=== PATIENT | female | born 1950 | race Caucasian/White ===

== ENCOUNTER 2016-05-26 19:22 | Inpatient (IN) | payer MEDICARE, BC ==
[~2016-05-26] VITALS: Ht 165.1 cm; Wt 113.8 kg
[2016-05-26] VITALS (11 sets, daily range): BP systolic 119–212; BP diastolic 62–113; PULSE 71–111; RESP 12–32; TEMP 96.1–98.4; O2SAT 80–100
--- NOTE | 2016-05-26 20:02 | PD ---
HPI . Cardiac arrest Chief Complaint: Code Blue Time Seen by Provider: 19:20 Travel History International Travel<30 days: No Contact w/Intl Traveler<30days: No Traveled to known affect area: No History of Present Illness HPI Patient is brought to us via EVAC status post cardiac arrest. History is obtained from the medic from the [facility]. Medic reports that the patient had walked out from the track to his seat when she fell and struck her head. He was immediately available to assist her and found her to be in the. She was defibrillated once to sinus tachycardia. She has had a pulse and blood pressure since that time. She struck her head when she had the syncopal event associated with the CODE BLUE. She was combative with EMS. The medic noted a left-sided gaze. The patient is from [place]. No further history is available at this time. [facility] Past Medical History Medical History: Unable to Obtain Tetanus Vaccination: Unknown ?: Unknown Past Surgical History Surgical History: Unable to Obtain Social History Alcohol Use: No (UNABLE TO OBTAIN .) Tobacco Use: No (UNABLE TO OBTAIN .) Substance Use: No (UNABLE TO OBTAIN .) Allergies-Medications (Allergen,Severity, Reaction): Coded Allergies: UNOBTAINABLE (Unverified , 05/26/16) Reported Meds & Prescriptions Reported Meds & Active Scripts Active Active Prescriptions or Reported Medications Unobtainable Review of Systems ROS Limitations: Intubated, Altered Mental Status Physical Exam Exam Limitations: Clinical Condition, Altered Mental Status Narrative GENERAL: Obese woman who is moaning incomprehensibly. She is moving all 4 extremities. She has a disconjugate gaze. She is grabbing for medical devices such as C collar and oxygen mass. SKIN: Warm and dry. HEAD: Contusion right occiput EYES: Pupils equal and 3 mm. ENT: No nasal bleeding or discharge. Mucous membranes pink and moist. NECK: Trachea midline. CARDIOVASCULAR: Regular rate and rhythm. RESPIRATORY: She does have spontaneous respirations. However, her respirations were not felt to be adequate. GASTROINTESTINAL: Abdomen soft, non-tender, nondistended. MUSCULOSKELETAL: No obvious deformities. No edema. NEUROLOGICAL: She is moving all 4 extremities equally but not purposefully. No spontaneous eye opening. Moaning verbal response. PSYCHIATRIC: Appropriate mood and affect; insight and judgment normal. Data Data Last Documented VS Vital Signs Date Time Temp Pulse Resp B/P Pulse Ox O2 Delivery O2 Flow Rate FiO2 05/26/16 20:51 82 18 119/62 100 Ventilator 05/26/16 19:55 100 Orders Complete Blood Count With Diff (05/26/16 19:37) Basic Metabolic Panel (Bmp) (05/26/16 19:37) Electrocardiogram (05/26/16 19:37) B-Type Natriuretic Peptide (05/26/16 19:37) Ckmb (Isoenzyme) Profile (05/26/16 19:37) Comprehensive Metabolic Panel (05/26/16 19:37) D-Dimer (05/26/16 19:37) Magnesium (Mg) (05/26/16 19:37) Prothrombin Time / Inr (Pt) (05/26/16 19:37) Act Partial Throm Time (Ptt) (05/26/16 19:37) Troponin I (05/26/16 19:37) Chest, Single Ap (05/26/16 19:37) Ecg Monitoring (05/26/16 19:37) Bilateral Bp Monitoring (05/26/16 19:37) Iv Access Insert/Monitor (05/26/16 19:37) Oximetry (05/26/16 19:37) Oxygen Administration (05/26/16 19:37) Ct Brain W/O Iv Contrast(Rout) (05/26/16 ) I-Stat Creatinine (05/26/16 19:37) I-Stat Profile (05/26/16 19:37) Ct Cerv Spine W/O Contrast (05/26/16 19:37) Troponin I (05/26/16 20:07) Ckmb (Isoenzyme) Profile (05/26/16 20:07) I-Stat Profile (05/26/16 20:07) I-Stat Creatinine (05/26/16 20:07) Calcium (05/26/16 20:07) Magnesium (Mg) (05/26/16 20:07) Act Partial Throm Time (Ptt) (05/26/16 20:07) B-Type Natriuretic Peptide (05/26/16 20:07) Sodium Chlor 0.9% 1000 Ml Inj (Ns 1000 M (05/26/16 20:07) Sodium Chloride 0.9% Flush (Ns Flush) (05/26/16 20:15) Nitroglycerin-Dextrose Inj (Nitroglyceri (05/26/16 20:15) Lorazepam Inj (Ativan Inj) (05/26/16 20:15) Propofol 1000 Mg/100 Ml Inj (Diprivan 10 (05/26/16 20:15) Etomidate Inj (Amidate Inj) (05/26/16 20:15) Succinylcholine Inj (Quelicin Inj) (05/26/16 20:15) Urinary Catheter Insert/Apply (05/26/16 20:09) Le-Gastric Tube Insert/Mon (05/26/16 20:09) Restraints Non-Violent YEN.Q3H (05/26/16 20:09) CKMB (05/26/16 19:37) CKMB% (05/26/16 19:37) Ct Pulmonary Angiogram (05/26/16 20:51) Labs Laboratory Tests Test 05/26/16 19:37 White Blood Count 13.9 TH/MM3 Red Blood Count 4.96 MIL/MM3 Hemoglobin 14.5 GM/DL Bedside Hemoglobin 15.3 G/DL Hematocrit 44.2 % Bedside Hematocrit 45.0 % Mean Corpuscular Volume 89.3 FL Mean Corpuscular Hemoglobin 29.3 PG Mean Corpuscular Hemoglobin 32.9 % Concent Red Cell Distribution Width 14.1 % Platelet Count 281 TH/MM3 Mean Platelet Volume 10.1 FL Neutrophils (%) (Auto) 53.3 % Lymphocytes (%) (Auto) 37.1 % Monocytes (%) (Auto) 7.2 % Eosinophils (%) (Auto) 1.7 % Basophils (%) (Auto) 0.7 % Neutrophils # (Auto) 7.4 TH/MM3 Lymphocytes # (Auto) 5.2 TH/MM3 Monocytes # (Auto) 1.0 TH/MM3 Eosinophils # (Auto) 0.2 TH/MM3 Basophils # (Auto) 0.1 TH/MM3 CBC Comment AUTO DIFF Prothrombin Time 10.9 SEC Prothromb Time International 1.0 RATIO Ratio Activated Partial 22.6 SEC Thromboplast Time D-Dimer Quantitative (PE/DVT) 6.44 MG/L FEU Bedside Sodium 144 MMOL/L Sodium Level 143 MEQ/L Bedside Potassium 4.2 MMOL/L Potassium Level 4.1 MEQ/L Bedside Chloride 111 MMOL/L Chloride Level 110 MEQ/L Carbon Dioxide Level 21.7 MEQ/L Anion Gap 11 MEQ/L Bedside Blood Urea Nitrogen 28 MG/DL Blood Urea Nitrogen 23 MG/DL Creatinine 1.17 MG/DL Bedside Creatinine 1.1 MG/DL Estimat Glomerular Filtration 46 ML/MIN Rate Bedside Glucose 149 MG/DL Random Glucose 148 MG/DL Calcium Level 8.7 MG/DL Magnesium Level 2.1 MG/DL Total Bilirubin 0.4 MG/DL Aspartate Amino Transf 220 U/L (AST/SGOT) Alanine Aminotransferase 234 U/L (ALT/SGPT) Alkaline Phosphatase 104 U/L Total Creatine Kinase 190 U/L Creatine Kinase MB 4.3 NG/ML Troponin I 0.03 NG/ML Total Protein 7.5 GM/DL Albumin 3.5 GM/DL [facility] Medical Decision Making Medical Screen Exam Complete: Yes Emergency Medical Condition: Yes Interpretation(s) EKG shows ST segment elevation in aVR with reciprocal ST segment depression in leads I, II, and V2-V6. Differential Diagnosis Differential diagnosis of altered mental status includes but is not limited to infection, electrolyte abnormality, neurological event, intoxication, ACS Narrative Course Patient presents to us s/p a cardiac arrest with successful resuscitation with a single defibrillation very shortly after arrest. She did strike her head as a result of the arrest. Therefore, she possibly has a closed head injury as well. EKG shows a STEMI. STEMI alert has been called. She has been sent to CT for emergent CT of head and neck. Critical Care Narrative Aggregate critical care time was minutes. Time to perform other separately billable procedures was not included in the critical care time. My time did not include minutes spent treating any other patients simultaneously or on activities that did not directly contribute to the patient's treatment. The services I provided to this patient were to treat and/or prevent clinically significant deterioration due to cardiac arrest and head injury. I provided critical care services requiring my management, as noted below: Chart data review, documentation time, medication orders and management, vital sign assessments/reviewing monitor data, ordering and reviewing lab tests, ordering and interpreting/reviewing x-rays and diagnostic studies, care of the patient and discussion of the patient with the admitting physicians Physician Communication Physician Communication Dr. Barker will be en route for probable cath. Dr. Wagner will see the patient for admission to CCU. Diagnosis Primary Impression: Cardiac arrest Additional Impression: Closed head injury Qualified Code: S09.90XA - Closed head injury, initial encounter Admitting Information Admitting Physician Requests: Admit Scripts Unable to Obtain Active Prescriptions or Reported Meds Condition: Critical Luz Maria Peters MD May 26, 2016 20:02
[2016-05-26 20:07] LABS: I-STAT POTASSIUM 4.2 MMOL/L (3.5-4.9)
[2016-05-26] MEDS ORDERED: SODIUM CHLOR 0.9% 1000 ML INJ 1,000 ML IV ONE (20:07)
--- NOTE | 2016-05-26 20:09 | RADRPT ---
EXAM DATE/TIME: 05/26/2016 19:37 [facility] COMPARISON: No previous studies available for comparison. INDICATIONS : Status Post Intubation, OG Tube Placement. MEDICAL HISTORY : Unobtainable. SURGICAL HISTORY : Unobtainable. ENCOUNTER: Initial ACUITY: 1 day PAIN SCORE: Non-responsive. LOCATION: Bilateral chest FINDINGS: Patient demonstrates an ET tube terminating above the deirdre nasogastric tube is midline the stomach. There is groundglass airspace disease predominating in the upper lobes consistent with infiltrates p ossibility of pulmonary vascular congestion not excludable. There is no consolidation. CONCLUSION: ET tube of the deirdre. Ground glass opacities are dominating in the upper lobes. Maximiliano Potts MD on May 26, 2016 at 20:07 Board Certified Radiologist. This report was verified electronically.
[2016-05-26 20:10] LABS: AUTOMATED NEUTROPHIL # 7.4 TH/MM3 (1.8-7.7); BASOPHIL # 0.1 TH/MM3 (0-0.2); BASOPHIL % 0.7 % (0.0-2.0); EOSINOPHIL # 0.2 TH/MM3 (0-0.4); EOSINOPHIL % 1.7 % (0.0-4.0); HEMATOCRIT 44.2 % (35.0-46.0); LYMPH % 37.1 % (9.0-44.0); LYMPHOCYTE # 5.2 TH/MM3 (1.0-4.8); MEAN CELL VOLUME 89.3 FL (80.0-100.0); MEAN CORPUSCULAR HEMOGLOBIN 29.3 PG (27.0-34.0); MEAN CORPUSCULAR HGB CONC 32.9 % (32.0-36.0); MONO % 7.2 % (0.0-8.0); NEUT % 53.3 % (16.0-70.0); PLATELET COUNT 281 TH/MM3 (150-450); RED BLOOD COUNT 4.96 MIL/MM3 (4.00-5.30); RED CELL DISTRIBUTION WIDTH 14.1 % (11.6-17.2); WHITE BLOOD COUNT 13.9 TH/MM3 (4.0-11.0)
[2016-05-26] MEDS ORDERED: ETOMIDATE 20 MG/10 ML VIAL IV PUSH ONE (20:15)
[2016-05-26] MEDS ORDERED: NITROGLYCERIN-DEXTROSE INJ 250 ML IV SCH (20:15)
[2016-05-26] MEDS ORDERED: PROPOFOL 1000 MG/100 ML BTL IV PRN (20:15)
[2016-05-26] MEDS ORDERED: SODIUM CHLORIDE 0.9% FLUSH 5 ML FLUSH IVF PRN (20:15)
[2016-05-26] MEDS ORDERED: LORazepam 2 MG/ML VIAL IV PUSH ONE (20:15)
[2016-05-26] MEDS ORDERED: SUCCINYLCHOLINE CHLORIDE 200 MG/10 ML VIAL IM ONE (20:15)
--- NOTE | 2016-05-26 20:16 | RADRPT ---
EXAM DATE/TIME: 05/26/2016 20:08 [facility] COMPARISON: CHEST SINGLE AP, May 26, 2016, 19:37. INDICATIONS : Trauma, fall from standing. RADIATION DOSE: 61.33 CTDIvol (mGy) MEDICAL HISTORY : Non-responsive. SURGICAL HISTORY : Non-responsive. ENCOUNTER: Initial ACUITY: 1 day PAIN SCALE: Non-responsive LOCATION: cranial TECHNIQUE: Multiple contiguous axial images were obtained of the head. Using automated exposure control and adj ustment of the mA and/or kV according to patient size, radiation dose was kept as low as reasonably a chievable to obtain optimal diagnostic quality images. FINDINGS: CEREBRUM: The ventricles are normal for age. No evidence of midline shift, mass lesion, hemorrhage or acute in farction. No extra-axial fluid collections are seen. POSTERIOR FOSSA: The cerebellum and brainstem are intact. The 4th ventricle is midline. The cerebellopontine angle i s unremarkable. EXTRACRANIAL: The visualized portion of the orbits is intact. Vascular calcifications internal carotids and the sip hon and vertebral is at the foramen. SKULL: The calvaria is intact. No evidence of skull fracture. CONCLUSION: Normal examination for a patient of this age. Maximiliano Potts MD on May 26, 2016 at 20:13 Board Certified Radiologist. This report was verified electronically.
[2016-05-26 20:20] LABS: HEMO FLAGS AUTO DIFF
[2016-05-26 20:28] LABS: ANION GAP 11 MEQ/L (5-15); AST (GOT) 220 U/L (15-37); BICARBONATE 21.7 MEQ/L (21.0-32.0); BLOOD UREA NITROGEN 23 MG/DL (7-18); CHLORIDE 110 MEQ/L (98-107); GLOMERULAR FILTRATION RATE 46 ML/MIN (>89); MAGNESIUM 2.1 MG/DL (1.5-2.5); POTASSIUM 4.1 MEQ/L (3.5-5.1); SODIUM (NA) 143 MEQ/L (136-145)
[2016-05-26 20:29] LABS: APTT (PATIENT) 22.6 SEC (24.3-30.1); PROTHROMBIN TIME - PATIENT 10.9 SEC (9.8-11.6)
[2016-05-26 20:32] LABS: ALKALINE PHOSPHATASE 104 U/L (45-117); ALT (GPT) 234 U/L (10-53); CREATINE KINASE 190 U/L (26-192); TOTAL BILIRUBIN ADULT 0.4 MG/DL (0.2-1.0)
--- NOTE | 2016-05-26 20:40 | RADRPT ---
EXAM DATE/TIME: 05/26/2016 20:08 [facility] COMPARISON: No previous studies available for comparison. INDICATIONS : Trauma, fall from standing. RADIATION DOSE: 25.03 CTDIvol (mGy) MEDICAL HISTORY : Non-responsive. SURGICAL HISTORY : Non-responsive. ENCOUNTER: Initial ACUITY: 1 day PAIN SCALE: Non-responsive LOCATION: neck TECHNIQUE: Volumetric scanning of the cervical spine was performed. Multiplanar reconstructions in the sagittal, coronal and oblique axial planes were performed. Using automated exposure control and adjustment o f the mA and/or kV according to patient size, radiation dose was kept as low as reasonably achievable to obtain optimal diagnostic quality images. FINDINGS: Patient demonstrates multilevel degenerative changes C3-7 there is disc space and anterior marginal s pur of an uncovertebral hypertrophy with central osteophyte disc complexes at multiple levels without neural foraminal encroachment or significant spinal stenosis. Alignment is normal without fracture, compression, subluxation, or destructive change. CONCLUSION: No acute bony injury. Extensive degenerative changes. Maximiliano Potts MD on May 26, 2016 at 20:36 Board Certified Radiologist. This report was verified electronically.
[2016-05-26 20:45] LABS: CKMB 4.3 NG/ML (0.5-3.6)
[2016-05-26 20:57] LABS: BASOPHILS 2 % (0-2); METAMYELOCYTES 1 % (0-1); MYELOCYTES 3 % (0-0); NEUTROPHIL # MANUAL DIFF 7.5 TH/MM3 (1.8-7.7); POLYS (SEG NEUTROPHILS) 50 % (16-70); WBC DIFF SAMPLE 100
[2016-05-26 20:58] LABS: PLATELET ESTIMATE SMEAR NORMAL (NORMAL); PLATELET MORPHOLOGY NORMAL (NORMAL); SCAN/DIFF FINAL DIFF MANUAL
[2016-05-26 21:13] LABS: BLOOD GAS CARBOXYHEMOGLOBIN 1.4 % (0-4); BLOOD GAS HCO3 22 mmol/L (22-26); BLOOD GAS METHEMOGLOBIN 2.1 % (0-2); BLOOD GAS O2 HGB SATURATION 96 % (90-100); BLOOD GAS OXYGEN CONTENT 19.3 Vol % (12.0-20.0); BLOOD GAS PCO2 39 mmHg (38-42); BLOOD GAS PO2 231 mmHG (61-120); CRITICAL VALUE NO; OXYGEN DEVICE VENTILATOR; TEMP CORR TO 98.6
[2016-05-26 21:14] LABS: DRAW SITE RT RADIAL; FIO2 100 %; NUMBER OF ARTERIAL PUNCTURES 1; STAT YES; ULNAR PULSE PRESENT
--- NOTE | 2016-05-26 21:14 | HHI.HP ---
HPI Service Critical Care Medicine Primary Care Physician Unknown Admission Diagnosis s/p cardiac arrest Diagnosis: Travel History International Travel<30 Days: No Contact w/Intl Traveler <30 Da: No Traveled to Known Affected Are: No History of Present Illness 66-year-old female brought via EVAC status post cardiac arrest. History is obtained from the chart. The patient had walked out from the track to her seat when she fell and struck her head. The resuscitation was immediately available as she was found to be at the V. fib arrest. She was defibrillated once to sinus tachycardia. She has had a pulse and blood pressure since that time. She was combative with EMS. The medic noted a left-sided gaze which I do not appreciate during my exam. Review of Systems ROS Unable to obtain patient is sedated and intubated Past Family Social History Allergies: Coded Allergies: UNOBTAINABLE (Unverified , 05/26/16) Past Medical History Unable to obtain patient's sedated and intubated Past Surgical History Unable to obtain patient's sedated and intubated Reported Medications Unable to obtain patient's sedated and intubated Active Ordered Medications Current Medications Medications (Trade) Dose Ordered Sig/Jules Route PRN Reason Start Time Stop Time Status Last Admin Dose Admin Sodium Chloride (NS 1000 ml Inj) 1,000 ml @ 84 mls/hr [id number] IV 05/26/16 21:08 IV Flush (NS Flush) 2 ml UNSCH PRN IV FLUSH FLUSH AFTER USING IV ACCESS 05/26/16 21:15 IV Flush (NS Flush) 2 ml BID IV FLUSH 05/27/16 09:00 Acetaminophen (Tylenol) 650 mg Q6H PRN PO PAIN 1-5 AND/OR FEVER >101F 05/26/16 21:15 Morphine Sulfate (Morphine Inj) 2 mg Q2H PRN IV PAIN SCALE 6 TO 10 05/26/16 21:15 Famotidine (Pepcid Inj) 10 mg Q12HR IV PUSH 05/27/16 09:00 Lorazepam (Ativan Inj) 2 mg Q4H PRN IV Agitation/Sedation 05/26/16 21:15 Artificial Tears (Tears Naturale Opth Soln) 1 drop TID EACH EYE 05/27/16 09:00 Ondansetron HCl (Zofran Inj) 4 mg Q6H PRN IV NAUSEA OR VOMITING 05/26/16 21:15 Metoclopramide HCl (Reglan Inj) 10 mg Q6H PRN IV NAUSEA OR VOMITING 05/26/16 21:15 Docusate Sodium (Colace Liq) 100 mg Q12HR G-TUBE 05/26/16 21:15 Miscellaneous Information 1 [id number] XX 05/26/16 21:15 Chlorhexidine Gluconate (Chlorhexidine 2% Cloth) 3 pack Taper DAILY@04 TOP 05/27/16 04:00 05/23/17 03:59 Chlorhexidine Gluconate 3 pack 3 pack UNSCH PRN TOP HYGIENIC CARE 05/26/16 21:15 Propofol (Diprivan 1000 Mg/100ml Inj) 100 ml @ 0 mls/hr TITRATE IV 05/26/16 21:15 05/26/16 22:05 Protein 2 pack 2 pack TID G-TUBE 05/27/16 09:00 Lidocaine HCl/ Dextrose (Lidocaine/D5W Inj) 500 ml @ 30 mls/hr [id number] IV 05/26/16 21:14 Aspirin (Aspirin Chew) 81 mg DAILY TUBE 05/27/16 09:00 Family History Unable to obtain patient's sedated and intubated Social History Unable to obtain patient's sedated and intubated Physical Exam Vital Signs Vital Signs Date Time Temp Pulse Resp B/P Pulse Ox O2 Delivery O2 Flow Rate FiO2 05/26/16 20:51 82 18 119/62 100 Ventilator 05/26/16 20:08 93 18 166/95 100 Ventilator 05/26/16 19:55 100 100 05/26/16 19:41 97 Ventilator 05/26/16 19:41 193/100 212/113 05/26/16 19:41 97 05/26/16 19:35 100 05/26/16 19:26 96.1 111 32 170/98 80 Physical Exam GENERAL: Well-nourished, well-developed patient. Sedated and intubated SKIN: Warm and dry. HEAD: Normocephalic. EYES: No scleral icterus. No injection or drainage. NECK: Supple, trachea midline. No JVD or lymphadenopathy. CARDIOVASCULAR: Regular rate and rhythm without murmurs, gallops, or rubs. RESPIRATORY: Breath sounds equal bilaterally. No accessory muscle use. GASTROINTESTINAL: Abdomen soft, non-tender, nondistended. MUSCULOSKELETAL: No cyanosis, or edema. BACK: Nontender without obvious deformity. No CVA tenderness. Laboratory Laboratory Tests Test 05/26/16 19:37 White Blood Count 13.9 Red Blood Count 4.96 Hemoglobin 14.5 Bedside Hemoglobin 15.3 Hematocrit 44.2 Bedside Hematocrit 45.0 Mean Corpuscular Volume 89.3 Mean Corpuscular Hemoglobin 29.3 Mean Corpuscular Hemoglobin 32.9 Concent Red Cell Distribution Width 14.1 Platelet Count 281 Mean Platelet Volume 10.1 Neutrophils (%) (Auto) 53.3 Lymphocytes (%) (Auto) 37.1 Monocytes (%) (Auto) 7.2 Eosinophils (%) (Auto) 1.7 Basophils (%) (Auto) 0.7 Neutrophils # (Auto) 7.4 Lymphocytes # (Auto) 5.2 Monocytes # (Auto) 1.0 Eosinophils # (Auto) 0.2 Basophils # (Auto) 0.1 CBC Comment AUTO DIFF Differential Total Cells 100 Counted Neutrophils % (Manual) 50 Lymphocytes % 39 Monocytes % 5 Basophils % 2 Neutrophils # (Manual) 7.5 Metamyelocytes 1 Myelocytes 3 Differential Comment FINAL DIFF MANUAL Platelet Estimate NORMAL Platelet Morphology Comment NORMAL Red Cell Morphology Comment NORMAL Prothrombin Time 10.9 Prothromb Time International 1.0 Ratio Activated Partial 22.6 Thromboplast Time D-Dimer Quantitative (PE/DVT) 6.44 Bedside Sodium 144 Sodium Level 143 Bedside Potassium 4.2 Potassium Level 4.1 Bedside Chloride 111 Chloride Level 110 Carbon Dioxide Level 21.7 Anion Gap 11 Bedside Blood Urea Nitrogen 28 Blood Urea Nitrogen 23 Creatinine 1.17 Bedside Creatinine 1.1 Estimat Glomerular Filtration 46 Rate Bedside Glucose 149 Random Glucose 148 Calcium Level 8.7 Magnesium Level 2.1 Total Bilirubin 0.4 Aspartate Amino Transf 220 (AST/SGOT) Alanine Aminotransferase 234 (ALT/SGPT) Alkaline Phosphatase 104 Total Creatine Kinase 190 Creatine Kinase MB 4.3 Troponin I 0.03 Total Protein 7.5 Albumin 3.5 Result Diagram: 05/26/16193605/26/161936 Imaging Last 24 hours Impressions Chest X-Ray 05/26/161936 Signed Impressions: Service Date/Time: May 19:37 - CONCLUSION: ET tube of the deirdre. Ground glass opacities are dominating in the upper lobes. Maximiliano Potts MD Cervical Spine CT 05/26/161936 Signed Impressions: Service Date/Time: May 20:08 - CONCLUSION: No acute bony injury. Extensive degenerative changes. Maximiliano Potts MD Head CT 05/26/16 0000 Signed Impressions: Service Date/Time: May 20:08 - CONCLUSION: Normal examination for a patient of this age. Maximiliano Potts MD Assessment and Plan Problem List: (1) Cardiac arrest ICD Code: I46.9 Status: Acute (2) Closed head injury ICD Code: S09.90XA Status: Acute (3) STEMI (ST elevation myocardial infarction) ICD Code: I21.3 Status: Acute Assessment and Plan Respiratory failure - Patient is intubated for an airway protection - Due to altered mental status post cardiac arrest - No weaning until neurologically improved Cardiac arrest - V. fib arrest - IVY -aVR suggesting severe disease of the left main coronary or proximal LAD - Heparin drip, lidocaine drip, cardiac catheterization per cardiology if neurologically improves - Not a candidate for hypothermia protocol due to GCS above 8 Dyslipidemia - High-dose statin DVT GI prophylaxis - Heparin drip, Pepcid Critical Care: The total critical care time was 35 minutes. Time to perform other separately billable procedures was not included in the critical care time. Problem Qualifiers (1) Closed head injury: Qualified Code: S09.90XA - Closed head injury, initial encounter (2) STEMI (ST elevation myocardial infarction): Qualified Code: I21.3 - ST elevation myocardial infarction (STEMI), unspecified artery Gilbert Wagner MD May 26, 2016 21:14
[2016-05-26] MEDS: DOCUSATE SODIUM 100 MG/10 ML UDC G-TUBE SCH (21:15)
[2016-05-26] MEDS ORDERED: CHLORHEXIDINE GLUCONATE 2 % 1 PACK (2 CLOTHS) TOP PRN (21:15)
[2016-05-26] MEDS ORDERED: METOCLOPRAMIDE HCL 10 MG/2 ML VIAL IV PRN (21:15)
[2016-05-26] MEDS ORDERED: ACETAMINOPHEN 325 MG TAB PO PRN (21:15)
[2016-05-26] MEDS ORDERED: MISCELLANEOUS NURSING INFORMATION XX SCH (21:15)
[2016-05-26] MEDS ORDERED: SODIUM CHLORIDE 0.9% FLUSH 5 ML FLUSH IV FLUSH PRN (21:15)
[2016-05-26] MEDS ORDERED: LORazepam 2 MG/ML VIAL IV PRN (21:15)
[2016-05-26] MEDS ORDERED: ONDANSETRON HCL 4 MG/2 ML VIAL IV PRN (21:15)
[2016-05-26] MEDS ORDERED: MORPHINE SULFATE 4 MG/ML INJ IV PRN (21:15)
[2016-05-26] MEDS: PROPOFOL 1000 MG/100 ML INJ 100 ML IV SCH (22:05)
[2016-05-26] MEDS: LIDOCAINE/D5W INJ 500 ML IV SCH (22:16)
[2016-05-26] MEDS: SODIUM CHLOR 0.9% 1000 ML INJ 1,000 ML IV SCH (22:19)
[2016-05-26 22:27] LABS: BACTERIA, URINE OCC /hpf; BLOOD, URINE TRACE (NEG); COMMENT (UR) CATH-CULTURE IND; CULTURE IF INDICATED CATH CULTURE IND; GLUCOSE,URINE NEG (NEG); HYALINE CAST, URINE 1 /lpf (RARE); KETONE, URINE TRACE mg/dL (NEG); MUCUS URINE FEW /lpf (OCC); NITRITE,URINE NEG (NEG); PH, URINE 5.5 (5.0-8.5); SQUAMOUS EPITHELIAL CELL URINE <1 /hpf (0-5); URINE COLOR YELLOW (YELLW/STRAW)
[2016-05-26 22:30] LABS: MAGNESIUM 2.1 MG/DL (1.5-2.5)
[2016-05-26] MEDS ORDERED: HEPARIN-D5W INJ 250 ML IV SCH (22:30)
[2016-05-26] MEDS ORDERED: IOHEXOL 350 MG/ML 10 ML VIAL (for RAD DIAG) IV ONE (23:29)
--- NOTE | 2016-05-26 23:42 | RADRPT ---
EXAM DATE/TIME: 05/26/2016 23:08 [facility] COMPARISON: No previous studies available for comparison. INDICATIONS : Unresponsive. Shortness of breath. IV CONTRAST: 75 cc Omnipaque 350 (iohexol) IV RADIATION DOSE: 26.06 CTDIvol (mGy) MEDICAL HISTORY : Non-responsive. SURGICAL HISTORY : Non-responsive. ENCOUNTER: Initial ACUITY: 1 day PAIN SCALE: Non-responsive LOCATION: chest TECHNIQUE: Volumetric scanning of the chest was performed using a pulmonary embolism protocol MIP images were re constructed. Using automated exposure control and adjustment of the mA and/or kV according to patien t size, radiation dose was kept as low as reasonably achievable to obtain optimal diagnostic quality images. FINDINGS: There is dense consolidation within both lower lobes greatest at the lung bases. There is patchy left upper lobe infiltrate as well as right upper lobe infiltrate posteriorly. There is no adenopathy. No pleural or pericardial effusions. NG tube in place. Endotracheal tube in place. No evidence for pulm onary embolism. There are degenerative changes of the spine seen. CONCLUSION: Bilateral pulmonary consolidation without evidence for pulmonary embolism. Miguel Styles MD on May 26, 2016 at 23:39 Board Certified Radiologist. This report was verified electronically.
[2016-05-27] VITALS (13 sets, daily range): BP systolic 113–163; BP diastolic 56–78; PULSE 55–66; RESP 16–21; TEMP 98.2–99.5; O2SAT 96–100
[2016-05-27] MEDS: CHLORHEXIDINE GLUCONATE 2 % 1 PACK (2 CLOTHS) TOP SCH (00:03)
[2016-05-27] MEDS: PROPOFOL 1000 MG/100 ML INJ 100 ML IV SCH ×9 (00:59→20:45)
[2016-05-27] MEDS ORDERED: HEPARIN SODIUM - IV 10,000 UNITS/10 ML VIAL IV PRN ×2 (04:30)
[2016-05-27 05:46] LABS: ALKALINE PHOSPHATASE 71 U/L (45-117); ANION GAP 8 MEQ/L (5-15); AST (GOT) 174 U/L (15-37); BICARBONATE 23.6 MEQ/L (21.0-32.0); BLOOD UREA NITROGEN 18 MG/DL (7-18); CHLORIDE 108 MEQ/L (98-107); POTASSIUM 4.9 MEQ/L (3.5-5.1); SODIUM (NA) 140 MEQ/L (136-145); TOTAL BILIRUBIN ADULT 0.5 MG/DL (0.2-1.0)
[2016-05-27 06:04] LABS: GLOMERULAR FILTRATION RATE 492 ML/MIN (>89)
[2016-05-27 06:14] LABS: ALT (GPT) 193 U/L (10-53)
[2016-05-27] MEDS: RESP: ALBUTEROL 2.5 MG/IPRATROPIUM 0.5 MG NEB (PRN) INH ×3 (08:08→22:55)
[2016-05-27] MEDS: ASPIRIN 81 MG CHEW TAB TUBE SCH (09:00)
[2016-05-27] MEDS: DOCUSATE SODIUM 100 MG/10 ML UDC G-TUBE SCH ×2 (09:00→21:00)
[2016-05-27] MEDS ORDERED: SODIUM CHLORIDE 0.9% FLUSH 5 ML FLUSH IV FLUSH SCH (09:00)
[2016-05-27] MEDS: BENEPROTEIN POWDER 1 PACK G-TUBE SCH ×3 (09:00→18:00)
[2016-05-27] MEDS: ARTIFICIAL TEARS OPTH SOLN 15 ML BTL EACH EYE SCH ×3 (09:00→20:04)
--- NOTE | 2016-05-27 09:04 | PD.CARD.PN ---
Subjective Subjective Remarks No events over night, no arrhythmias on telemetry Objective Medications Current Medications Medications (Trade) Dose Ordered Sig/Jules Route Start Time Stop Time Status Last Admin (NS 1000 ml Inj) 1,000 ml @ 84 mls/hr [id number] IV 05/26/16 21:08 05/26/16 22:19 (NS Flush) 2 ml UNSCH PRN IV FLUSH 05/26/16 21:15 (NS Flush) 2 ml BID IV FLUSH 05/27/16 09:00 (Tylenol) 650 mg Q6H PRN PO 05/26/16 21:15 (Morphine Inj) 2 mg Q2H PRN IV 05/26/16 21:15 (Pepcid Inj) 10 mg Q12HR IV PUSH 05/27/16 09:00 (Ativan Inj) 2 mg Q4H PRN IV 05/26/16 21:15 (Tears Naturale Opth Soln) 1 drop TID EACH EYE 05/27/16 09:00 (Zofran Inj) 4 mg Q6H PRN IV 05/26/16 21:15 (Reglan Inj) 10 mg Q6H PRN IV 05/26/16 21:15 (Colace Liq) 100 mg Q12HR G-TUBE 05/26/16 21:15 Miscellaneous Information 1 [id number] XX 05/26/16 21:15 (Chlorhexidine 2% Cloth) 3 pack Taper DAILY@04 TOP 05/27/16 04:00 05/23/17 03:59 05/27/16 00:03 Chlorhexidine Gluconate 3 pack 3 pack UNSCH PRN TOP 05/26/16 21:15 (Diprivan 1000 Mg/100ml Inj) 100 ml @ 0 mls/hr TITRATE IV 05/26/16 21:15 05/27/16 06:00 Protein 2 pack 2 pack TID G-TUBE 05/27/16 09:00 (Lidocaine/D5W Inj) 500 ml @ 30 mls/hr [id number] IV 05/26/16 21:14 05/26/16 22:16 (Aspirin Chew) 81 mg DAILY TUBE 05/27/16 09:00 (Heparin Inj) 5,000 units UNSCH PRN IV 05/27/16 04:30 Heparin Sodium (Porcine) 2500 units 2,500 units UNSCH PRN IV 05/27/16 04:30 (Heparin-D5W Inj) 250 ml @ 0 mls/hr TITRATE IV 05/26/16 22:30 05/27/16 01:00 Vital Signs / I&O Vital Signs Date Time Temp Pulse Resp B/P Pulse Ox O2 Delivery O2 Flow Rate FiO2 05/27/16 07:57 96 40 05/27/16 04:24 99 40 05/27/16 04:00 98.2 59 16 113/56 100 05/27/16 00:00 40 05/26/16 23:50 97 40 05/26/16 23:49 98.4 71 12 169/81 100 05/26/16 23:08 100 05/26/16 22:08 98 40 05/26/16 21:55 82 12 147/80 99 05/26/16 21:54 50 05/26/16 20:51 82 18 119/62 100 Ventilator 05/26/16 20:08 93 18 166/95 100 Ventilator 05/26/16 19:55 100 100 05/26/16 19:41 97 Ventilator 05/26/16 19:41 193/100 212/113 05/26/16 19:41 97 05/26/16 19:35 100 05/26/16 19:34 94 100 05/26/16 19:26 96.1 111 32 170/98 80 I/O 05/26/16 05/26/16 05/26/16 05/27/16 05/27/16 05/27/16 07:00 15:00 23:00 07:00 15:00 23:00 Intake Total 1349 ml Output Total 950 ml Balance 399 ml Intake IV Total 1349 ml Output Urine Total 600 ml Gastric Drainage Total 350 ml Physical Exam GENERAL: NAD, Sedation stopped, neurologically moving all extremities with purpose, able to follow commands SKIN: Warm and dry. HEAD: Atraumatic. Normocephalic. EYES: Pupils equal and round. No scleral icterus. No injection or drainage. ENT: No nasal bleeding or discharge. Mucous membranes pink and moist. NECK: Trachea midline. No JVD. CARDIOVASCULAR: Regular rate and rhythm. RESPIRATORY: No accessory muscle use. Decreased breath sounds bilaterally GASTROINTESTINAL: Abdomen soft, non-tender, nondistended. Hepatic and splenic margins not palpable. MUSCULOSKELETAL: Trace edema NEUROLOGICAL: Awake and alert off sedation. No obvious cranial nerve deficits. Follows commands. Laboratory Laboratory Tests Test 05/26/16 05/26/16 05/26/16 05/27/16 19:37 20:55 23:45 01:40 White Blood Count 13.9 TH/MM3 Red Blood Count 4.96 MIL/MM3 Hemoglobin 14.5 GM/DL Bedside Hemoglobin 15.3 G/DL Hematocrit 44.2 % Bedside Hematocrit 45.0 % Mean Corpuscular Volume 89.3 FL Mean Corpuscular Hemoglobin 29.3 PG Mean Corpuscular Hemoglobin 32.9 % Concent Red Cell Distribution Width 14.1 % Platelet Count 281 TH/MM3 Mean Platelet Volume 10.1 FL Neutrophils (%) (Auto) 53.3 % Lymphocytes (%) (Auto) 37.1 % Monocytes (%) (Auto) 7.2 % Eosinophils (%) (Auto) 1.7 % Basophils (%) (Auto) 0.7 % Neutrophils # (Auto) 7.4 TH/MM3 Lymphocytes # (Auto) 5.2 TH/MM3 Monocytes # (Auto) 1.0 TH/MM3 Eosinophils # (Auto) 0.2 TH/MM3 Basophils # (Auto) 0.1 TH/MM3 CBC Comment AUTO DIFF Differential Total Cells 100 Counted Neutrophils % (Manual) 50 % Lymphocytes % 39 % Monocytes % 5 % Basophils % 2 % Neutrophils # (Manual) 7.5 TH/MM3 Metamyelocytes 1 % Myelocytes 3 % Differential Comment FINAL DIFF MANUAL Platelet Estimate NORMAL Platelet Morphology Comment NORMAL Red Cell Morphology Comment NORMAL Prothrombin Time 10.9 SEC Prothromb Time International 1.0 RATIO Ratio Activated Partial 22.6 SEC Thromboplast Time D-Dimer Quantitative (PE/DVT) 6.44 MG/L FEU Bedside Sodium 144 MMOL/L Sodium Level 143 MEQ/L Bedside Potassium 4.2 MMOL/L Potassium Level 4.1 MEQ/L Bedside Chloride 111 MMOL/L Chloride Level 110 MEQ/L Carbon Dioxide Level 21.7 MEQ/L Anion Gap 11 MEQ/L Bedside Blood Urea Nitrogen 28 MG/DL Blood Urea Nitrogen 23 MG/DL Creatinine 1.17 MG/DL Bedside Creatinine 1.1 MG/DL Estimat Glomerular Filtration 46 ML/MIN Rate Bedside Glucose 149 MG/DL Random Glucose 148 MG/DL Calcium Level 8.8 MG/DL Magnesium Level 2.1 MG/DL Total Bilirubin 0.4 MG/DL Aspartate Amino Transf 220 U/L (AST/SGOT) Alanine Aminotransferase 234 U/L (ALT/SGPT) Alkaline Phosphatase 104 U/L Total Creatine Kinase 188 U/L Creatine Kinase MB 4.3 NG/ML Troponin I 0.03 NG/ML 1.75 NG/ML B-Type Natriuretic Peptide 27 PG/ML Total Protein 7.5 GM/DL Albumin 3.5 GM/DL Urine Color YELLOW Urine Turbidity HAZY Urine pH 5.5 Urine Specific [place] 1.016 Urine Protein 100 mg/dL Urine Glucose (UA) NEG mg/dL Urine Ketones TRACE mg/dL Urine Occult Blood TRACE Urine Nitrite NEG Urine Bilirubin NEG Urine Urobilinogen LESS THAN 2.0 MG/DL Urine Leukocyte Esterase NEG Urine RBC 2 /hpf Urine WBC 5 /hpf Urine Squamous Epithelial <1 /hpf Cells Urine Bacteria OCC /hpf Urine Hyaline Casts 1 /lpf Urine Mucus FEW /lpf Microscopic Urinalysis Comment CATH-CULTURE IND Blood Gas Puncture Site RT RADIAL Blood Gas Patient Temperature 98.6 Blood Gas HCO3 22 mmol/L Blood Gas Base Excess -3.0 mmol/L Blood Gas Oxygen Saturation 96 % Arterial Blood pH 7.36 Arterial Blood Partial 39 mmHg Pressure CO2 Arterial Blood Partial 231 mmHG Pressure O2 Arterial Blood Oxygen Content 19.3 Vol % Arterial Blood 1.4 % Carboxyhemoglobin Arterial Blood Methemoglobin 2.1 % Blood Gas Hemoglobin 14.0 G/DL Oxygen Delivery Device VENTILATOR Blood Gas Ventilator Setting Blood Gas Inspired Oxygen 100 % Nasal Screen MRSA (PCR) NEGATIVE Test 05/27/16 04:38 Sodium Level 140 MEQ/L Potassium Level 4.9 MEQ/L Chloride Level 108 MEQ/L Carbon Dioxide Level 23.6 MEQ/L Anion Gap 8 MEQ/L Blood Urea Nitrogen 18 MG/DL Creatinine LESS THAN 0.15 MG/DL Estimat Glomerular Filtration 492 ML/MIN Rate Random Glucose 126 MG/DL Calcium Level 8.4 MG/DL Phosphorus Level 3.0 MG/DL Magnesium Level 2.0 MG/DL Total Bilirubin 0.5 MG/DL Aspartate Amino Transf 174 U/L (AST/SGOT) Alanine Aminotransferase 193 U/L (ALT/SGPT) Alkaline Phosphatase 71 U/L Total Protein 6.2 GM/DL Albumin 3.2 GM/DL Assessment and Plan Problem List: (1) Syncope and collapse (2) NSTEMI (non-ST elevated myocardial infarction) (3) Closed head injury (4) Cardiac arrest Assessment and Plan 1) Cardiac arrest, per the medics Vfib... defibrillated once 2) Sedation stopped, neurologically intact, will place back on sedation due to roving tester laboratory today 3) Plan on cardiac cath today due to NSTEMI/Vfib arrest Discussed with her sister who is in discussion with their brother, understand risk, benefits and alternatives 4) Depending on results, will plan on discontinuing Lidocaine tomorrow, will wait to see what is found on cath Problem Qualifiers (1) Closed head injury: Qualified Code: S09.90XA - Closed head injury, initial encounter Jaxson Barker DO May 27, 2016 09:04
--- NOTE | 2016-05-27 09:46 | HHI.CCPN ---
Subjective Remarks/Hospital Course 66-year-old female brought via [facility] status post cardiac arrest. History is obtained from the chart. The patient had walked out from the track to her seat when she fell and struck her head. The resuscitation was immediately available as she was found to be at the V. fib arrest. She was defibrillated once to sinus tachycardia. She has had a pulse and blood pressure since that time. She was combative with EMS. The medic noted a left-sided gaze which I do not appreciate during my exam. SUBJ: Remains intubated sedated. ON sedation hold patient is neurologically intact able to follow commands. Troponin 1.75. D/W Dr. Barker, plan for cardiac cath at 11.30 today. Continue IV Heparin and aspirin Objective Vital Signs Date Time Temp Pulse Resp B/P Pulse Ox O2 Delivery O2 Flow Rate FiO2 05/27/16 07:57 96 40 05/27/16 04:00 98.2 59 16 113/56 05/26/16 20:51 Ventilator Result Diagram: 05/26/16193605/27/16 0438 Other Results Laboratory Tests Test 05/26/16 20:55 Blood Gas Puncture Site RT RADIAL Blood Gas Patient Temperature 98.6 Blood Gas HCO3 22 mmol/L (22-26) Blood Gas Base Excess -3.0 mmol/L (-2-2) Blood Gas Oxygen Saturation 96 % (90-100) Arterial Blood pH 7.36 (7.380-7.420) Arterial Blood Partial 39 mmHg (38-42) Pressure CO2 Arterial Blood Partial 231 mmHG Pressure O2 (61-120) Arterial Blood Oxygen Content 19.3 Vol % (12.0-20.0) Arterial Blood 1.4 % (0-4) Carboxyhemoglobin Arterial Blood Methemoglobin 2.1 % (0-2) Blood Gas Hemoglobin 14.0 G/DL (12.0-16.0) Oxygen Delivery Device VENTILATOR Blood Gas Ventilator Setting Blood Gas Inspired Oxygen 100 % Imaging Last 24 hours Impressions Chest X-Ray 05/26/161936 Signed Impressions: Service Date/Time: May 19:37 - CONCLUSION: ET tube of the deirdre. Ground glass opacities are dominating in the upper lobes. Maximiliano Potts MD Cervical Spine CT 05/26/161936 Signed Impressions: Service Date/Time: May 20:08 - CONCLUSION: No acute bony injury. Extensive degenerative changes. Maximiliano Potts MD Head CT 05/26/16 0000 Signed Impressions: Service Date/Time: May 20:08 - CONCLUSION: Normal examination for a patient of this age. Maximiliano Potts MD Objective Remarks GENERAL: Well-nourished, well-developed patient. Sedated and intubated SKIN: Warm and dry. HEAD: Normocephalic. EYES: No scleral icterus. No injection or drainage. NECK: Supple, trachea midline. No JVD or lymphadenopathy. CARDIOVASCULAR: Regular rate and rhythm without murmurs, gallops, or rubs. RESPIRATORY: Breath sounds equal bilaterally. No accessory muscle use. GASTROINTESTINAL: Abdomen soft, non-tender, nondistended. MUSCULOSKELETAL: No cyanosis, or edema. BACK: Nontender without obvious deformity. No CVA tenderness. NEURO: On sedation hold Ran[place]a basically follows commands, in all 4 extremities Urinary Catheter: Yes Assessment to: Continue A/P Problem List: (1) Cardiac arrest ICD Code: I46.9 Status: Acute (2) Closed head injury ICD Code: S09.90XA Status: Acute (3) NSTEMI (non-ST elevated myocardial infarction) ICD Code: I21.4 Status: Acute (4) Syncope and collapse ICD Code: R55 Status: Acute Assessment and Plan Neuro: -Appears to be neurologically intact status post cardiac arrest -CT head negative for any acute injury/hemorrhage -Continue c-collar Resp: Acute respiratory failure Aspiration pneumonitis - Patient is intubated for an airway protection - Due to altered mental status post cardiac arrest - Neurological status has improved, start spontaneous breathing trials after cardiac catheter CVS: Cardiac arrest NSTEMI Ventricular fibrillation - V. fib arrest, continue lidocaine infusion - IVY -aVR suggesting severe disease of the left main coronary or proximal LAD, cardiac catheter today - Heparin drip, lidocaine drip, aspirin - Not a candidate for hypothermia protocol due to GCS above 8 - Continue statin GI: Transaminitis secondary to cardiac arrest -Trend liver enzymes -Start tube feeds in 24 hours if not extubated -Pepcid for GI prophylaxis : -Monitor renal function closely. Arredondo catheter ID: Aspiration pneumonitis -Empiric Unasyn, check sputum and blood culture ENDO: -Electrolyte replacement protocol. Keep potassium more than 4, keep magnesium more than 2 DVT GI prophylaxis - Heparin drip, Pepcid Critical Care: The total critical care time was 35 minutes. Time to perform other separately billable procedures was not included in the critical care time. Problem Qualifiers (1) Closed head injury: Qualified Code: S09.90XA - Closed head injury, initial encounter Zo Covarrubias MD May 27, 2016 09:46
[2016-05-27] MEDS: AMPICILLIN-SULBACTAM INJ 3 GM in SODIUM CHLORIDE 0.9% INJ 100 ML IV SCH ×3 (10:00→21:26)
[2016-05-27] MEDS ORDERED: MAGNESIUM OXIDE 400 MG TAB PO PRN (10:15)
[2016-05-27] MEDS ORDERED: POTASSIUM CL 40 MEQ/30 ML LIQ UDC PO/TUBE PRN ×2 (10:15)
[2016-05-27] MEDS ORDERED: MAGNESIUM SULFATE INJ 2 GM in SODIUM CHLORIDE 0.9% INJ 96 ML IV PRN (10:15)
[2016-05-27] MEDS ORDERED: POTASSIUM PHOSPHATE MONOBASIC 500 MG TAB PO PRN (10:15)
[2016-05-27] MEDS ORDERED: POTASSIUM CHLOR 20 MEQ PREMIX 100 ML IV PRN (10:15)
[2016-05-27] MEDS ORDERED: POTASSIUM PHOSPHATE INJ 30 MMOL in SODIUM CHLOR 0.9% 250 ML INJ 250 ML IV PRN (10:15)
[2016-05-27] MEDS ORDERED: MAGNESIUM SULFATE INJ 4 GM in SODIUM CHLORIDE 0.9% INJ 92 ML IV PRN (10:15)
[2016-05-27] MEDS ORDERED: POTASSIUM CHLOR 40 MEQ PREMIX 100 ML IV PRN ×2 (10:15)
[2016-05-27] MEDS ORDERED: POTASSIUM PHOSPHATE MONOBASIC 500 MG TAB PO/TUBE PRN (10:15)
[2016-05-27] MEDS ORDERED: SODIUM PHOSPHATE INJ 30 MMOL in SODIUM CHLOR 0.9% 250 ML INJ 240 ML IV PRN (10:15)
[2016-05-27 10:30] LABS: AUTOMATED NEUTROPHIL # 6.8 TH/MM3 (1.8-7.7); BASOPHIL % 0.4 % (0.0-2.0); EOSINOPHIL % 0.5 % (0.0-4.0); HEMATOCRIT 40.7 % (35.0-46.0); HEMO FLAGS DIFF FINAL; LYMPH % 14.3 % (9.0-44.0); LYMPHOCYTE # 1.3 TH/MM3 (1.0-4.8); MEAN CELL VOLUME 89.1 FL (80.0-100.0); MEAN CORPUSCULAR HEMOGLOBIN 29.7 PG (27.0-34.0); MEAN CORPUSCULAR HGB CONC 33.4 % (32.0-36.0); MONO % 8.9 % (0.0-8.0); NEUT % 75.9 % (16.0-70.0); PLATELET COUNT 208 TH/MM3 (150-450); RED BLOOD COUNT 4.57 MIL/MM3 (4.00-5.30); RED CELL DISTRIBUTION WIDTH 14.3 % (11.6-17.2)
[2016-05-27 10:31] LABS: APTT (PATIENT) 41.1 SEC (24.3-30.1)
--- NOTE | 2016-05-27 11:01 | RADRPT ---
EXAM DATE/TIME: 05/27/2016 10:22 [facility] COMPARISON: CHEST SINGLE AP, May 26, 2016, 19:37. INDICATIONS : Respiratory disease. MEDICAL HISTORY : Unobtainable. SURGICAL HISTORY : Unobtainable. ENCOUNTER: Subsequent ACUITY: 2 days PAIN SCORE: Non-responsive. LOCATION: chest FINDINGS: The ET tube and NG tube remain in place. There is no pneumothorax. There is improved aeration of the lung giang compared to the prior study. There is mild bibasilar atelectasis. The heart size is stabl e. Bony structures stable. CONCLUSION: 1. No pneumothorax. 2. Improved aeration of the lung giang compared to the prior exam. 3. Mild bibasilar atelectasis. Tr Ferrell MD on May 27, 2016 at 10:59 Board Certified Radiologist. This report was verified electronically.
[2016-05-27] MEDS ORDERED: HEPARIN-NS/PF INJ 500 ML ONE ×2 (11:21→11:39)
[2016-05-27] MEDS ORDERED: HEPARIN-D5W INJ 250 ML ONE (11:57)
[2016-05-27] MEDS ORDERED: LIDOCAINE/D5W INJ 500 ML ONE (12:16)
[2016-05-27] MEDS ORDERED: IOHEXOL 350 MG/ML 100 ML BTL (for Cath Lab) OTHER ONE (12:30)
[2016-05-27] MEDS ORDERED: MISC INFORMATION XX ONE (12:45)
[2016-05-27] MEDS ORDERED: SODIUM CHLORIDE 0.9% FLUSH 5 ML FLUSH IVF PRN (12:45)
[2016-05-27] MEDS ORDERED: SODIUM CHLORIDE 0.9% FLUSH 5 ML FLUSH IV FLUSH PRN (14:15)
[2016-05-27] MEDS ORDERED: METOPROLOL TARTRATE 25 MG TAB PO SCH (14:15)
[2016-05-27] MEDS ORDERED: CHLORHEXIDINE GLUCONATE 4% SOLN 120 ML BTL TOPICAL SCH (14:15)
[2016-05-27] MEDS ORDERED: ceFAZolin 2 GM PREMIX 50 ML IV SCH (14:15)
[2016-05-27] MEDS ORDERED: PAPAVERINE INJ 60 MG, NITROGLYCERIN INJ 100 MCG, DILTIAZEM INJ 100 MG in SODIUM CHLORID... IRRIGATION SCH (14:15)
[2016-05-27] MEDS ORDERED: CEFAZOLIN INJ 500 MG in SODIUM CHLORIDE 0.9% IRR BTL 500 ML IRRIGATION SCH (14:15)
[2016-05-27] MEDS ORDERED: INSULIN REGULAR (IV INFUSION) 100 UNITS in SODIUM CHLORIDE 0.9% INJ 100 ML IV SCH (14:15)
--- NOTE | 2016-05-27 14:17 | PD.CAR.PN ---
CVT Progress Note Subjective/Hospital Course: sts discussed with family RISK SCORES About the STS Risk Calculator Procedure: CAB Only Risk of Mortality: 2.189% Morbidity or Mortality: 21.391% Long Length of Stay: 7.778% Short Length of Stay: 29.996% Permanent Stroke: 0.812% Prolonged Ventilation: 21.046% DSW Infection: 0.631% Renal Failure: 1.255% Reoperation: 6.285% Objective: Vital Signs Date Time Temp Pulse Resp B/P Pulse Ox O2 Delivery O2 Flow Rate FiO2 05/27/16 11:00 99 40 05/27/16 08:00 99.0 05/27/16 07:57 96 40 05/27/16 04:24 99 40 05/27/16 04:00 98.2 59 16 113/56 100 05/27/16 00:00 40 05/26/16 23:50 97 40 05/26/16 23:49 98.4 71 12 169/81 100 05/26/16 23:08 100 05/26/16 22:08 98 40 05/26/16 21:55 82 12 147/80 99 05/26/16 21:54 50 05/26/16 20:51 82 18 119/62 100 Ventilator 05/26/16 20:08 93 18 166/95 100 Ventilator 05/26/16 19:55 100 100 05/26/16 19:41 97 Ventilator 05/26/16 19:41 193/100 212/113 05/26/16 19:41 97 05/26/16 19:35 100 05/26/16 19:34 94 100 05/26/16 19:26 96.1 111 32 170/98 80 Labs: Laboratory Tests Test 05/27/16 05/27/16 04:38 10:05 Sodium Level 140 MEQ/L (136-145) Potassium Level 4.9 MEQ/L (3.5-5.1) Chloride Level 108 MEQ/L (98-107) Carbon Dioxide Level 23.6 MEQ/L (21.0-32.0) Anion Gap 8 MEQ/L (5-15) Blood Urea Nitrogen 18 MG/DL (7-18) Creatinine LESS THAN 0.15 MG/DL (0.50-1.00) Estimat Glomerular Filtration 492 ML/MIN Rate (>89) Random Glucose 126 MG/DL (74-106) Calcium Level 8.4 MG/DL (8.5-10.1) Phosphorus Level 3.0 MG/DL 2.9 MG/DL (2.5-4.9) (2.5-4.9) Magnesium Level 2.0 MG/DL (1.5-2.5) Total Bilirubin 0.5 MG/DL (0.2-1.0) Aspartate Amino Transf 174 U/L (15-37) (AST/SGOT) Alanine Aminotransferase 193 U/L (10-53) (ALT/SGPT) Alkaline Phosphatase 71 U/L (45-117) Total Protein 6.2 GM/DL (6.4-8.2) Albumin 3.2 GM/DL (3.4-5.0) White Blood Count 9.0 TH/MM3 (4.0-11.0) Red Blood Count 4.57 MIL/MM3 (4.00-5.30) Hemoglobin 13.6 GM/DL (11.6-15.3) Hematocrit 40.7 % (35.0-46.0) Mean Corpuscular Volume 89.1 FL (80.0-100.0) Mean Corpuscular Hemoglobin 29.7 PG (27.0-34.0) Mean Corpuscular Hemoglobin 33.4 % Concent (32.0-36.0) Red Cell Distribution Width 14.3 % (11.6-17.2) Platelet Count 208 TH/MM3 (150-450) Mean Platelet Volume 10.0 FL (7.0-11.0) Neutrophils (%) (Auto) 75.9 % (16.0-70.0) Lymphocytes (%) (Auto) 14.3 % (9.0-44.0) Monocytes (%) (Auto) 8.9 % (0.0-8.0) Eosinophils (%) (Auto) 0.5 % (0.0-4.0) Basophils (%) (Auto) 0.4 % (0.0-2.0) Neutrophils # (Auto) 6.8 TH/MM3 (1.8-7.7) Lymphocytes # (Auto) 1.3 TH/MM3 (1.0-4.8) Monocytes # (Auto) 0.8 TH/MM3 (0-0.9) Eosinophils # (Auto) 0.0 TH/MM3 (0-0.4) Basophils # (Auto) 0.0 TH/MM3 (0-0.2) CBC Comment DIFF FINAL Differential Comment Activated Partial 41.1 SEC Thromboplast Time (24.3-30.1) Troponin I 4.76 NG/ML (0.02-0.05) Result Diagram: 05/27/16 1005 05/27/16 0438 (1) Syncope and collapse (2) NSTEMI (non-ST elevated myocardial infarction) (3) Closed head injury (4) Cardiac arrest Problem Qualifiers (1) Closed head injury: Qualified Code: S09.90XA - Closed head injury, initial encounter Leigh Ann Cole May 27, 2016 14:17
[2016-05-27] MEDS: SODIUM CHLOR 0.9% 1000 ML INJ 1,000 ML IV SCH (15:15)
--- NOTE | 2016-05-27 15:41 | MB ---
cc: FARHEEN MUÑOZ MD DATE OF CONSULTATION: 05/27/2016 REASON FOR CONSULTATION: Evaluate for coronary artery bypass grafting. HISTORY OF PRESENT ILLNESS: 66-year-old female admitted 05/26/2016 primary care physician unknown brought in via [facility]. Most of the information was obtained from the medical record and also from her sister. Medic reports that the patient walked out from the track to her seat when she fell and struck her head. [facility] was immediately there to assist and found her to be in ventricular fibrillation. They placed an AED. She was defibrillated x1 with return of spontaneous circulation. Apparently after she woke up, she was combative with EMS and they had noted a possible left-sided gaze. She lives and resides in [place] part of the year and also in [place]. Per the sister, she has no cardiac history. However, she had an episode recently where she had some symptomatic bradycardia with possible underlying obstructive sleep apnea and was told she might need a pacemaker. She also had an episode recently where she had some diaphoresis and they told her she had vertigo. They did a CT of the head which was unremarkable. She was immediately intubated for airway protection. She remains intubated on the ventilator; however, earlier this morning they were able to wean her propofol off and she did open her eyes. She did apparently follow commands. Her gaze was midline. She moved all extremities. She still has a cervical collar in place. She was ruled in for a NSTEMI; initially it was a STEMI but then found to have a NSTEMI. She did have a troponin leak. She underwent cardiac cath today by Dr. Barker, which showed an ejection fraction of 45%, left main distal disease of 90%, proximal left anterior descending of 20% and mid to distal left anterior descending 40%, diagonal 20%, circumflex 20%, the obtuse marginal was 30%, the right coronary artery was small at 50%. They placed an intraaortic balloon pump into the right groin for left main disease. She remains intubated and then was transferred back to the critical care unit. We were consulted to evaluate for coronary artery bypass grafting. Further information was obtained from the sister. PAST MEDICAL HISTORY: Her past medical history includes: 1. Chronic back pain. She takes NSAIDs for pain. She refuses to take narcotics. 2. She has had some mild asthma in the past. 3. She has had bilateral hip replacements. HOME MEDICATIONS: No documented home medications. FAMILY HISTORY: Mother at 78 from lung cancer, [id number]. Father from dementia at 82 with Lewy bodies. SOCIAL HISTORY: The patient lives alone. No tobacco. Rare alcohol. 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 REVIEW OF SYSTEMS: Unobtainable. PHYSICAL EXAMINATION: VITAL SIGNS: On exam, blood pressure 113/60, heart rate of 60. She is on 40% FIO2. Temperature max 99. GENERAL: Patient is sedated on the ventilator orally intubated. She has an OG tube in place. She has a [place] collar also in place. HEAD, EYES, EARS, NOSE, THROAT: Pupils are approximately 2 mm midline, equal, sluggish. NECK: The neck is supple. No jugular venous distention. HEART: Heart sounds S1, S2, regular rate and rhythm. No rubs, murmurs, gallops. LUNGS: A few coarse breath sounds upper chest wall, otherwise clear to auscultation. Trachea is midline. ABDOMEN: Abdomen is soft, obese, and nontender. OG tube in place with some brownish / light tannish drainage. EXTREMITIES: No obvious deformity. NEUROLOGIC: She is currently back on sedation. Prior to that, she did follow some commands. She has Arredondo catheter in place. She now has a right groin intraaortic balloon pump with a venous sheath and she has faint but palpable pulses in her lower extremities and both feet are however on the cooler side. LABORATORY DATA: Her lab work shows hemoglobin 13, hematocrit of 40, white cell count of 9 from 13.9, platelet count of 208,000. Sodium 140, potassium 4.9, BUN of 18, creatinine 0.15, glucose 127, AST 174, ALT 193. Troponin elevated at 4.76. Phos level 2.9. Mag level 2.0. INR showed a D dimer of 6.44; her INR 1.0. MRSA negative. Micro shows some few gram-negative rods in the urine. CURRENT ANTIBIOTICS: 1. Unasyn. IMAGING STUDIES: Further radiological exams: She had a CTA that ruled out for pulmonary emboli. Cervical spine shows some degenerative changes C3-7. She has a disc space and anterior marginal spur with uncovertebral hypertrophy. Alignment is normal without fracture, compression, subluxation or destructive change. However, she does have extensive degenerative changes. EKGS: EKG shows sinus rhythm with S-T elevation aVr, reciprocal changes in anterior and lateral leads. IMPRESSION: 1. Status post ventricular fibrillation arrest. Abnormal EKG with positive troponin leak. Post catheterization with 90% left main disease, ejection fraction of 45%, intraaortic balloon pump placed to protect the left main. At this time, Dr. Muñoz reviewed all the films, spoke directly to the sister and is agreeable for emergent surgery in the a.m. In the meantime, we will obtain carotid ultrasound, leg vein mapping, type and cross. 2. The patient did have a syncopal episode; however, CT head was negative. She did follow commands earlier this morning. 3. She has some bilateral infiltrates upper lobe concerning for possible aspiration and on antibiotics at this time. Critical care following. Will continue to keep the patient intubated on the ventilator until after surgery. The patient is critically ill. Will continue to follow and again, as planned, surgery in the a.m. for coronary artery bypass grafting x2 with endovascular harvesting. Dictated by GALLO Brooks. Farheen DURAN/KATELIN /2:21 PM /3:39 PM
--- NOTE | 2016-05-27 16:04 | RADRPT ---
EXAM DATE/TIME: 05/27/2016 14:48 [facility] COMPARISON: No previous studies available for comparison. INDICATIONS : Pre op cardiac surgery. MEDICAL HISTORY : Myocardial infarction. Syncope. Closed head injury. Altered mental status. SURGICAL HISTORY : Heart cath. Unable to obtain full history. ENCOUNTER: Initial ACUITY: 1 day PAIN SCORE: Non-responsive LOCATION: Bilateral legs. TECHNIQUE: Venous ultrasound of the left and right leg was performed from the inguinal ligament to the proximal calf. Real-time, color Doppler and spectral tracing, compression and augmentation techniques were us ed. FINDINGS: RIGHT LEG: Limited visualization of the right lower extremity since patient has an aortic balloon pump in place. Only vessels visualized were the popliteal vein, peroneal vein and posterior tibial vein which are a ll patent. We were unable to visualize any thing above the knee.. The visualized portions of the saph enous vein are patent. LEFT LEG: There is normal compressibility of the deep venous system from the inguinal region to the proximal ca lf. No echogenic clot is seen in the lumen of the common femoral, femoral, popliteal, and posterior tibial veins. There is a normal response of the venous system to proximal and distal augmentation an d respiration. CONCLUSION: Limited study. No evidence of DVT of the vessels imaged. Tr Ferrell MD on May 27, 2016 at 16:00 Board Certified Radiologist. This report was verified electronically.
--- NOTE | 2016-05-27 16:06 | RADRPT ---
EXAM DATE/TIME: 05/27/2016 14:59 [facility] COMPARISON: No previous studies available for comparison. INDICATIONS : Pre op cardiac surgery. MEDICAL HISTORY : Myocardial infarction. Syncope. Closed head injury. Altered mental status. SURGICAL HISTORY : Heart cath. Unable to obtain full history. ENCOUNTER: Initial ACUITY: 1 day PAIN SCORE: Non-responsive LOCATION: Bilateral legs. GREATER SAPHENOUS VEIN THIGH: PROXIMAL: Right Non-visualized Left 3 mm MID: Right Non-visualized Left Thrombosed DISTAL: Right Non-visualized Left Non-visualized CALF: PROXIMAL: Right Thrombosed Left Non-visualized MID: Right Thrombosed Left Thrombosed DISTAL: Right Thrombosed Left 1 mm FINDINGS: The venous system of the lower extremities are patent by color Doppler imaging. Measurements of the leg veins (in mm) are listed above. CONCLUSION: Venous mapping as above. Tr Ferrell MD on May 27, 2016 at 16:04 Board Certified Radiologist. This report was verified electronically.
[2016-05-27 16:24] LABS: HEMOGLOBIN A1a 1.3 %; HEMOGLOBIN Ao 84.5 %; HEMOGLOBIN LA1C 2.4 %
--- NOTE | 2016-05-27 17:06 | EKG ---
Date Performed: 05/26/2016 Time Performed: 19:38:14 PTAGE: 66 years EKG: REGULAR SUPRAVENTRICULAR TACHYCARDIA BORDERLINE LEFT AXIS DEVIATION ST ELEVATION IN AVR WIT H MARKED ANTEROLATERAL ST DEPRESSION, CONCERNING FOR ACUTE UT CLINICAL CORRELATION RECOMMENDED ABNORM AL ECG NO PREVIOUS TRACING DOCTOR: Wilda Salguero Interpretating Date/Time 05/27/2016 17:05:39
--- NOTE | 2016-05-27 18:08 | RADRPT ---
EXAM DATE/TIME: 05/27/2016 17:24 [facility] COMPARISON: No previous studies available for comparison. INDICATIONS : Pre op cardiac surgery. MEDICAL HISTORY : Myocardial infarction. Syncope. Closed head injury. Altered mental status. SURGICAL HISTORY : Heart cath. Unable to obtain full history. ENCOUNTER: Initial ACUITY: 1 day PAIN SCORE: Nonresponsive. LOCATION: Bilateral neck PEAK SYSTOLIC VELOCITIES (cm/sec): ICA/CCA RATIO: Right: 3.3 Left: 0.4 ICA: Right: 277 Left: 70 CCA: Right: 85 Left: 173 ECA: Right: 142 Left: 151 VERTEBRAL: Right: 14 antegrade Left: 80 antegrade Elevated flow velocities and ICA/CCA ratios have been found to correlate with increased degrees of vessel stenosis, calculated as percentage of diameter relative to a normal segment of distal ICA/CCA FINDINGS: RIGHT CAROTID: There is moderate to severe plaque of the bulb and proximal internal carotid artery. LEFT CAROTID: There is trace plaque of the bulb and proximal internal carotid artery. VERTEBRAL ARTERIES: Antegrade flow is seen in both vertebral arteries. MISCELLANEOUS: None. CONCLUSION: There is right greater than left bifurcation atherosclerotic plaque. There is hemodynamically signifi cant narrowing of the proximal to mid right ICA. Satish Wolf MD on May 27, 2016 at 18:05 Board Certified Radiologist. This report was verified electronically.
--- NOTE | 2016-05-27 19:00 | EC ---
Study Study Date:05/27/2016 STUDY CONCLUSIONS SUMMARY LEFT VENTRICLE: The cavity size was normal. Wall thickness was normal. Systolic function was mildly to moderately reduced. The estimated ejection fraction was in the range of 40% to 45%. Wall motion was normal; there were no regional wall motion abnormalities. If LV function is below 40, please consider prescribing an ACEI or ARB or document rationale for non-use. PROCEDURE DATA STUDY STATUS: Elective. Procedure: Transthoracic echocardiography. Image quality was poor. Scanning was performed from the parasternal, apical, and subcostal acoustic windows. Study completion: The patient tolerated the procedure well. Transthoracic echocardiography. M-mode, complete 2D, complete spectral Doppler, and color Doppler. Patient status: Inpatient. CARDIAC ANATOMY LEFT VENTRICLE: The cavity size was normal. Wall thickness was normal. Systolic function was mildly to moderately reduced. The estimated ejection fraction was in the range of 40% to 45%. Wall motion was normal; there were no regional wall motion abnormalities. AORTIC VALVE: Trileaflet; mildly thickened, mildly calcified leaflets. Doppler: Transvalvular velocity was within the normal range. There was no stenosis. No regurgitation. AORTA: Aortic root: The aortic root was normal in size. MITRAL VALVE: Structurally normal valve. Doppler: Transvalvular velocity was within the normal range. There was no evidence for stenosis. No regurgitation. LEFT ATRIUM: The atrium was normal in size. RIGHT VENTRICLE: The cavity size was normal. Wall thickness was normal. PULMONIC VALVE: Doppler: Transvalvular velocity was within the normal range. There was no evidence for stenosis. No regurgitation. TRICUSPID VALVE: Structurally normal valve. Doppler: Transvalvular velocity was within the normal range. No regurgitation. PULMONARY ARTERY: The main pulmonary artery was normal-sized. Systolic pressure was within the normal range. RIGHT ATRIUM: The atrium was normal in size. PERICARDIUM: There was no pericardial effusion. SYSTEMIC VEINS: Inferior vena cava: The vessel was normal in size. Prepared and signed by Marcelo Quiñones [id number]
[2016-05-27] MEDS: SODIUM CHLORIDE 0.9% FLUSH 5 ML FLUSH IV FLUSH SCH (20:04)
[2016-05-27] MEDS: METOPROLOL TARTRATE 25 MG TAB PO SCH (20:04)
[2016-05-27] MEDS: FAMOTIDINE 20 MG/2 ML VIAL IV PUSH SCH (20:05)
[2016-05-27] MEDS ORDERED: SODIUM CHLORIDE 0.9% FLUSH 5 ML FLUSH IVF SCH (21:00)
[2016-05-27 21:05] LABS: APTT (PATIENT) 30.1 SEC (24.3-30.1)
[2016-05-28] VITALS (21 sets, daily range): BP systolic 96–170; BP diastolic 51–84; PULSE 54–70; RESP 12–16; TEMP 97–99.5; O2SAT 95–100
[2016-05-28] MEDS: PROPOFOL 1000 MG/100 ML INJ 100 ML IV SCH ×3 (01:11→18:15)
[2016-05-28] MEDS: AMPICILLIN-SULBACTAM INJ 3 GM in SODIUM CHLORIDE 0.9% INJ 100 ML IV SCH ×4 (03:37→21:56)
[2016-05-28] MEDS: CHLORHEXIDINE GLUCONATE 2 % 1 PACK (2 CLOTHS) TOP SCH (04:00)
[2016-05-28 04:33] LABS: AUTOMATED NEUTROPHIL # 5.1 TH/MM3 (1.8-7.7); BASOPHIL % 0.5 % (0.0-2.0); EOSINOPHIL # 0.2 TH/MM3 (0-0.4); EOSINOPHIL % 2.1 % (0.0-4.0); HEMATOCRIT 35.9 % (35.0-46.0); HEMO FLAGS DIFF FINAL; LYMPH % 22.3 % (9.0-44.0); LYMPHOCYTE # 1.9 TH/MM3 (1.0-4.8); MEAN CELL VOLUME 90.9 FL (80.0-100.0); MEAN CORPUSCULAR HEMOGLOBIN 29.6 PG (27.0-34.0); MEAN CORPUSCULAR HGB CONC 32.6 % (32.0-36.0); MONO % 15.4 % (0.0-8.0); NEUT % 59.7 % (16.0-70.0); PLATELET COUNT 139 TH/MM3 (150-450); RED BLOOD COUNT 3.95 MIL/MM3 (4.00-5.30); RED CELL DISTRIBUTION WIDTH 14.4 % (11.6-17.2); WHITE BLOOD COUNT 8.6 TH/MM3 (4.0-11.0)
[2016-05-28 04:55] LABS: ALKALINE PHOSPHATASE 62 U/L (45-117); ALT (GPT) 130 U/L (10-53); ANION GAP 15 MEQ/L (5-15); AST (GOT) 87 U/L (15-37); BICARBONATE 22.4 MEQ/L (21.0-32.0); BLOOD UREA NITROGEN 11 MG/DL (7-18); CHLORIDE 99 MEQ/L (98-107); GLOMERULAR FILTRATION RATE 69 ML/MIN (>89); MAGNESIUM 1.9 MG/DL (1.5-2.5); SODIUM (NA) 136 MEQ/L (136-145); TOTAL BILIRUBIN ADULT 0.5 MG/DL (0.2-1.0)
[2016-05-28] MEDS ORDERED: VECURONIUM BROMIDE 10 MG VIAL IV ONE (05:00)
[2016-05-28] MEDS ORDERED: DEXMEDETOMIDINE INJ 50 ML IV ONE (05:00)
[2016-05-28] MEDS ORDERED: PROPOFOL 1000 MG/100 ML INJ 100 ML IV ONE (05:00)
[2016-05-28] MEDS ORDERED: MAGNESIUM SULFATE 1000 MG/2 ML VIAL (PED) IV ONE (05:00)
[2016-05-28] MEDS ORDERED: NITROGLYCERIN-DEXTROSE INJ 250 ML IV ONE (05:00)
[2016-05-28] MEDS ORDERED: PROTAMINE SULFATE 250 MG/25 ML VIAL IV ONE ×2 (05:00→13:11)
[2016-05-28] MEDS ORDERED: AMINOCAPROIC ACID INJ 250 MG/ML 20 ML VIAL IV ONE (05:00)
[2016-05-28] MEDS ORDERED: HEPARIN SODIUM - SQ 10,000 UNITS/ML VIAL SQ ONE (05:00)
[2016-05-28] MEDS ORDERED: LIDOCAINE HCL 2% 100 MG/5 ML SYRINGE IV PUSH ONE (05:00)
[2016-05-28] MEDS ORDERED: ACETAMINOPHEN 1000 MG/100 ML VIAL IV ONE (05:00)
[2016-05-28 05:01] LABS: POTASSIUM 3.3 MEQ/L (3.5-5.1)
[2016-05-28] MEDS: SODIUM CHLOR 0.9% 1000 ML INJ 1,000 ML IV SCH ×4 (05:30→10:55)
[2016-05-28] MEDS: RESP: ALBUTEROL 2.5 MG/IPRATROPIUM 0.5 MG NEB (PRN) INH (05:38)
[2016-05-28] MEDS ORDERED: HEPARIN SODIUM - IV 10,000 UNITS/10 ML VIAL ONE (06:15)
[2016-05-28] MEDS: HEPARIN SODIUM - SQ 10,000 UNITS/ML VIAL ONE ×2 (06:16→07:30)
[2016-05-28] MEDS: VANCOMYCIN HCL 1000 MG VIAL ONE ×2 (06:16→07:30)
[2016-05-28] MEDS: LIDOCAINE/D5W INJ 500 ML IV SCH ×4 (06:18→10:55)
[2016-05-28 06:52] LABS: APTT (PATIENT) 26.3 SEC (24.3-30.1)
--- NOTE | 2016-05-28 07:10 | HHI.CCPN ---
Subjective Remarks/Hospital Course 66-year-old female brought via EVAC status post cardiac arrest. History is obtained from the chart. The patient had walked out from the track to her seat when she fell and struck her head. The resuscitation was immediately available as she was found to be at the V. fib arrest. She was defibrillated once to sinus tachycardia. She has had a pulse and blood pressure since that time. She was combative with EMS. The medic noted a left-sided gaze which I do not appreciate during my exam. SUBJ 05/27: Remains intubated sedated. ON sedation hold patient is neurologically intact able to follow commands. Troponin 1.75. D/W Dr. Barker , plan for cardiac cath at 11.30 today. Continue IV Heparin and aspirin SUBJ 05/28: Patient remains intubated sedated. Underwent cardiac catheterization yesterday by Dr. Barker, which showed an ejection fraction of 45%, left main distal disease of 90%, intraaortic balloon pump into the right groin for left main disease. Dr. Mchugh was consulted and plan is for CABG today. Heparin held since 4 AM. Being continued on lidocaine. (CMP showed glucose 385-this is probably error, immediate Accucheck showed 103) Objective Vital Signs Date Time Temp Pulse Resp B/P Pulse Ox O2 Delivery O2 Flow Rate FiO2 05/28/16 06:00 177/80 05/28/16 04:25 99 40 05/28/16 04:00 54 05/28/16 00:00 99.5 15 05/26/16 20:51 Ventilator Intake and Output 05/27/16 05/27/16 05/28/16 08:00 16:00 00:00 Intake Total 1349 ml 1177 ml 175 ml Output Total 950 ml 325 ml 400 ml Balance 399 ml 852 ml -225 ml Result Diagram: 05/28/16 0320 05/28/16 0320 Imaging Last 24 hours Impressions Chest X-Ray 05/26/161936 Signed Impressions: Service Date/Time: May 19:37 - CONCLUSION: ET tube of the deirdre. Ground glass opacities are dominating in the upper lobes. Maximiliano Potts MD Cervical Spine CT 05/26/161936 Signed Impressions: Service Date/Time: May 20:08 - CONCLUSION: No acute bony injury. Extensive degenerative changes. Maximiliano Potts MD Head CT 05/26/16 0000 Signed Impressions: Service Date/Time: May 20:08 - CONCLUSION: Normal examination for a patient of this age. Maximiliano Potts MD Objective Remarks GENERAL: Well-nourished, well-developed patient. Sedated and intubated SKIN: Warm and dry. HEAD: Normocephalic. EYES: No scleral icterus. No injection or drainage. NECK: Supple, trachea midline. No JVD or lymphadenopathy. CARDIOVASCULAR: Regular rate and rhythm without murmurs, gallops, or rubs. RESPIRATORY: Breath sounds equal bilaterally. No accessory muscle use. GASTROINTESTINAL: Abdomen soft, non-tender, nondistended. MUSCULOSKELETAL: No cyanosis, or edema. R groin IABP with good augmentation BACK: Nontender without obvious deformity. No CVA tenderness. NEURO: On brief sedation hold patient wakes up gets agitated, opens eyes to commands moves all extremities. ANANTH. (Because of IABP in place and cannot hold sedation for long duration, yesterday patient was following command on all 4 extremities) A/P Problem List: (1) NSTEMI (non-ST elevated myocardial infarction) ICD Code: I21.4 Status: Acute (2) Cardiac arrest ICD Code: I46.9 Status: Acute (3) Closed head injury ICD Code: S09.90XA Status: Acute (4) Syncope and collapse ICD Code: R55 Status: Acute Assessment and Plan Neuro: -Neurologically intact status post V FIB cardiac arrest -CT head negative for any acute injury/hemorrhage -Continue c-collar Resp: Acute respiratory failure Aspiration pneumonitis - Patient was intubated for an airway protection. Leave intubated for CABG today. - Spontaneous breathing trials after CABG if criteria met CVS: Cardiac arrest NSTEMI Ventricular fibrillation CAD with L main disease - V. fib arrest, continue lidocaine infusion - Cardiac catheterization to 21/07/[address] Barker showed 90% left main disease, IABP inserted - Plan for CABG today by Dr. Mchugh - Heparin drip, lidocaine drip, aspirin, metoprolol. Post CABG discontinue lidocaine. Currently on hold for surgery - Resume statin when LFT improved , monitor LFT GI: Transaminitis secondary to cardiac arrest -Trend liver enzymes -Nothing by mouth for CABG -Pepcid for GI prophylaxis : -Monitor renal function closely. Arredondo catheter ID: Aspiration pneumonitis UTI -Empiric Unasyn, F/u sputum and blood culture. Urine culture GNR ENDO: -Electrolyte replacement protocol. Keep potassium more than 4, keep magnesium more than 2 DVT GI prophylaxis - Heparin drip, Pepcid Critical Care: The total critical care time was 32 minutes. Time to perform other separately billable procedures was not included in the critical care time. Problem Qualifiers (1) Closed head injury: Qualified Code: S09.90XA - Closed head injury, initial encounter Zo Covarrubias MD May 28, 2016 07:10
--- NOTE | 2016-05-28 07:17 | RADRPT ---
EXAM DATE/TIME: 05/28/2016 06:47 [facility] COMPARISON: CHEST SINGLE AP, May 27, 2016, 10:22. INDICATIONS : Shortness of breath, possible pulmonary disease. MEDICAL HISTORY : None. SURGICAL HISTORY : None. ENCOUNTER: Subsequent ACUITY: 3 days PAIN SCORE: Non-responsive. LOCATION: Bilateral chest FINDINGS: Endotracheal tube and nasogastric tube remain in place. Lung volumes are low. Opacity unchanged at th e left lung base. There is new mild patchy parenchymal opacity in the right upper lung zone. No evide nce of pleural effusion or pneumothorax. Cardiomediastinal silhouette unchanged. CONCLUSION: Low lung volumes again seen. Mild patchy opacity in the right upper lung zone likely represent atelec tasis. Left basilar opacity unchanged. Valentin Garcia MD on May 28, 2016 at 7:12 Board Certified Radiologist. This report was verified electronically.
[2016-05-28] MEDS ORDERED: POTASSIUM CHLORIDE 20 MEQ/10 ML VIAL ONE (07:22)
[2016-05-28] MEDS: METOPROLOL TARTRATE 25 MG TAB PO SCH ×2 (09:00→22:00)
[2016-05-28] MEDS: DOCUSATE SODIUM 100 MG/10 ML UDC G-TUBE SCH ×2 (09:00→21:56)
[2016-05-28] MEDS: SODIUM CHLORIDE 0.9% FLUSH 5 ML FLUSH IV FLUSH SCH ×2 (09:00→21:59)
[2016-05-28] MEDS: ASPIRIN 81 MG CHEW TAB TUBE SCH (09:00)
[2016-05-28] MEDS: BENEPROTEIN POWDER 1 PACK G-TUBE SCH ×3 (09:00→17:41)
[2016-05-28] MEDS: FAMOTIDINE 20 MG/2 ML VIAL IV PUSH SCH ×2 (09:00→21:59)
[2016-05-28] MEDS: ARTIFICIAL TEARS OPTH SOLN 15 ML BTL EACH EYE SCH ×3 (09:00→17:41)
[2016-05-28] MEDS ORDERED: ALBUMIN HUMAN 5% 12.5 GM/250 ML BOTTLE IV ONE (09:37)
[2016-05-28] MEDS ORDERED: LACTATED RINGER'S 1000 ML INJ 500 ML IV PRN (11:08)
[2016-05-28] MEDS: DOBUTamine PREMIX DRIP 250 ML IV SCH (11:08)
[2016-05-28] MEDS ORDERED: PROPOFOL 1000 MG/100 ML INJ 100 ML IV SCH (11:15)
[2016-05-28] MEDS ORDERED: Post-op Orders (for Pharmacy) MISC OTHER ONE (11:15)
[2016-05-28] MEDS ORDERED: MEPERIDINE HCL 25 MG/ML VIAL IV PRN (11:15)
[2016-05-28] MEDS ORDERED: MAGNESIUM SULFATE INJ 2 GM in SODIUM CHLORIDE 0.9% INJ 100 ML IV PRN ×4 (11:15)
[2016-05-28] MEDS ORDERED: INSULIN REGULAR (IV INFUSION) 100 UNITS in SODIUM CHLORIDE 0.9% INJ 99 ML IV SCH (11:15)
[2016-05-28] MEDS ORDERED: NITROGLYCERIN-DEXTROSE INJ 250 ML IV SCH (11:15)
[2016-05-28] MEDS ORDERED: CALCIUM CHLORIDE INJ 1 GM in SODIUM CHLORIDE 0.9% INJ 100 ML IV PRN (11:15)
[2016-05-28] MEDS ORDERED: SODIUM CHLORIDE 0.9% FLUSH 5 ML FLUSH IV FLUSH PRN (11:15)
[2016-05-28] MEDS ORDERED: CALCIUM CHLORIDE 10% 1 GRAM/10 ML VIAL IV PRN (11:15)
[2016-05-28] MEDS ORDERED: DEXTROSE 50% IN WATER 50 ML VIAL(D50) IV PUSH PRN (11:15)
[2016-05-28] MEDS ORDERED: ONDANSETRON HCL 4 MG/2 ML VIAL IV PUSH PRN (11:15)
[2016-05-28] MEDS ORDERED: ALBUMIN HUMAN 5% 12.5 GM/250 ML BOTTLE IV PRN (11:15)
[2016-05-28] MEDS ORDERED: POTASSIUM CHLORIDE 20 MEQ CONTROLLED RELEASE TAB PO PRN ×2 (11:15)
[2016-05-28] MEDS ORDERED: DOPamine INJ PREMIX 500 ML IV SCH (11:15)
[2016-05-28] MEDS ORDERED: MORPHINE SULFATE 4 MG/ML INJ IV PRN (11:15)
[2016-05-28] MEDS ORDERED: ACETAMINOPHEN 650 MG SUPP RECTAL PRN (11:15)
[2016-05-28] MEDS ORDERED: PHENYLEPHRINE INJ 40 MG in DEXTROSE 5% IN WATE 500 ML INJ 496 ML IV SCH ×2 (11:15)
[2016-05-28] MEDS ORDERED: ACETAMINOPHEN 325 MG TAB PO PRN (11:15)
[2016-05-28] MEDS ORDERED: DEXMEDETOMIDINE INJ 50 ML IV SCH ×2 (11:15→13:45)
[2016-05-28] MEDS ORDERED: hydrALAZINE HCL 20 MG/ML VIAL IV PRN (11:15)
[2016-05-28] MEDS ORDERED: EPINEPHrine (1:1000) INJ 4 MG in DEXTROSE 5% IN WATER INJ 246 ML IV SCH ×2 (11:15)
[2016-05-28] MEDS ORDERED: METOPROLOL TARTRATE 5 MG/5 ML VIAL IV PUSH PRN (11:15)
[2016-05-28] MEDS ORDERED: POTASSIUM CHLOR 20 MEQ PREMIX 100 ML IV PRN ×3 (11:15)
[2016-05-28] MEDS ORDERED: CLEVIDIPINE INJ 50 ML IV SCH (11:15)
--- NOTE | 2016-05-28 11:19 | PD.OP ---
cc: Jasson Mchugh MD; Jaxson Barker DO Operative Report Date of Surgery: May 28, 2016 Preoperative Diagnosis: Postoperative Diagnosis: Procedure: 1. Urgent Off-pump Coronary Artery Bypass Grafting x 2 with left internal mammary artery (RODRIGES) to left anterior descending (LAD), reverse saphenous vein graft to OM1 2. Left Leg Endoscopic Vein [place] 3. Intraoperative Vein Mapping. . Surgeon: Jasson Mchugh Audio Production Manager(s): Yasemin Darby Operation and Findings: PREPROCEDURE DIAGNOSES 1. Critical Left Main Coronary Artery Disease. 2. IABP Circulatory Support 3. Ventricular Fibrillation Cardiac Arrest 4. Morbid Obesity 5. Respiratory Failure 6. Acute Myocardial Infarction POSTPROCEDURE DIAGNOSES Same SURGICAL PROCEDURE 1. Urgent Off-pump Coronary Artery Bypass Grafting x 2 with left internal mammary artery (RODRIGES) to left anterior descending (LAD), reverse saphenous vein graft to OM1 2. Left Leg Endoscopic Vein [place] 3. Intraoperative Vein Mapping. SURGEON Jasson Mchugh MD PRINCIPAL CONSULTING ENGINEER SUSANNA Young ANESTHESIA General endotracheal . SLACKMAN MADELEINE Nava MD PREPARATION ChloraPrep. COUNTS Needle, sponge, and instrument counts were correct. DRAINS Two 32-[place] mediastinal tubes. COMPLICATIONS None. INDICATIONS FOR PROCEDURE The patient is a 66-year-old presenting with v-fib cardiac arrest. Patient was noted to have critical left main coronary artery disease. The patient is being brought to the operating room for surgical revascularization therapy. PROCEDURE Patient was brought to the operating room and placed supine on the OR table. Following the induction of adequate general endotracheal anesthesia and placement of appropriate monitoring devices, intraoperative vein mapping was performed which revealed poor-caliber conduit in the left lower extremity and non-usable vein in the RLE. The patient was then prepped and draped in standard sterile fashion. Next, 2500 units of intravenous heparin was given. The left greater saphenous vein was harvested endoscopically. This appeared to be a small but useable-caliber conduit. Simultaneously, a median sternotomy was performed and the left internal mammary artery dissected free off the posterior sternal table. The patient was systemically heparinized and anticoagulation monitored by serial ACT measurements. The internal mammary artery had good pulsatile flow in it and was an excellent-caliber conduit. The pericardium was then divided in the midline, the cradle created and targets analyzed. At this point, all anastomoses were performed in a beating-heart fashion using the Maquet stabilizing system. The left internal mammary artery was anastomosed to the mid LAD (1.75 mm) in an end-to-side fashion using 7-0 Prolene. Segment of saphenous vein graft was then anastomosed to the OM1 (1.5 mm) in an end-to-side fashion using 7-0 Prolene. The proximal anastomosis was then constructed to the ascending aorta in a running manner using 6-0 Prolene. All anastomotic sites were inspected and appeared to be hemostatic and patent. Protamine solution was given. Strict hemostasis was assured. The closure was undertaken. 2 chest tubes were placed. The pericardium was reapproximated in the midline. The sternum was approximated using sternal wires. The muscular and fascial layer were then closed in 3 layers. The endoscopic vein harvest site was closed in 2 layers. The patient tolerated the procedure well and was transferred to CVICU in stable condition. Jasson Mchugh MD May 28, 2016 11:19
[2016-05-28] MEDS ORDERED: fentaNYL CITRATE 1000 MCG/20 ML VIAL ONE (11:58)
[2016-05-28] MEDS ORDERED: MIDAZOLAM HCL 5 MG/5 ML VIAL ONE (11:58)
[2016-05-28] MEDS: ACETAMINOPHEN 1000 MG/100 ML VIAL IV SCH ×2 (12:07→17:35)
--- NOTE | 2016-05-28 12:43 | MA ---
cc: JAXSON FORD DO DATE: May 27, 2016 PROCEDURE Left heart catheterization, coronary angiogram, intra-aortic balloon pump placement. PREPROCEDURE DIAGNOSIS Ventricular fibrillation arrest. N-STEMI. POST PROCEDURE DIAGNOSIS: Significant coronary artery disease with left main disease. MEDICATIONS 1. Diprivan. 2. Heparin drip started for intra-aortic balloon pump. CONTRAST 60 cc Fluoroscopy 5 minutes. ESTIMATED BLOOD LOSS 10 cc PROCEDURAL SUMMARY Pearl Franklin is a 66-year-old female who came in with a ventricular fibrillation arrest. She was found to have an elevated troponin and due to this she was brought to the cardiac catheterization lab. The risks, benefits and alternatives were explained to her sister who consented for Pearl as she was intubated and sedated. She was prepped in the usual sterile fashion. Right femoral artery was accessed using a modified Seldinger technique with a micro puncture needle. A 5-Indian sheath was then inserted flushed and easily aspirated. Selective angiography of the right femoral artery shows mild disease in the femoral artery with a low inferior epigastric artery, in the sheath is felt to be just below this. The JR-4 was advanced to the ascending aorta over a J-wire and this was used to cross the aortic valve. Pressures of the left ventricle were taken showing a left ventricular end-diastolic pressure of 36. JR-4 was then pulled back across the aortic valve showing no significant gradient of aortic stenosis. Selective angiography of the right coronary artery shows a dominant vessel with a 50% lesion in the midportion. JR-4 was then exchanged for a JL-4 which was used for selective angiography of the left coronary system. Left main is an overall small vessel which has a significant 90% lesion at the distal portion. He gives off an left anterior descending and circumflex. The left anterior descending is an overall small vessel that tapers down distally. He does have diffuse disease of 40% throughout. It gives off one small diagonal vessel. This left circumflex is a slightly larger vessel and has significant disease throughout the proximal portion from the left main. Throughout it has mild luminal irregularities. It gives off two major obtuse marginals which are tortuous but did not have significant disease. At this time the JL-4 was then removed. I spoke to Dr. Mchugh about the case who came to review films. Because of her ventricular fibrillation arrest, and STEMI and significant left main disease. We felt that placing an intraaortic balloon pump presurgical was her best option. A 5-Indian sheath was then exchanged for an 8.5 Indian sheath. A 50 cc balloon was then placed based on her height. Looking at the intraaortic balloon pump I felt that it was too long for the patient and at that time it was exchanged for a 40 cc intra-aortic balloon pump. Augment pressures were on 130 to 150 mmHg. An 8.5 Indian sheath was then sutured in place. The patient left the poultry hatchery laborer stable but in a guarded condition. IMPRESSION 1. Ventricular fibrillation arrest. 2. Significant coronary artery disease with a 90% distal left main. 3. Vent dependent respiratory failure. 4. N-STEMI. RECOMMENDATIONS 1. Because of Pearl's significant left main disease. CT surgery has been consulted and will plan on coronary artery bypass grafting in the near future. 2. She will be continued on a lidocaine drip. Blood pressure and heart rate are stable and I will start Lopressor at a low dose. Lidocaine drip can be weaned off after 24 hours. 3. Intra-aortic balloon pump was placed and heparin drip will be started. 4. 2D echo is pending at this time. 5. Further workup per CT surgery. 6. Vent per critical care. 7. Further recommendations made post bypass surgery. Thank you for allowing me to see Pearl Franklin, If there are any questions, please do not hesitate to call. Jaxson Ford DO VGP/mh /11:01 AM /12:17 PM
[2016-05-28] MEDS ORDERED: FUROSEMIDE 20 MG/2 ML VIAL IV PUSH ONE (13:00)
[2016-05-28] MEDS ORDERED: POTASSIUM CHLOR 20 MEQ PREMIX 100 ML IV ONE (13:00)
[2016-05-28] MEDS ORDERED: SODIUM CHLORIDE 0.9% INJ 100 ML IV ONE (13:11)
[2016-05-28] MEDS ORDERED: NORMOSOL R INJ 2,000 ML IV ONE (13:11)
[2016-05-28] MEDS ORDERED: LACTATED RINGER'S 1000 ML INJ 2,000 ML IV ONE (13:11)
[2016-05-28] MEDS ORDERED: SODIUM CHLORID 0.9% 500 ML INJ 500 ML IV ONE (13:11)
[2016-05-28] MEDS ORDERED: SODIUM CHLOR 0.9% 250 ML INJ 500 ML IV ONE (13:11)
--- NOTE | 2016-05-28 13:48 | RADRPT ---
EXAM DATE/TIME: 05/28/2016 12:26 [facility] COMPARISON: CHEST SINGLE AP, May 28, 2016, 6:47. INDICATIONS : Post coronary artery bypass graft. MEDICAL HISTORY : None. SURGICAL HISTORY : CABG. ENCOUNTER: Initial ACUITY: 1 day PAIN SCORE: Non-responsive. LOCATION: Bilateral chest FINDINGS: Single AP view of the chest. Median sternotomy wires. Endotracheal tube, nasogastric tube remain in p lace. Right IJ central venous catheter is in place with the tip at the cavoatrial junction. Left-side d chest tube now seen. Persistent left lower lobe consolidation versus atelectasis. Lung volumes are low. CONCLUSION: Postsurgical findings. No evidence of pneumothorax. Valentin Garcia MD on May 28, 2016 at 13:45 Board Certified Radiologist. This report was verified electronically.
[2016-05-28] MEDS: ceFAZolin 2 GM PREMIX 50 ML IV SCH (17:35)
[2016-05-28] MEDS: AMIODARONE 200 MG TAB PO SCH (21:57)
[2016-05-29] VITALS (13 sets, daily range): BP systolic 93–130; BP diastolic 41–69; PULSE 69–84; RESP 16–24; TEMP 98.8–99.8; O2SAT 92–96
[2016-05-29] MEDS: ACETAMINOPHEN 1000 MG/100 ML VIAL IV SCH ×2 (00:32→06:00)
[2016-05-29] MEDS: ceFAZolin 2 GM PREMIX 50 ML IV SCH ×3 (01:36→17:00)
[2016-05-29 01:50] LABS: BLOOD GAS BASE EXCESS -2.3 mmol/L (-2-2); BLOOD GAS CARBOXYHEMOGLOBIN 1.4 % (0-4); BLOOD GAS HCO3 21 mmol/L (22-26); BLOOD GAS METHEMOGLOBIN 1.4 % (0-2); BLOOD GAS O2 HGB SATURATION 95 % (90-100); BLOOD GAS OXYGEN CONTENT 14.4 Vol % (12.0-20.0); BLOOD GAS PCO2 33 mmHg (38-42); BLOOD GAS PO2 89 mmHg (61-120); BLOOD GAS TOTAL HGB 10.8 G/DL (12.0-16.0); CRITICAL VALUE NO; OXYGEN DEVICE VENTILATOR; TEMP CORR TO 98.6
[2016-05-29 01:51] LABS: DRAW SITE ALINE; FIO2 40 %; STAT NO
[2016-05-29] MEDS: DOBUTamine PREMIX DRIP 250 ML IV SCH ×2 (01:53→12:23)
[2016-05-29] MEDS: CHLORHEXIDINE GLUCONATE 2 % 1 PACK (2 CLOTHS) TOP SCH (04:00)
[2016-05-29 04:15] LABS: HEMATOCRIT 32.3 % (35.0-46.0); MEAN CELL VOLUME 88.1 FL (80.0-100.0); MEAN CORPUSCULAR HEMOGLOBIN 29.9 PG (27.0-34.0); MEAN CORPUSCULAR HGB CONC 33.9 % (32.0-36.0); PLATELET COUNT 130 TH/MM3 (150-450); RED BLOOD COUNT 3.66 MIL/MM3 (4.00-5.30); RED CELL DISTRIBUTION WIDTH 14.2 % (11.6-17.2); REVIEW FLAG FINAL; WHITE BLOOD COUNT 9.9 TH/MM3 (4.0-11.0)
[2016-05-29] MEDS: AMPICILLIN-SULBACTAM INJ 3 GM in SODIUM CHLORIDE 0.9% INJ 100 ML IV SCH (04:42)
[2016-05-29 04:44] LABS: BICARBONATE 24.7 MEQ/L (21.0-32.0); MAGNESIUM 1.9 MG/DL (1.5-2.5); POTASSIUM 3.6 MEQ/L (3.5-5.1)
--- NOTE | 2016-05-29 04:56 | RADRPT ---
EXAM DATE/TIME: 05/29/2016 03:55 [facility] COMPARISON: CHEST SINGLE AP, May 28, 2016, 12:26. INDICATIONS : Shortness of breath, possible pulmonary disease. MEDICAL HISTORY : None. SURGICAL HISTORY : CABG. ENCOUNTER: Subsequent ACUITY: 3 days PAIN SCORE: Non-responsive. LOCATION: Bilateral chest FINDINGS: Mediastinal tube and left-sided chest tube, right jugular line and endotracheal tubes are again seen. NG tube courses beneath the diaphragm, distal tip proximal stomach. There is subcutaneous emphysema overlying the chest bilaterally. I do not see a pneumothorax. Left lower lobe airspace disease again noted. CONCLUSION: Interval development of subcutaneous emphysema bilaterally. No obvious pneumothorax. Miguel Styles MD on May 29, 2016 at 4:54 Board Certified Radiologist. This report was verified electronically.
[2016-05-29] MEDS: PANTOPRAZOLE SOD 40 MG DELAYED RELEASE TAB PO SCH (06:00)
[2016-05-29] MEDS: POTASSIUM CHLOR 20 MEQ PREMIX 100 ML IV PRN ×2 (06:27→07:22)
[2016-05-29] MEDS ORDERED: FUROSEMIDE 20 MG/2 ML VIAL IV PUSH ONE (07:30)
[2016-05-29] MEDS: DOCUSATE SODIUM 100 MG/10 ML UDC G-TUBE SCH ×2 (07:48→21:10)
[2016-05-29] MEDS: SODIUM CHLORIDE 0.9% FLUSH 5 ML FLUSH IV FLUSH SCH ×2 (07:48→21:10)
[2016-05-29] MEDS: ASPIRIN 81 MG CHEW TAB PO SCH (07:49)
[2016-05-29] MEDS: CLOPIDOGREL 75 MG TAB PO SCH (07:49)
[2016-05-29] MEDS: ARTIFICIAL TEARS OPTH SOLN 15 ML BTL EACH EYE SCH ×3 (07:49→16:26)
[2016-05-29] MEDS: FAMOTIDINE 20 MG/2 ML VIAL IV PUSH SCH ×2 (07:49→08:17)
[2016-05-29] MEDS: AMIODARONE 200 MG TAB PO SCH ×2 (07:49→21:10)
[2016-05-29] MEDS: METOPROLOL TARTRATE 25 MG TAB PO SCH ×2 (07:49→21:10)
[2016-05-29] MEDS: BENEPROTEIN POWDER 1 PACK G-TUBE SCH ×3 (07:50→16:26)
[2016-05-29] MEDS ORDERED: cefTRIAXone INJ 2,000 MG in SODIUM CHLORIDE 0.9% INJ 100 ML IV ONE (08:30)
[2016-05-29] MEDS: metroNIDAZOLE 500 MG INJ 100 ML IV SCH ×2 (08:37→16:28)
--- NOTE | 2016-05-29 08:40 | HHI.CCPN ---
Subjective Remarks/Hospital Course 66-year-old female brought via EVAC status post cardiac arrest. History is obtained from the chart. The patient had walked out from the track to her seat when she fell and struck her head. The resuscitation was immediately available as she was found to be at the V. fib arrest. She was defibrillated once to sinus tachycardia. She has had a pulse and blood pressure since that time. She was combative with EMS. The medic noted a left-sided gaze which I do not appreciate during my exam. SUBJ 05/27: Remains intubated sedated. ON sedation hold patient is neurologically intact able to follow commands. Troponin 1.75. D/W Dr. Barker , plan for cardiac cath at 11.30 today. Continue IV Heparin and aspirin SUBJ 05/28: Patient remains intubated sedated. Underwent cardiac catheterization yesterday by Dr. Barker, which showed an ejection fraction of 45%, left main distal disease of 90%, intraaortic balloon pump into the right groin for left main disease. Dr. Mchugh was consulted and plan is for CABG today. Heparin held since 4 AM. Being continued on lidocaine. (CMP showed glucose 385-this is probably error, immediate Accucheck showed 103) 05/29: Remains intubated, all continuous sedation is turned off. Wakes up follows commands though lethargic. Chest x-ray shows subcutaneous emphysema. IABP in place with good augmentation Objective Vital Signs Date Time Temp Pulse Resp B/P Pulse Ox O2 Delivery O2 Flow Rate FiO2 05/29/16 08:04 05/29/16 07:35 94 40 05/29/16 07:25 Mechanical Ventilator 05/29/16 07:21 73 05/29/16 07:20 99.1 24 Intake and Output 05/28/16 05/28/16 05/29/16 08:00 16:00 00:00 Intake Total 1110 ml 980 ml Output Total 900 ml 1400 ml Balance 210 ml -420 ml Result Diagram: 05/29/16 0400 05/29/16 0400 Other Results Microbiology Date/Time Procedure Status Source Growth 05/26/16 20:55 Urine Culture - Final Complete Urine Catheterized Urine Escherichia Coli Laboratory Tests Test 05/29/16 01:34 Blood Gas Puncture Site INDER Blood Gas Patient Temperature 98.6 Blood Gas HCO3 21 mmol/L (22-26) Blood Gas Base Excess -2.3 mmol/L (-2-2) Blood Gas Oxygen Saturation 95 % (90-100) Arterial Blood pH 7.43 (7.380-7.420) Arterial Blood Partial 33 mmHg (38-42) Pressure CO2 Arterial Blood Partial 89 mmHg Pressure O2 (61-120) Arterial Blood Oxygen Content 14.4 Vol % (12.0-20.0) Arterial Blood 1.4 % (0-4) Carboxyhemoglobin Arterial Blood Methemoglobin 1.4 % (0-2) Blood Gas Hemoglobin 10.8 G/DL (12.0-16.0) Oxygen Delivery Device VENTILATOR Blood Gas Ventilator Setting SEE COMMENT Blood Gas Inspired Oxygen 40 % Imaging Last 24 hours Impressions Chest X-Ray 05/26/161936 Signed Impressions: Service Date/Time: May 19:37 - CONCLUSION: ET tube of the deirdre. Ground glass opacities are dominating in the upper lobes. Maximiliano Potts MD Cervical Spine CT 05/26/161936 Signed Impressions: Service Date/Time: May 20:08 - CONCLUSION: No acute bony injury. Extensive degenerative changes. Maximiliano Potts MD Head CT 05/26/16 0000 Signed Impressions: Service Date/Time: May 20:08 - CONCLUSION: Normal examination for a patient of this age. Maximiliano Potts MD Objective Remarks GENERAL: Well-nourished, well-developed patient. intubated SKIN: Warm and dry. HEAD: Normocephalic. EYES: No scleral icterus. No injection or drainage. NECK: Supple, trachea midline. No JVD or lymphadenopathy. CARDIOVASCULAR: Regular rate and rhythm without murmurs, gallops, or rubs. RESPIRATORY: Breath sounds equal bilaterally. No accessory muscle use. Chest binder in place. Left chest tube and mediastinal tube in place intermittent air leak GASTROINTESTINAL: Abdomen soft, non-tender, nondistended. MUSCULOSKELETAL: No cyanosis, or edema. R groin IABP with good augmentation BACK: Nontender without obvious deformity. No CVA tenderness. NEURO: On sedation hold, lethargic but intermittently follows commands Urinary Catheter: Yes Assessment to: Continue A/P Problem List: (1) NSTEMI (non-ST elevated myocardial infarction) ICD Code: I21.4 Status: Acute (2) Cardiac arrest ICD Code: I46.9 Status: Acute (3) Closed head injury ICD Code: S09.90XA Status: Acute (4) Syncope and collapse ICD Code: R55 Status: Acute Assessment and Plan Neuro: -Neurologically intact status post V. FIB cardiac arrest -CT head negative for any acute injury/hemorrhage -Continue c-collar -Hold all sedation for weaning trial Resp: Acute respiratory failure Aspiration pneumonitis -Patient was intubated for an airway protection. -Spontaneous breathing trials with possible extubation -DuoNeb every 6 hours and when necessary CVS: Cardiac arrest NSTEMI Ventricular fibrillation CAD with L main disease - s/p 1. Urgent Off-pump CABGx 2 with RODRIGES to LAD) reverse saphenous vein graft to OM1 - Cardiac catheterization to 21/07/[address] Barker showed 90% left main disease, IABP inserted - Remove IABP today - Continue, aspirin, metoprolol, Plavix and amiodarone - Resume statin when LFT improved , monitor LFT GI: Transaminitis secondary to cardiac arrest -Trend liver enzymes -Nothing by mouth -Pepcid for GI prophylaxis : -Monitor renal function closely. Arredondo catheter ID: Aspiration pneumonitis UTI with E Coli -DC Unasyn (E Coli R to Unasyn), start Rocephin and Flagyl 05/29 -F/u sputum. Urine culture E Coli ENDO: -Electrolyte replacement protocol. Keep potassium more than 4, keep magnesium more than 2 DVT GI prophylaxis -Heparin drip, Pepcid Critical Care: Level 3. Time to perform other separately billable procedures was not included in the critical care time. Problem Qualifiers (1) Closed head injury: Qualified Code: S09.90XA - Closed head injury, initial encounter Zo Covarrubias MD May 29, 2016 08:40
--- NOTE | 2016-05-29 09:13 | EKG ---
Date Performed: 05/29/2016 Time Performed: 04:42:34 PTAGE: 66 years EKG: Sinus rhythm Normal ECG PREVIOUS TRACING : 05/26/2016 19.38 Compared to previous tracing, diffuse ST depression has res olved. DOCTOR: Ran Ruiz Interpretating Date/Time 05/29/2016 09:12:33
--- NOTE | 2016-05-29 09:24 | PD.CAR.PN ---
CVT Progress Note Subjective/Hospital Course: 05/28 1. Urgent Off-pump Coronary Artery Bypass Grafting x 2 with left internal mammary artery (RODRIGES) to left anterior descending (LAD), reverse saphenous vein graft to OM1 2. Left Leg Endoscopic Vein [place] 3. Intraoperative Vein Mapping. 05/29 Doing well D/C IABP today Vent management per Sterile Technician. Appreciate Dr. Covarrubias's input Gentle diuresis Maintain CT Objective: Vital Signs Date Time Temp Pulse Resp B/P Pulse Ox O2 Delivery O2 Flow Rate FiO2 05/29/16 09:04 05/29/16 09:04 98.8 05/29/16 08:35 22 05/29/16 08:04 05/29/16 07:35 94 40 05/29/16 07:25 94 Mechanical Ventilator 40 05/29/16 07:25 40 05/29/16 07:21 73 05/29/16 07:20 99.1 73 24 107/46 94 107/41 05/29/16 07:16 05/29/16 06:00 93/49 05/29/16 05:00 91/49 05/29/16 04:00 114/59 05/29/16 03:26 93 40 05/29/16 03:00 40 05/29/16 03:00 99.1 80 16 114/69 92 130/54 107/58 05/29/16 03:00 84 05/29/16 03:00 107/58 05/29/16 03:00 93 Mechanical Ventilator 40 05/29/16 02:00 108/52 05/29/16 01:41 40 05/29/16 01:30 99 Mechanical Ventilator 40 05/29/16 01:30 40 05/29/16 01:00 108/51 05/29/16 00:56 96 40 05/29/16 00:00 40 05/29/16 00:00 94/55 05/28/16 23:00 99 Mechanical Ventilator 40 05/28/16 23:00 101/51 05/28/16 23:00 40 05/28/16 23:00 99.4 66 12 111/59 99 101/51 106/84 05/28/16 23:00 64 05/28/16 22:12 96 40 05/28/16 22:00 112/55 05/28/16 21:00 102/51 05/28/16 20:00 96/49 05/28/16 19:32 99 40 05/28/16 19:00 98.7 60 12 117/53 99 96/57 101/66 05/28/16 19:00 96/57 05/28/16 19:00 59 05/28/16 19:00 40 05/28/16 19:00 99 Mechanical Ventilator 40 05/28/16 18:02 62 05/28/16 18:02 12 05/28/16 18:01 05/28/16 17:42 05/28/16 16:04 45 05/28/16 16:04 99 Mechanical Ventilator 45 05/28/16 16:03 97.8 70 12 121/52 99 05/28/16 16:02 99 45 05/28/16 16:02 70 05/28/16 16:01 05/28/16 15:05 05/28/16 14:57 40 05/28/16 14:14 97.3 05/28/16 14:13 59 05/28/16 14:13 05/28/16 13:13 05/28/16 12:32 97.0 05/28/16 12:24 70 05/28/16 12:22 99 Mechanical Ventilator 70 05/28/16 12:20 60 05/28/16 12:15 97.0 59 12 119/60 99 Automatic Cuff 05/28/16 12:11 05/28/16 12:02 96 70 05/28/16 11:57 96 70 05/28/16 11:53 95 70 Labs: Laboratory Tests Test 05/29/16 05/29/16 01:34 04:00 Blood Gas Puncture Site INDER Blood Gas Patient Temperature 98.6 Blood Gas HCO3 21 mmol/L (22-26) Blood Gas Base Excess -2.3 mmol/L (-2-2) Blood Gas Oxygen Saturation 95 % (90-100) Arterial Blood pH 7.43 (7.380-7.420) Arterial Blood Partial 33 mmHg (38-42) Pressure CO2 Arterial Blood Partial 89 mmHg Pressure O2 (61-120) Arterial Blood Oxygen Content 14.4 Vol % (12.0-20.0) Arterial Blood 1.4 % (0-4) Carboxyhemoglobin Arterial Blood Methemoglobin 1.4 % (0-2) Blood Gas Hemoglobin 10.8 G/DL (12.0-16.0) Oxygen Delivery Device VENTILATOR Blood Gas Ventilator Setting SEE COMMENT Blood Gas Inspired Oxygen 40 % White Blood Count 9.9 TH/MM3 (4.0-11.0) Red Blood Count 3.66 MIL/MM3 (4.00-5.30) Hemoglobin 10.9 GM/DL (11.6-15.3) Hematocrit 32.3 % (35.0-46.0) Mean Corpuscular Volume 88.1 FL (80.0-100.0) Mean Corpuscular Hemoglobin 29.9 PG (27.0-34.0) Mean Corpuscular Hemoglobin 33.9 % Concent (32.0-36.0) Red Cell Distribution Width 14.2 % (11.6-17.2) Platelet Count 130 TH/MM3 (150-450) Mean Platelet Volume 9.1 FL (7.0-11.0) Sodium Level 143 MEQ/L (136-145) Potassium Level 3.6 MEQ/L (3.5-5.1) Chloride Level 110 MEQ/L (98-107) Carbon Dioxide Level 24.7 MEQ/L (21.0-32.0) Anion Gap 8 MEQ/L (5-15) Blood Urea Nitrogen 9 MG/DL (7-18) Creatinine 0.59 MG/DL (0.50-1.00) Estimat Glomerular Filtration 101 ML/MIN Rate (>89) Random Glucose 125 MG/DL (74-106) Calcium Level 8.5 MG/DL (8.5-10.1) Magnesium Level 1.9 MG/DL (1.5-2.5) Result Diagram: 05/29/1639905/29/16399 (1) Syncope and collapse (2) NSTEMI (non-ST elevated myocardial infarction) (3) Closed head injury (4) Cardiac arrest Problem Qualifiers (1) Closed head injury: Qualified Code: S09.90XA - Closed head injury, initial encounter Jasson Mchugh MD May 29, 2016 09:24
[2016-05-29] MEDS: KETOROLAC TROMETHAMINE 30 MG/ML (IVP) VIAL IV PUSH PRN (12:31)
[2016-05-29] MEDS: RESP: ALBUTEROL 2.5 MG/IPRATROPIUM 0.5 MG NEB (SCH) NEB ×2 (12:56→19:30)
[2016-05-29] MEDS ORDERED: DEXTROSE 50% IN WATER 50 ML VIAL(D50) IV PUSH PRN (13:00)
[2016-05-29] MEDS ORDERED: GLUCAGON 1 MG/ML VIAL OTHER PRN (13:00)
[2016-05-29] MEDS: oxyCODONE/ACETAMINOPHEN 5 MG/325 MG TAB PO PRN ×2 (14:30→18:09)
[2016-05-29] MEDS: INDIVIDUALIZED INSULIN NOVOLIN REGULAR SUPPLEMENTAL SCALE SQ SCH ×2 (16:00→21:00)
[2016-05-30] VITALS (17 sets, daily range): BP systolic 96–129; BP diastolic 44–64; PULSE 66–87; RESP 14–20; TEMP 98.8–99.7; O2SAT 92–98
[2016-05-30] MEDS: metroNIDAZOLE 500 MG INJ 100 ML IV SCH ×3 (01:38→18:11)
[2016-05-30] MEDS: ceFAZolin 2 GM PREMIX 50 ML IV SCH (01:38)
[2016-05-30] MEDS: KETOROLAC TROMETHAMINE 30 MG/ML (IVP) VIAL IV PUSH PRN (03:16)
[2016-05-30] MEDS: CHLORHEXIDINE GLUCONATE 2 % 1 PACK (2 CLOTHS) TOP SCH (04:00)
[2016-05-30] MEDS: PANTOPRAZOLE SOD 40 MG DELAYED RELEASE TAB PO SCH (06:00)
[2016-05-30] MEDS: RESP: ALBUTEROL 2.5 MG/IPRATROPIUM 0.5 MG NEB (SCH) NEB ×3 (06:47→19:41)
--- NOTE | 2016-05-30 06:54 | PD.TRANSFR ---
Transfer Summary Admission Date May 26, 2016 at 20:54 Transfer Date: May 30, 2016 Admitting Diagnosis s/p cardiac arrest Diagnoses: (1) Cardiac arrest Diagnosis: Principal (2) NSTEMI (non-ST elevated myocardial infarction) Diagnosis: Principal (3) Syncope and collapse Diagnosis: Principal (4) Ventricular fibrillation Diagnosis: Principal (5) Left main coronary artery disease Diagnosis: Principal (6) E. coli UTI Diagnosis: Principal (7) Closed head injury Diagnosis: Principal Significant Findings Cardiac catheterization on 05/27/16 showing L main disease s/p CABG x2 on 05/28/16 Transfer Summary/Subjective 66-year-old female brought via EVAC status post cardiac arrest. History is obtained from the chart. The patient had walked out from the track to her seat when she fell and struck her head. The resuscitation was immediately available as she was found to be at the V. fib arrest. She was defibrillated once to sinus tachycardia. She has had a pulse and blood pressure since that time. She was combative with EMS. The medic noted a left-sided gaze SUBJ 05/27: Remains intubated sedated. ON sedation hold patient is neurologically intact able to follow commands. Troponin 1.75. D/W Dr. Barker , plan for cardiac cath at 11.30 today. Continuing IV Heparin and aspirin SUBJ 05/28: Underwent cardiac catheterization by Dr. Barker 05/27/16, which showed an ejection fraction of 45%, left main distal disease of 90%, inserted intraaortic balloon pump into the right groin for left main disease. Dr. Mchugh was consulted and plan is for CABG 05/28/16. Heparin held since 4 AM. Being continued on lidocaine. (CMP showed glucose 385-this is probably error, immediate Accucheck showed 103) 05/29: Remains intubated, all continuous sedation is turned off. Wakes up follows commands though lethargic. Chest x-ray shows subcutaneous emphysema. IABP in place with good augmentation. Extubated later in the a.m. 05/30: Sitting up and stretches chair today. Complains of some wheezing-patient gives history of asthma and she takes Advair. I will place her on Symbicort Objective Vital Signs Date Time Temp Pulse Resp B/P Pulse Ox O2 Delivery O2 Flow Rate FiO2 05/30/16 04:00 95 Nasal Cannula 4.00 05/30/16 00:00 99.0 75 16 123/55 05/29/16 07:35 40 Intake and Output 05/29/16 05/29/16 05/30/16 08:00 16:00 00:00 Intake Total 1256 ml 700 ml Output Total 780 ml 880 ml Balance 476 ml -180 ml Result Diagram: 05/29/16 0400 05/29/16 0400 Imaging Last 24 hours Impressions Chest X-Ray 05/26/161936 Signed Impressions: Service Date/Time: May 19:37 - CONCLUSION: ET tube of the deirdre. Ground glass opacities are dominating in the upper lobes. Maximiliano Potts MD Cervical Spine CT 05/26/161936 Signed Impressions: Service Date/Time: May 20:08 - CONCLUSION: No acute bony injury. Extensive degenerative changes. Maximiliano Potts MD Head CT 05/26/16 0000 Signed Impressions: Service Date/Time: May 20:08 - CONCLUSION: Normal examination for a patient of this age. Maximiliano Potts MD Objective Remarks GENERAL: Well-nourished, well-developed patient. on NC SKIN: Warm and dry. HEAD: Normocephalic. EYES: No scleral icterus. No injection or drainage. NECK: Supple, trachea midline. No JVD or lymphadenopathy. CARDIOVASCULAR: Regular rate and rhythm without murmurs, gallops, or rubs. RESPIRATORY: Breath sounds equal bilaterally. No accessory muscle use. Left chest tube and mediastinal tube in place GASTROINTESTINAL: Abdomen soft, non-tender, nondistended. MUSCULOSKELETAL: No cyanosis, or edema. R groin IABP site without hematoma BACK: No CVA tenderness. NEURO: Alert awake oriented 3 no focal deficits A/P Problem List: (1) NSTEMI (non-ST elevated myocardial infarction) ICD Code: I21.4 Status: Acute (2) Cardiac arrest ICD Code: I46.9 Status: Acute (3) Closed head injury ICD Code: S09.90XA Status: Acute (4) Syncope and collapse ICD Code: R55 Status: Acute (5) E. coli UTI ICD Code: N39.0 Status: Acute (6) Left main coronary artery disease ICD Code: I25.10 Status: Acute (7) Ventricular fibrillation ICD Code: I49.01 Status: Acute Assessment and Plan Neuro: -Neurologically intact status post V. FIB cardiac arrest. Alert and oriented 3 -CT head negative for any acute injury/hemorrhage -Clinically cleared c-collar, CT neck negative for acute findings Resp: Acute respiratory failure Aspiration pneumonitis -Patient was intubated for an airway protection. Extubated 05/29/16 -Add Symbicort 1 puff every 12 -DuoNeb every 6 hours and when necessary. EzPAP q6. CVS: Cardiac arrest NSTEMI Ventricular fibrillation CAD with L main disease - s/p 1. Urgent Off-pump CABGx 2 with RODRIGES to LAD) reverse saphenous vein graft to OM1 on 05/28/16 - Cardiac catheterization to 21/07/[address] Barker showed 90% left main disease, IABP inserted-removed 05/19/16 - Remove IABP today - Continue, aspirin, metoprolol, Plavix and amiodarone - Resume statin when LFT improved , monitor LFT GI: Transaminitis secondary to cardiac arrest -Trend liver enzymes -Heart healthy diet -Protonix for GI prophylaxis : -Monitor renal function closely. Arredondo catheter ID: Aspiration pneumonitis UTI with E Coli -Continue Rocephin and Flagyl -F/u sputum. Urine culture E Coli ENDO: -Electrolyte replacement protocol. Keep potassium more than 4, keep magnesium more than 2 DVT GI prophylaxis -Prophylactic Lovenox when cleared by CT surgery. Protonix for GI prophylaxis Critical Care: Level 2. Time to perform other separately billable procedures was not included in the critical care time. Hospitalist consulted to assume care in am 05/31/16 Problem Qualifiers (1) Closed head injury: Qualified Code: S09.90XA - Closed head injury, initial encounter Zo Covarrubias MD May 30, 2016 06:54
[2016-05-30] MEDS: INDIVIDUALIZED INSULIN NOVOLIN REGULAR SUPPLEMENTAL SCALE SQ SCH ×2 (07:00→11:02)
[2016-05-30] MEDS: DOBUTamine PREMIX DRIP 250 ML IV SCH (07:23)
--- NOTE | 2016-05-30 07:25 | MB ---
cc: JAXSON FORD DO DATE OF CONSULTATION: 05/26/2016 REASON FOR CONSULTATION Ventricular fibrillation arrest. HISTORY OF PRESENT ILLNESS Pearl Franklin is a 66-year-old female who is in from [place] for the races. The patient is currently intubated and unable to provide any history so history is taken from the medics and the Emergency [facility]. [facility] the stairs to her seat when she fell and struck her head. A medic who was there was able to assist her and an AED was hooked up and advised to shock. She was defibrillated once to sinus tachycardia. She had a pulse and blood pressure since that time. On falling backward she struck her head. The medic who assisted her noted a left-sided gaze. While with the EMS she was somewhat combative per their reports. On arrival an EKG was done and a STEMI Alert was called. On my arrival EKG showed ST elevation in AVR with ST depressions throughout. The patient is currently hemodynamically stable on a ventilator. PAST MEDICAL HISTORY Unable to obtain. PAST SURGICAL HISTORY Unable to obtain. ALLERGIES Unable to obtain. MEDICATIONS Unable to obtain. SOCIAL HISTORY Unable to obtain. FAMILY HISTORY Unable to obtain. REVIEW OF SYSTEMS Unable to obtain. PHYSICAL EXAMINATION VITAL SIGNS: Pulse 93, blood pressure 160/90, respirations 18, pulse ox 100% on the ventilator. GENERAL: In general the patient is an obese female currently sedated on the vent. HEENT: The back of her head is matted down with blood. Mucous membranes moist. ET tube in place. NECK: Supple. No JVD at 45 degrees. No carotid bruits heard bilaterally. HEART: Regular rate and rhythm. No noted murmurs, gallops or rubs. LUNGS: Decreased breath sounds bilaterally with no noted wheezes, rales or rhonchi. ABDOMEN: Obese, nondistended. No guarding noted. EXTREMITIES: No clubbing or cyanosis. Trace edema bilaterally. NEUROLOGIC: Neurologically unable to assess due to the patient's acute illness and sedation on the vent. SKIN: Warm, dry and intact. LABORATORY Hemoglobin 14.5, hematocrit 44.2, platelets 281. D-dimer 6.44. Potassium 4.2, BUN 28, creatinine 1.1, AST 220, ALT 234. Troponin 0.03. Total creatinine kinase 190. ELECTROCARDIOGRAM Electrocardiogram (May 26, 2016 at 1938): Sinus tachycardia at 105 beats per minute, borderline left axis deviation, ST depressions throughout with elevation of AVR. IMPRESSION 1. STEMI Alert with no criteria for ST-elevation myocardial infarction. 2. Elevation of AVR on EKG concerning for possible triple-vessel or left main disease. 3. Shockable rhythm by AED for which the patient was defibrillated once. 4. Left gaze per medics 5. Syncopal episode. 6. Elevation of D-dimer. 7. Vent-dependent respiratory failure. 8. Closed-head injury. RECOMMENDATIONS 1. EKG shows no ST elevations. EKG is not a STEMI, will continue with supportive care per Critical Care. 2. There is elevation of AVR and concern for left main or triple-vessel disease. 3. As per the shockable rhythm by AED, possible ventricular fibrillation, we will place the patient on a lidocaine drip. 4. Concern for syncope with left gaze and unable to determine neurologic status, consideration of ischemic CVA. Syncopal episode may also be due to ischemia leading to the ventricular fibrillation. 5. D-dimer elevation with syncope. Discussed with ER the possibility of ruling out a pulmonary embolus. 6. Check a 2-D echo to look at her overall left ventricular function, cardiac structure and possible valulopathies. 7. I did discuss with Critical Care about consideration of a heparin drip due to the ischemic pattern on her EKG. My only concern with this is the consideration of a head bleed, although CT of the head shows no current cerebral hemorrhage. 8. Depending on hospital course and neurological status, will consider further ischemic evaluation in the morning. EKG suggests possible surgical disease. 9. Discussed the case with critical care and emergency room physicians. Thank you for allowing me to see Pearl Franklin. If there are any questions, please do not hesitate to call. Jaxson Ford DO VGP/[id number] /8:56 PM /7:02 AM MTDMichelle
[2016-05-30 07:55] LABS: AUTOMATED NEUTROPHIL # 6.1 TH/MM3 (1.8-7.7); BASOPHIL # 0.1 TH/MM3 (0-0.2); BASOPHIL % 0.7 % (0.0-2.0); EOSINOPHIL # 0.6 TH/MM3 (0-0.4); EOSINOPHIL % 5.5 % (0.0-4.0); HEMATOCRIT 30.8 % (35.0-46.0); HEMO FLAGS DIFF FINAL; LYMPH % 22.9 % (9.0-44.0); LYMPHOCYTE # 2.4 TH/MM3 (1.0-4.8); MEAN CELL VOLUME 89.3 FL (80.0-100.0); MEAN CORPUSCULAR HEMOGLOBIN 29.5 PG (27.0-34.0); MEAN CORPUSCULAR HGB CONC 33.1 % (32.0-36.0); MONO % 12.4 % (0.0-8.0); NEUT % 58.5 % (16.0-70.0); PLATELET COUNT 163 TH/MM3 (150-450); RED BLOOD COUNT 3.45 MIL/MM3 (4.00-5.30); RED CELL DISTRIBUTION WIDTH 14.1 % (11.6-17.2); WHITE BLOOD COUNT 10.4 TH/MM3 (4.0-11.0)
--- NOTE | 2016-05-30 07:56 | RADRPT ---
EXAM DATE/TIME: 05/30/2016 07:19 [facility] COMPARISON: CHEST SINGLE AP, May 29, 2016, 3:55. INDICATIONS : Short of breath, chest pain. MEDICAL HISTORY : Cardiovascular disease. SURGICAL HISTORY : CABG. ENCOUNTER: Subsequent ACUITY: 4 - 6 days PAIN SCORE: 5/10 LOCATION: Bilateral chest FINDINGS: A single view of the chest demonstrates left basilar density. Previous CABG. Right jugular line and l eft-sided chest tube are unchanged. Endotracheal tube removed. No pneumothorax. The cardiomediastina l contours are unremarkable. Osseous structures are intact. CONCLUSION: 1. Left basilar density likely atelectasis. Jose Alberto Espana MD on May 30, 2016 at 7:53 Board Certified Radiologist. This report was verified electronically.
[2016-05-30 08:17] LABS: ANION GAP 9 MEQ/L (5-15); AST (GOT) 26 U/L (15-37); BICARBONATE 24.5 MEQ/L (21.0-32.0); BLOOD UREA NITROGEN 13 MG/DL (7-18); CHLORIDE 108 MEQ/L (98-107); GLOMERULAR FILTRATION RATE 88 ML/MIN (>89); MAGNESIUM 2.2 MG/DL (1.5-2.5); POTASSIUM 3.6 MEQ/L (3.5-5.1); SODIUM (NA) 141 MEQ/L (136-145)
[2016-05-30 08:22] LABS: ALKALINE PHOSPHATASE 58 U/L (45-117); ALT (GPT) 51 U/L (10-53); TOTAL BILIRUBIN ADULT 0.7 MG/DL (0.2-1.0)
[2016-05-30] MEDS: BUDESONIDE-FORMOTEROL 160/4.5 MCG INHALER INH SCH ×2 (08:53→21:13)
[2016-05-30] MEDS: cefTRIAXone INJ 1,000 MG in SODIUM CHLORIDE 0.9% INJ 100 ML IV SCH (08:54)
[2016-05-30] MEDS: CLOPIDOGREL 75 MG TAB PO SCH (08:54)
[2016-05-30] MEDS: DOCUSATE SODIUM 100 MG/10 ML UDC G-TUBE SCH (08:54)
[2016-05-30] MEDS: oxyCODONE/ACETAMINOPHEN 5 MG/325 MG TAB PO PRN ×3 (08:54→21:14)
[2016-05-30] MEDS: SODIUM CHLORIDE 0.9% FLUSH 5 ML FLUSH IV FLUSH SCH (08:55)
[2016-05-30] MEDS: BENEPROTEIN POWDER 1 PACK G-TUBE SCH ×2 (08:55→13:00)
[2016-05-30] MEDS: METOPROLOL TARTRATE 25 MG TAB PO SCH ×2 (08:55→21:12)
[2016-05-30] MEDS: AMIODARONE 200 MG TAB PO SCH ×2 (08:55→21:12)
[2016-05-30] MEDS: ASPIRIN 81 MG CHEW TAB PO SCH (08:55)
[2016-05-30] MEDS: ARTIFICIAL TEARS OPTH SOLN 15 ML BTL EACH EYE SCH ×3 (08:56→18:11)
--- NOTE | 2016-05-30 09:22 | PD.CARD.PN ---
Subjective Subjective Remarks No chest pain, no shortness of breath, up to the chair Objective Medications Current Medications Medications (Trade) Dose Ordered Sig/Jules Route Start Time Stop Time Status Last Admin (Morphine Inj) 2 mg Q2H PRN IV 05/26/16 21:15 05/28/16 04:44 (Ativan Inj) 2 mg Q4H PRN IV 05/26/16 21:15 05/29/16 04:42 (Tears Naturale Opth Soln) 1 drop TID EACH EYE 05/27/16 09:00 05/27/16 20:04 (Reglan Inj) 10 mg Q6H PRN IV 05/26/16 21:15 (Colace Liq) 100 mg Q12HR G-TUBE 05/26/16 21:15 05/29/16 21:10 Miscellaneous Information 1 [id number] XX 05/26/16 21:15 (Chlorhexidine 2% Cloth) 3 pack Taper DAILY@04 TOP 05/27/16 04:00 05/23/17 03:59 05/30/16 04:00 (Chlorhexidine 2% Cloth) 3 pack UNSCH PRN TOP 05/26/16 21:15 Protein 2 pack 2 pack TID G-TUBE 05/27/16 09:00 Heparin Sodium/ Dextrose 250 ml @ 0 mls/hr TITRATE IV 05/26/16 22:30 Hold 05/27/16 01:00 Potassium Chloride 100 ml @ 50 mls/hr Q2H PRN IV 05/27/16 10:15 (KCl 20 Meq Premix Inj) 100 ml @ 50 mls/hr Q2H PRN IV 05/27/16 10:15 Potassium Chloride 40 meq 40 meq UNSCH PRN PO/TUBE 05/27/16 10:15 05/28/16 05:30 Potassium Chloride 100 ml @ 25 mls/hr UNSCH PRN IV 05/27/16 10:15 Potassium Chloride 100 ml @ 50 mls/hr Q2H PRN IV 05/27/16 10:15 05/29/16 07:22 (Magnesium Sulfate Inj/NS Inj) 100 ml @ 50 mls/hr UNSCH PRN IV 05/27/16 10:15 Magnesium Oxide 800 mg 800 mg UNSCH PRN PO 05/27/16 10:15 (Magnesium Sulfate Inj/NS Inj) 100 ml @ 50 mls/hr UNSCH PRN IV 05/27/16 10:15 (K-Phos) 2,000 mg Q4H PRN PO 05/27/16 10:15 (KCl 40 Meq/30 ml Liq) 40 meq UNSCH PRN PO/TUBE 05/27/16 10:15 Potassium Phosphate 2000 mg 2,000 mg UNSCH PRN PO/TUBE 05/27/16 10:15 (Potassium Phosphate Inj/NS 250 ml Inj) 260 ml @ 42 mls/hr UNSCH PRN IV 05/27/16 10:15 (Lopressor) 12.5 mg Q12HR PO 05/27/16 21:00 05/29/16 21:10 (NS Flush) 2 ml BID IV FLUSH 05/28/16 21:00 05/29/16 21:10 IV Flush 2 ml 2 ml UNSCH PRN IV FLUSH 05/28/16 11:15 Nitroglycerin/ Dextrose 250 ml @ 0 mls/hr TITRATE IV 05/28/16 11:15 Dobutamine HCl/ Dextrose 250 ml @ 16.95 mls/ hr [id number] IV 05/28/16 11:08 Dopamine HCl/ Dextrose 500 ml @ 0 mls/hr TITRATE IV 05/28/16 11:15 Epinephrine HCl 4 mg/Dextrose 250 ml @ 0 mls/hr TITRATE IV 05/28/16 11:15 Phenylephrine HCl 40 mg/Dextrose 500 ml @ 0 mls/hr TITRATE IV 05/28/16 11:15 (Cleviprex Inj) 50 ml @ 0 mls/hr TITRATE IV 05/28/16 11:15 Albumin Human 12.5 gm 12.5 gm UNSCH PRN IV 05/28/16 11:15 (Lr 1000 ml Inj) 500 ml @ 500 mls/hr Q1H PRN IV 05/28/16 11:08 (Aspirin Chew) 81 mg DAILY PO 05/29/16 09:00 05/29/16 07:49 (Plavix) 75 mg DAILY PO 05/29/16 09:00 05/29/16 07:49 (Protonix) 40 mg DAILY@06 PO 05/29/16 06:00 05/30/16 06:00 (Cordarone) 400 mg Q12HR PO 05/28/16 21:00 05/29/16 21:10 (Tylenol) 650 mg Q4H PRN PO 05/28/16 11:15 (Tylenol Supp) 650 mg Q4H PRN RECTAL 05/28/16 11:15 (Morphine Inj) 1 mg Q10M PRN IV 05/28/16 11:15 (Demerol Inj) 12.5 mg Q4H PRN IV 05/28/16 11:15 (Percocet 5-325 Mg) 1 tab Q3H PRN PO 05/28/16 11:15 (Percocet 5-325 Mg) 2 tab Q3H PRN PO 05/28/16 11:15 05/29/16 18:09 (Toradol Inj) 15 mg Q6H PRN IV PUSH 05/28/16 11:15 05/30/16 11:14 05/30/16 03:16 (fentaNYL INJ) 25 mcg Q1H PRN IV 05/28/16 11:15 05/29/16 07:30 (Zofran Inj) 4 mg Q6H PRN IV PUSH 05/28/16 11:15 05/29/16 05:12 (Apresoline Inj) 10 mg Q4H PRN IV 05/28/16 11:15 05/28/16 14:11 Metoprolol Tartrate 2.5 mg 2.5 mg Q1H PRN IV PUSH 05/28/16 11:15 Potassium Chloride 100 ml @ 50 mls/hr UNSCH PRN IV 05/28/16 11:15 05/28/16 13:01 Potassium Chloride 100 ml @ 50 mls/hr UNSCH PRN IV 05/28/16 11:15 Potassium Chloride 100 ml @ 50 mls/hr UNSCH PRN IV 05/28/16 11:15 Magnesium Sulfate 2 gm/Sodium Chloride 104 ml @ 100 mls/hr UNSCH PRN IV 05/28/16 11:15 Magnesium Sulfate 2 gm/Sodium Chloride 104 ml @ 50 mls/hr UNSCH PRN IV 05/28/16 11:15 05/29/16 06:27 (Calcium Chloride Inj/NS Inj) 110 ml @ 100 mls/hr UNSCH PRN IV 05/28/16 11:15 05/28/16 20:09 Calcium Chloride 0.5 gm 0.5 gm UNSCH PRN IV 05/28/16 11:15 Ceftriaxone Sodium 1000 mg/ Sodium Chloride 100 ml @ 200 mls/hr Q24H IV 05/30/16 08:00 (Flagyl 500 Mg Inj) 100 ml @ 100 mls/hr Q8H IV 05/29/16 09:00 05/30/16 01:38 (D50w (Vial) Inj) 25 ml UNSCH PRN IV PUSH 05/29/16 13:00 (Glucagon Inj) 1 mg UNSCH PRN OTHER 05/29/16 13:00 (Symbicort 160-4.5 Inh) 1 puff Q12HR INH 05/30/16 09:00 Vital Signs / I&O Vital Signs Date Time Temp Pulse Resp B/P Pulse Ox O2 Delivery O2 Flow Rate FiO2 05/30/16 07:43 92 Nasal Cannula 4.00 05/30/16 07:43 99.0 84 18 96/44 92 05/30/16 07:00 70 05/30/16 04:30 14 05/30/16 04:00 99.4 75 14 110/64 95 05/30/16 04:00 95 Nasal Cannula 4.00 05/30/16 04:00 75 05/30/16 00:00 95 Nasal Cannula 4.00 05/30/16 00:00 99.0 75 16 123/55 95 05/30/16 00:00 74 05/29/16 20:00 93 Nasal Cannula 4.00 05/29/16 20:00 99.8 83 16 122/57 93 05/29/16 20:00 84 05/29/16 18:51 19 05/29/16 15:03 99.7 69 19 93/58 96 05/29/16 15:03 69 05/29/16 15:02 96 Nasal Cannula 4.00 05/29/16 11:08 96 Nasal Cannula 4.00 05/29/16 11:07 69 05/29/16 11:06 99.1 69 19 109/57 95 Arterial Line 05/29/16 11:02 94 Nasal Cannula 4 05/29/16 10:49 94 Nasal Cannula I/O 05/29/16 05/29/16 05/29/16 05/30/16 05/30/16 05/30/16 07:00 15:00 23:00 07:00 15:00 23:00 Intake Total 1256 ml 700 ml 390 ml Output Total 780 ml 880 ml 690 ml Balance 476 ml -180 ml -300 ml Intake Oral 400 ml 240 ml IV Total 1136 ml 300 ml 150 ml Other 120 ml Output Urine Total 600 ml 710 ml 620 ml Chest Tube Drainage Total 180 ml 170 ml 70 ml # Bowel Movements 0 0 0 Physical Exam GENERAL: NAD, AAOx3 SKIN: Warm and dry. HEAD: Atraumatic. Normocephalic. EYES: Pupils equal and round. No scleral icterus. No injection or drainage. ENT: No nasal bleeding or discharge. Mucous membranes pink and moist. NECK: Trachea midline. No JVD. CARDIOVASCULAR: Regular rate and rhythm. Sternotomy C/D/I RESPIRATORY: No accessory muscle use. Decreased breath sounds bilaterally GASTROINTESTINAL: Abdomen soft, non-tender, nondistended. Hepatic and splenic margins not palpable. MUSCULOSKELETAL: Trace edema NEUROLOGICAL: Awake and alert No obvious cranial nerve deficits. No focal deficits Laboratory Laboratory Tests Test 05/30/16 07:29 White Blood Count 10.4 TH/MM3 Red Blood Count 3.45 MIL/MM3 Hemoglobin 10.2 GM/DL Hematocrit 30.8 % Mean Corpuscular Volume 89.3 FL Mean Corpuscular Hemoglobin 29.5 PG Mean Corpuscular Hemoglobin 33.1 % Concent Red Cell Distribution Width 14.1 % Platelet Count 163 TH/MM3 Mean Platelet Volume 9.2 FL Neutrophils (%) (Auto) 58.5 % Lymphocytes (%) (Auto) 22.9 % Monocytes (%) (Auto) 12.4 % Eosinophils (%) (Auto) 5.5 % Basophils (%) (Auto) 0.7 % Neutrophils # (Auto) 6.1 TH/MM3 Lymphocytes # (Auto) 2.4 TH/MM3 Monocytes # (Auto) 1.3 TH/MM3 Eosinophils # (Auto) 0.6 TH/MM3 Basophils # (Auto) 0.1 TH/MM3 CBC Comment DIFF FINAL Differential Comment Sodium Level 141 MEQ/L Potassium Level 3.6 MEQ/L Chloride Level 108 MEQ/L Carbon Dioxide Level 24.5 MEQ/L Anion Gap 9 MEQ/L Blood Urea Nitrogen 13 MG/DL Creatinine 0.67 MG/DL Estimat Glomerular Filtration 88 ML/MIN Rate Random Glucose 122 MG/DL Calcium Level 8.7 MG/DL Magnesium Level 2.2 MG/DL Total Bilirubin 0.7 MG/DL Aspartate Amino Transf 26 U/L (AST/SGOT) Alanine Aminotransferase 51 U/L (ALT/SGPT) Alkaline Phosphatase 58 U/L Total Protein 5.9 GM/DL Albumin 2.5 GM/DL Assessment and Plan Problem List: (1) Syncope and collapse (2) NSTEMI (non-ST elevated myocardial infarction) (3) Closed head injury (4) Cardiac arrest Assessment and Plan 1) NSTEMI/Vfib arrest/Left main disease s/p RODRIGES to LAD, SVG to OM1 POD #2 2) Extubated 3) ASA/BB/Amio/Plavix LFTs down to normal, will start statin therapy 4) IS to avoid atelectasis 5) Ambulate as possible Problem Qualifiers (1) Closed head injury: Qualified Code: S09.90XA - Closed head injury, initial encounter Jaxson Barker DO May 30, 2016 09:22
[2016-05-30] MEDS ORDERED: FUROSEMIDE 20 MG/2 ML VIAL IV PUSH ONE (10:15)
[2016-05-30] MEDS ORDERED: POTASSIUM CHLORIDE 10 MEQ CONTROLLED RELEASE TAB PO ONE ×2 (10:15→12:30)
[2016-05-30 13:17] LABS: BACTERIA, URINE RARE /hpf; BLOOD, URINE NEG (NEG); COMMENT (UR) CULT NOT INDICATED; CULTURE IF INDICATED CULT NOT INDICATED; GLUCOSE,URINE NEG (NEG); HYALINE CAST, URINE 4 /lpf (RARE); KETONE, URINE NEG (NEG); MUCUS URINE FEW /lpf (OCC); NITRITE,URINE NEG (NEG); PH, URINE 5.5 (5.0-8.5); SQUAMOUS EPITHELIAL CELL URINE 6 /hpf (0-5); URINE COLOR YELLOW (YELLW/STRAW)
[2016-05-30] MEDS ORDERED: BISACODYL 10 MG SUPP RECTAL PRN (15:00)
[2016-05-30] MEDS ORDERED: GLUCAGON 1 MG/ML VIAL OTHER PRN (15:00)
[2016-05-30] MEDS ORDERED: DEXTROSE 50% IN WATER 50 ML VIAL(D50) IV PRN (15:00)
[2016-05-30] MEDS ORDERED: SOD PHOSPHATE/SOD BIPHOSPHATE (ADULT) ENEMA 133ML RECTAL PRN (15:00)
[2016-05-30] MEDS: DOCUSATE SODIUM 100 MG CAP PO SCH ×2 (15:43→21:13)
[2016-05-30] MEDS: MAGNESIUM HYDROXIDE SUSP 30 ML CUP PO SCH (15:43)
--- NOTE | 2016-05-30 16:06 | PD.CAR.PN ---
CVT Progress Note Subjective/Hospital Course: 66 f/ s/p [place] fib [place], Defib x one with ROSC > sinus tach , intimally combative with EMS, neuro workup neg CT Brain / CT cervical spine, no fracture , extensive degenerative changes / CTA chest - for PE intubated in ED , underwent cardiac cath by Dr Barker 90% left main, IABP inserted in laboratory specialist / eval for CABG by Dr Mchugh PMH : chronic back pain , mild asthma, cataract surgery / carotid artery disease Right ICA velocity 277 05/28 1. Urgent Off-pump Coronary Artery Bypass Grafting x 2 with left internal mammary artery (RODRIGES) to left anterior descending (LAD), reverse saphenous vein graft to OM1 2. Left Leg Endoscopic Vein [place] 3. Intraoperative Vein Mapping. 05/29 Doing well D/C IABP today Vent management per [facility]. Appreciate Dr. Covarrubias's input Gentle diuresis Maintain CT 05/30 extubated yesterday, on 4 liter nasal cannula up in chair pain controlled, will need aggressive pulm toileting leave chest tube in today, eval for removal in am Objective: GENERAL: SKIN: Warm and dry.prevena to chest / incision intact to left leg HEAD: Normocephalic. EYES: No scleral icterus. No injection or drainage. NECK: Supple, trachea midline. No JVD or lymphadenopathy. CARDIOVASCULAR: Regular rate and rhythm without murmurs, gallops, or rubs. mild general edema RESPIRATORY: Breath sounds equal bilaterally. No accessory muscle use. chest tube drained 70cc/ 12 hrs/ no air leak GASTROINTESTINAL: Abdomen soft, non-tender, nondistended. MUSCULOSKELETAL: No cyanosis, or edema. BACK: Nontender without obvious deformity. No CVA tenderness. Vital Signs Date Time Temp Pulse Resp B/P Pulse Ox O2 Delivery O2 Flow Rate FiO2 05/30/16 15:25 98.8 72 18 109/58 96 05/30/16 15:07 73 05/30/16 15:06 95 Nasal Cannula 3.00 05/30/16 15:05 73 05/30/16 11:59 94 Nasal Cannula 3.00 05/30/16 11:29 99.2 66 20 107/57 96 05/30/16 11:29 96 Nasal Cannula 3.00 05/30/16 11:00 70 05/30/16 07:43 92 Nasal Cannula 4.00 05/30/16 07:43 99.0 84 18 96/44 92 05/30/16 07:00 70 05/30/16 04:30 14 05/30/16 04:00 99.4 75 14 110/64 95 05/30/16 04:00 95 Nasal Cannula 4.00 05/30/16 04:00 75 05/30/16 00:00 95 Nasal Cannula 4.00 05/30/16 00:00 99.0 75 16 123/55 95 05/30/16 00:00 74 05/29/16 20:00 93 Nasal Cannula 4.00 05/29/16 20:00 99.8 83 16 122/57 93 05/29/16 20:00 84 05/29/16 18:51 19 Labs: Laboratory Tests Test 05/30/16 05/30/16 07:29 11:52 White Blood Count 10.4 TH/MM3 (4.0-11.0) Red Blood Count 3.45 MIL/MM3 (4.00-5.30) Hemoglobin 10.2 GM/DL (11.6-15.3) Hematocrit 30.8 % (35.0-46.0) Mean Corpuscular Volume 89.3 FL (80.0-100.0) Mean Corpuscular Hemoglobin 29.5 PG (27.0-34.0) Mean Corpuscular Hemoglobin 33.1 % Concent (32.0-36.0) Red Cell Distribution Width 14.1 % (11.6-17.2) Platelet Count 163 TH/MM3 (150-450) Mean Platelet Volume 9.2 FL (7.0-11.0) Neutrophils (%) (Auto) 58.5 % (16.0-70.0) Lymphocytes (%) (Auto) 22.9 % (9.0-44.0) Monocytes (%) (Auto) 12.4 % (0.0-8.0) Eosinophils (%) (Auto) 5.5 % (0.0-4.0) Basophils (%) (Auto) 0.7 % (0.0-2.0) Neutrophils # (Auto) 6.1 TH/MM3 (1.8-7.7) Lymphocytes # (Auto) 2.4 TH/MM3 (1.0-4.8) Monocytes # (Auto) 1.3 TH/MM3 (0-0.9) Eosinophils # (Auto) 0.6 TH/MM3 (0-0.4) Basophils # (Auto) 0.1 TH/MM3 (0-0.2) CBC Comment DIFF FINAL Differential Comment Sodium Level 141 MEQ/L (136-145) Potassium Level 3.6 MEQ/L (3.5-5.1) Chloride Level 108 MEQ/L (98-107) Carbon Dioxide Level 24.5 MEQ/L (21.0-32.0) Anion Gap 9 MEQ/L (5-15) Blood Urea Nitrogen 13 MG/DL (7-18) Creatinine 0.67 MG/DL (0.50-1.00) Estimat Glomerular Filtration 88 ML/MIN (>89) Rate Random Glucose 122 MG/DL (74-106) Calcium Level 8.7 MG/DL (8.5-10.1) Magnesium Level 2.2 MG/DL (1.5-2.5) Total Bilirubin 0.7 MG/DL (0.2-1.0) Aspartate Amino Transf 26 U/L (15-37) (AST/SGOT) Alanine Aminotransferase 51 U/L (10-53) (ALT/SGPT) Alkaline Phosphatase 58 U/L (45-117) Total Protein 5.9 GM/DL (6.4-8.2) Albumin 2.5 GM/DL (3.4-5.0) Urine Color YELLOW (YELLW/STRAW) Urine Turbidity HAZY (CLEAR) Urine pH 5.5 (5.0-8.5) Urine Specific [place] 1.014 (1.002-1.035) Urine Protein NEG mg/dL (NEG-TRACE) Urine Glucose (UA) NEG mg/dL (NEG) Urine Ketones NEG mg/dL (NEG) Urine Occult Blood NEG (NEG) Urine Nitrite NEG (NEG) Urine Bilirubin NEG (NEG) Urine Urobilinogen LESS THAN 2.0 MG/DL (LESS THAN 2.0) Urine Leukocyte Esterase MOD (NEG) Urine RBC 2 /hpf (0-3) Urine WBC 6 /hpf (0-5) Urine Squamous Epithelial 6 /hpf (0-5) Cells Urine Bacteria RARE /hpf (NONE) Urine Hyaline Casts 4 /lpf (RARE) Urine Mucus FEW /lpf (OCC) Microscopic Urinalysis Comment CULT NOT INDICATED Result Diagram: 2/27/17 0729 05/30/16728 Telemetry: NSR (1) NSTEMI (non-ST elevated myocardial infarction) (2) S/P CABG x 2 Plan: ASA, statin ,plavix , BB gentle diuresis OOB/ ambulate eval for HHC at discharge (3) Closed head injury (4) Cardiac arrest (5) E. coli UTI Plan: on ABX (6) Morbid obesity with BMI of 40.0-44.9, adult (7) Aspiration pneumonia Plan: appreciated CCM on ABX Problem Qualifiers (1) Closed head injury: Qualified Code: S09.90XA - Closed head injury, initial encounter Leigh Ann Cole May 30, 2016 16:06
[2016-05-30] MEDS: INSULIN ASPART SUPPLEMENTAL SCALE SQ SCH ×2 (18:12→21:13)
[2016-05-30] MEDS: ATORVASTATIN 80 MG TAB PO SCH (21:13)
[2016-05-30] MEDS: SENNOSIDES 8.6 MG TAB PO SCH (21:13)
[2016-05-31] VITALS (29 sets, daily range): BP systolic 108–131; BP diastolic 53–68; PULSE 62–88; RESP 18–22; TEMP 98.8–100; O2SAT 94–98
[2016-05-31] MEDS: metroNIDAZOLE 500 MG INJ 100 ML IV SCH ×3 (01:06→16:29)
[2016-05-31] MEDS: SODIUM CHLORIDE 0.9% FLUSH 5 ML FLUSH IV FLUSH SCH ×3 (01:08→22:03)
[2016-05-31] MEDS: INSULIN ASPART SUPPLEMENTAL SCALE SQ SCH ×6 (02:00→22:00)
[2016-05-31 04:53] LABS: AUTOMATED NEUTROPHIL # 4.8 TH/MM3 (1.8-7.7); BASOPHIL # 0.1 TH/MM3 (0-0.2); BASOPHIL % 0.6 % (0.0-2.0); EOSINOPHIL # 0.4 TH/MM3 (0-0.4); HEMATOCRIT 27.4 % (35.0-46.0); HEMO FLAGS DIFF FINAL; LYMPH % 20.5 % (9.0-44.0); LYMPHOCYTE # 1.7 TH/MM3 (1.0-4.8); MEAN CELL VOLUME 89.2 FL (80.0-100.0); MEAN CORPUSCULAR HEMOGLOBIN 30.2 PG (27.0-34.0); MEAN CORPUSCULAR HGB CONC 33.9 % (32.0-36.0); MONO % 14.3 % (0.0-8.0); NEUT % 59.6 % (16.0-70.0); PLATELET COUNT 170 TH/MM3 (150-450); RED BLOOD COUNT 3.07 MIL/MM3 (4.00-5.30); RED CELL DISTRIBUTION WIDTH 14.4 % (11.6-17.2); WHITE BLOOD COUNT 8.1 TH/MM3 (4.0-11.0)
[2016-05-31] MEDS: RESP: ALBUTEROL 2.5 MG/IPRATROPIUM 0.5 MG NEB (PRN) INH (05:11)
[2016-05-31 05:22] LABS: BICARBONATE 28.2 MEQ/L (21.0-32.0); MAGNESIUM 2.2 MG/DL (1.5-2.5); POTASSIUM 4.1 MEQ/L (3.5-5.1)
[2016-05-31] MEDS: PANTOPRAZOLE SOD 40 MG DELAYED RELEASE TAB PO SCH (05:43)
[2016-05-31] MEDS: oxyCODONE/ACETAMINOPHEN 5 MG/325 MG TAB PO PRN ×3 (05:43→22:03)
[2016-05-31] MEDS: RESP: ALBUTEROL 2.5 MG/IPRATROPIUM 0.5 MG NEB (SCH) NEB ×3 (07:35→19:25)
[2016-05-31] MEDS: cefTRIAXone INJ 1,000 MG in SODIUM CHLORIDE 0.9% INJ 100 ML IV SCH (08:17)
[2016-05-31] MEDS: POLYETHYLENE GLYCOL 17 GM PKG PO SCH (08:19)
[2016-05-31] MEDS: DOCUSATE SODIUM 100 MG CAP PO SCH ×2 (08:19→21:00)
[2016-05-31] MEDS: MAGNESIUM HYDROXIDE SUSP 30 ML CUP PO SCH (08:19)
[2016-05-31] MEDS: CLOPIDOGREL 75 MG TAB PO SCH (08:20)
[2016-05-31] MEDS: BUDESONIDE-FORMOTEROL 160/4.5 MCG INHALER INH SCH ×2 (08:20→22:03)
[2016-05-31] MEDS: MULTIVITAMINS/MINERALS THERAPEUTIC TAB PO SCH (08:20)
[2016-05-31] MEDS: AMIODARONE 200 MG TAB PO SCH ×2 (08:20→22:04)
[2016-05-31] MEDS: METOPROLOL TARTRATE 25 MG TAB PO SCH ×2 (08:20→22:04)
[2016-05-31] MEDS: ASPIRIN 81 MG CHEW TAB PO SCH (08:21)
[2016-05-31] MEDS: ARTIFICIAL TEARS OPTH SOLN 15 ML BTL EACH EYE SCH ×3 (09:00→18:00)
--- NOTE | 2016-05-31 09:45 | PD.CARD.PN ---
Subjective Subjective Remarks No chest pain, no shortness of breath, up to chair Objective Medications Current Medications Medications (Trade) Dose Ordered Sig/Jules Route Start Time Stop Time Status Last Admin (Tears Naturale Opth Soln) 1 drop TID EACH EYE 05/27/16 09:00 05/30/16 18:11 (Reglan Inj) 10 mg Q6H PRN IV 05/26/16 21:15 (Lopressor) 12.5 mg Q12HR PO 05/27/16 21:00 05/31/16 08:20 (NS Flush) 2 ml BID IV FLUSH 05/28/16 21:00 05/31/16 08:20 (NS Flush) 2 ml UNSCH PRN IV FLUSH 05/28/16 11:15 (Aspirin Chew) 81 mg DAILY PO 05/29/16 09:00 05/31/16 08:21 (Plavix) 75 mg DAILY PO 05/29/16 09:00 05/31/16 08:20 (Protonix) 40 mg DAILY@06 PO 05/29/16 06:00 05/31/16 05:43 (Cordarone) 400 mg Q12HR PO 05/28/16 21:00 05/31/16 08:20 (Tylenol) 650 mg Q4H PRN PO 05/28/16 11:15 (Percocet 5-325 Mg) 1 tab Q3H PRN PO 05/28/16 11:15 05/31/16 05:43 (Percocet 5-325 Mg) 2 tab Q3H PRN PO 05/28/16 11:15 05/29/16 18:09 Ondansetron HCl 4 mg 4 mg Q6H PRN IV PUSH 05/28/16 11:15 05/29/16 05:12 Ceftriaxone Sodium 1000 mg/ Sodium Chloride 100 ml @ 200 mls/hr Q24H IV 05/30/16 08:00 05/31/16 08:17 (Flagyl 500 Mg Inj) 100 ml @ 100 mls/hr Q8H IV 05/29/16 09:00 05/31/16 08:15 (Symbicort 160-4.5 Inh) 1 puff Q12HR INH 05/30/16 09:00 05/31/16 08:20 (Lipitor) 80 mg HS PO 05/30/16 21:00 05/30/16 21:13 (Colace) 100 mg BID PO 05/30/16 15:15 05/31/16 08:19 (Theragran M Tab) 1 tab DAILY PO 05/31/16 09:00 05/31/16 08:20 (Milk Of Magnesia Liq) 30 ml DAILY PO 05/30/16 16:00 05/31/16 08:19 (Miralax) 17 gm DAILY PO 05/31/16 09:00 05/31/16 08:19 (Senokot) 8.6 mg HS PO 05/30/16 21:00 05/30/16 21:13 (Fleets Enema (Adult)) 133 ml UNSCH PRN RECTAL 05/30/16 15:00 (NovoLOG SUPPLEMENTAL SCALE) 1 02,06,10,14,18,22 SQ 05/30/16 18:00 (D50w (Vial) Inj) 25 ml UNSCH PRN IV 05/30/16 15:00 (Glucagon Inj) 1 mg UNSCH PRN OTHER 05/30/16 15:00 Vital Signs / I&O Vital Signs Date Time Temp Pulse Resp B/P Pulse Ox O2 Delivery O2 Flow Rate FiO2 05/31/16 09:00 72 05/31/16 08:00 94 Nasal Cannula 2.00 05/31/16 08:00 69 05/31/16 07:36 94 Nasal Cannula 3.00 05/31/16 07:30 98.9 70 22 131/68 94 05/31/16 07:00 78 05/31/16 06:00 74 05/31/16 05:00 67 05/31/16 04:00 99.0 69 18 115/55 94 05/31/16 04:00 70 05/31/16 04:00 94 Nasal Cannula 3.00 05/31/16 03:00 71 05/31/16 02:00 71 05/31/16 01:00 72 05/31/16 00:00 77 05/30/16 23:30 99.0 79 18 127/61 97 05/30/16 23:30 97 Nasal Cannula 3.00 05/30/16 23:00 78 05/30/16 22:00 87 05/30/16 21:00 87 05/30/16 20:00 99.7 80 18 129/59 98 05/30/16 20:00 85 05/30/16 20:00 98 Nasal Cannula 3.00 05/30/16 19:49 98 Nasal Cannula 3.00 05/30/16 19:00 81 05/30/16 15:25 98.8 72 18 109/58 96 05/30/16 15:07 73 05/30/16 15:06 95 Nasal Cannula 3.00 05/30/16 15:05 73 05/30/16 11:59 94 Nasal Cannula 3.00 05/30/16 11:29 99.2 66 20 107/57 96 05/30/16 11:29 96 Nasal Cannula 3.00 05/30/16 11:00 70 I/O 05/30/16 05/30/16 05/30/16 05/31/16 05/31/16 05/31/16 07:00 15:00 23:00 07:00 15:00 23:00 Intake Total 390 ml 580 ml Output Total 690 ml 50 ml 450 ml Balance -300 ml -50 ml 130 ml Intake Oral 240 ml 480 ml IV Total 150 ml 100 ml Output Urine Total 620 ml 450 ml Chest Tube Drainage Total 70 ml 50 ml # Voids 1 # Bowel Movements 0 1 Physical Exam GENERAL: NAD, AAOx3 SKIN: Warm and dry. HEAD: Atraumatic. Normocephalic. EYES: Pupils equal and round. No scleral icterus. No injection or drainage. ENT: No nasal bleeding or discharge. Mucous membranes pink and moist. NECK: Trachea midline. No JVD. CARDIOVASCULAR: Regular rate and rhythm. Sternotomy C/D/I RESPIRATORY: No accessory muscle use. Decreased breath sounds bilaterally GASTROINTESTINAL: Abdomen soft, non-tender, nondistended. Hepatic and splenic margins not palpable. MUSCULOSKELETAL: Trace edema NEUROLOGICAL: Awake and alert No obvious cranial nerve deficits. No focal deficits Laboratory Laboratory Tests Test 05/30/16 05/31/16 11:52 04:15 Urine Color YELLOW Urine Turbidity HAZY Urine pH 5.5 Urine Specific [place] 1.014 Urine Protein NEG mg/dL Urine Glucose (UA) NEG mg/dL Urine Ketones NEG mg/dL Urine Occult Blood NEG Urine Nitrite NEG Urine Bilirubin NEG Urine Urobilinogen LESS THAN 2.0 MG/DL Urine Leukocyte Esterase MOD Urine RBC 2 /hpf Urine WBC 6 /hpf Urine Squamous Epithelial 6 /hpf Cells Urine Bacteria RARE /hpf Urine Hyaline Casts 4 /lpf Urine Mucus FEW /lpf Microscopic Urinalysis Comment CULT NOT INDICATED White Blood Count 8.1 TH/MM3 Red Blood Count 3.07 MIL/MM3 Hemoglobin 9.3 GM/DL Hematocrit 27.4 % Mean Corpuscular Volume 89.2 FL Mean Corpuscular Hemoglobin 30.2 PG Mean Corpuscular Hemoglobin 33.9 % Concent Red Cell Distribution Width 14.4 % Platelet Count 170 TH/MM3 Mean Platelet Volume 9.0 FL Neutrophils (%) (Auto) 59.6 % Lymphocytes (%) (Auto) 20.5 % Monocytes (%) (Auto) 14.3 % Eosinophils (%) (Auto) 5.0 % Basophils (%) (Auto) 0.6 % Neutrophils # (Auto) 4.8 TH/MM3 Lymphocytes # (Auto) 1.7 TH/MM3 Monocytes # (Auto) 1.2 TH/MM3 Eosinophils # (Auto) 0.4 TH/MM3 Basophils # (Auto) 0.1 TH/MM3 CBC Comment DIFF FINAL Differential Comment Sodium Level 143 MEQ/L Potassium Level 4.1 MEQ/L Chloride Level 107 MEQ/L Carbon Dioxide Level 28.2 MEQ/L Anion Gap 8 MEQ/L Blood Urea Nitrogen 17 MG/DL Creatinine 0.61 MG/DL Estimat Glomerular Filtration 98 ML/MIN Rate Random Glucose 113 MG/DL Calcium Level 8.4 MG/DL Magnesium Level 2.2 MG/DL Assessment and Plan Problem List: (1) NSTEMI (non-ST elevated myocardial infarction) (2) S/P CABG x 2 (3) Closed head injury (4) Cardiac arrest (5) E. coli UTI (6) Morbid obesity with BMI of 40.0-44.9, adult (7) Aspiration pneumonia Assessment and Plan 1) NSTEMI/Vfib arrest/Left main disease s/p RODRIGES to LAD, SVG to OM1 POD #2 2) Extubated 3) ASA/BB/Amio/Plavix/Statin 4) IS to avoid atelectasis 5) Ambulate as possible 6) Possible rehab on discharge Problem Qualifiers (1) Closed head injury: Qualified Code: S09.90XA - Closed head injury, initial encounter Jaxson Barker DO May 31, 2016 09:45
--- NOTE | 2016-05-31 09:46 | HHI.PR ---
Subjective Remarks in no acute distress. denies chest pain. working with PT. d/w the PT at the bedside. Objective Vitals Vital Signs Date Time Temp Pulse Resp B/P Pulse Ox O2 Delivery O2 Flow Rate FiO2 05/31/16 07:36 94 Nasal Cannula 3.00 05/31/16 07:30 98.9 70 22 131/68 94 05/31/16 07:00 78 05/31/16 06:00 74 05/31/16 05:00 67 05/31/16 04:00 99.0 69 18 115/55 94 05/31/16 04:00 70 05/31/16 04:00 94 Nasal Cannula 3.00 05/31/16 03:00 71 05/31/16 02:00 71 05/31/16 01:00 72 05/31/16 00:00 77 05/30/16 23:30 99.0 79 18 127/61 97 05/30/16 23:30 97 Nasal Cannula 3.00 05/30/16 23:00 78 05/30/16 22:00 87 05/30/16 21:00 87 05/30/16 20:00 99.7 80 18 129/59 98 05/30/16 20:00 85 05/30/16 20:00 98 Nasal Cannula 3.00 05/30/16 19:49 98 Nasal Cannula 3.00 05/30/16 19:00 81 05/30/16 15:25 98.8 72 18 109/58 96 05/30/16 15:07 73 05/30/16 15:06 95 Nasal Cannula 3.00 05/30/16 15:05 73 05/30/16 11:59 94 Nasal Cannula 3.00 05/30/16 11:29 99.2 66 20 107/57 96 05/30/16 11:29 96 Nasal Cannula 3.00 05/30/16 11:00 70 I/O 05/30/16 05/30/16 05/30/16 05/31/16 05/31/16 05/31/16 07:00 15:00 23:00 07:00 15:00 23:00 Intake Total 390 ml 580 ml Output Total 690 ml 50 ml 450 ml Balance -300 ml -50 ml 130 ml Intake Oral 240 ml 480 ml IV Total 150 ml 100 ml Output Urine Total 620 ml 450 ml Chest Tube Drainage Total 70 ml 50 ml # Voids 1 # Bowel Movements 0 1 Result Diagram: 05/31/16 0415 05/31/16 0415 Imaging Last Impressions Chest X-Ray 05/30/16 0000 Signed Impressions: Service Date/Time: Monday, May 30, 2016 07:19 - CONCLUSION: 1. Left basilar density likely atelectasis. Jose Alberto Espana MD Lower Extremity Ultrasound 05/27/16 0000 Signed Impressions: Service Date/Time: Friday, May 27, 2016 14:59 - CONCLUSION: Venous mapping as above. Tr Ferrell MD Carotid Artery Ultrasound 05/27/16 0000 Signed Impressions: Service Date/Time: Friday, May 27, 2016 17:24 - CONCLUSION: There is right greater than left bifurcation atherosclerotic plaque. There is hemodynamically significant narrowing of the proximal to mid right ICA. Satish Wolf MD CT Angiography [id number] Signed Impressions: Service Date/Time: May 23:08 - CONCLUSION: Bilateral pulmonary consolidation without evidence for pulmonary embolism. Miguel Styles MD Cervical Spine CT [id number] Signed Impressions: Service Date/Time: May 20:08 - CONCLUSION: No acute bony injury. Extensive degenerative changes. Maximiliano Potts MD Head CT 05/26/16 0000 Signed Impressions: Service Date/Time: May 20:08 - CONCLUSION: Normal examination for a patient of this age. Maximiliano Potts MD Objective Remarks GENERAL: This is a well-nourished, well-developed patient, in no apparent distress. CARDIOVASCULAR: Regular rate and regular rhythm without murmurs, gallops, or rubs. RESPIRATORY: diminished air entry in bases GASTROINTESTINAL: Abdomen soft, non-tender, nondistended. Normal, active bowel sounds MUSCULOSKELETAL: Extremities without clubbing, cyanosis, or edema. NEURO: Alert & Oriented x4 to person, place, time, situation. Moves all ext x4 Procedures endotracheal intubation cardiac cath CABG Medications and IVs Current Medications Sodium Chloride (NS 1000 ml Inj) 1,000 ml @ 0 mls/hr Q0M ONCE IV Last administered on 05/26/16t 20:43; Start 05/26/16 at 20:07; Stop 05/26/16 at 20:09 ; Status DC IV Flush 2 ml 2 ml UNSCH PRN IVF FLUSH AFTER USING IV ACCESS; Start 05/26/16 at 20:15; Stop 05/26/16 at 21:41; Status DC Nitroglycerin/ Dextrose (Nitroglycerin-Dextrose Inj) 250 ml @ 0 mls/hr TITRATE IV ; Start 05/26/16 at 20:15; Stop 05/26/16 at 21:25; Status DC Lorazepam (Ativan Inj) 2 mg ONCE ONCE IV PUSH Last administered on 05/26/16 20:42; Start 05/26/16 at 20:15; Stop 05/26/16 at 20:16; Status DC Propofol (Diprivan 1000 Mg/100ml Inj) search Sets for Drip. TITRATE PRN IV AGITATION; Start 05/26/16 at 20:15; Stop 05/26/16 at 21:41; Status DC Etomidate (Amidate Inj) 20 mg ONCE ONCE IV PUSH Last administered on 20:42; Start 05/26/16 at 20:15; Stop 05/26/16 at 20:16; Status DC Succinylcholine Chloride 100 mg 100 mg ONCE ONCE IM Last administered on 20:42; Start 05/26/16 at 20:15; Stop 05/26/16 at 20:16; Status DC Sodium Chloride (NS 1000 ml Inj) 1,000 ml @ 84 mls/hr [id number] IV Last administered on 05/28/16 05:30; Start 05/26/16 at 21:08; Stop 05/28/16 at 11:13 ; Status DC IV Flush (NS Flush) 2 ml UNSCH PRN IV FLUSH FLUSH AFTER USING IV ACCESS; Start 05/26/16 at 21:15; Stop 05/27/16 at 14:18; Status DC IV Flush (NS Flush) 2 ml BID IV FLUSH ; Start 05/27/16 at 09:00; Stop 05/27/16 at 14:18; Status DC Acetaminophen (Tylenol) 650 mg Q6H PRN PO PAIN 1-5 AND/OR FEVER >101F; Start at 21:15; Stop 05/28/16 at 11:14; Status DC Morphine Sulfate (Morphine Inj) 2 mg Q2H PRN IV PAIN SCALE 6 TO 10 Last administered on 05/28/16 04:44; Start 05/26/16 at 21:15; Stop 05/30/16 at 14:57 ; Status DC Famotidine (Pepcid Inj) 10 mg Q12HR IV PUSH Last administered on 05/27/16 20: 05; Start 05/27/16 at 09:00; Stop 05/28/16 at 14:57; Status DC Lorazepam (Ativan Inj) 2 mg Q4H PRN IV Agitation/Sedation Last administered on 05/29/16 04:42; Start 05/26/16 at 21:15; Stop 05/30/16 at 14:57; Status DC Artificial Tears (Tears Naturale Opth Soln) 1 drop TID EACH EYE Last administered on 05/30/16 18:11; Start 05/27/16 at 09:00 Ondansetron HCl (Zofran Inj) 4 mg Q6H PRN IV NAUSEA OR VOMITING; Start at 21:15; Stop 05/28/16 at 12:07; Status DC Metoclopramide HCl (Reglan Inj) 10 mg Q6H PRN IV NAUSEA OR VOMITING; Start at 21:15 Docusate Sodium (Colace Liq) 100 mg Q12HR G-TUBE Last administered on 08:54; Start 05/26/16 at 21:15; Stop 05/30/16 at 14:57; Status DC Albuterol/ Ipratropium (Duoneb Neb) 1 ampule Q2HR NEB PRN INH WHEEZING Last administered on 05/31/16 05:11; Start 05/26/16 at 21:15 Miscellaneous Information 1 [id number] XX ; Start 05/26/16 at 21:15; Stop 05/30/16 at 14:57; Status DC Chlorhexidine Gluconate (Chlorhexidine 2% Cloth) 3 pack Taper DAILY@04 TOP Last administered on 05/30/16 04:00; Start 05/27/16 at 04:00; Stop 05/30/16 at 14:57; Status DC Chlorhexidine Gluconate 3 pack 3 pack UNSCH PRN TOP HYGIENIC CARE; Start at 21:15; Stop 05/30/16 at 14:57; Status DC Propofol (Diprivan 1000 Mg/100ml Inj) 100 ml @ 0 mls/hr TITRATE IV Last administered on 05/28/16 18:15; Start 05/26/16 at 21:15; Stop 05/30/16 at 06:55 ; Status DC Protein 2 pack 2 pack TID G-TUBE ; Start 05/27/16 at 09:00; Stop 05/30/16 at 14: 57; Status DC Lidocaine HCl/ Dextrose (Lidocaine/D5W Inj) 500 ml @ 30 mls/hr [id number] IV Last administered on 05/28/16 06:18; Start 05/26/16 at 21:14; Stop 05/28/16 at 11:14; Status DC Aspirin (Aspirin Chew) 81 mg DAILY TUBE ; Start 05/27/16 at 09:00; Stop at 12:07; Status DC Heparin Sodium (Porcine) (Heparin Inj) 5,000 units UNSCH PRN IV APTT LESS THAN 25; Start 05/27/16 at 04:30; Stop 05/28/16 at 11:15; Status DC Heparin Sodium (Porcine) 2500 units 2,500 units UNSCH PRN IV APTT 25 TO 39 Last administered on 05/27/16 21:48; Start 05/27/16 at 04:30; Stop 05/28/16 at 11:15; Status DC Heparin Sodium/ Dextrose (Heparin-D5W Inj) 250 ml @ 0 mls/hr TITRATE IV Last administered on 05/27/16 01:00; Start 05/26/16 at 22:30; Stop 05/30/16 at 14:57 ; Status DC Iohexol 75 ml 75 ml STK-MED ONCE IV Last administered on 05/26/16 23:29; Start 05/26/16 at 23:29; Stop 05/26/16 at 23:30; Status DC Ampicillin Sodium/ Sulbactam Sodium 3 gm/Sodium Chloride 100 ml @ 200 mls/hr Q6H IV Last administered on 05/29/16 04:42; Start 05/27/16 at 10:00; Stop at 08:20; Status DC Potassium Chloride 100 ml @ 50 mls/hr Q2H PRN IV For Potassium 2.8 - 3.2 mEq/L ; Start 05/27/16 at 10:15; Stop 05/30/16 at 14:57; Status DC Potassium Chloride (KCl 20 Meq Premix Inj) 100 ml @ 50 mls/hr Q2H PRN IV For Potassium 2.8 - 3.2 mEq/L; Start 05/27/16 at 10:15; Stop 05/30/16 at 14:58; Status DC Potassium Chloride 40 meq 40 meq UNSCH PRN PO/TUBE For Potassium 3.3 - 3.5 mEq/ L Last administered on 05/28/16t 05:30; Start 05/27/16 at 10:15; Stop 05/30/16 at 14:58; Status DC Potassium Chloride 100 ml @ 25 mls/hr UNSCH PRN IV For Potassium 3.3 - 3.5 mEq /L; Start 05/27/16 at 10:15; Stop 05/30/16 at 14:58; Status DC Potassium Chloride 100 ml @ 50 mls/hr Q2H PRN IV For Potassium 3.3 - 3.5 mEq/ L Last administered on 05/29/16t 07:22; Start 05/27/16 at 10:15; Stop 05/30/16 at 14:59; Status DC Magnesium Sulfate/ Sodium Chloride (Magnesium Sulfate Inj/NS Inj) 100 ml @ 50 mls/hr UNSCH PRN IV For Magnesium 0.9 - 1.1 mg/dL; Start 05/27/16 at 10:15; Stop 05/30/16 at 14:59; Status DC Magnesium Oxide 800 mg 800 mg UNSCH PRN PO For Magnesium 1.2 - 1.6 mg/dL; Start 05/27/16 at 10:15; Stop 05/30/16 at 15:00; Status DC Magnesium Sulfate/ Sodium Chloride (Magnesium Sulfate Inj/NS Inj) 100 ml @ 50 mls/hr UNSCH PRN IV For Magnesium 1.2 - 1.6 mg/dL; Start 05/27/16 at 10:15; Stop 05/30/16 at 15:00; Status DC Potassium Phosphate 2000 mg 2,000 mg Q4H PRN PO For Phosphorus < 2.5 mg/dL; Start 05/27/16 at 10:15; Stop 05/30/16 at 15:00; Status DC Sodium Phosphate/ Sodium Chloride (Sodium Phosphate Inj/NS 250 ml Inj) 250 ml @ 42 mls/hr UNSCH PRN IV For Phosphorus < 2.5 mg/dL; Start 05/27/16 at 10:15; Stop 05/28/16 at 11:15; Status DC Potassium Chloride (KCl 40 Meq/30 ml Liq) 40 meq UNSCH PRN PO/TUBE SEE LABEL COMMENTS; Start 05/27/16 at 10:15; Stop 05/30/16 at 15:00; Status DC Potassium Phosphate 2000 mg 2,000 mg UNSCH PRN PO/TUBE SEE LABEL COMMENTS; Start 05/27/16 at 10:15; Stop 05/30/16 at 15:00; Status DC Potassium Phosphate 30 mmol/ Sodium Chloride 260 ml @ 42 mls/hr UNSCH PRN IV SEE LABEL COMMENTS; Start 05/27/16 at 10:15; Stop 05/30/16 at 15:00; Status DC Heparin Sodium/ Sodium Chloride 500 ml @ As Directed STK-MED ONCE .ROUTE Last administered on 05/27/16 11:21; Start 05/27/16 at 11:21; Stop 05/27/16 at 11:22 ; Status DC Heparin Sodium/ Sodium Chloride 500 ml @ As Directed STK-MED ONCE .ROUTE Last administered on 05/27/16 11:39; Start 05/27/16 at 11:39; Stop 05/27/16 at 11:40 ; Status DC Heparin Sodium/ Dextrose 250 ml @ As Directed STK-MED ONCE .ROUTE Last administered on 05/27/16 11:57; Start 05/27/16 at 11:57; Stop 05/27/16 at 11:58 ; Status DC Lidocaine HCl/ Dextrose (Lidocaine/D5W Inj) 500 ml @ As Directed STK-MED ONCE .ROUTE Last administered on 05/27/16 12:16; Start 05/27/16 at 12:16; Stop at 12:17; Status DC IV Flush (NS Flush) 2 ml BID IVF ; Start 05/27/16 at 21:00; Stop 05/27/16 at 21: 00; Status DC IV Flush (NS Flush) 2 ml UNSCH PRN IVF FLUSH AFTER USING IV ACCESS; Start 05/27 at 12:45; Stop 05/27/16 at 14:18; Status DC Miscellaneous Information 1 ONCE ONCE XX ; Start 05/27/16 at 12:45; Stop at 12:55; Status DC Metoprolol Tartrate (Lopressor) 12.5 mg Q12HR PO Last administered on 08:20; Start 05/27/16 at 21:00 Iohexol (OMNIPAQUE 350 INJ (Enrollment Representative)) 100 ml STK-MED ONCE OTHER ; Start at 12:30; Stop 05/27/16 at 13:30; Status DC IV Flush (NS Flush) 2 ml BID IV FLUSH Last administered on 05/27/16 20:04; Start 05/27/16 at 21:00; Stop 05/28/16 at 11:15; Status DC IV Flush 2 ml 2 ml UNSCH PRN IV FLUSH FLUSH AFTER USING IV ACCESS; Start at 14:15; Stop 05/28/16 at 11:15; Status DC Papaverine HCl 60 mg/Nitroglycerin 100 mcg/Diltiazem HCl 100 mg/Sodium Chloride 100.0 ml @ 0 mls/hr RAFTSMAN IRRIGATION Last administered on 05/28/16 08:00; Start 05/27/16 at 14:15; Stop 05/28/16 at 11:15; Status DC Cefazolin Sodium 500 mg/Sodium Chloride 505 ml @ 0 mls/hr RAFTSMAN IRRIGATION Last administered on 05/28/16 09:06; Start 05/27/16 at 14:15; Stop 05/30/16 at 15:01; Status DC Cefazolin Sodium/ Dextrose (Ancef 2 Gm Premix) 50 ml @ 150 mls/hr RAFTSMAN IV Last administered on 05/28/16 08:04; Start 05/27/16 at 14:15; Stop 05/30/16 at 15:02; Status DC Metoprolol Tartrate (Lopressor) 12.5 mg RAFTSMAN PO ; Start 05/27/16 at 14:15; Stop 05/30/16 at 15:01; Status DC Chlorhexidine Gluconate 1 applic 1 applic RAFTSMAN TOPICAL Last administered on 05/28/16 06:41; Start 05/27/16 at 14:15; Stop 05/28/16 at 11:16; Status DC Insulin Human Regular/Sodium Chloride (NovoLIN R (IV INFUSION)/NS Inj) 101 ml @ 0 mls/hr RAFTSMAN IV ; Start 05/27/16 at 14:15; Stop 05/29/16 at 12:54; Status DC Heparin Sodium (Porcine) (Heparin Inj) 10,000 units STK-MED ONCE .ROUTE ; Start 05/28/16 at 06:15; Stop 05/28/16 at 06:16; Status DC Vancomycin HCl (Vancomycin Inj) 3,000 mg STK-MED ONCE .ROUTE Last administered on 05/28/16 07:30; Start 05/28/16 at 06:16; Stop 05/28/16 at 06:17; Status DC Heparin Sodium (Porcine) (Heparin Inj) 40,000 units STK-MED ONCE .ROUTE Last administered on 05/28/16 07:30; Start 05/28/16 at 06:16; Stop 05/28/16 at 06:17 ; Status DC Potassium Chloride (KCl Inj) 8 meq STK-MED ONCE .ROUTE ; Start 05/28/16 at 07:22 ; Stop 05/28/16 at 07:23; Status DC Albumin Human (Albumin 5% Inj) 25 gm STK-MED ONCE IV ; Start 05/28/16 at 09:37; Stop 05/28/16 at 09:38; Status DC IV Flush (NS Flush) 2 ml BID IV FLUSH Last administered on 05/31/16 08:20; Start 05/28/16 at 21:00 IV Flush 2 ml 2 ml UNSCH PRN IV FLUSH FLUSH AFTER USING IV ACCESS; Start at 11:15 Propofol 100 ml @ 0 mls/hr TITRATE IV ; Start 05/28/16 at 11:15; Stop 05/30/16 at 06:55; Status DC Dexmedetomidine HCl 50 ml @ 0 mls/hr TITRATE IV Last administered on 05/29/16 02:40; Start 05/28/16 at 11:15; Stop 05/30/16 at 06:44; Status DC Nitroglycerin/ Dextrose 250 ml @ 0 mls/hr TITRATE IV ; Start 05/28/16 at 11:15; Stop 05/30/16 at 15:02; Status DC Dobutamine HCl/ Dextrose 250 ml @ 16.95 mls/ hr [id number] IV ; Start 05/28/16 at 11:08; Stop 05/30/16 at 15:03; Status DC Dopamine HCl/ Dextrose 500 ml @ 0 mls/hr TITRATE IV ; Start 05/28/16 at 11:15; Stop 05/30/16 at 15:03; Status DC Epinephrine HCl 4 mg/Dextrose 250 ml @ 0 mls/hr TITRATE IV ; Start 05/28/16 at 11:15; Stop 05/30/16 at 15:04; Status DC Phenylephrine HCl 40 mg/Dextrose 500 ml @ 0 mls/hr TITRATE IV ; Start 05/28/16 at 11:15; Stop 05/30/16 at 15:14; Status DC Clevidipine (Cleviprex Inj) 50 ml @ 0 mls/hr TITRATE IV ; Start 05/28/16 at 11: 15; Stop 05/30/16 at 15:15; Status DC Albumin Human 12.5 gm 12.5 gm UNSCH PRN IV SEE LABEL COMMENTS; Start 05/28/16 at 11:15; Stop 05/30/16 at 15:04; Status DC Lactated Ringer's (Lr 1000 ml Inj) 500 ml @ 500 mls/hr Q1H PRN IV SEE LABEL COMMENTS; Start 05/28/16 at 11:08; Stop 05/30/16 at 15:04; Status DC Miscellaneous Information (Post-op Orders (for Pharmacy)) STAT ONCE OTHER ; Start 05/28/16 at 11:15; Stop 05/28/16 at 12:51; Status DC Aspirin (Aspirin Chew) 81 mg DAILY PO Last administered on 05/31/16 08:21; Start 05/29/16 at 09:00 Clopidogrel Bisulfate (Plavix) 75 mg DAILY PO Last administered on 05/31/16 08 :20; Start 05/29/16 at 09:00 Pantoprazole Sodium (Protonix) 40 mg DAILY@06 PO Last administered on 05:43; Start 05/29/16 at 06:00 Amiodarone HCl (Cordarone) 400 mg Q12HR PO Last administered on 05/31/16 08:20 ; Start 05/28/16 at 21:00 Acetaminophen (Tylenol) 650 mg Q4H PRN PO TEMPERATURE > 101 F; Start 05/28/16 at 11:15 Acetaminophen (Tylenol Supp) 650 mg Q4H PRN RECTAL TEMPERATURE > 101 F; Start 05/28/16 at 11:15; Stop 05/30/16 at 15:04; Status DC Acetaminophen (Ofirmev Inj) 1,000 mg Q6H IV Last administered on 05/29/16 00: 32; Start 05/28/16 at 12:00; Stop 05/29/16 at 06:01; Status DC Morphine Sulfate (Morphine Inj) 1 mg Q10M PRN IV PAIN SCALE 1 TO 5; Start 05/28 at 11:15; Stop 05/30/16 at 15:04; Status DC Meperidine HCl (Demerol Inj) 12.5 mg Q4H PRN IV SEE LABEL COMMENTS; Start 05/28 at 11:15; Stop 05/30/16 at 15:02; Status DC Oxycodone/ Acetaminophen (Percocet 5-325 Mg) 1 tab Q3H PRN PO PAIN SCALE 1 TO 5 Last administered on 05/31/16 05:43; Start 05/28/16 at 11:15 Oxycodone/ Acetaminophen (Percocet 5-325 Mg) 2 tab Q3H PRN PO PAIN SCALE 6 TO 10 Last administered on 05/29/16 18:09; Start 05/28/16 at 11:15 Ketorolac Tromethamine (Toradol Inj) 15 mg Q6H PRN IV PUSH SEE LABEL COMMENTS Last administered on 05/30/16 03:16; Start 05/28/16 at 11:15; Stop 05/30/16 at 11:14; Status DC Fentanyl Citrate (fentaNYL INJ) 25 mcg Q1H PRN IV BREAKTHROUGH PAIN Last administered on 05/29/16 07:30; Start 05/28/16 at 11:15; Stop 05/30/16 at 15:04 ; Status DC Ondansetron HCl (Zofran Inj) 4 mg Q6H PRN IV PUSH NAUSEA OR VOMITING Last administered on 05/29/16 05:12; Start 05/28/16 at 11:15 Hydralazine HCl (Apresoline Inj) 10 mg Q4H PRN IV SEE LABEL COMMENTS Last administered on 05/28/16 14:11; Start 05/28/16 at 11:15; Stop 05/30/16 at 15:04 ; Status DC Metoprolol Tartrate 2.5 mg 2.5 mg Q1H PRN IV PUSH SEE LABEL COMMENTS; Start at 11:15; Stop 05/30/16 at 15:04; Status DC Potassium Chloride 100 ml @ 50 mls/hr UNSCH PRN IV SEE LABEL COMMENTS Last administered on 05/28/16 13:01; Start 05/28/16 at 11:15; Stop 05/30/16 at 15:04 ; Status DC Potassium Chloride 100 ml @ 50 mls/hr UNSCH PRN IV SEE LABEL COMMENTS; Start 05/28/16 at 11:15; Stop 05/30/16 at 15:05; Status DC Potassium Chloride (KCl 20 Meq Premix Inj) 100 ml @ 50 mls/hr UNSCH PRN IV SEE LABEL COMMENTS; Start 05/28/16 at 11:15; Stop 05/30/16 at 15:05; Status DC Potassium Chloride (KCl) 20 meq UNSCH PRN PO SEE LABEL COMMENTS; Start at 11:15; Stop 05/28/16 at 12:06; Status DC Potassium Chloride 40 meq 40 meq UNSCH PRN PO SEE LABEL COMMENTS; Start at 11:15; Stop 05/28/16 at 12:06; Status DC Magnesium Sulfate 2 gm/Sodium Chloride 104 ml @ 100 mls/hr UNSCH PRN IV SEE LABEL COMMENTS; Start 05/28/16 at 11:15; Stop 05/30/16 at 15:06; Status DC Magnesium Sulfate 2 gm/Sodium Chloride 104 ml @ 50 mls/hr UNSCH PRN IV SEE LABEL COMMENTS Last administered on 05/29/16 06:27; Start 05/28/16 at 11:15; Stop 05/30/16 at 15:06; Status DC Calcium Chloride/ Sodium Chloride (Calcium Chloride Inj/NS Inj) 110 ml @ 100 mls/hr UNSCH PRN IV SEE LABEL COMMENTS Last administered on 05/28/16 20:09; Start 05/28/16 at 11:15; Stop 05/30/16 at 15:07; Status DC Calcium Chloride 0.5 gm 0.5 gm UNSCH PRN IV SEE LABEL COMMENTS; Start 05/28/16 at 11:15; Stop 05/30/16 at 15:02; Status DC Insulin Human Regular/Sodium Chloride (NovoLIN R (IV INFUSION)/NS Inj) 100 ml @ 0 mls/hr TITRATE IV ; Start 05/28/16 at 11:15; Stop 05/29/16 at 12:54; Status DC Dextrose 25 ml 25 ml UNSCH PRN IV PUSH HYPOGLYCEMIA-SEE COMMENTS; Start at 11:15; Stop 05/29/16 at 12:57; Status DC Cefazolin Sodium/ Dextrose (Ancef 2 Gm Premix) 50 ml @ 100 mls/hr Q8H IV Last administered on 05/30/16 01:38; Start 05/28/16 at 17:00; Stop 05/30/16 at 01:29 ; Status DC Midazolam HCl (Versed Inj) 10 mg STK-MED ONCE .ROUTE ; Start 05/28/16 at 11:58; Stop 05/28/16 at 11:59; Status DC Fentanyl Citrate (fentaNYL INJ) 1,000 mcg STK-MED ONCE .ROUTE ; Start 05/28/16 at 11:58; Stop 05/28/16 at 11:59; Status DC Furosemide 20 mg 20 mg ONCE ONCE IV PUSH Last administered on 05/28/16 13:00 ; Start 05/28/16 at 13:00; Stop 05/28/16 at 13:01; Status DC Potassium Chloride 100 ml @ 50 mls/hr BOLUS ONCE IV ; Start 05/28/16 at 13:00 ; Stop 05/28/16 at 14:59; Status UNV Dexmedetomidine HCl (Precedex Inj) 50 ml @ 0 mls/hr TITRATE IV ; Start 05/28/16 at 13:45; Status Cancel Famotidine (Pepcid Inj) 20 mg Q12HR IV PUSH Last administered on 05/29/16 08: 17; Start 05/28/16 at 21:00; Stop 05/30/16 at 06:56; Status DC Furosemide 20 mg 20 mg ONCE ONCE IV PUSH Last administered on 05/29/16 07:37 ; Start 05/29/16 at 07:30; Stop 05/29/16 at 07:31; Status DC Ceftriaxone Sodium 2000 mg/ Sodium Chloride 100 ml @ 200 mls/hr ONCE ONCE IV Last administered on 05/29/16 09:03; Start 05/29/16 at 08:30; Stop 05/29/16 at 08:59; Status DC Ceftriaxone Sodium/Sodium Chloride (Rocephin Inj/NS Inj) 100 ml @ 200 mls/hr Q24H IV Last administered on 05/31/16 08:17; Start 05/30/16 at 08:00 Albuterol/ Ipratropium 1 ampule 1 ampule Q6HR WHILE AWAKE NEB NEB Last administered on 05/30/16 11:59; Start 05/29/16 at 14:00; Stop 05/30/16 at 15:20 ; Status DC Metronidazole (Flagyl 500 Mg Inj) 100 ml @ 100 mls/hr Q8H IV Last administered on 05/31/16 08:15; Start 05/29/16 at 09:00 Dextrose (D50w (Vial) Inj) 25 ml UNSCH PRN IV PUSH HYPOGLYCEMIA - SEE COMMENTS ; Start 05/29/16 at 13:00; Stop 05/30/16 at 15:08; Status DC Glucagon (Glucagon Inj) 1 mg UNSCH PRN OTHER HYPOGLYCEMIA-SEE COMMENTS; Start 05/29/16 at 13:00; Stop 05/30/16 at 15:08; Status DC Insulin Human Regular (NovoLIN R SUPPLEMENTAL SCALE) 1 ACHS SLIDING SCALE SQ Last administered on 05/30/16 11:02; Start 05/29/16 at 16:00; Stop 05/30/16 at 15:08; Status DC Budesonide/ Formoterol Fumarate (Symbicort 160-4.5 Inh) 1 puff Q12HR INH Last administered on 05/31/16 08:20; Start 05/30/16 at 09:00 Atorvastatin Calcium (Lipitor) 80 mg HS PO Last administered on 05/30/16 21:13 ; Start 05/30/16 at 21:00 Furosemide (Lasix Inj) 20 mg ONCE ONCE IV PUSH Last administered on 05/30/16 11:03; Start 05/30/16 at 10:15; Stop 05/30/16 at 10:16; Status DC Potassium Chloride (KCl) 30 meq ONCE ONCE PO Last administered on 05/30/16 11 :03; Start 05/30/16 at 10:15; Stop 05/30/16 at 15:08; Status DC Potassium Chloride (KCl) 30 meq ONCE ONCE PO Last administered on 2/27/17at 12 :49; Start 05/30/16 at 12:30; Stop 05/30/16 at 15:08; Status DC Protamine Sulfate 250 mg 250 mg STK-MED ONCE IV ; Start 05/28/16 at 13:11; Stop 05/30/16 at 13:12; Status DC Lactated Ringer's 2,000 ml @ As Directed STK-MED ONCE IV ; Start 05/28/16 at 13 :11; Stop 05/30/16 at 13:12; Status DC Sodium Chloride 100 ml @ As Directed STK-MED ONCE IV ; Start 05/28/16 at 13:11 ; Stop 05/30/16 at 13:12; Status DC Sodium Chloride 500 ml @ As Directed STK-MED ONCE IV ; Start 05/28/16 at 13:11 ; Stop 05/30/16 at 13:12; Status DC Sodium Chloride 500 ml @ As Directed STK-MED ONCE IV ; Start 05/28/16 at 13:11 ; Stop 05/30/16 at 13:12; Status DC Parenteral Electrolytes (Normosol R Inj) 2,000 ml @ As Directed STK-MED ONCE IV ; Start 05/28/16 at 13:11; Stop 05/30/16 at 13:13; Status DC Acetaminophen 1000 mg 1,000 mg STK-MED ONCE IV ; Start 05/28/16 at 05:00; Stop 05/30/16 at 13:56; Status DC Dexmedetomidine HCl 50 ml @ As Directed STK-MED ONCE IV ; Start 05/28/16 at 05: 00; Stop 05/30/16 at 13:56; Status DC Propofol (Diprivan 1000 Mg/100ml Inj) 100 ml @ As Directed STK-MED ONCE IV ; Start 05/28/16 at 05:00; Stop 05/30/16 at 13:56; Status DC Aminocaproic Acid (Amicar Inj) 250 mg STK-MED ONCE IV ; Start 05/28/16 at 05:00 ; Stop 05/30/16 at 13:56; Status DC Heparin Sodium (Porcine) (Heparin Inj) 10,000 units STK-MED ONCE SQ ; Start at 05:00; Stop 05/30/16 at 13:56; Status DC Lidocaine HCl (Xylocaine 2% Inj) 100 mg STK-MED ONCE IV PUSH ; Start 05/28/16 at 05:00; Stop 05/30/16 at 13:56; Status DC Magnesium Sulfate 1000 mg 1,000 mg STK-MED ONCE IV ; Start 05/28/16 at 05:00; Stop 05/30/16 at 13:56; Status DC Nitroglycerin/ Dextrose (Nitroglycerin-Dextrose Inj) 250 ml @ As Directed STK- MED ONCE IV ; Start 05/28/16 at 05:00; Stop 05/30/16 at 13:56; Status DC Protamine Sulfate (Protamine Sulfate Inj) 250 mg STK-MED ONCE IV ; Start at 05:00; Stop 05/30/16 at 13:56; Status DC Methylprednisolone Sodium Succinate (SoluMEDROL INJ) 500 mg STK-MED ONCE IV ; Start 05/28/16 at 05:00; Stop 05/30/16 at 13:56; Status DC Vecuronium [place] (Norcuron 10 Mg Inj) 10 mg STK-MED ONCE IV ; Start 05/28/16 at 05:00; Stop 05/30/16 at 13:56; Status DC Albuterol/ Ipratropium (Duoneb Neb) 1 ampule Q6HR WHILE AWAKE NEB NEB Last administered on 05/31/16 07:35; Start 05/30/16 at 20:00; Stop 06/01/16 at 19:59 Docusate Sodium (Colace) 100 mg BID PO Last administered on 05/31/16 08:19; Start 05/30/16 at 15:15 Multivitamins/ Minerals Therapeutic (Theragran M Tab) 1 tab DAILY PO Last administered on 05/31/16 08:20; Start 05/31/16 at 09:00 Magnesium Hydroxide (Milk Of Magnesia Liq) 30 ml DAILY PO Last administered on 05/31/16 08:19; Start 05/30/16 at 16:00 Bisacodyl (Dulcolax Supp) 10 mg UNSCH X1 PRN RECTAL SEE LABEL COMMENTS; Start 05/30/16 at 15:00; Stop 06/02/16 at 14:59 Polyethylene Glycol (Miralax) 17 gm DAILY PO Last administered on 05/31/16 08: 19; Start 05/31/16 at 09:00 Sennosides (Senokot) 8.6 mg HS PO Last administered on 05/30/16t 21:13; Start 05/30/16 at 21:00 Sodium Biphosphate/ Sodium Phosphate (Fleets Enema (Adult)) 133 ml UNSCH PRN RECTAL SEE LABEL COMMENTS; Start 05/30/16 at 15:00 Insulin Aspart (NovoLOG SUPPLEMENTAL SCALE) 1 02,06,10,14,18,22 SQ ; Start 05/30 at 18:00 Dextrose (D50w (Vial) Inj) 25 ml UNSCH PRN IV HYPOGLYCEMIA-SEE COMMENTS; Start 05/30/16 at 15:00 Glucagon (Glucagon Inj) 1 mg UNSCH PRN OTHER HYPOGLYCEMIA-SEE COMMENTS; Start 05/30/16 at 15:00 A/P Assessment and Plan A/P Acute respiratory failure Aspiration pneumonitis -Patient was intubated for an airway protection. Extubated 05/29/16 -Added Symbicort 1 puff every 12 -DuoNeb every 6 hours and when necessary. EzPAP q6. Cardiac arrest NSTEMI Ventricular fibrillation CAD with L main disease - s/p 1. Urgent Off-pump CABGx 2 with RODRIGES to LAD) reverse saphenous vein graft to OM1 on 05/28/16 - Cardiac catheterization to 21/07/[address] Barker showed 90% left main disease, IABP inserted-removed 05/19/16 - Continue, aspirin, metoprolol, Plavix and amiodarone - Resumed statin Transaminitis secondary to cardiac arrest -back to normal limit -Heart healthy diet -Protonix for GI prophylaxis Aspiration pneumonitis UTI with E Coli -Continue Rocephin and Flagyl - Urine culture E Coli DVT GI prophylaxis -Prophylactic Lovenox when cleared by CT surgery. Protonix for GI prophylaxis Ishmael Tadeo MD May 31, 2016 09:46
--- NOTE | 2016-05-31 10:55 | PD.CAR.PN ---
CVT Progress Note CVT: POD #: 3 Subjective/Hospital Course: 66 f/ s/p V fib [place], Defib x one with ROSC > sinus tach , intimally combative with EMS, neuro workup neg CT Brain / CT cervical spine, no fracture , extensive degenerative changes / CTA chest - for PE intubated in ED , underwent cardiac cath by Dr Barker 90% left main, IABP inserted in cath lab radiological technologist / eval for CABG by Dr Mchugh PMH : chronic back pain , mild asthma, cataract surgery / carotid artery disease Right ICA velocity 277 05/28 1. Urgent Off-pump Coronary Artery Bypass Grafting x 2 with left internal mammary artery (RODRIGES) to left anterior descending (LAD), reverse saphenous vein graft to OM1 2. Left Leg Endoscopic Vein [place] 3. Intraoperative Vein Mapping. 05/29 Doing well D/C IABP today Vent management per Cath Lab Radiological Technologist. Appreciate Dr. Covarrubias's input Gentle diuresis Maintain CT 05/30 extubated yesterday, on 4 liter nasal cannula up in chair pain controlled, will need aggressive pulm toileting leave chest tube in today, eval for removal in am 05/31 doing well, on nasal cannula/ wean as tolerated chest tube removed without difficulty pain controlled , remains in NSR eval for rehab transfer in am + BM Objective: GENERAL: SKIN: Warm and dry./ prevena dressing to chest , incision intact left leg mild general edema HEAD: Normocephalic. EYES: No scleral icterus. No injection or drainage. NECK: Supple, trachea midline. No JVD or lymphadenopathy. CARDIOVASCULAR: Regular rate and rhythm without murmurs, gallops, or rubs. mild general edema RESPIRATORY: Breath sounds equal bilaterally. No accessory muscle use. GASTROINTESTINAL: Abdomen soft, non-tender, nondistended. MUSCULOSKELETAL: No cyanosis, or edema. BACK: Nontender without obvious deformity. No CVA tenderness. Vital Signs Date Time Temp Pulse Resp B/P Pulse Ox O2 Delivery O2 Flow Rate FiO2 05/31/16 10:00 68 05/31/16 09:00 72 05/31/16 08:00 94 Nasal Cannula 2.00 05/31/16 08:00 69 05/31/16 07:36 94 Nasal Cannula 3.00 05/31/16 07:30 98.9 70 22 131/68 94 05/31/16 07:00 78 05/31/16 06:00 74 05/31/16 05:00 67 05/31/16 04:00 99.0 69 18 115/55 94 05/31/16 04:00 70 05/31/16 04:00 94 Nasal Cannula 3.00 05/31/16 03:00 71 05/31/16 02:00 71 05/31/16 01:00 72 05/31/16 00:00 77 05/30/16 23:30 99.0 79 18 127/61 97 05/30/16 23:30 97 Nasal Cannula 3.00 05/30/16 23:00 78 05/30/16 22:00 87 05/30/16 21:00 87 05/30/16 20:00 99.7 80 18 129/59 98 05/30/16 20:00 85 05/30/16 20:00 98 Nasal Cannula 3.00 05/30/16 19:49 98 Nasal Cannula 3.00 05/30/16 19:00 81 05/30/16 15:25 98.8 72 18 109/58 96 05/30/16 15:07 73 05/30/16 15:06 95 Nasal Cannula 3.00 05/30/16 15:05 73 05/30/16 11:59 94 Nasal Cannula 3.00 05/30/16 11:29 99.2 66 20 107/57 96 05/30/16 11:29 96 Nasal Cannula 3.00 05/30/16 11:00 70 Labs: Laboratory Tests Test 05/31/16 04:15 White Blood Count 8.1 TH/MM3 (4.0-11.0) Red Blood Count 3.07 MIL/MM3 (4.00-5.30) Hemoglobin 9.3 GM/DL (11.6-15.3) Hematocrit 27.4 % (35.0-46.0) Mean Corpuscular Volume 89.2 FL (80.0-100.0) Mean Corpuscular Hemoglobin 30.2 PG (27.0-34.0) Mean Corpuscular Hemoglobin 33.9 % Concent (32.0-36.0) Red Cell Distribution Width 14.4 % (11.6-17.2) Platelet Count 170 TH/MM3 (150-450) Mean Platelet Volume 9.0 FL (7.0-11.0) Neutrophils (%) (Auto) 59.6 % (16.0-70.0) Lymphocytes (%) (Auto) 20.5 % (9.0-44.0) Monocytes (%) (Auto) 14.3 % (0.0-8.0) Eosinophils (%) (Auto) 5.0 % (0.0-4.0) Basophils (%) (Auto) 0.6 % (0.0-2.0) Neutrophils # (Auto) 4.8 TH/MM3 (1.8-7.7) Lymphocytes # (Auto) 1.7 TH/MM3 (1.0-4.8) Monocytes # (Auto) 1.2 TH/MM3 (0-0.9) Eosinophils # (Auto) 0.4 TH/MM3 (0-0.4) Basophils # (Auto) 0.1 TH/MM3 (0-0.2) CBC Comment DIFF FINAL Differential Comment Sodium Level 143 MEQ/L (136-145) Potassium Level 4.1 MEQ/L (3.5-5.1) Chloride Level 107 MEQ/L (98-107) Carbon Dioxide Level 28.2 MEQ/L (21.0-32.0) Anion Gap 8 MEQ/L (5-15) Blood Urea Nitrogen 17 MG/DL (7-18) Creatinine 0.61 MG/DL (0.50-1.00) Estimat Glomerular Filtration 98 ML/MIN (>89) Rate Random Glucose 113 MG/DL (74-106) Calcium Level 8.4 MG/DL (8.5-10.1) Magnesium Level 2.2 MG/DL (1.5-2.5) Result Diagram: 05/31/16 0415 05/31/16 0415 Telemetry: NSR (1) NSTEMI (non-ST elevated myocardial infarction) (2) S/P CABG x 2 Plan: ASA, statin ,plavix , BB gentle diuresis OOB/ ambulate eval for C at discharge (3) Closed head injury (4) Cardiac arrest (5) E. coli UTI Plan: on ABX (6) Morbid obesity with BMI of 40.0-44.9, adult (7) Aspiration pneumonia Plan: on IV ABX Problem Qualifiers (1) Closed head injury: Qualified Code: S09.90XA - Closed head injury, initial encounter Leigh Ann Cole May 31, 2016 10:55
[2016-05-31] MEDS ORDERED: PILL SPLITTER OTHER PRN (11:15)
[2016-05-31] MEDS: LISINOPRIL 5 MG TAB PO SCH (11:58)
[2016-05-31] MEDS: SENNOSIDES 8.6 MG TAB PO SCH (21:00)
[2016-05-31] MEDS: ATORVASTATIN 80 MG TAB PO SCH (22:03)
[2016-06-01] VITALS (30 sets, daily range): BP systolic 115–126; BP diastolic 51–64; PULSE 62–87; RESP 18–20; TEMP 98.1–100.4; O2SAT 87–98
[2016-06-01] MEDS: metroNIDAZOLE 500 MG INJ 100 ML IV SCH ×2 (00:25→08:26)
[2016-06-01] MEDS: oxyCODONE/ACETAMINOPHEN 5 MG/325 MG TAB PO PRN ×2 (00:57→23:00)
[2016-06-01] MEDS: INSULIN ASPART SUPPLEMENTAL SCALE SQ SCH ×3 (02:00→10:00)
[2016-06-01] MEDS: RESP: ALBUTEROL 2.5 MG/IPRATROPIUM 0.5 MG NEB (PRN) INH (05:04)
[2016-06-01 06:23] LABS: HEMATOCRIT 28.4 % (35.0-46.0); MEAN CELL VOLUME 89.3 FL (80.0-100.0); MEAN CORPUSCULAR HEMOGLOBIN 30.1 PG (27.0-34.0); MEAN CORPUSCULAR HGB CONC 33.7 % (32.0-36.0); PLATELET COUNT 207 TH/MM3 (150-450); RED BLOOD COUNT 3.18 MIL/MM3 (4.00-5.30); RED CELL DISTRIBUTION WIDTH 14.4 % (11.6-17.2); REVIEW FLAG FINAL; WHITE BLOOD COUNT 8.3 TH/MM3 (4.0-11.0)
[2016-06-01] MEDS: PANTOPRAZOLE SOD 40 MG DELAYED RELEASE TAB PO SCH (06:29)
--- NOTE | 2016-06-01 06:52 | RADRPT ---
EXAM DATE/TIME: 06/01/2016 05:46 [facility] COMPARISON: CHEST SINGLE AP, May 30, 2016, 7:19. INDICATIONS : Chest tube removal. MEDICAL HISTORY : Cardiovascular disease. SURGICAL HISTORY : CABG. ENCOUNTER: Subsequent ACUITY: 3 days PAIN SCORE: 6/10 LOCATION: Bilateral chest FINDINGS: There is bilateral mostly basilar airspace disease. No significant effusion. No pneumothorax. Postope rative median sternotomy. CONCLUSION: Basilar airspace consolidation increased from May 30. Aric Doss MD on June 01, 2016 at 6:49 Board Certified Radiologist. This report was verified electronically.
[2016-06-01] MEDS: RESP: ALBUTEROL 2.5 MG/IPRATROPIUM 0.5 MG NEB (SCH) NEB ×4 (07:20→20:55)
[2016-06-01] MEDS: ARTIFICIAL TEARS OPTH SOLN 15 ML BTL EACH EYE SCH ×3 (08:22→16:43)
[2016-06-01] MEDS: MULTIVITAMINS/MINERALS THERAPEUTIC TAB PO SCH (08:23)
[2016-06-01] MEDS: CLOPIDOGREL 75 MG TAB PO SCH (08:23)
[2016-06-01] MEDS: AMIODARONE 200 MG TAB PO SCH ×2 (08:23→21:14)
[2016-06-01] MEDS: BUDESONIDE-FORMOTEROL 160/4.5 MCG INHALER INH SCH ×2 (08:23→21:00)
[2016-06-01] MEDS: POLYETHYLENE GLYCOL 17 GM PKG PO SCH (08:24)
[2016-06-01] MEDS: ASPIRIN 81 MG CHEW TAB PO SCH (08:24)
[2016-06-01] MEDS: MAGNESIUM HYDROXIDE SUSP 30 ML CUP PO SCH (08:24)
[2016-06-01] MEDS: METOPROLOL TARTRATE 25 MG TAB PO SCH ×2 (08:24→21:14)
[2016-06-01] MEDS: SODIUM CHLORIDE 0.9% FLUSH 5 ML FLUSH IV FLUSH SCH ×2 (08:24→21:13)
[2016-06-01] MEDS: DOCUSATE SODIUM 100 MG CAP PO SCH ×2 (08:25→21:15)
[2016-06-01] MEDS: LISINOPRIL 5 MG TAB PO SCH (08:25)
[2016-06-01] MEDS: cefTRIAXone INJ 1,000 MG in SODIUM CHLORIDE 0.9% INJ 100 ML IV SCH (08:26)
--- NOTE | 2016-06-01 08:42 | HHI.PR ---
Subjective Remarks in no distress but with some sob. O2 sat on RA dropped to 87% this morning. has occasional mild chest pain and dry cough. no fever this morning. Objective Vitals Vital Signs Date Time Temp Pulse Resp B/P Pulse Ox O2 Delivery O2 Flow Rate FiO2 06/01/16 07:56 97 Nasal Cannula 2.00 06/01/16 07:55 98.5 86 20 117/56 97 06/01/16 07:26 87 21 06/01/16 07:17 79 06/01/16 06:12 79 06/01/16 05:16 67 06/01/16 04:25 63 06/01/16 03:54 67 06/01/16 03:46 95 Nasal Cannula 2.00 06/01/16 03:00 98.1 70 18 122/56 98 06/01/16 02:22 63 06/01/16 01:02 66 06/01/16 00:14 66 05/31/16 23:51 71 05/31/16 23:18 96 Nasal Cannula 2.00 05/31/16 23:17 98.8 72 19 114/53 96 05/31/16 22:00 80 05/31/16 21:00 83 05/31/16 20:00 84 05/31/16 19:25 98 Nasal Cannula 05/31/16 19:15 94 Nasal Cannula 2.00 05/31/16 19:15 99.4 86 20 123/59 98 05/31/16 19:00 80 05/31/16 18:00 82 05/31/16 18:00 95 Nasal Cannula 2.00 05/31/16 17:00 83 05/31/16 16:00 86 05/31/16 15:00 94 Room Air 05/31/16 15:00 82 05/31/16 15:00 100.0 86 20 108/55 94 05/31/16 14:00 88 05/31/16 13:00 73 05/31/16 12:38 69 05/31/16 11:18 96 Nasal Cannula 2.00 05/31/16 11:00 98.9 62 20 113/54 98 05/31/16 11:00 64 05/31/16 10:00 68 05/31/16 09:00 72 I/O 05/31/16 05/31/16 05/31/16 06/01/1617 3/1/17 06:59 14:59 22:59 06:59 14:59 22:59 Intake Total 580 ml 460 ml 580 ml Output Total 450 ml 400 ml Balance 130 ml 60 ml 580 ml Intake Oral 480 ml 360 ml 480 ml IV Total 100 ml 100 ml 100 ml Output Urine Total 450 ml 400 ml # Voids 3 3 # Bowel Movements 1 4 Result Diagram: 06/01/16 0551 05/31/16 0415 Imaging Last Impressions Chest X-Ray 06/01/16 0600 Signed Impressions: Service Date/Time: Wednesday, June 01, 2016 05:46 - CONCLUSION: Basilar airspace consolidation increased from May 30. Aric Doss MD Lower Extremity Ultrasound 05/27/16 0000 Signed Impressions: Service Date/Time: Friday, May 27, 2016 14:59 - CONCLUSION: Venous mapping as above. Tr Ferrell MD Carotid Artery Ultrasound 05/27/16 0000 Signed Impressions: Service Date/Time: Friday, May 27, 2016 17:24 - CONCLUSION: There is right greater than left bifurcation atherosclerotic plaque. There is hemodynamically significant narrowing of the proximal to mid right ICA. Satish Wolf MD CT Angiography [id number] Signed Impressions: Service Date/Time: May 23:08 - CONCLUSION: Bilateral pulmonary consolidation without evidence for pulmonary embolism. Miguel Styles MD Cervical Spine CT [id number]/[id number] Signed Impressions: Service Date/Time: May 20:08 - CONCLUSION: No acute bony injury. Extensive degenerative changes. Maximiliano Potts MD Head CT 05/26/16 0000 Signed Impressions: Service Date/Time: May 20:08 - CONCLUSION: Normal examination for a patient of this age. Maximiliano Potts MD Objective Remarks GENERAL: This is a well-nourished, well-developed patient, in no apparent distress. CARDIOVASCULAR: Regular rate and regular rhythm without murmurs, gallops, or rubs. RESPIRATORY: diminished air entry in bases GASTROINTESTINAL: Abdomen soft, non-tender, nondistended. Normal, active bowel sounds MUSCULOSKELETAL: Extremities without clubbing, cyanosis, or edema. NEURO: Alert & Oriented x4 to person, place, time, situation. Moves all ext x4 Procedures endotracheal intubation cardiac cath CABG Medications and IVs Current Medications Sodium Chloride (NS 1000 ml Inj) 1,000 ml @ 0 mls/hr Q0M ONCE IV Last administered on 05/26/16 20:43; Start 05/26/16 at 20:07; Stop 05/26/16 at 20:09 ; Status DC IV Flush 2 ml 2 ml UNSCH PRN IVF FLUSH AFTER USING IV ACCESS; Start 05/26/16 at 20:15; Stop 05/26/16 at 21:41; Status DC Nitroglycerin/ Dextrose (Nitroglycerin-Dextrose Inj) 250 ml @ 0 mls/hr TITRATE IV ; Start 05/26/16 at 20:15; Stop 05/26/16 at 21:25; Status DC Lorazepam (Ativan Inj) 2 mg ONCE ONCE IV PUSH Last administered on 05/26/16 20:42; Start 05/26/16 at 20:15; Stop 05/26/16 at 20:16; Status DC Propofol (Diprivan 1000 Mg/100ml Inj) search Sets for Drip. TITRATE PRN IV AGITATION; Start 05/26/16 at 20:15; Stop 05/26/16 at 21:41; Status DC Etomidate (Amidate Inj) 20 mg ONCE ONCE IV PUSH Last administered on 20:42; Start 05/26/16 at 20:15; Stop 05/26/16 at 20:16; Status DC Succinylcholine Chloride 100 mg 100 mg ONCE ONCE IM Last administered on 20:42; Start 05/26/16 at 20:15; Stop 05/26/16 at 20:16; Status DC Sodium Chloride (NS 1000 ml Inj) 1,000 ml @ 84 mls/hr [id number] IV Last administered on 05/28/16 05:30; Start 05/26/16 at 21:08; Stop 05/28/16 at 11:13 ; Status DC IV Flush (NS Flush) 2 ml UNSCH PRN IV FLUSH FLUSH AFTER USING IV ACCESS; Start 05/26/16 at 21:15; Stop 05/27/16 at 14:18; Status DC IV Flush (NS Flush) 2 ml BID IV FLUSH ; Start 05/27/16 at 09:00; Stop 05/27/16 at 14:18; Status DC Acetaminophen (Tylenol) 650 mg Q6H PRN PO PAIN 1-5 AND/OR FEVER >101F; Start at 21:15; Stop 05/28/16 at 11:14; Status DC Morphine Sulfate (Morphine Inj) 2 mg Q2H PRN IV PAIN SCALE 6 TO 10 Last administered on 05/28/16 04:44; Start 05/26/16 at 21:15; Stop 05/30/16 at 14:57 ; Status DC Famotidine (Pepcid Inj) 10 mg Q12HR IV PUSH Last administered on 05/27/16 20: 05; Start 05/27/16 at 09:00; Stop 05/28/16 at 14:57; Status DC Lorazepam (Ativan Inj) 2 mg Q4H PRN IV Agitation/Sedation Last administered on 05/29/16 04:42; Start 05/26/16 at 21:15; Stop 05/30/16 at 14:57; Status DC Artificial Tears (Tears Naturale Opth Soln) 1 drop TID EACH EYE Last administered on 06/01/16 08:22; Start 05/27/16 at 09:00 Ondansetron HCl (Zofran Inj) 4 mg Q6H PRN IV NAUSEA OR VOMITING; Start at 21:15; Stop 05/28/16 at 12:07; Status DC Metoclopramide HCl (Reglan Inj) 10 mg Q6H PRN IV NAUSEA OR VOMITING; Start at 21:15 Docusate Sodium (Colace Liq) 100 mg Q12HR G-TUBE Last administered on 08:54; Start 05/26/16 at 21:15; Stop 05/30/16 at 14:57; Status DC Albuterol/ Ipratropium (Duoneb Neb) 1 ampule Q2HR NEB PRN INH WHEEZING Last administered on 06/01/16 05:04; Start 05/26/16 at 21:15 Miscellaneous Information 1 [id number] XX ; Start 05/26/16 at 21:15; Stop 05/30/16 at 14:57; Status DC Chlorhexidine Gluconate (Chlorhexidine 2% Cloth) 3 pack Taper DAILY@04 TOP Last administered on 05/30/16 04:00; Start 05/27/16 at 04:00; Stop 05/30/16 at 14:57; Status DC Chlorhexidine Gluconate 3 pack 3 pack UNSCH PRN TOP HYGIENIC CARE; Start at 21:15; Stop 05/30/16 at 14:57; Status DC Propofol (Diprivan 1000 Mg/100ml Inj) 100 ml @ 0 mls/hr TITRATE IV Last administered on 05/28/16 18:15; Start 05/26/16 at 21:15; Stop 05/30/16 at 06:55 ; Status DC Protein 2 pack 2 pack TID G-TUBE ; Start 05/27/16 at 09:00; Stop 05/30/16 at 14: 57; Status DC Lidocaine HCl/ Dextrose (Lidocaine/D5W Inj) 500 ml @ 30 mls/hr [id number] IV Last administered on 05/28/16 06:18; Start 05/26/16 at 21:14; Stop 05/28/16 at 11:14; Status DC Aspirin (Aspirin Chew) 81 mg DAILY TUBE ; Start 05/27/16 at 09:00; Stop at 12:07; Status DC Heparin Sodium (Porcine) (Heparin Inj) 5,000 units UNSCH PRN IV APTT LESS THAN 25; Start 05/27/16 at 04:30; Stop 05/28/16 at 11:15; Status DC Heparin Sodium (Porcine) 2500 units 2,500 units UNSCH PRN IV APTT 25 TO 39 Last administered on 05/27/16 21:48; Start 05/27/16 at 04:30; Stop 05/28/16 at 11:15; Status DC Heparin Sodium/ Dextrose (Heparin-D5W Inj) 250 ml @ 0 mls/hr TITRATE IV Last administered on 05/27/16 01:00; Start 05/26/16 at 22:30; Stop 05/30/16 at 14:57 ; Status DC Iohexol 75 ml 75 ml STK-MED ONCE IV Last administered on 05/26/16 23:29; Start 05/26/16 at 23:29; Stop 05/26/16 at 23:30; Status DC Ampicillin Sodium/ Sulbactam Sodium 3 gm/Sodium Chloride 100 ml @ 200 mls/hr Q6H IV Last administered on 05/29/16 04:42; Start 05/27/16 at 10:00; Stop at 08:20; Status DC Potassium Chloride 100 ml @ 50 mls/hr Q2H PRN IV For Potassium 2.8 - 3.2 mEq/L ; Start 05/27/16 at 10:15; Stop 05/30/16 at 14:57; Status DC Potassium Chloride (KCl 20 Meq Premix Inj) 100 ml @ 50 mls/hr Q2H PRN IV For Potassium 2.8 - 3.2 mEq/L; Start 05/27/16 at 10:15; Stop 05/30/16 at 14:58; Status DC Potassium Chloride 40 meq 40 meq UNSCH PRN PO/TUBE For Potassium 3.3 - 3.5 mEq/ L Last administered on 05/28/16 05:30; Start 05/27/16 at 10:15; Stop 05/30/16 at 14:58; Status DC Potassium Chloride 100 ml @ 25 mls/hr UNSCH PRN IV For Potassium 3.3 - 3.5 mEq /L; Start 05/27/16 at 10:15; Stop 05/30/16 at 14:58; Status DC Potassium Chloride 100 ml @ 50 mls/hr Q2H PRN IV For Potassium 3.3 - 3.5 mEq/ L Last administered on 05/29/16 07:22; Start 05/27/16 at 10:15; Stop 05/30/16 at 14:59; Status DC Magnesium Sulfate/ Sodium Chloride (Magnesium Sulfate Inj/NS Inj) 100 ml @ 50 mls/hr UNSCH PRN IV For Magnesium 0.9 - 1.1 mg/dL; Start 05/27/16 at 10:15; Stop 05/30/16 at 14:59; Status DC Magnesium Oxide 800 mg 800 mg UNSCH PRN PO For Magnesium 1.2 - 1.6 mg/dL; Start 05/27/16 at 10:15; Stop 05/30/16 at 15:00; Status DC Magnesium Sulfate/ Sodium Chloride (Magnesium Sulfate Inj/NS Inj) 100 ml @ 50 mls/hr UNSCH PRN IV For Magnesium 1.2 - 1.6 mg/dL; Start 05/27/16 at 10:15; Stop 05/30/16 at 15:00; Status DC Potassium Phosphate 2000 mg 2,000 mg Q4H PRN PO For Phosphorus < 2.5 mg/dL; Start 05/27/16 at 10:15; Stop 05/30/16 at 15:00; Status DC Sodium Phosphate/ Sodium Chloride (Sodium Phosphate Inj/NS 250 ml Inj) 250 ml @ 42 mls/hr UNSCH PRN IV For Phosphorus < 2.5 mg/dL; Start 05/27/16 at 10:15; Stop 05/28/16 at 11:15; Status DC Potassium Chloride (KCl 40 Meq/30 ml Liq) 40 meq UNSCH PRN PO/TUBE SEE LABEL COMMENTS; Start 05/27/16 at 10:15; Stop 05/30/16 at 15:00; Status DC Potassium Phosphate 2000 mg 2,000 mg UNSCH PRN PO/TUBE SEE LABEL COMMENTS; Start 05/27/16 at 10:15; Stop 05/30/16 at 15:00; Status DC Potassium Phosphate 30 mmol/ Sodium Chloride 260 ml @ 42 mls/hr UNSCH PRN IV SEE LABEL COMMENTS; Start 05/27/16 at 10:15; Stop 05/30/16 at 15:00; Status DC Heparin Sodium/ Sodium Chloride 500 ml @ As Directed STK-MED ONCE .ROUTE Last administered on 05/27/16 11:21; Start 05/27/16 at 11:21; Stop 05/27/16 at 11:22 ; Status DC Heparin Sodium/ Sodium Chloride 500 ml @ As Directed STK-MED ONCE .ROUTE Last administered on 05/27/16 11:39; Start 05/27/16 at 11:39; Stop 05/27/16 at 11:40 ; Status DC Heparin Sodium/ Dextrose 250 ml @ As Directed STK-MED ONCE .ROUTE Last administered on 05/27/16 11:57; Start 05/27/16 at 11:57; Stop 05/27/16 at 11:58 ; Status DC Lidocaine HCl/ Dextrose (Lidocaine/D5W Inj) 500 ml @ As Directed STK-MED ONCE .ROUTE Last administered on 05/27/16 12:16; Start 05/27/16 at 12:16; Stop at 12:17; Status DC IV Flush (NS Flush) 2 ml BID IVF ; Start 05/27/16 at 21:00; Stop 05/27/16 at 21: 00; Status DC IV Flush (NS Flush) 2 ml UNSCH PRN IVF FLUSH AFTER USING IV ACCESS; Start 05/27 at 12:45; Stop 05/27/16 at 14:18; Status DC Miscellaneous Information 1 ONCE ONCE XX ; Start 05/27/16 at 12:45; Stop at 12:55; Status DC Metoprolol Tartrate (Lopressor) 12.5 mg Q12HR PO Last administered on 06/01/16 08:24; Start 05/27/16 at 21:00 Iohexol (OMNIPAQUE 350 INJ (Rotary Swaging Machine Operator)) 100 ml STK-MED ONCE OTHER ; Start at 12:30; Stop 05/27/16 at 13:30; Status DC IV Flush (NS Flush) 2 ml BID IV FLUSH Last administered on 05/27/16 20:04; Start 05/27/16 at 21:00; Stop 05/28/16 at 11:15; Status DC IV Flush 2 ml 2 ml UNSCH PRN IV FLUSH FLUSH AFTER USING IV ACCESS; Start at 14:15; Stop 05/28/16 at 11:15; Status DC Papaverine HCl 60 mg/Nitroglycerin 100 mcg/Diltiazem HCl 100 mg/Sodium Chloride 100.0 ml @ 0 mls/hr GRAPPLE SKIDDER OPERATOR IRRIGATION Last administered on 05/28/16 08:00; Start 05/27/16 at 14:15; Stop 05/28/16 at 11:15; Status DC Cefazolin Sodium 500 mg/Sodium Chloride 505 ml @ 0 mls/hr GRAPPLE SKIDDER OPERATOR IRRIGATION Last administered on 05/28/16 09:06; Start 05/27/16 at 14:15; Stop 05/30/16 at 15:01; Status DC Cefazolin Sodium/ Dextrose (Ancef 2 Gm Premix) 50 ml @ 150 mls/hr GRAPPLE SKIDDER OPERATOR IV Last administered on 05/28/16 08:04; Start 05/27/16 at 14:15; Stop 05/30/16 at 15:02; Status DC Metoprolol Tartrate (Lopressor) 12.5 mg GRAPPLE SKIDDER OPERATOR PO ; Start 05/27/16 at 14:15; Stop 05/30/16 at 15:01; Status DC Chlorhexidine Gluconate 1 applic 1 applic GRAPPLE SKIDDER OPERATOR TOPICAL Last administered on 05/28/16 06:41; Start 05/27/16 at 14:15; Stop 05/28/16 at 11:16; Status DC Insulin Human Regular/Sodium Chloride (NovoLIN R (IV INFUSION)/NS Inj) 101 ml @ 0 mls/hr GRAPPLE SKIDDER OPERATOR IV ; Start 05/27/16 at 14:15; Stop 05/29/16 at 12:54; Status DC Heparin Sodium (Porcine) (Heparin Inj) 10,000 units STK-MED ONCE .ROUTE ; Start 05/28/16 at 06:15; Stop 05/28/16 at 06:16; Status DC Vancomycin HCl (Vancomycin Inj) 3,000 mg STK-MED ONCE .ROUTE Last administered on 05/28/16 07:30; Start 05/28/16 at 06:16; Stop 05/28/16 at 06:17; Status DC Heparin Sodium (Porcine) (Heparin Inj) 40,000 units STK-MED ONCE .ROUTE Last administered on 05/28/16 07:30; Start 05/28/16 at 06:16; Stop 05/28/16 at 06:17 ; Status DC Potassium Chloride (KCl Inj) 8 meq STK-MED ONCE .ROUTE ; Start 05/28/16 at 07:22 ; Stop 05/28/16 at 07:23; Status DC Albumin Human (Albumin 5% Inj) 25 gm STK-MED ONCE IV ; Start 05/28/16 at 09:37; Stop 05/28/16 at 09:38; Status DC IV Flush (NS Flush) 2 ml BID IV FLUSH Last administered on 06/01/16 08:24; Start 05/28/16 at 21:00 IV Flush 2 ml 2 ml UNSCH PRN IV FLUSH FLUSH AFTER USING IV ACCESS; Start at 11:15 Propofol 100 ml @ 0 mls/hr TITRATE IV ; Start 05/28/16 at 11:15; Stop 05/30/16 at 06:55; Status DC Dexmedetomidine HCl 50 ml @ 0 mls/hr TITRATE IV Last administered on 05/29/16 02:40; Start 05/28/16 at 11:15; Stop 05/30/16 at 06:44; Status DC Nitroglycerin/ Dextrose 250 ml @ 0 mls/hr TITRATE IV ; Start 05/28/16 at 11:15; Stop 05/30/16 at 15:02; Status DC Dobutamine HCl/ Dextrose 250 ml @ 16.95 mls/ hr [id number] IV ; Start 05/28/16 at 11:08; Stop 05/30/16 at 15:03; Status DC Dopamine HCl/ Dextrose 500 ml @ 0 mls/hr TITRATE IV ; Start 05/28/16 at 11:15; Stop 05/30/16 at 15:03; Status DC Epinephrine HCl 4 mg/Dextrose 250 ml @ 0 mls/hr TITRATE IV ; Start 05/28/16 at 11:15; Stop 05/30/16 at 15:04; Status DC Phenylephrine HCl 40 mg/Dextrose 500 ml @ 0 mls/hr TITRATE IV ; Start 05/28/16 at 11:15; Stop 05/30/16 at 15:14; Status DC Clevidipine (Cleviprex Inj) 50 ml @ 0 mls/hr TITRATE IV ; Start 05/28/16 at 11: 15; Stop 05/30/16 at 15:15; Status DC Albumin Human 12.5 gm 12.5 gm UNSCH PRN IV SEE LABEL COMMENTS; Start 05/28/16 at 11:15; Stop 05/30/16 at 15:04; Status DC Lactated Ringer's (Lr 1000 ml Inj) 500 ml @ 500 mls/hr Q1H PRN IV SEE LABEL COMMENTS; Start 05/28/16 at 11:08; Stop 05/30/16 at 15:04; Status DC Miscellaneous Information (Post-op Orders (for Pharmacy)) STAT ONCE OTHER ; Start 05/28/16 at 11:15; Stop 05/28/16 at 12:51; Status DC Aspirin (Aspirin Chew) 81 mg DAILY PO Last administered on 06/01/16 08:24; Start 05/29/16 at 09:00 Clopidogrel Bisulfate (Plavix) 75 mg DAILY PO Last administered on 06/01/16 08: 23; Start 05/29/16 at 09:00 Pantoprazole Sodium (Protonix) 40 mg DAILY@06 PO Last administered on 06/01/16 06:29; Start 05/29/16 at 06:00 Amiodarone HCl (Cordarone) 400 mg Q12HR PO Last administered on 06/01/16 08:23 ; Start 05/28/16 at 21:00 Acetaminophen (Tylenol) 650 mg Q4H PRN PO TEMPERATURE > 101 F; Start 05/28/16 at 11:15 Acetaminophen (Tylenol Supp) 650 mg Q4H PRN RECTAL TEMPERATURE > 101 F; Start 05/28/16 at 11:15; Stop 05/30/16 at 15:04; Status DC Acetaminophen (Ofirmev Inj) 1,000 mg Q6H IV Last administered on 05/29/16 00: 32; Start 05/28/16 at 12:00; Stop 05/29/16 at 06:01; Status DC Morphine Sulfate (Morphine Inj) 1 mg Q10M PRN IV PAIN SCALE 1 TO 5; Start 05/28 at 11:15; Stop 05/30/16 at 15:04; Status DC Meperidine HCl (Demerol Inj) 12.5 mg Q4H PRN IV SEE LABEL COMMENTS; Start 05/28 at 11:15; Stop 05/30/16 at 15:02; Status DC Oxycodone/ Acetaminophen (Percocet 5-325 Mg) 1 tab Q3H PRN PO PAIN SCALE 1 TO 5 Last administered on 06/01/16 00:57; Start 05/28/16 at 11:15 Oxycodone/ Acetaminophen (Percocet 5-325 Mg) 2 tab Q3H PRN PO PAIN SCALE 6 TO 10 Last administered on 05/29/16 18:09; Start 05/28/16 at 11:15 Ketorolac Tromethamine (Toradol Inj) 15 mg Q6H PRN IV PUSH SEE LABEL COMMENTS Last administered on 05/30/16 03:16; Start 05/28/16 at 11:15; Stop 05/30/16 at 11:14; Status DC Fentanyl Citrate (fentaNYL INJ) 25 mcg Q1H PRN IV BREAKTHROUGH PAIN Last administered on 05/29/16 07:30; Start 05/28/16 at 11:15; Stop 05/30/16 at 15:04 ; Status DC Ondansetron HCl (Zofran Inj) 4 mg Q6H PRN IV PUSH NAUSEA OR VOMITING Last administered on 05/29/16 05:12; Start 05/28/16 at 11:15 Hydralazine HCl (Apresoline Inj) 10 mg Q4H PRN IV SEE LABEL COMMENTS Last administered on 05/28/16 14:11; Start 05/28/16 at 11:15; Stop 05/30/16 at 15:04 ; Status DC Metoprolol Tartrate 2.5 mg 2.5 mg Q1H PRN IV PUSH SEE LABEL COMMENTS; Start at 11:15; Stop 05/30/16 at 15:04; Status DC Potassium Chloride 100 ml @ 50 mls/hr UNSCH PRN IV SEE LABEL COMMENTS Last administered on 05/28/16 13:01; Start 05/28/16 at 11:15; Stop 05/30/16 at 15:04 ; Status DC Potassium Chloride 100 ml @ 50 mls/hr UNSCH PRN IV SEE LABEL COMMENTS; Start 05/28/16 at 11:15; Stop 05/30/16 at 15:05; Status DC Potassium Chloride (KCl 20 Meq Premix Inj) 100 ml @ 50 mls/hr UNSCH PRN IV SEE LABEL COMMENTS; Start 05/28/16 at 11:15; Stop 05/30/16 at 15:05; Status DC Potassium Chloride (KCl) 20 meq UNSCH PRN PO SEE LABEL COMMENTS; Start at 11:15; Stop 05/28/16 at 12:06; Status DC Potassium Chloride 40 meq 40 meq UNSCH PRN PO SEE LABEL COMMENTS; Start at 11:15; Stop 05/28/16 at 12:06; Status DC Magnesium Sulfate 2 gm/Sodium Chloride 104 ml @ 100 mls/hr UNSCH PRN IV SEE LABEL COMMENTS; Start 05/28/16 at 11:15; Stop 05/30/16 at 15:06; Status DC Magnesium Sulfate 2 gm/Sodium Chloride 104 ml @ 50 mls/hr UNSCH PRN IV SEE LABEL COMMENTS Last administered on 05/29/16 06:27; Start 05/28/16 at 11:15; Stop 05/30/16 at 15:06; Status DC Calcium Chloride/ Sodium Chloride (Calcium Chloride Inj/NS Inj) 110 ml @ 100 mls/hr UNSCH PRN IV SEE LABEL COMMENTS Last administered on 05/28/16 20:09; Start 05/28/16 at 11:15; Stop 05/30/16 at 15:07; Status DC Calcium Chloride 0.5 gm 0.5 gm UNSCH PRN IV SEE LABEL COMMENTS; Start 05/28/16 at 11:15; Stop 05/30/16 at 15:02; Status DC Insulin Human Regular/Sodium Chloride (NovoLIN R (IV INFUSION)/NS Inj) 100 ml @ 0 mls/hr TITRATE IV ; Start 05/28/16 at 11:15; Stop 05/29/16 at 12:54; Status DC Dextrose 25 ml 25 ml UNSCH PRN IV PUSH HYPOGLYCEMIA-SEE COMMENTS; Start at 11:15; Stop 05/29/16 at 12:57; Status DC Cefazolin Sodium/ Dextrose (Ancef 2 Gm Premix) 50 ml @ 100 mls/hr Q8H IV Last administered on 05/30/16 01:38; Start 05/28/16 at 17:00; Stop 05/30/16 at 01:29 ; Status DC Midazolam HCl (Versed Inj) 10 mg STK-MED ONCE .ROUTE ; Start 05/28/16 at 11:58; Stop 05/28/16 at 11:59; Status DC Fentanyl Citrate (fentaNYL INJ) 1,000 mcg STK-MED ONCE .ROUTE ; Start 05/28/16 at 11:58; Stop 05/28/16 at 11:59; Status DC Furosemide 20 mg 20 mg ONCE ONCE IV PUSH Last administered on 05/28/16 13:00 ; Start 05/28/16 at 13:00; Stop 05/28/16 at 13:01; Status DC Potassium Chloride 100 ml @ 50 mls/hr BOLUS ONCE IV ; Start 05/28/16 at 13:00 ; Stop 05/28/16 at 14:59; Status UNV Dexmedetomidine HCl (Precedex Inj) 50 ml @ 0 mls/hr TITRATE IV ; Start 05/28/16 at 13:45; Status Cancel Famotidine (Pepcid Inj) 20 mg Q12HR IV PUSH Last administered on 05/29/16 08: 17; Start 05/28/16 at 21:00; Stop 05/30/16 at 06:56; Status DC Furosemide 20 mg 20 mg ONCE ONCE IV PUSH Last administered on 05/29/16 07:37 ; Start 05/29/16 at 07:30; Stop 05/29/16 at 07:31; Status DC Ceftriaxone Sodium 2000 mg/ Sodium Chloride 100 ml @ 200 mls/hr ONCE ONCE IV Last administered on 05/29/16 09:03; Start 05/29/16 at 08:30; Stop 05/29/16 at 08:59; Status DC Ceftriaxone Sodium/Sodium Chloride (Rocephin Inj/NS Inj) 100 ml @ 200 mls/hr Q24H IV Last administered on 06/01/16 08:26; Start 05/30/16 at 08:00 Albuterol/ Ipratropium 1 ampule 1 ampule Q6HR WHILE AWAKE NEB NEB Last administered on 05/30/16 11:59; Start 05/29/16 at 14:00; Stop 05/30/16 at 15:20 ; Status DC Metronidazole (Flagyl 500 Mg Inj) 100 ml @ 100 mls/hr Q8H IV Last administered on 06/01/16 08:26; Start 05/29/16 at 09:00 Dextrose (D50w (Vial) Inj) 25 ml UNSCH PRN IV PUSH HYPOGLYCEMIA - SEE COMMENTS ; Start 05/29/16 at 13:00; Stop 05/30/16 at 15:08; Status DC Glucagon (Glucagon Inj) 1 mg UNSCH PRN OTHER HYPOGLYCEMIA-SEE COMMENTS; Start 05/29/16 at 13:00; Stop 05/30/16 at 15:08; Status DC Insulin Human Regular (NovoLIN R SUPPLEMENTAL SCALE) 1 ACHS SLIDING SCALE SQ Last administered on 05/30/16 11:02; Start 05/29/16 at 16:00; Stop 05/30/16 at 15:08; Status DC Budesonide/ Formoterol Fumarate (Symbicort 160-4.5 Inh) 1 puff Q12HR INH Last administered on 06/01/16 08:23; Start 05/30/16 at 09:00 Atorvastatin Calcium (Lipitor) 80 mg HS PO Last administered on 05/31/16 22:03 ; Start 05/30/16 at 21:00 Furosemide (Lasix Inj) 20 mg ONCE ONCE IV PUSH Last administered on 05/30/16 11:03; Start 05/30/16 at 10:15; Stop 05/30/16 at 10:16; Status DC Potassium Chloride (KCl) 30 meq ONCE ONCE PO Last administered on 05/30/16t 11 :03; Start 05/30/16 at 10:15; Stop 05/30/16 at 15:08; Status DC Potassium Chloride (KCl) 30 meq ONCE ONCE PO Last administered on 05/30/16t 12 :49; Start 05/30/16 at 12:30; Stop 05/30/16 at 15:08; Status DC Protamine Sulfate 250 mg 250 mg STK-MED ONCE IV ; Start 05/28/16 at 13:11; Stop 05/30/16 at 13:12; Status DC Lactated Ringer's 2,000 ml @ As Directed STK-MED ONCE IV ; Start 05/28/16 at 13 :11; Stop 05/30/16 at 13:12; Status DC Sodium Chloride 100 ml @ As Directed STK-MED ONCE IV ; Start 05/28/16 at 13:11 ; Stop 05/30/16 at 13:12; Status DC Sodium Chloride 500 ml @ As Directed STK-MED ONCE IV ; Start 05/28/16 at 13:11 ; Stop 05/30/16 at 13:12; Status DC Sodium Chloride 500 ml @ As Directed STK-MED ONCE IV ; Start 05/28/16 at 13:11 ; Stop 05/30/16 at 13:12; Status DC Parenteral Electrolytes (Normosol R Inj) 2,000 ml @ As Directed STK-MED ONCE IV ; Start 05/28/16 at 13:11; Stop 05/30/16 at 13:13; Status DC Acetaminophen 1000 mg 1,000 mg STK-MED ONCE IV ; Start 05/28/16 at 05:00; Stop 05/30/16 at 13:56; Status DC Dexmedetomidine HCl 50 ml @ As Directed STK-MED ONCE IV ; Start 05/28/16 at 05: 00; Stop 05/30/16 at 13:56; Status DC Propofol (Diprivan 1000 Mg/100ml Inj) 100 ml @ As Directed STK-MED ONCE IV ; Start 05/28/16 at 05:00; Stop 05/30/16 at 13:56; Status DC Aminocaproic Acid (Amicar Inj) 250 mg STK-MED ONCE IV ; Start 05/28/16 at 05:00 ; Stop 05/30/16 at 13:56; Status DC Heparin Sodium (Porcine) (Heparin Inj) 10,000 units STK-MED ONCE SQ ; Start at 05:00; Stop 05/30/16 at 13:56; Status DC Lidocaine HCl (Xylocaine 2% Inj) 100 mg STK-MED ONCE IV PUSH ; Start 05/28/16 at 05:00; Stop 05/30/16 at 13:56; Status DC Magnesium Sulfate 1000 mg 1,000 mg STK-MED ONCE IV ; Start 05/28/16 at 05:00; Stop 05/30/16 at 13:56; Status DC Nitroglycerin/ Dextrose (Nitroglycerin-Dextrose Inj) 250 ml @ As Directed STK- MED ONCE IV ; Start 05/28/16 at 05:00; Stop 05/30/16 at 13:56; Status DC Protamine Sulfate (Protamine Sulfate Inj) 250 mg STK-MED ONCE IV ; Start at 05:00; Stop 05/30/16 at 13:56; Status DC Methylprednisolone Sodium Succinate (SoluMEDROL INJ) 500 mg STK-MED ONCE IV ; Start 05/28/16 at 05:00; Stop 05/30/16 at 13:56; Status DC Vecuronium [place] (Norcuron 10 Mg Inj) 10 mg STK-MED ONCE IV ; Start 05/28/16 at 05:00; Stop 05/30/16 at 13:56; Status DC Albuterol/ Ipratropium (Duoneb Neb) 1 ampule Q6HR WHILE AWAKE NEB NEB Last administered on 06/01/16 07:20; Start 05/30/16 at 20:00; Stop 06/01/16 at 19:59 Docusate Sodium (Colace) 100 mg BID PO Last administered on 05/31/16 08:19; Start 05/30/16 at 15:15 Multivitamins/ Minerals Therapeutic (Theragran M Tab) 1 tab DAILY PO Last administered on 06/01/16 08:23; Start 05/31/16 at 09:00 Magnesium Hydroxide (Milk Of Magnesia Liq) 30 ml DAILY PO Last administered on 05/31/16 08:19; Start 05/30/16 at 16:00 Bisacodyl (Dulcolax Supp) 10 mg UNSCH X1 PRN RECTAL SEE LABEL COMMENTS; Start 05/30/16 at 15:00; Stop 06/02/16 at 14:59 Polyethylene Glycol (Miralax) 17 gm DAILY PO Last administered on 05/31/16 08: 19; Start 05/31/16 at 09:00 Sennosides (Senokot) 8.6 mg HS PO Last administered on 05/30/16 21:13; Start 05/30/16 at 21:00 Sodium Biphosphate/ Sodium Phosphate (Fleets Enema (Adult)) 133 ml UNSCH PRN RECTAL SEE LABEL COMMENTS; Start 05/30/16 at 15:00 Insulin Aspart (NovoLOG SUPPLEMENTAL SCALE) 1 02,06,10,14,18,22 SQ ; Start 05/30 at 18:00 Dextrose (D50w (Vial) Inj) 25 ml UNSCH PRN IV HYPOGLYCEMIA-SEE COMMENTS; Start 05/30/16 at 15:00 Glucagon (Glucagon Inj) 1 mg UNSCH PRN OTHER HYPOGLYCEMIA-SEE COMMENTS; Start 05/30/16 at 15:00 Lisinopril (Prinivil) 2.5 mg DAILY PO Last administered on 06/01/16 08:25; Start 05/31/16 at 11:00 Miscellaneous (Pill Splitter) 1 ea UNSCH PRN OTHER SEE LABEL COMMENTS; Start at 11:15 A/P Assessment and Plan A/P Acute respiratory failure Aspiration pneumonitis -Patient was intubated for an airway protection. Extubated 05/29/16 -Added Symbicort 1 puff every 12 -DuoNeb every 6 hours and when necessary. EzPAP q6. -continue antibiotics -might need walk test before discharge Cardiac arrest NSTEMI Ventricular fibrillation CAD with L main disease - s/p urgent Off-pump CABGx 2 with RODRIGES to LAD) reverse saphenous vein graft to OM1 on 05/28/16 - Cardiac catheterization to 21/07/[address] Barker showed 90% left main disease, IABP inserted-removed 05/19/16 - Continue, aspirin, metoprolol, Plavix,BB, lisinopril and amiodarone - Resumed statin -cardiology and CT surgery following. Transaminitis secondary to cardiac arrest -back to normal limit -Heart healthy diet -Protonix for GI prophylaxis Aspiration pneumonitis UTI with E Coli -Continue Rocephin and Flagyl - Urine culture E Coli DVT GI prophylaxis -Prophylactic Lovenox when cleared by CT surgery. Protonix for GI prophylaxis Ishmael Tadeo MD Jun 01, 2016 08:42
[2016-06-01] MEDS ORDERED: FUROSEMIDE 40 MG/4 ML VIAL IV PUSH ONE (09:45)
[2016-06-01] MEDS ORDERED: POTASSIUM CHLORIDE 20 MEQ CONTROLLED RELEASE TAB PO ONE (09:45)
--- NOTE | 2016-06-01 09:51 | PD.CAR.PN ---
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 Urgent Off-pump Coronary Artery Bypass Grafting x 2 with left internal mammary artery (RODRIGES) to left anterior descending (LAD), reverse saphenous vein graft to OM1 2. Left Leg Endoscopic Vein [place] 3. Intraoperative Vein Mapping. 05/29 Doing well D/C IABP today Vent management per [employer]. Appreciate Dr. Covarrubias's input Gentle diuresis Maintain CT 05/30 extubated yesterday, on 4 liter nasal cannula up in chair pain controlled, will need aggressive pulm toileting leave chest tube in today, eval for removal in am 05/31 doing well, on nasal cannula/ wean as tolerated chest tube removed without difficulty pain controlled , remains in NSR eval for rehab transfer in am + BM 06/01 CXR volume overload / atelectasis add bid diuresis f/u CXR continue pulm toileting OOB ambulate change to po antibiotics, no further leukocytosis or fever Objective: Vital Signs Date Time Temp Pulse Resp B/P Pulse Ox O2 Delivery O2 Flow Rate FiO2 06/01/16 07:56 97 Nasal Cannula 2.00 06/01/16 07:55 98.5 86 20 117/56 97 06/01/16 07:26 87 21 06/01/16 07:17 79 06/01/16 06:12 79 06/01/16 05:16 67 06/01/16 04:25 63 06/01/16 03:54 67 06/01/16 03:46 95 Nasal Cannula 2.00 06/01/16 03:00 98.1 70 18 122/56 98 06/01/16 02:22 63 06/01/16 01:02 66 06/01/16 00:14 66 05/31/16 23:51 71 05/31/16 23:18 96 Nasal Cannula 2.00 05/31/16 23:17 98.8 72 19 114/53 96 05/31/16 22:00 80 05/31/16 21:00 83 05/31/16 20:00 84 05/31/16 19:25 98 Nasal Cannula 05/31/16 19:15 94 Nasal Cannula 2.00 05/31/16 19:15 99.4 86 20 123/59 98 05/31/16 19:00 80 05/31/16 18:00 82 05/31/16 18:00 95 Nasal Cannula 2.00 05/31/16 17:00 83 05/31/16 16:00 86 05/31/16 15:00 94 Room Air 05/31/16 15:00 82 05/31/16 15:00 100.0 86 20 108/55 94 05/31/16 14:00 88 05/31/16 13:00 73 05/31/16 12:38 69 05/31/16 11:18 96 Nasal Cannula 2.00 05/31/16 11:00 98.9 62 20 113/54 98 05/31/16 11:00 64 05/31/16 10:00 68 Labs: Laboratory Tests Test 06/01/16 05:51 White Blood Count 8.3 TH/MM3 (4.0-11.0) Red Blood Count 3.18 MIL/MM3 (4.00-5.30) Hemoglobin 9.6 GM/DL (11.6-15.3) Hematocrit 28.4 % (35.0-46.0) Mean Corpuscular Volume 89.3 FL (80.0-100.0) Mean Corpuscular Hemoglobin 30.1 PG (27.0-34.0) Mean Corpuscular Hemoglobin 33.7 % Concent (32.0-36.0) Red Cell Distribution Width 14.4 % (11.6-17.2) Platelet Count 207 TH/MM3 (150-450) Mean Platelet Volume 8.7 FL (7.0-11.0) Result Diagram: 06/01/16 0551 05/31/16 0415 Cardiovascular: NSR (1) NSTEMI (non-ST elevated myocardial infarction) (2) S/P CABG x 2 Plan: ASA, statin ,plavix , BB increase diuresis OOB/ ambulate eval for rehab at discharge continue nebs (3) Closed head injury (4) Cardiac arrest (5) E. coli UTI Plan: on ABX (6) Morbid obesity with BMI of 40.0-44.9, adult (7) Aspiration pneumonia Plan: change to po Problem Qualifiers (1) Closed head injury: Qualified Code: S09.90XA - Closed head injury, initial encounter Leigh Ann Cole Jun 01, 2016 09:51
--- NOTE | 2016-06-01 12:19 | PD.CARD.PN ---
Subjective Subjective Remarks No chest pain, no shortness of breath, up to the chair Objective Medications Current Medications Medications (Trade) Dose Ordered Sig/Jules Route Start Time Stop Time Status Last Admin (Tears Naturale Opth Soln) 1 drop TID EACH EYE 05/27/16 09:00 06/01/16 08:22 (Reglan Inj) 10 mg Q6H PRN IV 05/26/16 21:15 (Lopressor) 12.5 mg Q12HR PO 05/27/16 21:00 06/01/16 08:24 (NS Flush) 2 ml BID IV FLUSH 05/28/16 21:00 06/01/16 08:24 (NS Flush) 2 ml UNSCH PRN IV FLUSH 05/28/16 11:15 (Aspirin Chew) 81 mg DAILY PO 05/29/16 09:00 06/01/16 08:24 (Plavix) 75 mg DAILY PO 05/29/16 09:00 06/01/16 08:23 (Protonix) 40 mg DAILY@06 PO 05/29/16 06:00 06/01/16 06:29 (Cordarone) 400 mg Q12HR PO 05/28/16 21:00 06/01/16 08:23 (Tylenol) 650 mg Q4H PRN PO 05/28/16 11:15 (Percocet 5-325 Mg) 1 tab Q3H PRN PO 05/28/16 11:15 06/01/16 00:57 (Percocet 5-325 Mg) 2 tab Q3H PRN PO 05/28/16 11:15 05/29/16 18:09 (Zofran Inj) 4 mg Q6H PRN IV PUSH 05/28/16 11:15 05/29/16 05:12 (Symbicort 160-4.5 Inh) 1 puff Q12HR INH 05/30/16 09:00 06/01/16 08:23 (Lipitor) 80 mg HS PO 05/30/16 21:00 05/31/16 22:03 (Colace) 100 mg BID PO 05/30/16 15:15 05/31/16 08:19 (Theragran M Tab) 1 tab DAILY PO 05/31/16 09:00 06/01/16 08:23 (Milk Of Magnesia Liq) 30 ml DAILY PO 05/30/16 16:00 05/31/16 08:19 (Miralax) 17 gm DAILY PO 05/31/16 09:00 05/31/16 08:19 (Senokot) 8.6 mg HS PO 05/30/16 21:00 05/30/16 21:13 (Fleets Enema (Adult)) 133 ml UNSCH PRN RECTAL 05/30/16 15:00 (Prinivil) 2.5 mg DAILY PO 05/31/16 11:00 06/01/16 08:25 (Pill Splitter) 1 ea UNSCH PRN OTHER 05/31/16 11:15 (Augmentin) 875 mg Q12HR PO 06/01/16 09:45 (Lasix Inj) 40 mg BID@,18 IV PUSH 06/01/16 18:00 (KCl) 20 meq Q12HR PO 06/01/16 18:00 Vital Signs / I&O Vital Signs Date Time Temp Pulse Resp B/P Pulse Ox O2 Delivery O2 Flow Rate FiO2 06/01/16 11:00 70 06/01/16 10:00 62 06/01/16 09:00 68 06/01/16 08:00 79 06/01/16 07:56 97 Nasal Cannula 2.00 06/01/16 07:55 98.5 86 20 117/56 97 06/01/16 07:26 87 21 06/01/16 07:17 79 06/01/16 06:12 79 06/01/16 05:16 67 06/01/16 04:25 63 06/01/16 03:54 67 06/01/16 03:46 95 Nasal Cannula 2.00 06/01/16 03:00 98.1 70 18 122/56 98 06/01/16 02:22 63 06/01/16 01:02 66 06/01/16 00:14 66 05/31/16 23:51 71 05/31/16 23:18 96 Nasal Cannula 2.00 05/31/16 23:17 98.8 72 19 114/53 96 05/31/16 22:00 80 05/31/16 21:00 83 05/31/16 20:00 84 05/31/16 19:25 98 Nasal Cannula 05/31/16 19:15 94 Nasal Cannula 2.00 05/31/16 19:15 99.4 86 20 123/59 98 05/31/16 19:00 80 05/31/16 18:00 82 05/31/16 18:00 95 Nasal Cannula 2.00 05/31/16 17:00 83 05/31/16 16:00 86 05/31/16 15:00 94 Room Air 05/31/16 15:00 82 05/31/16 15:00 100.0 86 20 108/55 94 05/31/16 14:00 88 05/31/16 13:00 73 05/31/16 12:38 69 I/O 05/31/16 05/31/16 05/31/16 06/01/16 06/01/16 06/01/16 07:00 15:00 23:00 07:00 15:00 23:00 Intake Total 580 ml 460 ml 580 ml Output Total 450 ml 400 ml Balance 130 ml 60 ml 580 ml Intake Oral 480 ml 360 ml 480 ml IV Total 100 ml 100 ml 100 ml Output Urine Total 450 ml 400 ml # Voids 3 3 # Bowel Movements 1 4 Physical Exam GENERAL: NAD, AAOx3 SKIN: Warm and dry. HEAD: Atraumatic. Normocephalic. EYES: Pupils equal and round. No scleral icterus. No injection or drainage. ENT: No nasal bleeding or discharge. Mucous membranes pink and moist. NECK: Trachea midline. No JVD. CARDIOVASCULAR: Regular rate and rhythm. Sternotomy C/D/I RESPIRATORY: No accessory muscle use. Decreased breath sounds bilaterally. No rales noted, but difficult with body habitus GASTROINTESTINAL: Abdomen soft, non-tender, nondistended. Hepatic and splenic margins not palpable. MUSCULOSKELETAL: Trace edema NEUROLOGICAL: Awake and alert No obvious cranial nerve deficits. No focal deficits Laboratory Laboratory Tests Test 06/01/16 05:51 White Blood Count 8.3 TH/MM3 Red Blood Count 3.18 MIL/MM3 Hemoglobin 9.6 GM/DL Hematocrit 28.4 % Mean Corpuscular Volume 89.3 FL Mean Corpuscular Hemoglobin 30.1 PG Mean Corpuscular Hemoglobin 33.7 % Concent Red Cell Distribution Width 14.4 % Platelet Count 207 TH/MM3 Mean Platelet Volume 8.7 FL Assessment and Plan Problem List: (1) NSTEMI (non-ST elevated myocardial infarction) (2) S/P CABG x 2 (3) Closed head injury (4) Cardiac arrest (5) E. coli UTI (6) Morbid obesity with BMI of 40.0-44.9, adult (7) Aspiration pneumonia Assessment and Plan 1) NSTEMI/Vfib arrest/Left main disease s/p RODRIGES to LAD, SVG to OM1 POD #4 2) ASA/BB/Amio/Plavix/Statin 3) IS to avoid atelectasis 4) Ambulate as possible 5) Possible rehab on discharge 6) Diuresis Problem Qualifiers (1) Closed head injury: Qualified Code: S09.90XA - Closed head injury, initial encounter Jaxson Barker DO Jun 01, 2016 12:18
[2016-06-01] MEDS: AMOXICILLIN/CLAVULANATE K 875 MG TAB PO SCH ×2 (13:35→21:14)
[2016-06-01] MEDS: FUROSEMIDE 40 MG/4 ML VIAL IV PUSH SCH (17:46)
[2016-06-01] MEDS: POTASSIUM CHLORIDE 20 MEQ CONTROLLED RELEASE TAB PO SCH ×2 (17:46→21:14)
[2016-06-01] MEDS: SENNOSIDES 8.6 MG TAB PO SCH (21:00)
[2016-06-01] MEDS: ATORVASTATIN 80 MG TAB PO SCH (21:14)
[2016-06-02] VITALS (10 sets, daily range): BP systolic 117–124; BP diastolic 53–60; PULSE 59–71; RESP 18–20; TEMP 98.6–98.7; O2SAT 92–98
[2016-06-02 05:58] LABS: AUTOMATED NEUTROPHIL # 4.5 TH/MM3 (1.8-7.7); BASOPHIL # 0.1 TH/MM3 (0-0.2); BASOPHIL % 0.8 % (0.0-2.0); EOSINOPHIL # 0.4 TH/MM3 (0-0.4); EOSINOPHIL % 5.6 % (0.0-4.0); HEMATOCRIT 28.6 % (35.0-46.0); HEMO FLAGS DIFF FINAL; LYMPH % 21.5 % (9.0-44.0); LYMPHOCYTE # 1.7 TH/MM3 (1.0-4.8); MEAN CORPUSCULAR HEMOGLOBIN 29.7 PG (27.0-34.0); MEAN CORPUSCULAR HGB CONC 33.4 % (32.0-36.0); NEUT % 56.1 % (16.0-70.0); PLATELET COUNT 233 TH/MM3 (150-450); RED BLOOD COUNT 3.21 MIL/MM3 (4.00-5.30); RED CELL DISTRIBUTION WIDTH 14.1 % (11.6-17.2)
[2016-06-02] MEDS: PANTOPRAZOLE SOD 40 MG DELAYED RELEASE TAB PO SCH (06:00)
[2016-06-02 06:25] LABS: BICARBONATE 31.3 MEQ/L (21.0-32.0); POTASSIUM 3.7 MEQ/L (3.5-5.1)
--- NOTE | 2016-06-02 06:26 | RADRPT ---
EXAM DATE/TIME: 06/02/2016 04:33 [facility] COMPARISON: CHEST SINGLE AP, June 01, 2016, 5:46. INDICATIONS : Shortness of breath, possible pulmonary disease. MEDICAL HISTORY : Cardiovascular disease. SURGICAL HISTORY : CABG. ENCOUNTER: Subsequent ACUITY: 4 - 6 days PAIN SCORE: 5/10 LOCATION: Bilateral chest FINDINGS: Bilateral airspace disease present similar to June 01. Cardiomegaly. Postoperative median sternotomy. No pneumothorax. CONCLUSION: 1. Relatively stable bilateral airspace disease compared with June 01. Aric Doss MD on June 02, 2016 at 6:21 Board Certified Radiologist. This report was verified electronically.
[2016-06-02] MEDS: RESP: ALBUTEROL 2.5 MG/IPRATROPIUM 0.5 MG NEB (SCH) NEB (07:44)
[2016-06-02] MEDS: POLYETHYLENE GLYCOL 17 GM PKG PO SCH (09:00)
[2016-06-02] MEDS: MAGNESIUM HYDROXIDE SUSP 30 ML CUP PO SCH (09:00)
[2016-06-02] MEDS: AMOXICILLIN/CLAVULANATE K 875 MG TAB PO SCH (09:36)
[2016-06-02] MEDS: DOCUSATE SODIUM 100 MG CAP PO SCH (09:37)
[2016-06-02] MEDS: LISINOPRIL 5 MG TAB PO SCH (09:37)
[2016-06-02] MEDS: CLOPIDOGREL 75 MG TAB PO SCH (09:38)
[2016-06-02] MEDS: AMIODARONE 200 MG TAB PO SCH (09:39)
[2016-06-02] MEDS: POTASSIUM CHLORIDE 20 MEQ CONTROLLED RELEASE TAB PO SCH (09:41)
[2016-06-02] MEDS: ASPIRIN 81 MG CHEW TAB PO SCH (09:41)
[2016-06-02] MEDS: FUROSEMIDE 40 MG/4 ML VIAL IV PUSH SCH (09:42)
[2016-06-02] MEDS: METOPROLOL TARTRATE 25 MG TAB PO SCH (09:42)
[2016-06-02] MEDS: BUDESONIDE-FORMOTEROL 160/4.5 MCG INHALER INH SCH (09:43)
[2016-06-02] MEDS: MULTIVITAMINS/MINERALS THERAPEUTIC TAB PO SCH (09:43)
[2016-06-02] MEDS: ARTIFICIAL TEARS OPTH SOLN 15 ML BTL EACH EYE SCH (09:44)
--- NOTE | 2016-06-02 09:48 | PD.CARD.PN ---
Subjective Subjective Remarks No chest pain, SOB today with walking Objective Medications Current Medications Medications (Trade) Dose Ordered Sig/Jules Route Start Time Stop Time Status Last Admin (Tears Naturale Opth Soln) 1 drop TID EACH EYE 05/27/16 09:00 06/01/16 08:22 (Reglan Inj) 10 mg Q6H PRN IV 05/26/16 21:15 (Lopressor) 12.5 mg Q12HR PO 05/27/16 21:00 06/01/16 21:14 (NS Flush) 2 ml BID IV FLUSH 05/28/16 21:00 06/01/16 21:13 (NS Flush) 2 ml UNSCH PRN IV FLUSH 05/28/16 11:15 (Aspirin Chew) 81 mg DAILY PO 05/29/16 09:00 06/01/16 08:24 (Plavix) 75 mg DAILY PO 05/29/16 09:00 06/01/16 08:23 (Protonix) 40 mg DAILY@06 PO 05/29/16 06:00 06/02/16 06:00 (Cordarone) 400 mg Q12HR PO 05/28/16 21:00 06/01/16 21:14 (Tylenol) 650 mg Q4H PRN PO 05/28/16 11:15 (Percocet 5-325 Mg) 1 tab Q3H PRN PO 05/28/16 11:15 06/01/16 23:00 (Percocet 5-325 Mg) 2 tab Q3H PRN PO 05/28/16 11:15 05/29/16 18:09 (Zofran Inj) 4 mg Q6H PRN IV PUSH 05/28/16 11:15 05/29/16 05:12 (Symbicort 160-4.5 Inh) 1 puff Q12HR INH 05/30/16 09:00 06/01/16 21:00 (Lipitor) 80 mg HS PO 05/30/16 21:00 06/01/16 21:14 (Colace) 100 mg BID PO 05/30/16 15:15 06/01/16 21:15 (Theragran M Tab) 1 tab DAILY PO 05/31/16 09:00 06/01/16 08:23 (Milk Of Magnesia Liq) 30 ml DAILY PO 05/30/16 16:00 05/31/16 08:19 (Miralax) 17 gm DAILY PO 05/31/16 09:00 05/31/16 08:19 (Senokot) 8.6 mg HS PO 05/30/16 21:00 05/30/16 21:13 (Fleets Enema (Adult)) 133 ml UNSCH PRN RECTAL 05/30/16 15:00 (Prinivil) 2.5 mg DAILY PO 05/31/16 11:00 06/01/16 08:25 (Pill Splitter) 1 ea UNSCH PRN OTHER 05/31/16 11:15 (Augmentin) 875 mg Q12HR PO 06/01/16 09:45 06/01/16 21:14 (Lasix Inj) 40 mg BID@,18 IV PUSH 06/01/16 18:00 06/01/16 17:46 (KCl) 20 meq Q12HR PO 06/01/16 18:00 06/01/16 21:14 Vital Signs / I&O Vital Signs Date Time Temp Pulse Resp B/P Pulse Ox O2 Delivery O2 Flow Rate FiO2 06/02/16 07:50 98.6 71 18 124/60 92 06/02/16 07:50 71 06/02/16 07:50 92 Room Air 06/02/16 07:49 92 21 06/02/16 06:05 67 06/02/16 05:19 64 06/02/16 04:09 98.7 61 20 117/53 98 06/02/16 04:00 60 06/02/16 03:30 98 2.00 06/02/16 03:00 59 06/02/16 02:14 70 06/02/16 01:52 71 06/02/16 00:00 64 06/01/16 23:02 100.4 62 18 115/51 97 06/01/16 23:00 94 Nasal Cannula 2.00 06/01/16 23:00 84 06/01/16 22:00 87 06/01/16 21:00 77 06/01/16 20:56 93 06/01/16 20:00 80 06/01/16 19:00 95 Room Air 06/01/16 19:00 84 06/01/16 19:00 99.5 86 19 126/57 95 06/01/16 18:00 82 06/01/16 17:00 68 06/01/16 16:00 64 06/01/16 15:11 98.6 86 20 124/64 98 06/01/16 15:10 96 Nasal Cannula 2.00 06/01/16 15:00 79 06/01/16 14:00 62 06/01/16 13:35 68 06/01/16 12:00 94 Nasal Cannula 2.00 06/01/16 12:00 99.0 86 20 121/62 98 06/01/16 12:00 68 06/01/16 11:00 70 06/01/16 10:00 62 I/O 06/01/16 06/01/16 06/01/16 06/02/16 06/02/16 06/02/16 07:00 15:00 23:00 07:00 15:00 23:00 Intake Total 580 ml 1175 ml 360 ml Output Total 875 ml 800 ml Balance 580 ml 300 ml -440 ml Intake Oral 480 ml 975 ml 360 ml IV Total 100 ml 200 ml Output Urine Total 875 ml 800 ml # Voids 3 # Bowel Movements 2 2 Physical Exam GENERAL: NAD, AAOx3 SKIN: Warm and dry. HEAD: Atraumatic. Normocephalic. EYES: Pupils equal and round. No scleral icterus. No injection or drainage. ENT: No nasal bleeding or discharge. Mucous membranes pink and moist. NECK: Trachea midline. No JVD. CARDIOVASCULAR: Regular rate and rhythm. Sternotomy C/D/I RESPIRATORY: No accessory muscle use. Decreased breath sounds bilaterally. No rales noted, but difficult with body habitus GASTROINTESTINAL: Abdomen soft, non-tender, nondistended. Hepatic and splenic margins not palpable. MUSCULOSKELETAL: Trace edema NEUROLOGICAL: Awake and alert No obvious cranial nerve deficits. No focal deficits Laboratory Laboratory Tests Test 06/02/16 05:35 White Blood Count 8.0 TH/MM3 Red Blood Count 3.21 MIL/MM3 Hemoglobin 9.6 GM/DL Hematocrit 28.6 % Mean Corpuscular Volume 89.0 FL Mean Corpuscular Hemoglobin 29.7 PG Mean Corpuscular Hemoglobin 33.4 % Concent Red Cell Distribution Width 14.1 % Platelet Count 233 TH/MM3 Mean Platelet Volume 8.5 FL Neutrophils (%) (Auto) 56.1 % Lymphocytes (%) (Auto) 21.5 % Monocytes (%) (Auto) 16.0 % Eosinophils (%) (Auto) 5.6 % Basophils (%) (Auto) 0.8 % Neutrophils # (Auto) 4.5 TH/MM3 Lymphocytes # (Auto) 1.7 TH/MM3 Monocytes # (Auto) 1.3 TH/MM3 Eosinophils # (Auto) 0.4 TH/MM3 Basophils # (Auto) 0.1 TH/MM3 CBC Comment DIFF FINAL Differential Comment Sodium Level 144 MEQ/L Potassium Level 3.7 MEQ/L Chloride Level 106 MEQ/L Carbon Dioxide Level 31.3 MEQ/L Anion Gap 7 MEQ/L Blood Urea Nitrogen 15 MG/DL Creatinine 0.57 MG/DL Estimat Glomerular Filtration 105 ML/MIN Rate Random Glucose 101 MG/DL Calcium Level 8.4 MG/DL Assessment and Plan Problem List: (1) NSTEMI (non-ST elevated myocardial infarction) (2) S/P CABG x 2 (3) Closed head injury (4) Cardiac arrest (5) E. coli UTI (6) Morbid obesity with BMI of 40.0-44.9, adult (7) Aspiration pneumonia Assessment and Plan 1) NSTEMI/Vfib arrest/Left main disease s/p RODRIGES to LAD, SVG to OM1 POD #5 2) ASA/BB/Amio/Plavix/Statin 3) IS to avoid atelectasis 4) Ambulate as possible 5) Rehab on discharge 6) Con't diuresis as outpatient Problem Qualifiers (1) Closed head injury: Qualified Code: S09.90XA - Closed head injury, initial encounter Jaxson Barker DO Jun 02, 2016 09:47
--- NOTE | 2016-06-02 09:48 | HHI.PR ---
Subjective Remarks sitting on the chair with no distress. still with some exertional dyspnea. d/w the RN. Objective Vitals Vital Signs Date Time Temp Pulse Resp B/P Pulse Ox O2 Delivery O2 Flow Rate FiO2 06/02/16 07:50 98.6 71 18 124/60 92 06/02/16 07:50 71 06/02/16 07:50 92 Room Air 06/02/16 07:49 92 21 06/02/16 06:05 67 06/02/16 05:19 64 06/02/16 04:09 98.7 61 20 117/53 98 06/02/16 04:00 60 06/02/16 03:30 98 2.00 06/02/16 03:00 59 06/02/16 02:14 70 06/02/16 01:52 71 06/02/16 00:00 64 06/01/16 23:02 100.4 62 18 115/51 97 06/01/16 23:00 94 Nasal Cannula 2.00 06/01/16 23:00 84 06/01/16 22:00 87 06/01/16 21:00 77 06/01/16 20:56 93 06/01/16 20:00 80 06/01/16 19:00 95 Room Air 06/01/16 19:00 84 06/01/16 19:00 99.5 86 19 126/57 95 06/01/16 18:00 82 06/01/16 17:00 68 06/01/16 16:00 64 06/01/16 15:11 98.6 86 20 124/64 98 06/01/16 15:10 96 Nasal Cannula 2.00 06/01/16 15:00 79 06/01/16 14:00 62 06/01/16 13:35 68 06/01/16 12:00 94 Nasal Cannula 2.00 06/01/16 12:00 99.0 86 20 121/62 98 06/01/16 12:00 68 06/01/16 11:00 70 06/01/16 10:00 62 I/O 06/01/16 06/01/16 06/01/16 06/02/16 06/02/16 06/02/16 07:00 15:00 23:00 07:00 15:00 23:00 Intake Total 580 ml 1175 ml 360 ml Output Total 875 ml 800 ml Balance 580 ml 300 ml -440 ml Intake Oral 480 ml 975 ml 360 ml IV Total 100 ml 200 ml Output Urine Total 875 ml 800 ml # Voids 3 # Bowel Movements 2 2 Result Diagram: 06/02/16 0535 06/02/16 0535 Imaging Last Impressions Chest X-Ray 06/02/16 0600 Signed Impressions: Service Date/Time: June 04:33 - CONCLUSION: 1. Relatively stable bilateral airspace disease compared with June 01. Aric Doss MD Lower Extremity Ultrasound 05/27/16 0000 Signed Impressions: Service Date/Time: Friday, May 27, 2016 14:59 - CONCLUSION: Venous mapping as above. Tr Ferrell MD Carotid Artery Ultrasound 05/27/16 0000 Signed Impressions: Service Date/Time: Friday, May 27, 2016 17:24 - CONCLUSION: There is right greater than left bifurcation atherosclerotic plaque. There is hemodynamically significant narrowing of the proximal to mid right ICA. Satish Wolf MD CT Angiography [id number] Signed Impressions: Service Date/Time: May 23:08 - CONCLUSION: Bilateral pulmonary consolidation without evidence for pulmonary embolism. Miguel Styles MD Cervical Spine CT [id number] Signed Impressions: Service Date/Time: May 20:08 - CONCLUSION: No acute bony injury. Extensive degenerative changes. Maximiliano Potts MD Head CT 05/26/16 0000 Signed Impressions: Service Date/Time: May 20:08 - CONCLUSION: Normal examination for a patient of this age. Maximiliano Potts MD Objective Remarks GENERAL: This is a well-nourished, well-developed patient, in no apparent distress. CARDIOVASCULAR: Regular rate and regular rhythm without murmurs, gallops, or rubs. RESPIRATORY: diminished air entry in bases GASTROINTESTINAL: Abdomen soft, non-tender, nondistended. Normal, active bowel sounds MUSCULOSKELETAL: Extremities without clubbing, cyanosis, or edema. NEURO: Alert & Oriented x4 to person, place, time, situation. Moves all ext x4 Procedures endotracheal intubation cardiac cath CABG Medications and IVs Current Medications Sodium Chloride (NS 1000 ml Inj) 1,000 ml @ 0 mls/hr Q0M ONCE IV Last administered on 05/26/16 20:43; Start 05/26/16 at 20:07; Stop 05/26/16 at 20:09 ; Status DC IV Flush 2 ml 2 ml UNSCH PRN IVF FLUSH AFTER USING IV ACCESS; Start 05/26/16 at 20:15; Stop 05/26/16 at 21:41; Status DC Nitroglycerin/ Dextrose (Nitroglycerin-Dextrose Inj) 250 ml @ 0 mls/hr TITRATE IV ; Start 05/26/16 at 20:15; Stop 05/26/16 at 21:25; Status DC Lorazepam (Ativan Inj) 2 mg ONCE ONCE IV PUSH Last administered on 05/26/16 20:42; Start 05/26/16 at 20:15; Stop 05/26/16 at 20:16; Status DC Propofol (Diprivan 1000 Mg/100ml Inj) search Sets for Drip. TITRATE PRN IV AGITATION; Start 05/26/16 at 20:15; Stop 05/26/16 at 21:41; Status DC Etomidate (Amidate Inj) 20 mg ONCE ONCE IV PUSH Last administered on 20:42; Start 05/26/16 at 20:15; Stop 05/26/16 at 20:16; Status DC Succinylcholine Chloride 100 mg 100 mg ONCE ONCE IM Last administered on 20:42; Start 05/26/16 at 20:15; Stop 05/26/16 at 20:16; Status DC Sodium Chloride (NS 1000 ml Inj) 1,000 ml @ 84 mls/hr [id number] IV Last administered on 05/28/16 05:30; Start 05/26/16 at 21:08; Stop 05/28/16 at 11:13 ; Status DC IV Flush (NS Flush) 2 ml UNSCH PRN IV FLUSH FLUSH AFTER USING IV ACCESS; Start 05/26/16 at 21:15; Stop 05/27/16 at 14:18; Status DC IV Flush (NS Flush) 2 ml BID IV FLUSH ; Start 05/27/16 at 09:00; Stop 05/27/16 at 14:18; Status DC Acetaminophen (Tylenol) 650 mg Q6H PRN PO PAIN 1-5 AND/OR FEVER >101F; Start at 21:15; Stop 05/28/16 at 11:14; Status DC Morphine Sulfate (Morphine Inj) 2 mg Q2H PRN IV PAIN SCALE 6 TO 10 Last administered on 05/28/16 04:44; Start 05/26/16 at 21:15; Stop 05/30/16 at 14:57 ; Status DC Famotidine (Pepcid Inj) 10 mg Q12HR IV PUSH Last administered on 05/27/16 20: 05; Start 05/27/16 at 09:00; Stop 05/28/16 at 14:57; Status DC Lorazepam (Ativan Inj) 2 mg Q4H PRN IV Agitation/Sedation Last administered on 05/29/16 04:42; Start 05/26/16 at 21:15; Stop 05/30/16 at 14:57; Status DC Artificial Tears (Tears Naturale Opth Soln) 1 drop TID EACH EYE Last administered on 06/01/16 08:22; Start 05/27/16 at 09:00 Ondansetron HCl (Zofran Inj) 4 mg Q6H PRN IV NAUSEA OR VOMITING; Start at 21:15; Stop 05/28/16 at 12:07; Status DC Metoclopramide HCl (Reglan Inj) 10 mg Q6H PRN IV NAUSEA OR VOMITING; Start at 21:15 Docusate Sodium (Colace Liq) 100 mg Q12HR G-TUBE Last administered on 08:54; Start 05/26/16 at 21:15; Stop 05/30/16 at 14:57; Status DC Albuterol/ Ipratropium (Duoneb Neb) 1 ampule Q2HR NEB PRN INH WHEEZING Last administered on 06/01/16 05:04; Start 05/26/16 at 21:15 Miscellaneous Information 1 [id number] XX ; Start 05/26/16 at 21:15; Stop 05/30/16 at 14:57; Status DC Chlorhexidine Gluconate (Chlorhexidine 2% Cloth) 3 pack Taper DAILY@04 TOP Last administered on 05/30/16 04:00; Start 05/27/16 at 04:00; Stop 05/30/16 at 14:57; Status DC Chlorhexidine Gluconate 3 pack 3 pack UNSCH PRN TOP HYGIENIC CARE; Start at 21:15; Stop 05/30/16 at 14:57; Status DC Propofol (Diprivan 1000 Mg/100ml Inj) 100 ml @ 0 mls/hr TITRATE IV Last administered on 05/28/16 18:15; Start 05/26/16 at 21:15; Stop 05/30/16 at 06:55 ; Status DC Protein 2 pack 2 pack TID G-TUBE ; Start 05/27/16 at 09:00; Stop 05/30/16 at 14: 57; Status DC Lidocaine HCl/ Dextrose (Lidocaine/D5W Inj) 500 ml @ 30 mls/hr [id number] IV Last administered on 05/28/16 06:18; Start 05/26/16 at 21:14; Stop 05/28/16 at 11:14; Status DC Aspirin (Aspirin Chew) 81 mg DAILY TUBE ; Start 05/27/16 at 09:00; Stop at 12:07; Status DC Heparin Sodium (Porcine) (Heparin Inj) 5,000 units UNSCH PRN IV APTT LESS THAN 25; Start 05/27/16 at 04:30; Stop 05/28/16 at 11:15; Status DC Heparin Sodium (Porcine) 2500 units 2,500 units UNSCH PRN IV APTT 25 TO 39 Last administered on 05/27/16 21:48; Start 05/27/16 at 04:30; Stop 05/28/16 at 11:15; Status DC Heparin Sodium/ Dextrose (Heparin-D5W Inj) 250 ml @ 0 mls/hr TITRATE IV Last administered on 05/27/16 01:00; Start 05/26/16 at 22:30; Stop 05/30/16 at 14:57 ; Status DC Iohexol 75 ml 75 ml STK-MED ONCE IV Last administered on 05/26/16 23:29; Start 05/26/16 at 23:29; Stop 05/26/16 at 23:30; Status DC Ampicillin Sodium/ Sulbactam Sodium 3 gm/Sodium Chloride 100 ml @ 200 mls/hr Q6H IV Last administered on 05/29/16 04:42; Start 05/27/16 at 10:00; Stop at 08:20; Status DC Potassium Chloride 100 ml @ 50 mls/hr Q2H PRN IV For Potassium 2.8 - 3.2 mEq/L ; Start 05/27/16 at 10:15; Stop 05/30/16 at 14:57; Status DC Potassium Chloride (KCl 20 Meq Premix Inj) 100 ml @ 50 mls/hr Q2H PRN IV For Potassium 2.8 - 3.2 mEq/L; Start 05/27/16 at 10:15; Stop 05/30/16 at 14:58; Status DC Potassium Chloride 40 meq 40 meq UNSCH PRN PO/TUBE For Potassium 3.3 - 3.5 mEq/ L Last administered on 05/28/16 05:30; Start 05/27/16 at 10:15; Stop 05/30/16 at 14:58; Status DC Potassium Chloride 100 ml @ 25 mls/hr UNSCH PRN IV For Potassium 3.3 - 3.5 mEq /L; Start 05/27/16 at 10:15; Stop 05/30/16 at 14:58; Status DC Potassium Chloride 100 ml @ 50 mls/hr Q2H PRN IV For Potassium 3.3 - 3.5 mEq/ L Last administered on 05/29/16 07:22; Start 05/27/16 at 10:15; Stop 05/30/16 at 14:59; Status DC Magnesium Sulfate/ Sodium Chloride (Magnesium Sulfate Inj/NS Inj) 100 ml @ 50 mls/hr UNSCH PRN IV For Magnesium 0.9 - 1.1 mg/dL; Start 05/27/16 at 10:15; Stop 05/30/16 at 14:59; Status DC Magnesium Oxide 800 mg 800 mg UNSCH PRN PO For Magnesium 1.2 - 1.6 mg/dL; Start 05/27/16 at 10:15; Stop 05/30/16 at 15:00; Status DC Magnesium Sulfate/ Sodium Chloride (Magnesium Sulfate Inj/NS Inj) 100 ml @ 50 mls/hr UNSCH PRN IV For Magnesium 1.2 - 1.6 mg/dL; Start 05/27/16 at 10:15; Stop 05/30/16 at 15:00; Status DC Potassium Phosphate 2000 mg 2,000 mg Q4H PRN PO For Phosphorus < 2.5 mg/dL; Start 05/27/16 at 10:15; Stop 05/30/16 at 15:00; Status DC Sodium Phosphate/ Sodium Chloride (Sodium Phosphate Inj/NS 250 ml Inj) 250 ml @ 42 mls/hr UNSCH PRN IV For Phosphorus < 2.5 mg/dL; Start 05/27/16 at 10:15; Stop 05/28/16 at 11:15; Status DC Potassium Chloride (KCl 40 Meq/30 ml Liq) 40 meq UNSCH PRN PO/TUBE SEE LABEL COMMENTS; Start 05/27/16 at 10:15; Stop 05/30/16 at 15:00; Status DC Potassium Phosphate 2000 mg 2,000 mg UNSCH PRN PO/TUBE SEE LABEL COMMENTS; Start 05/27/16 at 10:15; Stop 05/30/16 at 15:00; Status DC Potassium Phosphate 30 mmol/ Sodium Chloride 260 ml @ 42 mls/hr UNSCH PRN IV SEE LABEL COMMENTS; Start 05/27/16 at 10:15; Stop 05/30/16 at 15:00; Status DC Heparin Sodium/ Sodium Chloride 500 ml @ As Directed STK-MED ONCE .ROUTE Last administered on 05/27/16 11:21; Start 05/27/16 at 11:21; Stop 05/27/16 at 11:22 ; Status DC Heparin Sodium/ Sodium Chloride 500 ml @ As Directed STK-MED ONCE .ROUTE Last administered on 05/27/16 11:39; Start 05/27/16 at 11:39; Stop 05/27/16 at 11:40 ; Status DC Heparin Sodium/ Dextrose 250 ml @ As Directed STK-MED ONCE .ROUTE Last administered on 05/27/16 11:57; Start 05/27/16 at 11:57; Stop 05/27/16 at 11:58 ; Status DC Lidocaine HCl/ Dextrose (Lidocaine/D5W Inj) 500 ml @ As Directed STK-MED ONCE .ROUTE Last administered on 05/27/16 12:16; Start 05/27/16 at 12:16; Stop at 12:17; Status DC IV Flush (NS Flush) 2 ml BID IVF ; Start 05/27/16 at 21:00; Stop 05/27/16 at 21: 00; Status DC IV Flush (NS Flush) 2 ml UNSCH PRN IVF FLUSH AFTER USING IV ACCESS; Start 05/27 at 12:45; Stop 05/27/16 at 14:18; Status DC Miscellaneous Information 1 ONCE ONCE XX ; Start 05/27/16 at 12:45; Stop at 12:55; Status DC Metoprolol Tartrate (Lopressor) 12.5 mg Q12HR PO Last administered on 06/01/16 21:14; Start 05/27/16 at 21:00 Iohexol (OMNIPAQUE 350 INJ (Risk And Compliance Analytics Director)) 100 ml STK-MED ONCE OTHER ; Start at 12:30; Stop 05/27/16 at 13:30; Status DC IV Flush (NS Flush) 2 ml BID IV FLUSH Last administered on 05/27/16 20:04; Start 05/27/16 at 21:00; Stop 05/28/16 at 11:15; Status DC IV Flush 2 ml 2 ml UNSCH PRN IV FLUSH FLUSH AFTER USING IV ACCESS; Start at 14:15; Stop 05/28/16 at 11:15; Status DC Papaverine HCl 60 mg/Nitroglycerin 100 mcg/Diltiazem HCl 100 mg/Sodium Chloride 100.0 ml @ 0 mls/hr LEARNING DISABLED TEACHER IRRIGATION Last administered on 05/28/16 08:00; Start 05/27/16 at 14:15; Stop 05/28/16 at 11:15; Status DC Cefazolin Sodium 500 mg/Sodium Chloride 505 ml @ 0 mls/hr LEARNING DISABLED TEACHER IRRIGATION Last administered on 05/28/16 09:06; Start 05/27/16 at 14:15; Stop 05/30/16 at 15:01; Status DC Cefazolin Sodium/ Dextrose (Ancef 2 Gm Premix) 50 ml @ 150 mls/hr LEARNING DISABLED TEACHER IV Last administered on 05/28/16 08:04; Start 05/27/16 at 14:15; Stop 05/30/16 at 15:02; Status DC Metoprolol Tartrate (Lopressor) 12.5 mg LEARNING DISABLED TEACHER PO ; Start 05/27/16 at 14:15; Stop 05/30/16 at 15:01; Status DC Chlorhexidine Gluconate 1 applic 1 applic LEARNING DISABLED TEACHER TOPICAL Last administered on 05/28/16 06:41; Start 05/27/16 at 14:15; Stop 05/28/16 at 11:16; Status DC Insulin Human Regular/Sodium Chloride (NovoLIN R (IV INFUSION)/NS Inj) 101 ml @ 0 mls/hr LEARNING DISABLED TEACHER IV ; Start 05/27/16 at 14:15; Stop 05/29/16 at 12:54; Status DC Heparin Sodium (Porcine) (Heparin Inj) 10,000 units STK-MED ONCE .ROUTE ; Start 05/28/16 at 06:15; Stop 05/28/16 at 06:16; Status DC Vancomycin HCl (Vancomycin Inj) 3,000 mg STK-MED ONCE .ROUTE Last administered on 05/28/16 07:30; Start 05/28/16 at 06:16; Stop 05/28/16 at 06:17; Status DC Heparin Sodium (Porcine) (Heparin Inj) 40,000 units STK-MED ONCE .ROUTE Last administered on 05/28/16 07:30; Start 05/28/16 at 06:16; Stop 05/28/16 at 06:17 ; Status DC Potassium Chloride (KCl Inj) 8 meq STK-MED ONCE .ROUTE ; Start 05/28/16 at 07:22 ; Stop 05/28/16 at 07:23; Status DC Albumin Human (Albumin 5% Inj) 25 gm STK-MED ONCE IV ; Start 05/28/16 at 09:37; Stop 05/28/16 at 09:38; Status DC IV Flush (NS Flush) 2 ml BID IV FLUSH Last administered on 06/01/16 21:13; Start 05/28/16 at 21:00 IV Flush 2 ml 2 ml UNSCH PRN IV FLUSH FLUSH AFTER USING IV ACCESS; Start at 11:15 Propofol 100 ml @ 0 mls/hr TITRATE IV ; Start 05/28/16 at 11:15; Stop 05/30/16 at 06:55; Status DC Dexmedetomidine HCl 50 ml @ 0 mls/hr TITRATE IV Last administered on 05/29/16 02:40; Start 05/28/16 at 11:15; Stop 05/30/16 at 06:44; Status DC Nitroglycerin/ Dextrose 250 ml @ 0 mls/hr TITRATE IV ; Start 05/28/16 at 11:15; Stop 05/30/16 at 15:02; Status DC Dobutamine HCl/ Dextrose 250 ml @ 16.95 mls/ hr [id number] IV ; Start 05/28/16 at 11:08; Stop 05/30/16 at 15:03; Status DC Dopamine HCl/ Dextrose 500 ml @ 0 mls/hr TITRATE IV ; Start 05/28/16 at 11:15; Stop 05/30/16 at 15:03; Status DC Epinephrine HCl 4 mg/Dextrose 250 ml @ 0 mls/hr TITRATE IV ; Start 05/28/16 at 11:15; Stop 05/30/16 at 15:04; Status DC Phenylephrine HCl 40 mg/Dextrose 500 ml @ 0 mls/hr TITRATE IV ; Start 05/28/16 at 11:15; Stop 05/30/16 at 15:14; Status DC Clevidipine (Cleviprex Inj) 50 ml @ 0 mls/hr TITRATE IV ; Start 05/28/16 at 11: 15; Stop 05/30/16 at 15:15; Status DC Albumin Human 12.5 gm 12.5 gm UNSCH PRN IV SEE LABEL COMMENTS; Start 05/28/16 at 11:15; Stop 05/30/16 at 15:04; Status DC Lactated Ringer's (Lr 1000 ml Inj) 500 ml @ 500 mls/hr Q1H PRN IV SEE LABEL COMMENTS; Start 05/28/16 at 11:08; Stop 05/30/16 at 15:04; Status DC Miscellaneous Information (Post-op Orders (for Pharmacy)) STAT ONCE OTHER ; Start 05/28/16 at 11:15; Stop 05/28/16 at 12:51; Status DC Aspirin (Aspirin Chew) 81 mg DAILY PO Last administered on 06/01/16 08:24; Start 05/29/16 at 09:00 Clopidogrel Bisulfate (Plavix) 75 mg DAILY PO Last administered on 06/01/16 08: 23; Start 05/29/16 at 09:00 Pantoprazole Sodium (Protonix) 40 mg DAILY@06 PO Last administered on 06/02/16 06:00; Start 05/29/16 at 06:00 Amiodarone HCl (Cordarone) 400 mg Q12HR PO Last administered on 06/01/16 21:14 ; Start 05/28/16 at 21:00 Acetaminophen (Tylenol) 650 mg Q4H PRN PO TEMPERATURE > 101 F; Start 05/28/16 at 11:15 Acetaminophen (Tylenol Supp) 650 mg Q4H PRN RECTAL TEMPERATURE > 101 F; Start 05/28/16 at 11:15; Stop 05/30/16 at 15:04; Status DC Acetaminophen (Ofirmev Inj) 1,000 mg Q6H IV Last administered on 05/29/16 00: 32; Start 05/28/16 at 12:00; Stop 05/29/16 at 06:01; Status DC Morphine Sulfate (Morphine Inj) 1 mg Q10M PRN IV PAIN SCALE 1 TO 5; Start 05/28 at 11:15; Stop 05/30/16 at 15:04; Status DC Meperidine HCl (Demerol Inj) 12.5 mg Q4H PRN IV SEE LABEL COMMENTS; Start 05/28 at 11:15; Stop 05/30/16 at 15:02; Status DC Oxycodone/ Acetaminophen (Percocet 5-325 Mg) 1 tab Q3H PRN PO PAIN SCALE 1 TO 5 Last administered on 06/01/16 23:00; Start 05/28/16 at 11:15 Oxycodone/ Acetaminophen (Percocet 5-325 Mg) 2 tab Q3H PRN PO PAIN SCALE 6 TO 10 Last administered on 05/29/16 18:09; Start 05/28/16 at 11:15 Ketorolac Tromethamine (Toradol Inj) 15 mg Q6H PRN IV PUSH SEE LABEL COMMENTS Last administered on 05/30/16 03:16; Start 05/28/16 at 11:15; Stop 05/30/16 at 11:14; Status DC Fentanyl Citrate (fentaNYL INJ) 25 mcg Q1H PRN IV BREAKTHROUGH PAIN Last administered on 05/29/16 07:30; Start 05/28/16 at 11:15; Stop 05/30/16 at 15:04 ; Status DC Ondansetron HCl (Zofran Inj) 4 mg Q6H PRN IV PUSH NAUSEA OR VOMITING Last administered on 05/29/16 05:12; Start 05/28/16 at 11:15 Hydralazine HCl (Apresoline Inj) 10 mg Q4H PRN IV SEE LABEL COMMENTS Last administered on 05/28/16 14:11; Start 05/28/16 at 11:15; Stop 05/30/16 at 15:04 ; Status DC Metoprolol Tartrate 2.5 mg 2.5 mg Q1H PRN IV PUSH SEE LABEL COMMENTS; Start at 11:15; Stop 05/30/16 at 15:04; Status DC Potassium Chloride 100 ml @ 50 mls/hr UNSCH PRN IV SEE LABEL COMMENTS Last administered on 05/28/16 13:01; Start 05/28/16 at 11:15; Stop 05/30/16 at 15:04 ; Status DC Potassium Chloride 100 ml @ 50 mls/hr UNSCH PRN IV SEE LABEL COMMENTS; Start 05/28/16 at 11:15; Stop 05/30/16 at 15:05; Status DC Potassium Chloride (KCl 20 Meq Premix Inj) 100 ml @ 50 mls/hr UNSCH PRN IV SEE LABEL COMMENTS; Start 05/28/16 at 11:15; Stop 05/30/16 at 15:05; Status DC Potassium Chloride (KCl) 20 meq UNSCH PRN PO SEE LABEL COMMENTS; Start at 11:15; Stop 05/28/16 at 12:06; Status DC Potassium Chloride 40 meq 40 meq UNSCH PRN PO SEE LABEL COMMENTS; Start at 11:15; Stop 05/28/16 at 12:06; Status DC Magnesium Sulfate 2 gm/Sodium Chloride 104 ml @ 100 mls/hr UNSCH PRN IV SEE LABEL COMMENTS; Start 05/28/16 at 11:15; Stop 05/30/16 at 15:06; Status DC Magnesium Sulfate 2 gm/Sodium Chloride 104 ml @ 50 mls/hr UNSCH PRN IV SEE LABEL COMMENTS Last administered on 05/29/16 06:27; Start 05/28/16 at 11:15; Stop 05/30/16 at 15:06; Status DC Calcium Chloride/ Sodium Chloride (Calcium Chloride Inj/NS Inj) 110 ml @ 100 mls/hr UNSCH PRN IV SEE LABEL COMMENTS Last administered on 05/28/16 20:09; Start 05/28/16 at 11:15; Stop 05/30/16 at 15:07; Status DC Calcium Chloride 0.5 gm 0.5 gm UNSCH PRN IV SEE LABEL COMMENTS; Start 05/28/16 at 11:15; Stop 05/30/16 at 15:02; Status DC Insulin Human Regular/Sodium Chloride (NovoLIN R (IV INFUSION)/NS Inj) 100 ml @ 0 mls/hr TITRATE IV ; Start 05/28/16 at 11:15; Stop 05/29/16 at 12:54; Status DC Dextrose 25 ml 25 ml UNSCH PRN IV PUSH HYPOGLYCEMIA-SEE COMMENTS; Start at 11:15; Stop 05/29/16 at 12:57; Status DC Cefazolin Sodium/ Dextrose (Ancef 2 Gm Premix) 50 ml @ 100 mls/hr Q8H IV Last administered on 05/30/16 01:38; Start 05/28/16 at 17:00; Stop 05/30/16 at 01:29 ; Status DC Midazolam HCl (Versed Inj) 10 mg STK-MED ONCE .ROUTE ; Start 05/28/16 at 11:58; Stop 05/28/16 at 11:59; Status DC Fentanyl Citrate (fentaNYL INJ) 1,000 mcg STK-MED ONCE .ROUTE ; Start 05/28/16 at 11:58; Stop 05/28/16 at 11:59; Status DC Furosemide 20 mg 20 mg ONCE ONCE IV PUSH Last administered on 05/28/16 13:00 ; Start 05/28/16 at 13:00; Stop 05/28/16 at 13:01; Status DC Potassium Chloride 100 ml @ 50 mls/hr BOLUS ONCE IV ; Start 05/28/16 at 13:00 ; Stop 05/28/16 at 14:59; Status UNV Dexmedetomidine HCl (Precedex Inj) 50 ml @ 0 mls/hr TITRATE IV ; Start 05/28/16 at 13:45; Status Cancel Famotidine (Pepcid Inj) 20 mg Q12HR IV PUSH Last administered on 05/29/16 08: 17; Start 05/28/16 at 21:00; Stop 05/30/16 at 06:56; Status DC Furosemide 20 mg 20 mg ONCE ONCE IV PUSH Last administered on 05/29/16 07:37 ; Start 05/29/16 at 07:30; Stop 05/29/16 at 07:31; Status DC Ceftriaxone Sodium 2000 mg/ Sodium Chloride 100 ml @ 200 mls/hr ONCE ONCE IV Last administered on 05/29/16 09:03; Start 05/29/16 at 08:30; Stop 05/29/16 at 08:59; Status DC Ceftriaxone Sodium/Sodium Chloride (Rocephin Inj/NS Inj) 100 ml @ 200 mls/hr Q24H IV Last administered on 06/01/16 08:26; Start 05/30/16 at 08:00; Stop 06/01 at 09:44; Status DC Albuterol/ Ipratropium 1 ampule 1 ampule Q6HR WHILE AWAKE NEB NEB Last administered on 05/30/16 11:59; Start 05/29/16 at 14:00; Stop 05/30/16 at 15:20 ; Status DC Metronidazole (Flagyl 500 Mg Inj) 100 ml @ 100 mls/hr Q8H IV Last administered on 06/01/16 08:26; Start 05/29/16 at 09:00; Stop 06/01/16 at 09:45; Status DC Dextrose (D50w (Vial) Inj) 25 ml UNSCH PRN IV PUSH HYPOGLYCEMIA - SEE COMMENTS ; Start 05/29/16 at 13:00; Stop 05/30/16 at 15:08; Status DC Glucagon (Glucagon Inj) 1 mg UNSCH PRN OTHER HYPOGLYCEMIA-SEE COMMENTS; Start 05/29/16 at 13:00; Stop 05/30/16 at 15:08; Status DC Insulin Human Regular (NovoLIN R SUPPLEMENTAL SCALE) 1 ACHS SLIDING SCALE SQ Last administered on 05/30/16 11:02; Start 05/29/16 at 16:00; Stop 05/30/16 at 15:08; Status DC Budesonide/ Formoterol Fumarate (Symbicort 160-4.5 Inh) 1 puff Q12HR INH Last administered on 06/01/16 21:00; Start 05/30/16 at 09:00 Atorvastatin Calcium (Lipitor) 80 mg HS PO Last administered on 06/01/16 21:14 ; Start 05/30/16 at 21:00 Furosemide (Lasix Inj) 20 mg ONCE ONCE IV PUSH Last administered on 05/30/16 11:03; Start 05/30/16 at 10:15; Stop 05/30/16 at 10:16; Status DC Potassium Chloride (KCl) 30 meq ONCE ONCE PO Last administered on 05/30/16t 11 :03; Start 05/30/16 at 10:15; Stop 05/30/16 at 15:08; Status DC Potassium Chloride (KCl) 30 meq ONCE ONCE PO Last administered on 05/30/16t 12 :49; Start 05/30/16 at 12:30; Stop 05/30/16 at 15:08; Status DC Protamine Sulfate 250 mg 250 mg STK-MED ONCE IV ; Start 05/28/16 at 13:11; Stop 05/30/16 at 13:12; Status DC Lactated Ringer's 2,000 ml @ As Directed STK-MED ONCE IV ; Start 05/28/16 at 13 :11; Stop 05/30/16 at 13:12; Status DC Sodium Chloride 100 ml @ As Directed STK-MED ONCE IV ; Start 05/28/16 at 13:11 ; Stop 05/30/16 at 13:12; Status DC Sodium Chloride 500 ml @ As Directed STK-MED ONCE IV ; Start 05/28/16 at 13:11 ; Stop 05/30/16 at 13:12; Status DC Sodium Chloride 500 ml @ As Directed STK-MED ONCE IV ; Start 05/28/16 at 13:11 ; Stop 05/30/16 at 13:12; Status DC Parenteral Electrolytes (Normosol R Inj) 2,000 ml @ As Directed STK-MED ONCE IV ; Start 05/28/16 at 13:11; Stop 05/30/16 at 13:13; Status DC Acetaminophen 1000 mg 1,000 mg STK-MED ONCE IV ; Start 05/28/16 at 05:00; Stop 05/30/16 at 13:56; Status DC Dexmedetomidine HCl 50 ml @ As Directed STK-MED ONCE IV ; Start 05/28/16 at 05: 00; Stop 05/30/16 at 13:56; Status DC Propofol (Diprivan 1000 Mg/100ml Inj) 100 ml @ As Directed STK-MED ONCE IV ; Start 05/28/16 at 05:00; Stop 05/30/16 at 13:56; Status DC Aminocaproic Acid (Amicar Inj) 250 mg STK-MED ONCE IV ; Start 05/28/16 at 05:00 ; Stop 05/30/16 at 13:56; Status DC Heparin Sodium (Porcine) (Heparin Inj) 10,000 units STK-MED ONCE SQ ; Start at 05:00; Stop 05/30/16 at 13:56; Status DC Lidocaine HCl (Xylocaine 2% Inj) 100 mg STK-MED ONCE IV PUSH ; Start 05/28/16 at 05:00; Stop 05/30/16 at 13:56; Status DC Magnesium Sulfate 1000 mg 1,000 mg STK-MED ONCE IV ; Start 05/28/16 at 05:00; Stop 05/30/16 at 13:56; Status DC Nitroglycerin/ Dextrose (Nitroglycerin-Dextrose Inj) 250 ml @ As Directed STK- MED ONCE IV ; Start 05/28/16 at 05:00; Stop 05/30/16 at 13:56; Status DC Protamine Sulfate (Protamine Sulfate Inj) 250 mg STK-MED ONCE IV ; Start at 05:00; Stop 05/30/16 at 13:56; Status DC Methylprednisolone Sodium Succinate (SoluMEDROL INJ) 500 mg STK-MED ONCE IV ; Start 05/28/16 at 05:00; Stop 05/30/16 at 13:56; Status DC Vecuronium Shedd (Norcuron 10 Mg Inj) 10 mg STK-MED ONCE IV ; Start 05/28/16 at 05:00; Stop 05/30/16 at 13:56; Status DC Albuterol/ Ipratropium (Duoneb Neb) 1 ampule Q6HR WHILE AWAKE NEB NEB Last administered on 06/01/16 13:53; Start 05/30/16 at 20:00; Stop 06/01/16 at 19:59; Status DC Docusate Sodium (Colace) 100 mg BID PO Last administered on 06/01/16 21:15; Start 05/30/16 at 15:15 Multivitamins/ Minerals Therapeutic (Theragran M Tab) 1 tab DAILY PO Last administered on 06/01/16 08:23; Start 05/31/16 at 09:00 Magnesium Hydroxide (Milk Of Magnesia Liq) 30 ml DAILY PO Last administered on 05/31/16 08:19; Start 05/30/16 at 16:00 Bisacodyl (Dulcolax Supp) 10 mg UNSCH X1 PRN RECTAL SEE LABEL COMMENTS; Start 05/30/16 at 15:00; Stop 06/02/16 at 14:59 Polyethylene Glycol (Miralax) 17 gm DAILY PO Last administered on 05/31/16 08: 19; Start 05/31/16 at 09:00 Sennosides (Senokot) 8.6 mg HS PO Last administered on 05/30/16 21:13; Start 05/30/16 at 21:00 Sodium Biphosphate/ Sodium Phosphate (Fleets Enema (Adult)) 133 ml UNSCH PRN RECTAL SEE LABEL COMMENTS; Start 05/30/16 at 15:00 Insulin Aspart (NovoLOG SUPPLEMENTAL SCALE) 1 02,06,10,14,18,22 SQ ; Start 05/30 at 18:00; Stop 06/01/16 at 10:39; Status DC Dextrose (D50w (Vial) Inj) 25 ml UNSCH PRN IV HYPOGLYCEMIA-SEE COMMENTS; Start 05/30/16 at 15:00; Stop 06/01/16 at 10:39; Status DC Glucagon (Glucagon Inj) 1 mg UNSCH PRN OTHER HYPOGLYCEMIA-SEE COMMENTS; Start 05/30/16 at 15:00; Stop 06/01/16 at 10:39; Status DC Lisinopril (Prinivil) 2.5 mg DAILY PO Last administered on 06/01/16 08:25; Start 05/31/16 at 11:00 Miscellaneous (Pill Splitter) 1 ea UNSCH PRN OTHER SEE LABEL COMMENTS; Start at 11:15 Furosemide (Lasix Inj) 40 mg ONCE ONCE IV PUSH Last administered on 06/01/16 11:21; Start 06/01/16 at 09:45; Stop 06/01/16 at 09:47; Status DC Potassium Chloride (KCl) 20 meq ONCE ONCE PO Last administered on 06/01/16 11: 20; Start 06/01/16 at 09:45; Stop 06/01/16 at 09:46; Status DC Amoxicillin/ Clavulanate Potassium (Augmentin) 875 mg Q12HR PO Last administered on 06/01/16 21:14; Start 06/01/16 at 09:45 Furosemide (Lasix Inj) 40 mg BID@,18 IV PUSH Last administered on 06/01/16 17 :46; Start 06/01/16 at 18:00 Potassium Chloride (KCl) 20 meq Q12HR PO Last administered on 06/01/16 21:14; Start 06/01/16 at 18:00 Albuterol/ Ipratropium (Duoneb Neb) 1 ampule Q6HR WHILE AWAKE NEB NEB Last administered on 06/02/16 07:44; Start 06/01/16 at 14:00; Stop 06/03/16 at 13:59 A/P Assessment and Plan A/P Acute respiratory failure-resolved Aspiration pneumonitis -Patient was intubated for an airway protection. Extubated 05/29/16 -Added Symbicort 1 puff every 12 -DuoNeb every 6 hours and when necessary. EzPAP q6. -continue antibiotics Cardiac arrest NSTEMI Ventricular fibrillation CAD with L main disease - s/p urgent Off-pump CABGx 2 with RODRIGES to LAD) reverse saphenous vein graft to OM1 on 05/28/16 - Cardiac catheterization to 21/07/[address] Barker showed 90% left main disease, IABP inserted-removed 05/19/16 - Continue, aspirin, metoprolol, Plavix,BB, lisinopril and amiodarone - Resumed statin -cardiology and CT surgery following. Transaminitis secondary to cardiac arrest -back to normal limit -Heart healthy diet -Protonix for GI prophylaxis Aspiration pneumonitis UTI with E Coli -Continue Augmentin and Flagyl - Urine culture E Coli -carotid artery disease-f/u as outpatient with vascular surgery. Discharge Planning d/w the cardiology and CT surgery; cleared for discharge by both. will dc to inpatient rehab. see med list. f/u by PCP,cardiology and CT surgery. d/w the patient and RN. time spent 35 min. Ishmael aTdeo MD Jun 02, 2016 09:48
[2016-06-02] MEDS: SODIUM CHLORIDE 0.9% FLUSH 5 ML FLUSH IV FLUSH SCH (09:51)
[2016-06-02] MEDS ORDERED: PLAV75TA29 PO (09:54)
[2016-06-02] MEDS ORDERED: LISI-519 PO (09:54)
[2016-06-02] MEDS ORDERED: LIPI80TA PO (09:54)
[2016-06-02] MEDS ORDERED: AMOX875T2 PO (09:54)
[2016-06-02] MEDS ORDERED: AMIO200T PO (09:54)
[2016-06-02] MEDS ORDERED: THERM PO (09:54)
[2016-06-02] MEDS ORDERED: FURO1TAB60 PO (09:54)
[2016-06-02] MEDS ORDERED: METR-1 PO (09:54)
[2016-06-02] MEDS ORDERED: OXYC1TAB63 PO (09:54)
[2016-06-02] MEDS ORDERED: Aspirin Chew PO (09:54)
[2016-06-02] MEDS ORDERED: METO25TA3 PO (09:54)
[2016-06-02] MEDS ORDERED: SYMB160A INH (09:54)
[2016-06-02] MEDS ORDERED: IPRASOL NEB (09:54)
[2016-06-02] MEDS ORDERED: POTA20TA5 PO (09:54)
--- NOTE | 2016-06-02 09:55 | HHI.DCPOC ---
Discharge Care Plan Diagnosis: (1) NSTEMI (non-ST elevated myocardial infarction) Your Health Problems Are: Chest Pain Shortness of Breath Goals to Promote Your Health * To prevent worsening of your condition and complications * To maintain your health at the optimal level Directions to Meet Your Goals Take your medications as prescribed Follow your dietary instruction Follow activity as directed Keep your appointments as scheduled Take your immunizations and boosters as scheduled If your symptoms worsen call your PCP, if no PCP go to Urgent Care Center or Emergency Room Smoking is Dangerous to Your Health. Avoid second hand smoke Call the 24-hour hour crisis hotline for domestic abuse at Ishmael Tadeo MD Jun 02, 2016 09:55
--- NOTE | 2016-06-02 09:56 | HHI.DS ---
Discharge Summary Admission Date May 26, 2016 at 20:54 Discharge Date: Jun 02, 2016 Admitting Diagnosis s/p cardiac arrest (1) Cardiac arrest ICD Code: I46.9 Diagnosis: Principal (2) NSTEMI (non-ST elevated myocardial infarction) ICD Code: I21.4 Diagnosis: Principal (3) Syncope and collapse ICD Code: R55 Diagnosis: Principal (4) Ventricular fibrillation ICD Code: I49.01 Diagnosis: Principal (5) Left main coronary artery disease ICD Code: I25.10 Diagnosis: Principal (6) E. coli UTI ICD Code: N39.0 Diagnosis: Principal (7) Closed head injury ICD Code: S09.90XA Diagnosis: Principal Procedures endotracheal intubation cardiac cath CABG Brief History - From Admission 66-year-old female brought via EVAC status post cardiac arrest. History is obtained from the chart. The patient had walked out from the track to her seat when she fell and struck her head. The resuscitation was immediately available as she was found to be at the V. fib arrest. She was defibrillated once to sinus tachycardia. She has had a pulse and blood pressure since that time. She was combative with EMS. The medic noted a left-sided gaze which I do not appreciate during my exam. CBC/BMP: 06/02/16 0535 06/02/16 0535 Significant Findings Laboratory Tests Test 05/30/16 05/31/16 06/01/16 06/02/16 11:52 04:15 05:51 05:35 Urine Turbidity HAZY (CLEAR) Urine Leukocyte Esterase MOD (NEG) Urine WBC 6 /hpf (0-5) Urine Bacteria RARE /hpf (NONE) Urine Mucus FEW /lpf (OCC) Red Blood Count 3.07 MIL/MM3 3.18 MIL/MM3 3.21 MIL/MM3 (4.00-5.30) (4.00-5.30) (4.00-5.30) Hemoglobin 9.3 GM/DL 9.6 GM/DL 9.6 GM/DL (11.6-15.3) (11.6-15.3) (11.6-15.3) Hematocrit 27.4 % 28.4 % 28.6 % (35.0-46.0) (35.0-46.0) (35.0-46.0) Monocytes (%) (Auto) 14.3 % 16.0 % (0.0-8.0) (0.0-8.0) Eosinophils (%) (Auto) 5.0 % (0.0-4.0) 5.6 % (0.0-4.0) Monocytes # (Auto) 1.2 TH/MM3 1.3 TH/MM3 (0-0.9) (0-0.9) Random Glucose 113 MG/DL (74-106) Calcium Level 8.4 MG/DL 8.4 MG/DL (8.5-10.1) (8.5-10.1) Imaging Last Impressions Chest X-Ray 06/02/16 0600 Signed Impressions: Service Date/Time: June 04:33 - CONCLUSION: 1. Relatively stable bilateral airspace disease compared with June 01. Aric Doss MD Lower Extremity Ultrasound 05/27/16 0000 Signed Impressions: Service Date/Time: Friday, May 27, 2016 14:59 - CONCLUSION: Venous mapping as above. Tr Ferrell MD Carotid Artery Ultrasound 05/27/16 0000 Signed Impressions: Service Date/Time: Friday, May 27, 2016 17:24 - CONCLUSION: There is right greater than left bifurcation atherosclerotic plaque. There is hemodynamically significant narrowing of the proximal to mid right ICA. Satish Wolf MD CT Angiography 05/26/162050 Signed Impressions: Service Date/Time: May 23:08 - CONCLUSION: Bilateral pulmonary consolidation without evidence for pulmonary embolism. Miguel Styles MD Cervical Spine CT 05/26/16 193 Signed Impressions: Service Date/Time: May 20:08 - CONCLUSION: No acute bony injury. Extensive degenerative changes. Maximiliano Potts MD Head CT 05/26/16 0000 Signed Impressions: Service Date/Time: May 20:08 - CONCLUSION: Normal examination for a patient of this age. Maximiliano Potts MD PE at Discharge GENERAL: This is a well-nourished, well-developed patient, in no apparent distress. CARDIOVASCULAR: Regular rate and regular rhythm without murmurs, gallops, or rubs. RESPIRATORY: diminished air entry in bases GASTROINTESTINAL: Abdomen soft, non-tender, nondistended. Normal, active bowel sounds MUSCULOSKELETAL: Extremities without clubbing, cyanosis, or edema. NEURO: Alert & Oriented x4 to person, place, time, situation. Moves all ext x4 Transfer Summary 66-year-old female brought via EVAC status post cardiac arrest. History is obtained from the chart. The patient had walked out from the track to her seat when she fell and struck her head. The resuscitation was immediately available as she was found to be at the V. fib arrest. She was defibrillated once to sinus tachycardia. She has had a pulse and blood pressure since that time. She was combative with EMS. The medic noted a left-sided gaze SUBJ 05/27: Remains intubated sedated. ON sedation hold patient is neurologically intact able to follow commands. Troponin 1.75. D/W Dr. Barker , plan for cardiac cath at 11.30 today. Continuing IV Heparin and aspirin SUBJ 05/28: Underwent cardiac catheterization by Dr. Barker 05/27/16, which showed an ejection fraction of 45%, left main distal disease of 90%, inserted intraaortic balloon pump into the right groin for left main disease. Dr. Mchugh was consulted and plan is for CABG 05/28/16. Heparin held since 4 AM. Being continued on lidocaine. (CMP showed glucose 385-this is probably error, immediate Accucheck showed 103) 05/29: Remains intubated, all continuous sedation is turned off. Wakes up follows commands though lethargic. Chest x-ray shows subcutaneous emphysema. IABP in place with good augmentation. Extubated later in the a.m. 05/30: Sitting up and stretches chair today. Complains of some wheezing-patient gives history of asthma and she takes Advair. I will place her on Symbicort Hospital Course Acute respiratory failure-resolved Aspiration pneumonitis -Patient was intubated for an airway protection. Extubated 05/29/16 -Added Symbicort 1 puff every 12 -DuoNeb every 6 hours and when necessary. EzPAP q6. -continue antibiotics Cardiac arrest NSTEMI Ventricular fibrillation CAD with L main disease - s/p urgent Off-pump CABGx 2 with RODRIGES to LAD) reverse saphenous vein graft to OM1 on 05/28/16 - Cardiac catheterization to 21/07/[address] Barker showed 90% left main disease, IABP inserted-removed 05/19/16 - Continue, aspirin, metoprolol, Plavix,BB, lisinopril and amiodarone - Resumed statin -evaluated by cardiology and CT surgery . Transaminitis secondary to cardiac arrest -back to normal limit -Heart healthy diet -Protonix for GI prophylaxis Aspiration pneumonitis UTI with E Coli -Continue Augmentin and Flagyl - Urine culture E Coli carotid artery disease-f/u with vascular surgery as outpatient. Pt Condition on Discharge: Fair Discharge Disposition: Rehab Inpatient Discharge Time: > 30 minutes Discharge Instructions DIET: Follow Instructions for: Heart Healthy Diet Activities you can perform: Regular-No Restrictions Follow up Referrals: Cardiology PCP Follow-up Surgical Vascular Surgery New Medications: Furosemide (Lasix) 40 Mg Tab 40 MG PO BID 40 mg po bid for one week then 40 mg po daily. diuretic #60 Ref 0 TAB Metronidazole (Flagyl) 500 Mg Tab 500 MG PO TID Infection Days 7 Ref 0 TAB Amiodarone (Amiodarone) 200 Mg Tab 200 MG PO Q12HR cad Days 14 Ref 0 TAB Amoxicillin-Clavulanate (Amoxicillin-Clavulanate) 875-125 mg Tab 875 MG PO Q12HR infection Days 7 Ref 0 TAB Atorvastatin (Lipitor) 80 Mg Tab 80 MG PO HS cad Days 30 Ref 0 TAB Budesonide-Formoterol Inh (Symbicort Inh) 160-4.5 Mcg/Act Aero 1 PUFF INH Q12HR Shortness of Breath Days 30 Ref 0 INHALER Clopidogrel (Plavix) 75 Mg Tab 75 MG PO DAILY cad Days 30 Ref 0 TAB Ipratropium-Albuterol Neb (Duoneb) 0.5-2.5 Mg/3 Ml Neb 1 AMPULE NEB Q6HR WHILE AWAKE NEB PRN SHORTNESS OF BREATH Days 14 Ref 0 ML Lisinopril (Lisinopril) 5 Mg Tab 2.5 MG PO DAILY cad Days 30 Ref 0 TAB Metoprolol Tartrate (Metoprolol Tartrate) 25 Mg Tab 12.5 MG PO Q12HR cad Days 30 Ref 0 TAB Multiple Vitamins W/ Minerals (Thera M Plus) 1 Tab 1 TAB PO DAILY vitamin Days 30 Ref 0 TAB Oxycodone-Acetaminophen (Oxycodone-Acetaminophen) 5-325 mg Tab 1 TAB PO Q4HR PRN pain #20 Ref 0 TAB Pantoprazole (Pantoprazole) 40 Mg Tab 40 MG PO DAILY@06 ppi Days 30 Ref 0 TAB Potassium Chloride Microencaps (Potassium Chloride Microencaps) 20 Meq Tab 20 MEQ PO Q12HR 20 meq po every 12 hrs for one week then 20 meq po daily. electrolyte supplement 30 TAB ([Aspirin Chew]) 81 MG CHEW 81 MG PO DAILY cad Days 30 Ref 0 TAB.CHEW Ishmael Tadeo MD Jun 02, 2016 09:56
[2016-06-02] MEDS ORDERED: PANT40TA3 PO (10:00)
--- NOTE | 2016-06-02 12:24 | PD.CAR.PN ---
CVT Progress Note Subjective/Hospital Course: 66 f/ s/p V fib [place], Defib x one with ROSC > sinus tach , intimally combative with EMS, neuro workup neg CT Brain / CT cervical spine, no fracture , extensive degenerative changes / CTA chest - for PE intubated in ED , underwent cardiac cath by Dr Barker 90% left main, IABP inserted in cathode builder / eval for CABG by Dr Mchugh PMH : chronic back pain , mild asthma, cataract surgery / carotid artery disease Right ICA velocity 277 05/28 1. Urgent Off-pump Coronary Artery Bypass Grafting x 2 with left internal mammary artery (RODRIGES) to left anterior descending (LAD), reverse saphenous vein graft to OM1 2. Left Leg Endoscopic Vein [place] 3. Intraoperative Vein Mapping. 05/29 Doing well D/C IABP today Vent management per Retort Condenser Attendant. Appreciate Dr. Covarrubias's input Gentle diuresis Maintain CT 05/30 extubated yesterday, on 4 liter nasal cannula up in chair pain controlled, will need aggressive pulm toileting leave chest tube in today, eval for removal in am 05/31 doing well, on nasal cannula/ wean as tolerated chest tube removed without difficulty pain controlled , remains in NSR eval for rehab transfer in am + BM 06/01 CXR volume overload / atelectasis add bid diuresis f/u CXR continue pulm toileting OOB ambulate change to po antibiotics, no further leukocytosis or fever 3/2 diuresing well continue lasix bid x 7 days, then daily CXR noted, still has some atelectasis/ consolidation continue po ABX x 7 days pulm toileting ambulation stable for transfer to rehab Objective: GENERAL: SKIN: Warm and dry./ prevena to chest, incision intact left leg HEAD: Normocephalic. EYES: No scleral icterus. No injection or drainage. NECK: Supple, trachea midline. No JVD or lymphadenopathy. CARDIOVASCULAR: Regular rate and rhythm without murmurs, gallops, or rubs. mild general edema RESPIRATORY: Breath sounds equal bilaterally. No accessory muscle use. few basilar crackles GASTROINTESTINAL: Abdomen soft, non-tender, nondistended. MUSCULOSKELETAL: No cyanosis, or edema. BACK: Nontender without obvious deformity. No CVA tenderness. Vital Signs Date Time Temp Pulse Resp B/P Pulse Ox O2 Delivery O2 Flow Rate FiO2 3/2/17 07:50 98.6 71 18 124/60 92 06/02/16 07:50 71 06/02/16 07:50 92 Room Air 06/02/16 07:49 92 21 06/02/16 06:05 67 06/02/16 05:19 64 06/02/16 04:09 98.7 61 20 117/53 98 06/02/16 04:00 60 06/02/16 03:30 98 2.00 06/02/16 03:00 59 06/02/16 02:14 70 06/02/16 01:52 71 06/02/16 00:00 64 06/01/16 23:02 100.4 62 18 115/51 97 06/01/16 23:00 94 Nasal Cannula 2.00 06/01/16 23:00 84 06/01/16 22:00 87 06/01/16 21:00 77 06/01/16 20:56 93 06/01/16 20:00 80 06/01/16 19:00 95 Room Air 06/01/16 19:00 84 06/01/16 19:00 99.5 86 19 126/57 95 06/01/16 18:00 82 06/01/16 17:00 68 06/01/16 16:00 64 06/01/16 15:11 98.6 86 20 124/64 98 06/01/16 15:10 96 Nasal Cannula 2.00 06/01/16 15:00 79 06/01/16 14:00 62 06/01/16 13:35 66 Labs: Laboratory Tests Test 06/02/16 05:35 White Blood Count 8.0 TH/MM3 (4.0-11.0) Red Blood Count 3.21 MIL/MM3 (4.00-5.30) Hemoglobin 9.6 GM/DL (11.6-15.3) Hematocrit 28.6 % (35.0-46.0) Mean Corpuscular Volume 89.0 FL (80.0-100.0) Mean Corpuscular Hemoglobin 29.7 PG (27.0-34.0) Mean Corpuscular Hemoglobin 33.4 % Concent (32.0-36.0) Red Cell Distribution Width 14.1 % (11.6-17.2) Platelet Count 233 TH/MM3 (150-450) Mean Platelet Volume 8.5 FL (7.0-11.0) Neutrophils (%) (Auto) 56.1 % (16.0-70.0) Lymphocytes (%) (Auto) 21.5 % (9.0-44.0) Monocytes (%) (Auto) 16.0 % (0.0-8.0) Eosinophils (%) (Auto) 5.6 % (0.0-4.0) Basophils (%) (Auto) 0.8 % (0.0-2.0) Neutrophils # (Auto) 4.5 TH/MM3 (1.8-7.7) Lymphocytes # (Auto) 1.7 TH/MM3 (1.0-4.8) Monocytes # (Auto) 1.3 TH/MM3 (0-0.9) Eosinophils # (Auto) 0.4 TH/MM3 (0-0.4) Basophils # (Auto) 0.1 TH/MM3 (0-0.2) CBC Comment DIFF FINAL Differential Comment Sodium Level 144 MEQ/L (136-145) Potassium Level 3.7 MEQ/L (3.5-5.1) Chloride Level 106 MEQ/L (98-107) Carbon Dioxide Level 31.3 MEQ/L (21.0-32.0) Anion Gap 7 MEQ/L (5-15) Blood Urea Nitrogen 15 MG/DL (7-18) Creatinine 0.57 MG/DL (0.50-1.00) Estimat Glomerular Filtration 105 ML/MIN Rate (>89) Random Glucose 101 MG/DL (74-106) Calcium Level 8.4 MG/DL (8.5-10.1) Result Diagram: 06/02/16 0535 06/02/1635 Telemetry: NSR (1) NSTEMI (non-ST elevated myocardial infarction) (2) S/P CABG x 2 Plan: ASA, statin ,plavix , BB continue diuresis OOB/ ambulate for rehab continue to transfer to rehab (3) Closed head injury (4) Cardiac arrest (5) E. coli UTI Plan: on ABX (6) Morbid obesity with BMI of 40.0-44.9, adult (7) Aspiration pneumonia Plan: Augmentin an Flagyl Problem Qualifiers (1) Closed head injury: Qualified Code: S09.90XA - Closed head injury, initial encounter Leigh Ann Cole Jun 02, 2016 12:22
[2016-06-14] MEDS ORDERED: ROLLER WALKER1 MI1 (14:11)
[2016-06-14] MEDS ORDERED: WHEEMIS3 (14:11)
[2016-06-16] MEDS ORDERED: AMIO200T PO (14:13)
[2016-06-16] MEDS ORDERED: Aspirin Chew PO (14:13)
[2016-06-16] MEDS ORDERED: LIPI80TA PO (14:13)
[2016-06-16] MEDS ORDERED: LISI-519 PO (14:13)
[2016-06-16] MEDS ORDERED: SYMB160A INH (14:13)
[2016-06-16] MEDS ORDERED: POTA20TA5 PO (14:13)
[2016-06-16] MEDS ORDERED: OXYC1TAB63 PO (14:13)
[2016-06-16] MEDS ORDERED: NYST10007 TOPICAL (14:13)
[2016-06-16] MEDS ORDERED: FURO40TA PO (14:13)
[2016-06-16] MEDS ORDERED: PANT40TA3 PO (14:13)
[2016-06-16] MEDS ORDERED: PLAV75TA29 PO (14:13)
[2016-06-16] MEDS ORDERED: THERM PO (14:13)
== END 2016-06-02 12:28 | DRG 233 ==
LOC: NEPA 19:22 → NEDA 20:54 → HIME 23:35 → HCPC 05-28 08:36 → HCVR 05-28 11:02 → HCPC 05-30 17:04
PROVIDERS: ADMIT Internal Medicine; ATTEND Internal Medicine
PROC: 5A1945Z Respiratory Ventilation, 24-96 Consecutive Hours (ICD-10-PCS; 2016-05-26)
PROC: 0BH17EZ Insertion of Endotracheal Airway into Trachea, Via Natural or Artificial Opening (ICD-10-PCS; 2016-05-26)
PROC: 4A023N7 Measurement of Cardiac Sampling and Pressure, Left Heart, Percutaneous Approach (ICD-10-PCS; 2016-05-27)
PROC: 5A02210 Assistance with Cardiac Output using Balloon Pump, Continuous (ICD-10-PCS; 2016-05-27)
PROC: B2111ZZ Fluoroscopy of Multiple Coronary Arteries using Low Osmolar Contrast (ICD-10-PCS; 2016-05-27)
PROC: B41F1ZZ Fluoroscopy of Right Lower Extremity Arteries using Low Osmolar Contrast (ICD-10-PCS; 2016-05-27)
PROC: 021009W Bypass Coronary Artery, One Artery from Aorta with Autologous Venous Tissue, Open Approach (ICD-10-PCS; 2016-05-28)
PROC: 06BQ4ZZ Excision of Left Saphenous Vein, Percutaneous Endoscopic Approach (ICD-10-PCS; 2016-05-28)
PROC: 02100Z9 Bypass Coronary Artery, One Artery from Left Internal Mammary, Open Approach (ICD-10-PCS; principal; 2016-05-28 07:08)
DX: I21.4 Non-ST elevation (NSTEMI) myocardial infarction (principal); I49.01 Ventricular fibrillation; J96.00 Acute respiratory failure, unspecified whether with hypoxia or hypercapnia; J69.0 Pneumonitis due to inhalation of food and vomit; I46.2 Cardiac arrest due to underlying cardiac condition; Z99.11 Dependence on respirator [ventilator] status; N39.0 Urinary tract infection, site not specified; Z68.41 Body mass index [BMI] 40.0-44.9, adult; J98.11 Atelectasis; I25.10 Atherosclerotic heart disease of native coronary artery without angina pectoris; S09.90XA Unspecified injury of head, initial encounter; E78.5 Hyperlipidemia, unspecified; M54.9 Dorsalgia, unspecified; G89.29 Other chronic pain; Z96.643 Presence of artificial hip joint, bilateral; E66.01 Morbid (severe) obesity due to excess calories; R55 Syncope and collapse; I65.21 Occlusion and stenosis of right carotid artery; B96.20 Unspecified Escherichia coli [E. coli] as the cause of diseases classified elsewhere; E87.70 Fluid overload, unspecified; W19.XXXA Unspecified fall, initial encounter; Y92.39 Other specified sports and athletic area as the place of occurrence of the external cause
CPT/HCPCS: 31500; 33967; 36430; 36600; 51702; 70450; 71010; 71275; 72125; 76937; 80048; 80053; 81001; 82310; 82435; 82550; 82552; 82565; 82805; 82947; 82948; 83036; 83735; 83880; 84100; 84132; 84295; 84484; 84520; 85007; 85014; 85025; 85027; 85379; 85610; 85730; 86850; 86900; 86901; 86920; 87070; 87077; 87086; 87186; 87205; 87641; 93005; 93306; 93318; 93454; 93880; 93970; 93998; 94002; 94003; 94150; 94640; 94664; 94667; 94668; 96374; 96375; C1768; C1769; C1893; C9399; J0131; J0295; J0330; J0360; J0690; J0696; J1644; J1885; J1940; J2001; J2060; J2250; J2270; J2405; J2440; J2720; J2930; J3010; J3370; J3475; J3480; J7030; J7040; J7050; J7120; P9016; P9045; Q9967

== ENCOUNTER 2016-07-03 18:26 | Observation (INO) | payer MEDICARE, BC ==
[~2016-07-03] VITALS: Ht 162.6 cm; Wt 100.0 kg
[~2016-07-03 18:26] MED LIST: AMIO200T PO; Aspirin Chew PO; FURO40TA PO; LIPI80TA PO; LISI-519 PO; NYST10007 TOPICAL; OXYC1TAB63 PO; PANT40TA3 PO; PLAV75TA29 PO; POTA20TA5 PO; ROLLER WALKER1 MI1; SYMB160A INH; THERM PO; WHEEMIS3
[2016-07-03 18:28] VITALS: BP 165/74; PULSE 52; RESP 15; TEMP 98.3; O2SAT 97
[2016-07-03] MEDS ORDERED: BENA25TA3 PO (19:05)
[2016-07-03] MEDS ORDERED: PRED5TAB PO (19:05)
[2016-07-03 19:28] LABS: BLOOD, URINE NEG (NEG); COMMENT (UR) CULT NOT INDICATED; CULTURE IF INDICATED CULT NOT INDICATED; GLUCOSE,URINE NEG (NEG); KETONE, URINE NEG (NEG); NITRITE,URINE NEG (NEG); PH, URINE 6.5 (5.0-8.5); SQUAMOUS EPITHELIAL CELL URINE <1 /hpf (0-5); URINE COLOR LIGHT-YELLOW (YELLW/STRAW)
[2016-07-03] MEDS ORDERED: ONDANSETRON HCL 4 MG/2 ML VIAL IV PUSH ONE (19:30)
[2016-07-03] MEDS ORDERED: SODIUM CHLORID 0.9% 500 ML INJ 500 ML IV ONE (19:30)
[2016-07-03] MEDS ORDERED: ASPI1TAB69 PO (19:42)
--- NOTE | 2016-07-03 19:50 | PD ---
HPI Chief Complaint: Dizziness Time Seen by Provider: 19:21 Travel History International Travel<30 days: No Contact w/Intl Traveler<30days: No Traveled to known affect area: No History of Present Illness HPI The patient is a 66 year old female who presents to the [facility] emergency department with a history of lightheaded sensation associated with a sensation of flushing that kept coming and going since just prior to arrival while she was sitting and watching television. The patient's recent history is complicated by having a syncopal event while at the [employer], striking the back of her head and being noted to be in ventricular fibrillation. The patient was defibrillated times one and went into a sinus tachycardia that was maintained subsequent to that. The patient underwent a cardiac workup and 5 weeks ago had coronary artery bypass grafting done. She reports that she went to rehabilitation in approximately a week and a half ago was discharged from rehabilitation and has been doing well at home. She reports that her only other new recent symptom has been on Monday she developed a rash on her chest that is spread to her arms and back. Yesterday she went to a local urgent care and was given a prescription for prednisone taper which she has started. She reports that the itching has improved. The vascular surgeon that saw her on Monday also noticed the rash and thought that it may be related to her new medications. Lasix was discontinued, potassium supplement was discontinued, oxycodone was discontinued as she no longer had pain and the patient's amiodarone was discontinued. The patient denies having any new chest pain other than chest wall pain from healing. She denies having any shortness of breath. She reports that her heart rate has dipped down into the 30s when she felt lightheaded since arriving into the emergency department. She denies being on any beta blockers. She reports that her heart rate normally resides in the 50s. This is why she was never started on a beta marcin previously. Her dye and chemical coordinator is Dr. Barker. The patient reports that she is on a baby aspirin and Plavix daily. The patient reports that she did have nausea but no vomiting. The patient denies any recent fevers, cough, congestion, neck pain, abdominal pain, diarrhea, urinary symptoms, or neurologic symptoms. [facility] Past Medical History Narrative Medical The patient's past medical history is significant for asthma, coronary artery disease, history of recent syncope with cardiac arrest due to ventricular fibrillation which she was shocked one time out of and subsequent to that was diagnosed with coronary artery disease requiring CABG 5 weeks ago, history of carotid disease that is being monitored by a vascular surgeon, hyperlipidemia, history of congestive heart failure, hypertension, arthritis, anxiety disorder, hypothyroid disorder. Hx Anticoagulant Therapy: Yes (asa, plavix) Arthritis: Yes Asthma: Yes Autoimmune Disease: No Anxiety: Yes Depression: No Heart Rhythm Problems: Yes Cancer: No Cardiovascular Problems: No High Cholesterol: Yes Chemotherapy: No Chest Pain: Yes Congestive Heart Failure: Yes COPD: No Cerebrovascular Accident: No Diabetes: No Endocrine: No GERD: No Genitourinary: No Headaches: Yes Hiatal Hernia: No Hypertension: Yes Immune Disorder: No Kidney Stones: No Musculoskeletal: No Neurologic: No Psychiatric: No Reproductive: No Respiratory: Yes (asthma) Immunizations Current: Yes Migraines: No Radiation Therapy: No Renal Failure: No Seizures: No Sickle Cell Disease: No Sleep Apnea: Yes Thyroid Disease: No Ulcer: No Influenza Vaccination: No Menopausal: Yes : 0 Para: 0 Past Surgical History Narrative Surgical The patient's past surgical history consists of coronary artery bypass grafting , right and left hip replacement, cataract surgery. Abdominal Surgery: No AICD: No Arteriovenous Shunt: No Cardiac Surgery: Yes (CABG) Ear Surgery: No Endocrine Surgery: No Eye Surgery: Yes (Cateracts) Genitourinary Surgery: No Gynecologic Surgery: No Insulin Pump: No Joint Replacement: Yes (Left and right hip) Oral Surgery: No Pacemaker: No Thoracic Surgery: No Social History Alcohol Use: No (occassionally) Tobacco Use: No Substance Use: No Allergies-Medications (Allergen,Severity, Reaction): Coded Allergies: Sulfa (Verified Allergy, Severe, Hives, 07/03/16) Reported Meds & Prescriptions Reported Meds & Active Scripts Active Pantoprazole (Pantoprazole Sodium) 40 Mg Tab 40 Mg PO DAILY@06 Oxycodone-Acetaminophen 5-325 mg Tab 1 Tab PO Q6HR PRN Thera M Plus (Multivitamins/Minerals Therapeutic) 1 Tab 1 Tab PO DAILY Lisinopril 5 Mg Tab 2.5 Mg PO DAILY Plavix (Clopidogrel Bisulfate) 75 Mg Tab 75 Mg PO DAILY Symbicort Inh (Budesonide/Formoterol Fumarate) 160-4.5 Mcg/Act Aero 1 Puff INH Q12HR 30 Days Lipitor (Atorvastatin Calcium) 80 Mg Tab 80 Mg PO HS Reported Proair Hfa 8.5 GM Inh (Albuterol Sulfate) 90 Mcg/Act Aer 2 Puff INH Q6H PRN 108 mcg/actuation Aspirin 81 Mg Tabdr 81 Mg PO DAILY Benadryl Allergy (Diphenhydramine HCl) 25 Mg Tab 25 Mg PO BID PRN Prednisone 5 Mg Tab 5 Mg PO BID Review of Systems Except as stated in HPI: all other systems reviewed are Neg General / Constitutional: No: Fever Eyes: No: Visual changes HENT: Positive: Lightheadedness, No: Headaches, Rhinitis, Rhinorrhea, Congestion Cardiovascular: Positive: Chest Pain or Discomfort (chest wall pain postop that is improving), No: Dyspnea on exertion Respiratory: No: Cough, Shortness of Breath Gastrointestinal: Positive: Nausea, Changes in Bowel Habits (slightly softer than usual recently), No: Vomiting, Diarrhea, Abdominal Pain, Indigestion, Loss of Appetite Genitourinary: No: Urgency, Frequency, Dysuria, Flank Pain Musculoskeletal: No: Pain Skin: No Rash Neurologic: Positive: Dizziness, No: Weakness, Focal Abnormalities, Coordination Problem, Change in Mentation, Slurred Speech, Sensory Disturbance Psychiatric: No: Depression Endocrine: No: Polydipsia Hematologic/Lymphatic: No: Easy Bruising Physical Exam Narrative General: The patient is well-developed well-nourished female in no acute distress. Head and Neck exam: Head is normocephalic atraumatic. Eyes: EOMI, pupils are equal round and reactive to light. Nose: Midline septum with pink mucous membranes Mouth: Dentition unremarkable. Moist mucus membranes. Posterior oropharynx is not erythematous. No tonsillar hypertrophy. Uvula midline. Airway patent. Neck: No palpable lymphadenopathy. No nuchal rigidity. No thyromegaly. Cardiovascular: Sinus bradycardia with a rate in the 40s to 50s without murmurs, gallops, or rubs. No pulse deficit to the extremities and simultaneous auscultation and palpation of her radial artery. Lungs: Clear to auscultation bilaterally. No wheezes, rhonchi, or rales. Abdomen: Soft, without tenderness to palpation in all 4 quadrants of the abdomen. No guarding, rebound, or rigidity. Normal bowel sounds are audible. No tenderness on palpation of McBurney's point. Extremities: No clubbing, cyanosis, or edema. 2+ pulses in all 4 extremities. No calf tenderness on palpation. Back: No spinous process tenderness to palpation. No costovertebral angle tenderness to palpation. Neurologic Exam: Grossly nonfocal. Skin Exam: Erythematous fine papular rash on the thorax, anteriorly and posteriorly, upper and lower extremities. Intact skin that is warm and dry. Data Data Last Documented VS Vital Signs Date Time Temp Pulse Resp B/P Pulse Ox O2 Delivery O2 Flow Rate FiO2 07/03/16 20:35 96 07/03/16 18:28 98.3 52 15 165/74 Orders Urinalysis - C+S If Indicated (07/03/16 18:41) Electrocardiogram (07/03/16 19:25) Complete Blood Count With Diff (07/03/16 19:25) Comprehensive Metabolic Panel (07/03/16 19:25) Creatine Kinase (Cpk) (07/03/16 19:25) Ckmb (Isoenzyme) Profile (07/03/16 19:25) Troponin I (07/03/16 19:25) Prothrombin Time / Inr (Pt) (07/03/16 19:25) Act Partial Throm Time (Ptt) (07/03/16 19:25) C-Reactive Protein (Crp) (07/03/16 19:25) Lipase (07/03/16 19:25) Magnesium (Mg) (07/03/16 19:25) Chest, Single Ap (07/03/16 19:25) Ct Brain W/O Iv Contrast(Rout) (07/03/16 19:25) Iv Access Insert/Monitor (07/03/16 19:25) Ecg Monitoring (07/03/16 19:25) Oximetry (07/03/16 19:25) Orthostatic Vital Signs (07/03/16 19:25) Sodium Chlorid 0.9% 500 Ml Inj (Ns 500 M (07/03/16 19:30) Ondansetron Inj (Zofran Inj) (07/03/16 19:30) Albuterol-Ipratropium Neb (Duoneb Neb) (07/03/16 21:30) Admit Order (Ed Use Only) (07/03/16 21:23) Labs Laboratory Tests Test 07/03/16 07/03/16 18:44 20:15 Urine Color LIGHT-YELLOW Urine Turbidity CLEAR Urine pH 6.5 Urine Specific [place] 1.003 Urine Protein NEG mg/dL Urine Glucose (UA) NEG mg/dL Urine Ketones NEG mg/dL Urine Occult Blood NEG Urine Nitrite NEG Urine Bilirubin NEG Urine Urobilinogen LESS THAN 2.0 MG/DL Urine Leukocyte Esterase TRACE Urine WBC 2 /hpf Urine Squamous Epithelial <1 /hpf Cells Microscopic Urinalysis Comment CULT NOT INDICATED White Blood Count 7.0 TH/MM3 Red Blood Count 4.57 MIL/MM3 Hemoglobin 13.0 GM/DL Hematocrit 40.2 % Mean Corpuscular Volume 87.8 FL Mean Corpuscular Hemoglobin 28.5 PG Mean Corpuscular Hemoglobin 32.5 % Concent Red Cell Distribution Width 15.4 % Platelet Count 305 TH/MM3 Mean Platelet Volume 8.5 FL Neutrophils (%) (Auto) 59.0 % Lymphocytes (%) (Auto) 21.0 % Monocytes (%) (Auto) 12.7 % Eosinophils (%) (Auto) 5.8 % Basophils (%) (Auto) 1.5 % Neutrophils # (Auto) 4.2 TH/MM3 Lymphocytes # (Auto) 1.5 TH/MM3 Monocytes # (Auto) 0.9 TH/MM3 Eosinophils # (Auto) 0.4 TH/MM3 Basophils # (Auto) 0.1 TH/MM3 CBC Comment DIFF FINAL Differential Comment Prothrombin Time 11.5 SEC Prothromb Time International 1.0 RATIO Ratio Activated Partial 24.5 SEC Thromboplast Time Sodium Level 141 MEQ/L Potassium Level 3.5 MEQ/L Chloride Level 109 MEQ/L Carbon Dioxide Level 23.9 MEQ/L Anion Gap 8 MEQ/L Blood Urea Nitrogen 17 MG/DL Creatinine 1.00 MG/DL Estimat Glomerular Filtration 55 ML/MIN Rate Random Glucose 97 MG/DL Calcium Level 9.1 MG/DL Magnesium Level 2.0 MG/DL Total Bilirubin 0.4 MG/DL Aspartate Amino Transf 18 U/L (AST/SGOT) Alanine Aminotransferase 31 U/L (ALT/SGPT) Alkaline Phosphatase 92 U/L Total Creatine Kinase 90 U/L Troponin I LESS THAN 0.02 NG/ML C-Reactive Protein LESS THAN 0.29 MG/DL Total Protein 7.1 GM/DL Albumin 3.5 GM/DL Lipase 367 U/L [facility] Medical Decision Making Medical Screen Exam Complete: Yes Emergency Medical Condition: Yes Medical Record Reviewed: Yes Interpretation(s) Last Impressions Head CT 07/03/161924 Signed Impressions: Service Date/Time: Sunday, July 03, 2016 19:45 - CONCLUSION: Normal examination for a patient of this age. No significant change has occurred. Aric Doss MD Chest X-Ray 07/03/161924 Signed Impressions: Service Date/Time: Sunday, July 03, 2016 19:51 - CONCLUSION: 1. Minimal basilar atelectasis. Postop median sternotomy. No focal consolidation or effusion. Aric Doss MD Differential Diagnosis Symptomatic bradycardia, versus sick sinus syndrome, versus electrolyte abnormality, versus viral syndrome, versus medication side effect from new institution of prednisone, acute coronary syndrome Narrative Course During the course of the patients emergency department visit, the patients history, examination, and differential diagnosis were reviewed with the patient. The patient had IV access obtained and blood work sent for analysis. The patient was placed on a production planner with oximetry and blood pressure monitoring. An EKG was ordered. Orthostatic vital signs were ordered. The patient's EKG shows a sinus bradycardia heart rate of 52, no acute ST segment elevation is noted, T waves are inverted in aVL, moderate intraventricular conduction delay is noted with a QRS duration of 112 ms. The patient was provided normal saline a 500 mL bolus 1, Zofran 4 mg IV. The patients laboratory studies were reviewed and remarkable for a white count of 7, hemoglobin 13, platelets 305 with 12.7 monocytes, PT PTT unremarkable, urinalysis shows trace leukocyte esterase otherwise unremarkable. CMP is remarkable for chloride of 109, GFR 55, CPK 90, troponin I less than 0.02, C- reactive protein less than 0.29, lipase 367. Radiology studies were reviewed and remarkable for a CT scan of the brain that shows a normal examination for a patient of this age, no significant change has occurred. Chest x-ray showed no acute abnormality. The patients results were discussed with the patient, including the plan of care. I explained that further testing and/ or monitoring is indicated based on the patients history, examination, and/ or laboratory findings. Therefore, I recommended admission for additional evaluation. The patient expressed understanding and was agreeable with this plan. The patient was admitted to the hospital in stable condition and [facility] Dr. Braun on the weekend. Physician Communication Physician Communication The patient's case was discussed with Dr. Hidalgo who did agree to admit the patient for further evaluation and treatment at this time. Diagnosis Primary Impression: Symptomatic bradycardia Admitting Information Admitting Physician Requests: Observation Ruby Evans MD Jul 03, 2016 19:50
--- NOTE | 2016-07-03 20:18 | RADRPT ---
EXAM DATE/TIME: 07/03/2016 19:45 [facility] COMPARISON: CT BRAIN W/O CONTRAST, May 26, 2016, 20:08. INDICATIONS : Light headed and nausea. CABG 5 weeks ago. RADIATION DOSE: 48.05 CTDIvol (mGy) MEDICAL HISTORY : Hypertension. Cardiovascular disease Myocardial infarction.Asthma. Congestive heart failure. SURGICAL HISTORY : CABG ENCOUNTER: Initial ACUITY: 1 day PAIN SCALE: 0/10 LOCATION: cranial TECHNIQUE: Multiple contiguous axial images were obtained of the head. Using automated exposure control and adj ustment of the mA and/or kV according to patient size, radiation dose was kept as low as reasonably a chievable to obtain optimal diagnostic quality images. FINDINGS: CEREBRUM: The ventricles are normal for age. No evidence of midline shift, mass lesion, hemorrhage or acute in farction. No extra-axial fluid collections are seen. POSTERIOR FOSSA: The cerebellum and brainstem are intact. The 4th ventricle is midline. The cerebellopontine angle i s unremarkable. EXTRACRANIAL: The visualized portion of the orbits is intact. SKULL: The calvaria is intact. No evidence of skull fracture. CONCLUSION: Normal examination for a patient of this age. No significant change has occurred. Aric Doss MD on July 03, 2016 at 20:15 Board Certified Radiologist. This report was verified electronically.
[2016-07-03 20:28] LABS: AUTOMATED NEUTROPHIL # 4.2 TH/MM3 (1.8-7.7); BASOPHIL # 0.1 TH/MM3 (0-0.2); BASOPHIL % 1.5 % (0.0-2.0); EOSINOPHIL # 0.4 TH/MM3 (0-0.4); EOSINOPHIL % 5.8 % (0.0-4.0); HEMATOCRIT 40.2 % (35.0-46.0); HEMO FLAGS DIFF FINAL; LYMPHOCYTE # 1.5 TH/MM3 (1.0-4.8); MEAN CELL VOLUME 87.8 FL (80.0-100.0); MEAN CORPUSCULAR HEMOGLOBIN 28.5 PG (27.0-34.0); MEAN CORPUSCULAR HGB CONC 32.5 % (32.0-36.0); MONO % 12.7 % (0.0-8.0); PLATELET COUNT 305 TH/MM3 (150-450); RED BLOOD COUNT 4.57 MIL/MM3 (4.00-5.30); RED CELL DISTRIBUTION WIDTH 15.4 % (11.6-17.2)
[2016-07-03 20:35] VITALS: O2SAT 96
[2016-07-03 20:38] LABS: APTT (PATIENT) 24.5 SEC (24.3-30.1); PROTHROMBIN TIME - PATIENT 11.5 SEC (9.8-11.6)
[2016-07-03 20:46] LABS: ANION GAP 8 MEQ/L (5-15); BICARBONATE 23.9 MEQ/L (21.0-32.0); BLOOD UREA NITROGEN 17 MG/DL (7-18); CHLORIDE 109 MEQ/L (98-107); GLOMERULAR FILTRATION RATE 55 ML/MIN (>89); POTASSIUM 3.5 MEQ/L (3.5-5.1); SODIUM (NA) 141 MEQ/L (136-145)
[2016-07-03 20:50] LABS: ALKALINE PHOSPHATASE 92 U/L (45-117); ALT (GPT) 31 U/L (10-53); AST (GOT) 18 U/L (15-37); TOTAL BILIRUBIN ADULT 0.4 MG/DL (0.2-1.0)
[2016-07-03 20:54] LABS: CREATINE KINASE 90 U/L (26-192)
[2016-07-03] MEDS ORDERED: ALBUAER3 INH (21:07)
--- NOTE | 2016-07-03 21:14 | RADRPT ---
EXAM DATE/TIME: 07/03/2016 19:51 [facility] COMPARISON: CHEST SINGLE AP, June 07, 2016, 16:42. INDICATIONS : Lightheaded. MEDICAL HISTORY : Cardiovascular disease. SURGICAL HISTORY : CABG. ENCOUNTER: Initial ACUITY: 1 day PAIN SCORE: 0/10 LOCATION: Bilateral chest FINDINGS: A single view of the chest demonstrates the lungs to be symmetrically aerated without evidence of mas s, infiltrate or effusion. Minimal basilar atelectasis. Postop median sternotomy. No effusion. The c ardiomediastinal contours are unremarkable. Osseous structures are intact. CONCLUSION: 1. Minimal basilar atelectasis. Postop median sternotomy. No focal consolidation or effusion. Aric Doss MD on July 03, 2016 at 21:12 Board Certified Radiologist. This report was verified electronically.
[2016-07-03] MEDS ORDERED: ALBUTEROL SULFATE 90 MCG/ACT HFA 18 GM INHALER INH PRN (21:30)
[2016-07-03] MEDS ORDERED: SODIUM CHLORIDE 0.9% FLUSH 10 ML FLUSH IV FLUSH PRN (21:30)
[2016-07-03] MEDS ORDERED: MORPHINE SULFATE 4 MG/ML INJ IV PRN (21:30)
[2016-07-03] MEDS ORDERED: RESP: ALBUTEROL 2.5 MG/IPRATROPIUM 0.5 MG NEB (SCH) NEB ONE (21:30)
[2016-07-03] MEDS ORDERED: ONDANSETRON HCL 4 MG/2 ML VIAL IVP PRN (21:30)
[2016-07-03] MEDS ORDERED: ACETAMINOPHEN 325 MG TAB PO PRN (21:30)
[2016-07-03] MEDS ORDERED: ACETAMINOPHEN/HYDROcodone 325 MG/5 MG TAB PO PRN (21:30)
[2016-07-03] MEDS ORDERED: BISACODYL 10 MG SUPP RECTAL PRN (21:30)
--- NOTE | 2016-07-03 21:34 | HHI.HP ---
HPI Service [facility] Primary Care Physician Raj Braun MD Admission Diagnosis Symptomatic bradycardia Diagnoses: (1) Symptomatic bradycardia Diagnosis: Principal (2) Dehydration Diagnosis: Principal (3) Dizziness Diagnosis: Principal (4) S/P CABG x 2 Diagnosis: Principal Travel History International Travel<30 Days: No Contact w/Intl Traveler <30 Da: No Traveled to Known Affected Are: No History of Present Illness This is a 66-year-old female with a PMH of Anxiety, HTN, Hyperlipidemia, CHF ( Echo 05/27/16 w/ EF 40-45%), Hypothyroid and CAD s/p CABG x2 who presented to the ER w/ complaints of dizziness starting earlier today. Recent admit 05/26-06/02 after Syncope w/ V-Fib and Cardiac Arrest s/p Code Cool, underwent Cardiac Cath 05/28/[address] Barker, noted to have significant left main disease w/ 90 % occlusion, s/p IABP and eventual CABG x2 by Dr. Mchugh on 05/28/16, d/c'd to Rehab and eventually d/c'd home on 06/17/16. Following w/ Dr. Barker as outpatient, on ASA and Plavix, taking medications as prescribed. States she was recently noted to have rash, thought to be secondary to medications, seen by CT Sx and majority of medications discontinued-now off Lasix, Amiodarone, K+ and Oxycodone. Remains on Lisinopril and Lipitor. On arrival, BP 165/74, HR 52 , O2 sat 97% on RA, Afebrile. While in ER, HR 30-40s. CBC unremarkable. GFR 55, previously 70 on 06/08/16. Troponin negative. UA negative. CXR with minimal basilar atelectasis, postoperative median sternotomy. CT Head normal. Review of Systems Except as stated in HPI: all other systems reviewed are Neg ROS: 14 point review of systems otherwise negative. Past Family Social History Past Medical History PMH: Anxiety, HTN, Hyperlipidemia, CHF (Echo 05/27/16 w/ EF 40-45%), Hypothyroid and CAD s/p CABG x2 Past Surgical History PAST SURGICAL HISTORY: CABG Cataract Surgery, Bilateral Hip Replacement Allergies: Coded Allergies: Sulfa (Verified Allergy, Severe, Hives, 07/03/16) Family History PAST FAMILY HISTORY: Reviewed. No h/o DM or CAD Social History PAST SOCIAL HISTORY: Occasional alcohol. Negative for tobacco or drugs. Physical Exam Vital Signs Vital Signs Date Time Temp Pulse Resp B/P Pulse Ox O2 Delivery O2 Flow Rate FiO2 07/03/16 20:35 96 07/03/16 18:28 98.3 52 15 165/74 97 Physical Exam PE: GENERAL: Pleasant middle-aged white female in no acute distress. HEENT: PERRLA, EOMI. No scleral icterus or conjunctival pallor. No lid lag or facial droop. CARDIOVASCULAR: Bradycardia, HR 50s. No obvious murmurs to auscultation. No chest tenderness to palpation. RESPIRATORY: No obvious rhonchi or wheezing. Clear to auscultation. Breath sounds equal bilaterally. GASTROINTESTINAL: Abdomen soft, non-tender, nondistended. BS normal. MUSCULOSKELETAL: Extremities without clubbing, cyanosis, or edema. No obvious deformities. Rash involving upper/lower extremities and chest NEUROLOGICAL: Awake, alert and oriented x4. No focal neurologic deficits. Moving both upper and lower extremities spontaneously. Laboratory Laboratory Tests Test 07/03/16 07/03/16 18:44 20:15 Urine Color LIGHT-YELLOW Urine Turbidity CLEAR Urine pH 6.5 Urine Specific [place] 1.003 Urine Protein NEG Urine Glucose (UA) NEG Urine Ketones NEG Urine Occult Blood NEG Urine Nitrite NEG Urine Bilirubin NEG Urine Urobilinogen LESS THAN 2.0 Urine Leukocyte Esterase TRACE Urine WBC 2 Urine Squamous Epithelial <1 Cells Microscopic Urinalysis Comment CULT NOT INDICATED White Blood Count 7.0 Red Blood Count 4.57 Hemoglobin 13.0 Hematocrit 40.2 Mean Corpuscular Volume 87.8 Mean Corpuscular Hemoglobin 28.5 Mean Corpuscular Hemoglobin 32.5 Concent Red Cell Distribution Width 15.4 Platelet Count 305 Mean Platelet Volume 8.5 Neutrophils (%) (Auto) 59.0 Lymphocytes (%) (Auto) 21.0 Monocytes (%) (Auto) 12.7 Eosinophils (%) (Auto) 5.8 Basophils (%) (Auto) 1.5 Neutrophils # (Auto) 4.2 Lymphocytes # (Auto) 1.5 Monocytes # (Auto) 0.9 Eosinophils # (Auto) 0.4 Basophils # (Auto) 0.1 CBC Comment DIFF FINAL Differential Comment Prothrombin Time 11.5 Prothromb Time International 1.0 Ratio Activated Partial 24.5 Thromboplast Time Sodium Level 141 Potassium Level 3.5 Chloride Level 109 Carbon Dioxide Level 23.9 Anion Gap 8 Blood Urea Nitrogen 17 Creatinine 1.00 Estimat Glomerular Filtration 55 Rate Random Glucose 97 Calcium Level 9.1 Magnesium Level 2.0 Total Bilirubin 0.4 Aspartate Amino Transf 18 (AST/SGOT) Alanine Aminotransferase 31 (ALT/SGPT) Alkaline Phosphatase 92 Total Creatine Kinase 90 Troponin I LESS THAN 0.02 C-Reactive Protein LESS THAN 0.29 Total Protein 7.1 Albumin 3.5 Lipase 367 Result Diagram: 07/03/16201407/03/162014 Assessment and Plan Problem List: (1) Symptomatic bradycardia ICD Code: R00.1 Status: Acute (2) Dizziness ICD Code: R42 Status: Acute (3) Dehydration ICD Code: E86.0 Status: Acute (4) S/P CABG x 2 ICD Code: Z95.1 Status: Acute Assessment and Plan A/P: 1. Symptomatically Bradycardia: HR 30-40's while in ER, currently 50's. Recently d/c'd Amiodarone, not on B-marcin, Clonidine or similar medications. Admit for Observation, telemetry. Follows w/ Dr. Barker as outpatient, will consult for further evaluation. Monitor vitals. 2. Dizziness: Likely multifactorial-secondary to bradycardia and dehydration. IVF for hydration. CT Head w/ no acute findings, images reviewed by me. 3. Dehydration: GFR 55, BUN/Creatinine normal, U/a negative for UTI. IVF for hydration, repeat labs in am. 4. CABG x2: s/p V-fib Arrest, s/p Code Cool, emergent Cardiac Cath w/ significant left main disease w/ 90% stenosis, s/p CABG x2 by Dr. Mchugh on 05/28. Doing well post-operatively. Outpatient follow up w/ Dr. Mchugh as scheduled. CXR w/ no acute findings, post op sternotomy, images reviewed by me. 5. DVT Prophylaxis: SCD/Teds. 6. Social work for d/c planning as needed. 7. Case discussed w/ ER physician at length. Rachele Hidalgo MD Jul 03, 2016 21:34
[2016-07-03] MEDS ORDERED: ACETAMINOPHEN 325 MG TAB PO ONE (22:15)
[2016-07-03 22:40] VITALS: BP_SYST 106; BP_SYST 142; BP_DIAS 55; BP_DIAS 66; RESP 16
[2016-07-03 22:42] VITALS: BP 139/63; RESP 16
[2016-07-03] MEDS: SODIUM CHLOR 0.9% 1000 ML INJ 1,000 ML IV SCH (23:27)
[2016-07-03 23:50] VITALS: BP 136/63; PULSE 63; RESP 20; TEMP 98.3; O2SAT 95
[2016-07-04 00:59] VITALS: PULSE 66
[2016-07-04 04:04] VITALS: BP 125/63; PULSE 65; RESP 20; TEMP 98.4; O2SAT 95
[2016-07-04] MEDS ORDERED: PANTOPRAZOLE SOD 40 MG DELAYED RELEASE TAB PO SCH (06:00)
[2016-07-04 08:15] VITALS: BP 138/70; PULSE 50; RESP 16; TEMP 97.9; O2SAT 98
[2016-07-04 08:52] LABS: AUTOMATED NEUTROPHIL # 3.5 TH/MM3 (1.8-7.7); BASOPHIL # 0.1 TH/MM3 (0-0.2); BASOPHIL % 2.2 % (0.0-2.0); EOSINOPHIL # 0.8 TH/MM3 (0-0.4); HEMATOCRIT 39.2 % (35.0-46.0); HEMO FLAGS DIFF FINAL; LYMPH % 22.3 % (9.0-44.0); LYMPHOCYTE # 1.5 TH/MM3 (1.0-4.8); MEAN CELL VOLUME 88.8 FL (80.0-100.0); MEAN CORPUSCULAR HEMOGLOBIN 28.1 PG (27.0-34.0); MEAN CORPUSCULAR HGB CONC 31.7 % (32.0-36.0); MONO % 10.3 % (0.0-8.0); NEUT % 53.2 % (16.0-70.0); PLATELET COUNT 277 TH/MM3 (150-450); RED BLOOD COUNT 4.42 MIL/MM3 (4.00-5.30); RED CELL DISTRIBUTION WIDTH 15.6 % (11.6-17.2); WHITE BLOOD COUNT 6.6 TH/MM3 (4.0-11.0)
[2016-07-04] MEDS ORDERED: LISINOPRIL 5 MG TAB PO SCH (09:00)
[2016-07-04] MEDS ORDERED: MULTIVITAMINS/MINERALS THERAPEUTIC TAB PO SCH (09:00)
[2016-07-04] MEDS ORDERED: CLOPIDOGREL 75 MG TAB PO SCH (09:00)
[2016-07-04] MEDS ORDERED: ASPIRIN EC 81 MG TABEC PO SCH (09:00)
[2016-07-04] MEDS ORDERED: SODIUM CHLORIDE 0.9% FLUSH 10 ML FLUSH IV FLUSH SCH (09:00)
[2016-07-04] MEDS ORDERED: predniSONE 5 MG TAB PO SCH (09:00)
[2016-07-04] MEDS ORDERED: BUDESONIDE-FORMOTEROL 160/4.5 MCG INHALER INH SCH (09:00)
[2016-07-04 09:21] LABS: ALKALINE PHOSPHATASE 77 U/L (45-117); ALT (GPT) 26 U/L (10-53); ANION GAP 12 MEQ/L (5-15); AST (GOT) 14 U/L (15-37); BICARBONATE 22.2 MEQ/L (21.0-32.0); BLOOD UREA NITROGEN 15 MG/DL (7-18); CHLORIDE 110 MEQ/L (98-107); GLOMERULAR FILTRATION RATE 75 ML/MIN (>89); POTASSIUM 3.3 MEQ/L (3.5-5.1); SODIUM (NA) 144 MEQ/L (136-145); TOTAL BILIRUBIN ADULT 0.5 MG/DL (0.2-1.0)
[2016-07-04] MEDS ORDERED: POTASSIUM CHLORIDE 20 MEQ CONTROLLED RELEASE TAB PO ONE (09:30)
--- NOTE | 2016-07-04 09:39 | HHI.PR ---
Subjective Remarks Follow up for lightheadedness with bradycardia. The patient reports feeling better today. Denies any further lightheadedness. Denies any chest pain or shortness of breath. Denies any other medical complaints at this time. The patient had questions pertaining to her rash. She wanted to know if there is anything else that could be done to get rid of it. Otherwise she said that her symptoms yesterday included flushing and station several times throughout the day. She feels well and would like to go home. Objective Vitals Vital Signs Date Time Temp Pulse Resp B/P Pulse Ox O2 Delivery O2 Flow Rate FiO2 07/04/16 08:15 97.9 50 16 138/70 98 07/04/16 04:04 98.4 65 20 125/63 95 07/04/16 00:59 66 07/03/16 23:50 98.3 63 20 136/63 95 07/03/16 22:42 70 16 139/63 07/03/16 22:40 64 16 106/55 07/03/16 22:40 74 16 142/66 07/03/16 20:35 96 07/03/16 18:28 98.3 52 15 165/74 97 Result Diagram: 07/04/16 0829 07/04/16 0829 Imaging Last Impressions Head CT 07/03/161924 Signed Impressions: Service Date/Time: Sunday, July 03, 2016 19:45 - CONCLUSION: Normal examination for a patient of this age. No significant change has occurred. Aric Doss MD Chest X-Ray 07/03/161924 Signed Impressions: Service Date/Time: Sunday, July 03, 2016 19:51 - CONCLUSION: 1. Minimal basilar atelectasis. Postop median sternotomy. No focal consolidation or effusion. Aric Doss MD Objective Remarks GENERAL: Well-nourished, well-developed pleasant female patient in [facility]. SKIN: Warm and dry. Faint papular rash throughout anterior and posterior thorax , bilateral upper and lower extremities. HEENT: Normocephalic. Atraumatic. Pupils equal and round. No scleral icterus. No injection or drainage. Mucous membranes pink and moist. NECK: Supple. Trachea midline. CARDIOVASCULAR: Bradycardic, regular rhythm. S1, S2 noted. No murmur appreciated. Well-healing Midline sternotomy scar. RESPIRATORY: No accessory muscle use. Clear to auscultation. Breath sounds equal bilaterally. GASTROINTESTINAL: Abdomen soft, non-tender, nondistended. Normoactive bowel sounds x4. MUSCULOSKELETAL: No obvious deformities. Extremities without clubbing, cyanosis , or edema. NEUROLOGICAL: Awake and alert. No obvious cranial nerve deficits. Motor grossly within normal limits. Normal speech. PSYCHIATRIC: Appropriate mood and affect; insight and judgment normal. Medications and IVs Current Medications Medications (Trade) Dose Ordered Sig/Jules Route Start Time Stop Time Status Last Admin (Ventolin Hfa Inh) 2 puff Q6H PRN INH 07/03/16 21:30 (Ecotrin Ec) 81 mg DAILY PO 07/04/16 09:00 (Lipitor) 80 mg HS PO 07/04/16 21:00 (Symbicort 160-4.5 Inh) 1 puff Q12HR INH 07/04/16 09:00 (Plavix) 75 mg DAILY PO 07/04/16 09:00 (Prinivil) 2.5 mg DAILY PO 07/04/16 09:00 (Theragran M Tab) 1 tab DAILY PO 07/04/16 09:00 Pantoprazole Sodium 40 mg 40 mg DAILY@06 PO 07/04/16 06:00 07/04/16 05:19 (NS 1000 ml Inj) 1,000 ml @ 100 mls/hr Q10H IV 07/03/16 21:27 07/03/16 23:27 (NS Flush) 2 ml UNSCH PRN IV FLUSH 07/03/16 21:30 (NS Flush) 2 ml BID IV FLUSH 07/04/16 09:00 (Zofran Inj) 4 mg Q6H PRN IVP 07/03/16 21:30 (Dulcolax Supp) 10 mg DAILY PRN RECTAL 07/03/16 21:30 (Tylenol) 650 mg Q6H PRN PO 07/03/16 21:30 07/04/16 05:19 (Pettibone 5-325 Mg) 1 tab Q4H PRN PO 07/03/16 21:30 (Morphine Inj) 2 mg Q3H PRN IV 07/03/16 21:30 (Deltasone) 5 mg BID PO 07/04/16 09:00 (KCl) 40 meq ONCE ONCE PO 07/04/16 09:30 07/04/16 09:31 UNV Urinary Catheter: No Vascular Central Line Catheter: No A/P Problem List: (1) Symptomatic bradycardia ICD Code: R00.1 Status: Acute (2) Dizziness ICD Code: R42 Status: Acute (3) Dehydration ICD Code: E86.0 Status: Acute (4) S/P CABG x 2 ICD Code: Z95.1 Status: Acute Assessment and Plan 66-year-old female with a PMH of Anxiety, HTN, Hyperlipidemia, CHF (Echo w/ EF 40-45%), Hypothyroid and CAD s/p CABG x2 who presented to the ER w/ complaints of dizziness starting earlier today. Symptomatic Bradycardia: HR 30-40's while in ER, currently 50's. Recently d/c' d Amiodarone, not on B-marcin, Clonidine or similar medications. Monitor on telemetry. Follows w/ Dr. Barker as outpatient, consulted for further evaluation. Monitor vitals. Dr. Barker consulted counter clerk farm equipment parts Dr. Ruiz for evaluation for pacer. 1215hrs-Discussed with Dr. Barker, no plans for pacer at this time, can likely discharge this afternoon if HR continues to improve and once cleared by Dr. Barker. Heart rate stable on the monitors and the pt feels asymptomatic. Cleared for discharge by cardiology. Lightheadedness: Likely multifactorial-secondary to bradycardia and dehydration. IVF for hydration. CT Head w/ no acute findings, images reviewed by me. Check orthostatics. Lightheadedness resolved. Dehydration: GFR 55, BUN/Creatinine normal, U/a negative for UTI. IVF for hydration, repeat labs today with improvement, GFR 75. Resolved. CABG x2: s/p V-fib Arrest, s/p Code Cool, emergent Cardiac Cath w/ significant left main disease w/ 90% stenosis, s/p CABG x2 by Dr. Mchugh on 05/28/16. Doing well post-operatively. Outpatient follow up w/ Dr. Mchugh as scheduled. CXR w / no acute findings, post op sternotomy, images reviewed by me. Hypokalemia: K 3.3. Give po KCl. Recheck and replace as needed. Drug Rash: started treatment as outpatient, multiple medications discontinued. Continue patient's prednisone and benadryl prn. Continue Benadryl and steroids and refer to dermatology. DVT Prophylaxis: SCD/Teds. Discharge Planning Likely discharge today if cleared by Dr. Barker. Discharge patient to home Condition on discharge: Improved Heart Healthy Diet as tolerated Ad Judith activity Rx written: no new meds Follow-up with primary care physician and cardiology Attending Statement The exam, history, and the medical decision-making described in the above note were completed with the assistance of the mid-level provider. I reviewed and agree with the findings presented. I attest that I had a [id number] encounter with the patient on the same day, and personally performed and documented my assessment and findings in the medical record. Charito Adkins PA-C Jul 04, 2016 09:39 Parmjit Cueva DO Jul 04, 2016 16:36
--- NOTE | 2016-07-04 10:37 | EKG ---
Date Performed: 07/03/2016 Time Performed: 19:21:39 PTAGE: 66 years EKG: SINUS BRADYCARDIA LOW QRS VOLTAGE IN PRECORDIAL LEADS MODERATE INTRAVENTRICULAR CONDUCTION DELAY NONSPECIFIC T-WAVE ABNORMALITY ABNORMAL ECG PREVIOUS TRACING : 05/29/2016 04.42 DOCTOR: Jn Guerin Interpretating Date/Time 07/04/2016 10:33:55
[2016-07-04] MEDS: SODIUM CHLOR 0.9% 1000 ML INJ 1,000 ML IV SCH (11:29)
[2016-07-04 12:10] VITALS: BP_SYST 108; BP_SYST 144; BP_SYST 147; BP_DIAS 57; BP_DIAS 66; BP_DIAS 70; PULSE 52; RESP 18; TEMP 98.2; O2SAT 96
--- NOTE | 2016-07-04 13:20 | MB ---
cc: JHONNY CARSON M.D. DATE OF CONSULTATION: 07/04/2016 REASON FOR CONSULTATION: Possible pacemaker implant. HISTORY OF PRESENT ILLNESS The patient is a 66-year-old white female, followed in our office by Dr. Jaxson Barker, with a history of coronary artery disease, status post ventricular fibrillation arrest and subsequent two-vessel bypass surgery about 6 weeks ago, history of hypertension, hyperlipidemia, who presented to the hospital with complaints of lightheadedness. She states she was feeling quite well up until yesterday when while sitting watching TV she experienced lightheadedness for about a minute. This sensation recurred about two more times. She denies losing consciousness. She also denies angina, shortness of breath, palpitations, pedal edema, paroxysmal nocturnal dyspnea. The patient had been on amiodarone since her heart surgery and she took her last dose about 2 and a 1/2 days ago. At the present time she is resting comfortably denying any dizziness. PAST MEDICAL HISTORY 1. Coronary artery disease status post two-vessel bypass surgery 05/28/2016 after presenting with ventricular fibrillation arrest and cardiac catheterization showing severe left main disease. She underwent the left internal mammary artery to the LAD and vein graft to the first obtuse marginal. 2. Hypertension. 3. Hyperlipidemia. 4. 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 5. Hypothyroidism. MEDICATIONS Her cardiac medications at home: 1. Plavix 75 mg daily. 2. Lisinopril 2.5 mg daily. 3. Lipitor 80 mg q.h.s. 4. Aspirin 81 mg daily. ALLERGIES SULFA. FAMILY HISTORY Noncontributory. SOCIAL HISTORY The patient denies alcohol or tobacco abuse. REVIEW OF SYSTEMS Review of systems as in the history of present illness, otherwise negative or noncontributory. She also denies headache, abdominal pain, melena, dyspepsia, bright red blood per rectum, fevers, nausea. PHYSICAL EXAMINATION VITAL SIGNS: On physical examination her blood pressure is 138/70 with a pulse of 50, respirations 16. GENERAL: She is a well-developed, well-nourished white female in no acute distress. HEENT: Jugular venous pressure is normal. Carotid pulses are 2+ bilaterally and without bruits. Examination of the chest reveals clear lung giang. CARDIAC: On cardiac examination she has a bradycardic regular rhythm without S3-S4 or murmur. ABDOMEN: She has a soft, nontender abdomen. Bowel sounds are present. There is no definite hepatosplenomegaly. EXTREMITIES: Examination of the extremities reveals no clubbing, cyanosis or edema. LABORATORY DATA Laboratory data includes WBC 6.6, hemoglobin 12.4, platelets 277, potassium 3.3, BUN 15, creatinine 0.77, troponin less than 0.02. EKG Shows sinus bradycardia, heart rate 52, diffuse nonspecific T-wave abnormalities. IMPRESSION Possible symptomatic bradycardia in this 66-year-old white female with a history of coronary artery disease status post two-vessel bypass surgery about 6 weeks ago, ejection fraction 40-45%, hypertension, hyperlipidemia, hypothyroidism. Her monitoring strips have been reviewed from the emergency room. I do not see any heart rates below 40. All of the rhythm strips show sinus bradycardia. There is no evidence for high degree AV block. She also has been on amiodarone up until about two and a half days ago. Her heart rates are currently in the 50s to 60s. RECOMMENDATIONS At this point would favor continued monitoring. Unless she demonstrates high degree AV block or severe bradycardia with heart rates in the 30s correlating with symptoms, would not recommend a pacemaker. Will discuss this further with Dr. Barker. MD JORGE Jackson/ANGELA /10:03 AM /1:05 PM MAGDIEL
--- NOTE | 2016-07-04 14:32 | HHI.DCPOC ---
Discharge Care Plan Diagnosis: (1) Symptomatic bradycardia (2) Dehydration (3) S/P CABG x 2 Goals to Promote Your Health * To prevent worsening of your condition and complications * To maintain your health at the optimal level Directions to Meet Your Goals Take your medications as prescribed Follow your dietary instruction Follow activity as directed Keep your appointments as scheduled Take your immunizations and boosters as scheduled If your symptoms worsen call your PCP, if no PCP go to Urgent Care Center or Emergency Room Smoking is Dangerous to Your Health. Avoid second hand smoke Call the 24-hour hour crisis hotline for domestic abuse at Charito Adkins PA-C Jul 04, 2016 14:32
[2016-07-04] MEDS ORDERED: diphenhydrAMINE HCL 25 MG CAP PO PRN (15:00)
[2016-07-04 15:48] VITALS: BP_SYST 118; BP_SYST 133; BP_SYST 135; BP_DIAS 56; BP_DIAS 63; BP_DIAS 64; PULSE 57; RESP 16; TEMP 98.1; O2SAT 95
[2016-07-04] MEDS ORDERED: ATORVASTATIN 80 MG TAB PO SCH (21:00)
--- NOTE | 2016-07-05 07:14 | MB ---
cc: JAXSON FORD DO DATE OF CONSULTATION 07/04/2016 REASON FOR CONSULTATION Symptomatic bradycardia HISTORY OF PRESENT ILLNESS Pearl Franklin is a pleasant 66-year-old female who presented to [facility] on July 03, 2016 due to dizziness. She was at home sitting at the computer and she started noticing some dizziness. She checked her heart rate and blood pressure and at that time, blood pressure was 130/70 and her heart rates were in 60s. She then was later watching TV and had a similar type episode. When checking her heart rate and blood pressure, this was after the dizziness had gone. Because of this, she presented to the hospital. She denies chest pain or shortness of breath with the episodes. While in the emergency room, she was noted to have heart rates in the upper 40s, low 50s. I recently saw her in the office and at that time had her continue amiodarone for one more week and then stop it on July 01 2016. She had been on amiodarone post coronary artery bypass grafting. She denies chest pain, shortness of breath, or palpitations. In seeing her in the hospital, she is resting comfortably and has been up and moving. PAST MEDICAL HISTORY 1. Coronary artery disease 2. Hypertension 3. Hyperlipidemia 4. Hypothyroidism PAST SURGICAL HISTORY Coronary artery bypass grafting x2 (May 28, 2016) with RODRIGES to LAD, SVG to OM1. ALLERGIES SULFA DRUGS MEDICATIONS 1. Aspirin 81 mg daily 2. Plavix 75 mg daily 3. Lisinopril 2.5 mg daily 4. Lipitor every night SOCIAL HISTORY Denies tobacco, alcohol or drug abuse. FAMILY HISTORY Denies premature coronary artery disease or sudden cardiac within the family. REVIEW OF SYSTEMS 14-systems were reviewed including osteopathic pertinent positives and negatives above otherwise negative. PHYSICAL EXAMINATION VITAL SIGNS: Temperature 98.2, heart rate 52, blood pressure 144/66, respirations 18, pulse ox 96% on room air. GENERAL: The patient appears well in no acute distress, alert awake and oriented x3. Extraocular muscles intact. Mucous membranes moist. NECK: Supple. No JVD at 45 degrees. No carotid bruits heard bilaterally. Carotid upstroke is brisk in nature. HEART: Regular rate, mildly bradycardic. Positive first and second heart sounds. LUNGS: Clear to auscultation bilaterally. No wheezes, rales or rhonchi. ABDOMEN: Soft, nontender, nondistended. No organomegaly noted. EXTREMITIES: Show no clubbing, cyanosis or edema. Femoral and distal pulses intact bilaterally. NEUROLOGIC: No focal deficits. SKIN: Warm, dry and intact. She does have a noticeable rash along her upper chest, back and legs which is felt to be drug induced. Osteopathically, mild lordosis. No kyphoscoliosis or paraspinal tender points. LABORATORY WORK Hemoglobin 12.4, hematocrit 39.2, platelets 277. Potassium 3.3, BUN 15, creatinine 0.77, troponins negative x3. Electrocardiogram (July 03, 2016 at 1921) sinus bradycardia, low QRS voltage in the precordial leads, moderate interventricular conduction delay, nonspecific ST-T wave changes. No significant change from June 08, 2016. IMPRESSION 1. Possible symptomatic bradycardia. 2. History of coronary artery bypass grafting (May 28, 2016). 3. Hypertension 4. Hyperlipidemia 5. Hypothyroidism RECOMMENDATIONS 1. In speaking to Mrs. Franklin, she is known to have bradycardia for sometime even before I initially met her back in May. 2. She was on amiodarone post CABG and this has been recently stopped. 3. I asked Dr. Ruiz to see her for consideration of a pacemaker, I agree with his assessment that at this time, it appears that she does not have any high degree AV block and all of her heart rates have been in the 40s to 50s. 4. We will watch her until this afternoon and if no significant bradycardia or AV blocks, she can be discharged home from a cardiovascular standpoint. 5. I did speak to her about her symptoms and if she has further symptoms, she will present back to the emergency room and we will reconsider this. 6. We should attempt to watch her off of amiodarone, but with such a long half life this can stay in the system for sometime. 7. As far as her drug rash, she has since been off Lasix and amiodarone and has been placed on prednisone. She will continue to follow this and if not resolved, will follow up with her primary care physician. 8. She will follow up with me in the office and if further concerning symptoms, we may consider further rhythm monitoring. Thank you for allowing me to see Pearl Franklin. If there are any questions, please do not hesitate to call. Jaxson PATTON/DJL /6:35 PM /7:02 AM
== END 2016-07-04 17:18 | disposition home or self-care (01) ==
LOC: NEPC 18:26 → NEDA 21:25 → INTOOBSV 21:25 → NEPGCP 23:46 → UNDODISIN 07-04 17:18
PROVIDERS: ADMIT Hospitalist; ATTEND Hospitalist
DX: R00.1 Bradycardia, unspecified (principal); R42 Dizziness and giddiness; E86.0 Dehydration; E87.6 Hypokalemia; E03.9 Hypothyroidism, unspecified; E78.5 Hyperlipidemia, unspecified; L27.0 Generalized skin eruption due to drugs and medicaments taken internally; I11.0 Hypertensive heart disease with heart failure; I50.9 Heart failure, unspecified; F41.9 Anxiety disorder, unspecified; I25.10 Atherosclerotic heart disease of native coronary artery without angina pectoris; I25.2 Old myocardial infarction; J45.909 Unspecified asthma, uncomplicated; I25.5 Ischemic cardiomyopathy; E78.00 Pure hypercholesterolemia, unspecified; Z95.1 Presence of aortocoronary bypass graft; Z88.2 Allergy status to sulfonamides; Z96.643 Presence of artificial hip joint, bilateral; Z79.02 Long term (current) use of antithrombotics/antiplatelets; Z79.82 Long term (current) use of aspirin; Z79.52 Long term (current) use of systemic steroids
CPT/HCPCS: 70450; 71010; 80053; 81001; 82550; 83690; 83735; 84484; 85025; 85610; 85730; 86140; 93005; 94664; 96360; 99285; G0378; J7030; J7040; J7512

== ENCOUNTER → 2017-01-20 | Outpatient (CLI) | payer MEDICARE, BC ==
[~2017-01-20] MED LIST changes: +ALBUAER3 INH; -AMIO200T PO; +AMLO5 PO; +ASPI-110 PO; +ATOR40TA16 PO; -Aspirin Chew PO; +CHOL5000 PO; +DIPH25TA2 PO; -FURO40TA PO; +IBUP200T2 PO; -LIPI80TA PO; -LISI-519 PO; +MECL-62 PO; +NYST0.1P TOPICAL; -NYST10007 TOPICAL; -PANT40TA3 PO; -POTA20TA5 PO; -ROLLER WALKER1 MI1; -WHEEMIS3
[2017-01-20 14:10] LABS: HEMATOCRIT 44.3 % (35.0-46.0); MEAN CELL VOLUME 89.8 FL (80.0-100.0); MEAN CORPUSCULAR HEMOGLOBIN 30.1 PG (27.0-34.0); MEAN CORPUSCULAR HGB CONC 33.5 % (32.0-36.0); PLATELET COUNT 238 TH/MM3 (150-450); RED BLOOD COUNT 4.93 MIL/MM3 (4.00-5.30); RED CELL DISTRIBUTION WIDTH 15.1 % (11.6-17.2); REVIEW FLAG FINAL; WHITE BLOOD COUNT 9.2 TH/MM3 (4.0-11.0)
[2017-01-20 14:17] LABS: PROTHROMBIN TIME - PATIENT 10.7 SEC (9.8-11.6)
[2017-01-20 14:43] LABS: BICARBONATE 24.8 MEQ/L (21.0-32.0)
[2017-01-20 15:08] LABS: BLOOD, URINE NEG (NEG); COMMENT (UR) CULT NOT INDICATED; CULTURE IF INDICATED CULT NOT INDICATED; GLUCOSE,URINE NEG (NEG); KETONE, URINE NEG (NEG); NITRITE,URINE NEG (NEG); PH, URINE 6.5 (5.0-8.5); URINE COLOR YELLOW (YELLW/STRAW)
== END ==
LOC: CPRE 13:01
PROVIDERS: ATTEND Surgery
DX: Z01.812 Encounter for preprocedural laboratory examination (principal); I65.23 Occlusion and stenosis of bilateral carotid arteries
CPT/HCPCS: 36415; 80048; 81001; 85027; 85610

== ENCOUNTER 2017-01-25 06:54 | Inpatient (IN) | payer MEDICARE, BC ==
[~2017-01-25 06:54] MED LIST changes: -NYST0.1P TOPICAL
[2017-01-25] MEDS ORDERED: LACTATED RINGER'S 1000 ML IV PRN (07:30)
[2017-01-25] MEDS ORDERED: SODIUM CHLORID 0.9% 500 ML IV PRN (07:30)
[2017-01-25] MEDS ORDERED: INSULIN HUMAN REGULAR 1,000 UNITS/10 ML VIAL SQ PRN (07:30)
[2017-01-25] MEDS ORDERED: CHLORHEXIDINE GLUCONATE 2 % 1 PACK (2 CLOTHS) TOPICAL PRN (07:30)
[2017-01-25] MEDS ORDERED: METOPROLOL TARTRATE 25 MG TAB PO PRN (07:30)
--- NOTE | 2017-01-25 08:04 | HHI.HP ---
History of Present Illness Chief Complaint: asymptomatic R carotid stenosis History of Present Illness 66 yo male with asymptomatic carotid stenosis. No stroke, TIA or amaurosis. Presents for R CEA Past/Family/Social History Past Medical History CAD HTN XOL CVOD Past Surgical History CABG Social History nonsmoker Family History NC Home Medications Active Scripts Meclizine (Meclizine) 25 Mg Tab, 25 MG PO TID Y for VERTIGO, #15 TAB 0 Refills Prov:Velvet Mcdermott MD 01/17/17 Atorvastatin (Atorvastatin) 40 Mg Tab, 1 TAB PO HS for Cholesterol Management, # 90 TAB 0 Refills Prov:Velvet Mcdermott MD 01/17/17 Clopidogrel (Plavix) 75 Mg Tab, 75 MG PO DAILY for Blood Clot Prevention, #90 TAB 3 Refills Prov:Velvet Mcdermott MD 01/17/17 Oxycodone-Acetaminophen (Oxycodone-Acetaminophen) 5-325 mg Tab, 1 TAB PO Q6HR Y for pain, #40 TAB 0 Refills Prov:Florentino Salinas MD 06/16/16 Multiple Vitamins W/ Minerals (Thera M Plus) 1 Tab, 1 TAB PO DAILY for vitamin, #30 TAB 0 Refills Prov:Florentino Salinas MD 06/16/16 Reported Medications Budesonide-Formoterol Inh (Symbicort Inh) 160-4.5 Mcg/Act Aero, 1 PUFF INH Q12HR , #1 INHALER 0 Refills 01/20/17 Amlodipine (Norvasc) 5 Mg Tab, 5 MG PO DAILY for Blood Pressure Management, #30 TAB 0 Refills 01/17/17 Cholecalciferol (Vitamin D3) 5,000 Unit Cap, 5000 UNITS PO DAILY for Nutritional Supplement, #30 CAP 0 Refills 01/17/17 Diphenhydramine (Diphenhydramine) 25 Mg Tab, 1 TAB PO DAILY Y for ALLERGIES, TAB 0 Refills 01/17/[address] (Aspirin 81) 81 Mg Tabdr, 81 MG PO DAILY, TAB 0 Refills 01/17/17 Ibuprofen (Ibuprofen) 200 Mg Tab, 200 MG PO Q6H Y for Lower back pain , TAB 0 Refills 01/17/17 Albuterol 8.5 GM Inh (Proair Hfa 8.5 GM Inh) 90 Mcg/Act Aer, 2 PUFF INH Q6H Y for SHORTNESS OF BREATH, #1 INHALER 0 Refills 108 mcg/actuation 07/03/16 Coded Allergies: Sulfa (Sulfonamide Antibiotics) (Unverified Allergy, Severe, Hives, ) amiodarone (Verified Allergy, Severe, Rash , 01/20/17) furosemide (Verified Allergy, Severe, Rash , 01/20/17) lisinopril (Verified Allergy, Severe, Rash, 01/20/17) Review of Systems Constitutional: DENIES: Fever, Chills Neurologic: DENIES: Headache, Speech Problems, Poor Balance Physical Exam Neuro: neuro intact. SALMON. HEENT: asymmetric lids, otherwise normal Neck: no rashes Heart: reg rate, no M Lungs: clear B Vascular: palpable UE pulses Extremities: SALMON Hct 44 plt 238 INR 1.0 creatinine 0.7 ultrasound and CTA reviewed. R ICA stenosis Caprini VTE Risk Assessment Caprini VTE Risk Assessment: Mod/High Risk (score >= 2) Caprini Risk Assessment Model Point Value = 1 Point Value = 2 Point Value = 3 Point Value = 5 Age 41-60 Minor surgery BMI > 25 kg/m2 Swollen legs Varicose veins or History of unexplained or recurrent spontaneous Oral contraceptives or hormone replacement Sepsis (< 1 month) Serious lung disease, including pneumonia (< 1 month) Abnormal pulmonary function Acute myocardial infarction Congestive heart failure (< 1 month) History of inflammatory bowel disease Medical patient at bed rest Age 61-74 Arthroscopic surgery Major open surgery (> 45 min) Laparoscopic surgery (> 45 min) Malignancy Confined to bed (> 72 hours) Immobilizing plaster cast Central venous access Age >= 75 History of VTE Family history of VTE Factor V Leiden Prothrombin [id number] Lupus anticoagulant Anticardiolipin antibodies Elevated serum homocysteine Heparin-induced thrombocytopenia Other congenital or acquired thrombophilia Stroke (< 1 month) Elective arthroplasty Hip, pelvis, or leg fracture Acute spinal cord injury (< 1 month) Prophylaxis Regimen Total Risk Factor Score Risk Level Prophylaxis Regimen 0-1 Low Early ambulation 2 Moderate Order ONE of the following: *Sequential Compression Device (SCD) *Heparin 5000 units SQ BID 3-4 Higher Order ONE of the following medications: *Heparin 5000 units SQ TID *Enoxaparin/Lovenox 40 mg SQ daily (WT < 150 kg, CrCl > 30 mL/min) *Enoxaparin/Lovenox 30 mg SQ daily (WT < 150 kg, CrCl > 10-29 mL/min) *Enoxaparin/Lovenox 30 mg SQ BID (WT < 150 kg, CrCl > 30 mL/min) AND/OR *Sequential Compression Device (SCD) 5 or more Highest Order ONE of the following medications: *Heparin 5000 units SQ TID (Preferred with Epidurals) *Enoxaparin/Lovenox 40 mg SQ daily (WT < 150 kg, CrCl > 30 mL/min) *Enoxaparin/Lovenox 30 mg SQ daily (WT < 150 kg, CrCl > 10-29 mL/min) *Enoxaparin/Lovenox 30 mg SQ BID (WT < 150 kg, CrCl > 30 mL/min) AND *Sequential Compression Device (SCD) Assessment and Plan Plan Asymptomatic high grade R carotid stenosis Plan for R CEA Post-op to CVICU Discharge Planning 1-2 days Family: Fang Elise (professor of oceanography) [phone] Manuel Willams MD Jan 25, 2017 08:04
[2017-01-25] MEDS ORDERED: NYST0.1P TOPICAL (08:07)
[2017-01-25] MEDS ORDERED: HEPARIN SODIUM - IV 10,000 UNITS/10 ML VIAL ONE (08:32)
[2017-01-25] MEDS ORDERED: THROMBIN (TOPICAL) 20,000 UNIT SPRAY KIT ONE (08:32)
[2017-01-25] MEDS ORDERED: BUPIVACAINE HCL PF 0.5% 30 ML VIAL ONE (08:32)
[2017-01-25] MEDS ORDERED: HEPARIN-NS/PF INJ 500 ML ONE (08:32)
[2017-01-25] MEDS ORDERED: PROTAMINE SULFATE 50 MG/5 ML VIAL ONE ×2 (08:32→10:30)
[2017-01-25] MEDS ORDERED: MORPHINE SULFATE 2 MG/ML INJ IV PUSH PRN (09:00)
[2017-01-25] MEDS ORDERED: HYDROmorphone HCL 2 MG TAB PO PRN (09:00)
[2017-01-25] MEDS ORDERED: ALBUTEROL SULFATE 90 MCG/ACT HFA 8 GM INHALER INH PRN (09:00)
[2017-01-25] MEDS ORDERED: ceFAZolin 2 GM PREMIX 50 ML ONE (09:12)
[2017-01-25] MEDS ORDERED: NITROGLYCERIN-D5W 50 MG/250 ML 250 ML ONE (10:30)
--- NOTE | 2017-01-25 11:27 | HHI.PR ---
Immediate Post Op Note Procedure Date: Jan 25, 2017 Pre Op Diagnosis: High grade RIGHT carotid stenosis Post Op Diagnosis: High grade RIGHT carotid stenosis Surgeon: Manuel Willams Tape Recording Machine Operator(s): Heidi Evans Procedure: R CEA Findings: high grade stenosis 1 cm above carotid bifurcation Complications: none - awoke neuro intact Specimen(s) removed: none for pathology Estimated blood loss: 50mL Anesthesia: General Drains: None Fluids: 900mL IVF Patient to: CVICU Patient Condition: Good Date/Time of Procedure: SEE SURGICAL CARE RECORD Manuel Willams MD Jan 25, 2017 11:27
[2017-01-25 11:30] VITALS: BP_SYST 128; BP_SYST 141; BP_SYST 145; BP_DIAS 67; BP_DIAS 68; BP_DIAS 69; PULSE 104; PULSE 56; RESP 16; TEMP 98.1; TEMP 98.3; O2SAT 98; O2SAT 99
[2017-01-25] MEDS ORDERED: PHENYLEPHRINE HCL 10 MG/ML VIAL IV ONE (12:00)
[2017-01-25] MEDS ORDERED: DEXTROSE 5%-ELECTROLYTES R INJ 1,000 ML IV ONE ×2 (12:00)
[2017-01-25] MEDS ORDERED: ePHEDrine/NS 25 MG/5 ML SYR IV ONE (12:00)
[2017-01-25] MEDS ORDERED: NEOSTIGMINE 3 MG/3 ML SYR IV ONE (12:00)
[2017-01-25] MEDS ORDERED: DEXAMETHASONE SOD PHOS 4 MG/ML VIAL IV ONE (12:00)
[2017-01-25] MEDS ORDERED: ROCURONIUM INJ 50 MG/5 ML SYRINGE IV PUSH ONE (12:00)
[2017-01-25] MEDS ORDERED: ONDANSETRON HCL 4 MG/2 ML VIAL IV PUSH ONE (12:00)
[2017-01-25] MEDS ORDERED: MORPHINE SULFATE 4 MG/ML INJ IV ONE (12:00)
[2017-01-25] MEDS ORDERED: GLYCOPYRROLATE 1 MG/5 ML SYRINGE IV PUSH ONE (12:00)
[2017-01-25] MEDS ORDERED: PROPOFOL 200 MG/20 ML AMP IV ONE (12:00)
[2017-01-25] MEDS ORDERED: PHENYLEPH/NS 1000 MCG/10 ML SYR IV ONE (12:00)
[2017-01-25] MEDS ORDERED: LIDOCAINE HCL 1% PF 5 ML AMPULE OTHER ONE (12:00)
[2017-01-25] MEDS ORDERED: SODIUM CHLORID 0.9% 500 ML INJ 500 ML IV ONE (12:00)
[2017-01-25] MEDS ORDERED: SODIUM CHLOR 0.9% 250 ML INJ 250 ML IV ONE (12:00)
[2017-01-25] MEDS ORDERED: RESP: ALBUTEROL 2.5 MG/IPRATROPIUM 0.5 MG NEB (PRN) NEB (12:15)
--- NOTE | 2017-01-25 12:54 | MB ---
cc: OLGA MENDEZ M.D. DATE OF CONSULTATION 01/25/2017 DATE OF 1950 REASON FOR CONSULTATION The patient is a 66-year-old female with a past medical history of hypertension, coronary artery disease, hypothyroidism, asymptomatic carotid surgery stenosis. She underwent a right carotid an endarterectomy earlier today by Dr. Willams. The patient was given approximately 900 mL fluids and had EBL of 50 mL. She was transferred to CV/ICU and critical care medicine was consulted for critical care management. When seen, she is on two liters nasal cannula with sats 99%, a blood pressure 154/55. The patient is awake, alert lying comfortable in bed in no acute distress. She denies any chest pain or shortness of breath. She denies any nausea, vomiting or abdominal pain. PAST MEDICAL HISTORY Significant for: 1. Anxiety disorder 2. Hypertension 3. Hyperlipidemia 4. Hypothyroidism 5. CAD PAST SURGICAL HISTORY 1. Previous CABG x2 2. Previous cataract surgery 3. Previous bilateral hip replacement ALLERGIES SULFA, AMIODARONE, LASIX, LISINOPRIL. MEDICATIONS Reported medications include: 1. Albuterol 1. Plavix 2. Atorvastatin 3. Norvasc 4. Aspirin 5. Symbicort 6. Multivitamins FAMILY HISTORY Noncontributory REVIEW OF SYSTEMS As per HPI. The rest of the review of systems is unremarkable. PHYSICAL EXAM This is a 66-year-old female lying in bed in no acute respiratory distress. VITAL SIGNS: Afebrile, pulse of 48, blood pressure 154/55, sats 99% on two liters oxygen. HEENT: Atraumatic, normocephalic. Pupils equal, round and reactive to light and accommodation. Extraocular muscles intact. Conjunctivae pink. Nonicteric sclerae. Oral mucosa within normal. NECK: Supple. No JVD, adenopathy or thyromegaly. Trachea midline. CARDIOVASCULAR: Regular rate and rhythm. Normal S1-S2. No murmur, rubs or gallops noted. PULMONARY: Bilateral equal air entry. No rales or wheezing. ABDOMEN: Soft, obese, nontender, no distension, positive bowel sounds. EXTREMITIES: No cyanosis, clubbing, trace edema. NEUROLOGIC: No focal sensory deficit. LABORATORY DATA None today. IMPRESSION 1. Status post right carotid endarterectomy. 2. Respiratory insufficiency. 3. Hypertension 4. Coronary artery disease 5. History of CABG. 6. Hypothyroidism 7. Anxiety disorder RECOMMENDATIONS 1. Monitor neuro status and avoid any sedatives. 2. Continue with oxygen and maintain sats above 92%. 3. Bronchodilators. Will place on DuoNeb q6 + q2 p.r.n. for shortness of breath. In addition, she is on Symbicort 160/4.5 one puff q. 12. 4. Monitor heart rate and blood pressure closely. 5. Maintain MAP greater 65 mmHg. 6. She had an echocardiogram in May of this year which showed an EF of 40-45%. 7. Continue with aspirin 81 mg daily, Lipitor 40 mg p.o. q.h.s., Norvasc 5 mg daily, Plavix 75 mg daily. 8. Monitor renal function I's and O's and electrolyte replacement as needed. 9. The patient was placed on p.o. heart healthy diet. 10. Monitor for signs of infections which include fever and WBC. 11. Panculture if spikes a fever. 12. Sliding scale insulin if needed for glycemic control. 12. Monitor CBC. 13. DVT prophylaxis with Lovenox 30 mg subcu daily as ordered. 14. No indication for GI prophylaxis. 15. We will obtain basic labs which include CBC and BMP. 16. Further recommendations will be based on the hospital course. MD VIRAL Gongora/BRAULIO /12:06 PM /12:36 PM
[2017-01-25] MEDS: CLOPIDOGREL 75 MG TAB PO SCH (12:57)
[2017-01-25] MEDS: ASPIRIN EC 81 MG TABEC PO SCH (12:57)
[2017-01-25] MEDS: amLODIPine BESYLATE 5 MG TAB PO SCH (12:57)
[2017-01-25] MEDS: DOCUSATE SODIUM 100 MG CAP PO SCH ×2 (12:57→21:00)
[2017-01-25] MEDS: MULTIVITAMINS/MINERALS THERAPEUTIC TAB PO SCH (13:24)
[2017-01-25] MEDS: CHOLECALCIFEROL (VIT D3) 5000 UNIT CAP PO SCH (13:24)
[2017-01-25 14:21] LABS: AUTOMATED NEUTROPHIL # 9.3 TH/MM3 (1.8-7.7); BASOPHIL % 0.3 % (0.0-2.0); EOSINOPHIL % 0.3 % (0.0-4.0); HEMATOCRIT 39.9 % (35.0-46.0); HEMO FLAGS DIFF FINAL; LYMPH % 12.8 % (9.0-44.0); LYMPHOCYTE # 1.4 TH/MM3 (1.0-4.8); MEAN CELL VOLUME 88.9 FL (80.0-100.0); MEAN CORPUSCULAR HEMOGLOBIN 29.9 PG (27.0-34.0); MEAN CORPUSCULAR HGB CONC 33.6 % (32.0-36.0); MONO % 2.7 % (0.0-8.0); NEUT % 83.9 % (16.0-70.0); PLATELET COUNT 200 TH/MM3 (150-450); RED BLOOD COUNT 4.49 MIL/MM3 (4.00-5.30); RED CELL DISTRIBUTION WIDTH 14.6 % (11.6-17.2); WHITE BLOOD COUNT 11.1 TH/MM3 (4.0-11.0)
[2017-01-25 14:44] LABS: BICARBONATE 21.6 MEQ/L (21.0-32.0); POTASSIUM 3.5 MEQ/L (3.5-5.1)
[2017-01-25] MEDS: BUDESONIDE-FORMOTEROL 160/4.5 MCG INHALER INH SCH ×2 (14:57→21:00)
[2017-01-25 15:00] VITALS: BP 109/42; PULSE 50; PULSE 51; RESP 16; TEMP 98.4; O2SAT 96
[2017-01-25] MEDS ORDERED: POTASSIUM CHLORIDE 25 MEQ EFFERVESCENT TAB PO PRN (16:00)
[2017-01-25] MEDS ORDERED: MAGNESIUM OXIDE 400 MG TAB PO PRN (16:00)
[2017-01-25] MEDS ORDERED: POTASSIUM CHLOR 20 MEQ PREMIX 100 ML IV PRN ×2 (16:00)
[2017-01-25] MEDS ORDERED: POTASSIUM CHLOR 40 MEQ PREMIX 100 ML IV PRN ×2 (16:00)
[2017-01-25] MEDS ORDERED: MAGNESIUM SULFATE INJ 4 GM in SODIUM CHLORIDE 0.9% INJ 92 ML IV PRN (16:00)
[2017-01-25] MEDS ORDERED: POTASSIUM PHOSPHATE MONOBASIC 500 MG TAB PO PRN (16:00)
[2017-01-25] MEDS ORDERED: POTASSIUM PHOSPHATE INJ 30 MMOL in SODIUM CHLOR 0.9% 250 ML INJ 250 ML IV PRN (16:00)
[2017-01-25] MEDS ORDERED: MAGNESIUM SULFATE INJ 2 GM in SODIUM CHLORIDE 0.9% INJ 96 ML IV PRN (16:00)
[2017-01-25] MEDS ORDERED: POTASSIUM PHOSPHATE MONOBASIC 500 MG TAB PO/TUBE PRN (16:00)
[2017-01-25] MEDS ORDERED: SODIUM PHOSPHATE INJ 30 MMOL in SODIUM CHLOR 0.9% 250 ML INJ 240 ML IV PRN (16:00)
--- NOTE | 2017-01-25 16:48 | PD.VS.PN ---
Subjective POD #: 0 Procedure(s): R CEA Subjective/Hospital Course Neuro intact. No c/o headache. SALMON. Neck ok. Objective Vitals/I&O Date Time Temp Pulse Resp B/P (MAP) Pulse Ox O2 Delivery O2 Flow Rate FiO2 01/25/17 15:00 50 01/25/17 11:30 98.1 104 16 141/68 (92) 98 128/69 (88) 01/25/17 11:30 104 01/25/17 11:30 97 Nasal Cannula 2.00 01/25/17 08:10 98.3 53 18 170/65 (100) 98 01/25/17 01/25/17 01/25/17 07:00 15:00 23:00 Intake Total 900 ml Output Total 430 ml Balance 470 ml Exam: SALMON R Neck incision c/d/i stable facial asymmetry from pre-op Laboratory Laboratory Tests Test 01/25/17 13:37 White Blood Count 11.1 Red Blood Count 4.49 Hemoglobin 13.4 Hematocrit 39.9 Mean Corpuscular Volume 88.9 Mean Corpuscular Hemoglobin 29.9 Mean Corpuscular Hemoglobin Concent 33.6 Red Cell Distribution Width 14.6 Platelet Count 200 Mean Platelet Volume 9.4 Neutrophils (%) (Auto) 83.9 Lymphocytes (%) (Auto) 12.8 Monocytes (%) (Auto) 2.7 Eosinophils (%) (Auto) 0.3 Basophils (%) (Auto) 0.3 Neutrophils # (Auto) 9.3 Lymphocytes # (Auto) 1.4 Monocytes # (Auto) 0.3 Eosinophils # (Auto) 0.0 Basophils # (Auto) 0.0 CBC Comment DIFF FINAL Differential Comment Blood Urea Nitrogen 19 Creatinine 0.59 Random Glucose 123 Calcium Level 9.1 Phosphorus Level 1.9 Magnesium Level 2.0 Sodium Level 139 Potassium Level 3.5 Chloride Level 109 Carbon Dioxide Level 21.6 Anion Gap 8 Estimat Glomerular Filtration Rate 101 Assessment and Plan Plan Looks great OOB TC D/c a-line D/C Arredondo Discharge Planning likely tomorrow (POD#1) Sister: Fang Elise (family and consumer sciences professor) [phone] Manuel Willams MD Jan 25, 2017 16:48
[2017-01-25] MEDS: RESP: ALBUTEROL 2.5 MG/IPRATROPIUM 0.5 MG NEB (SCH) NEB ×2 (18:09→22:00)
[2017-01-25 20:00] VITALS: BP 109/64; PULSE 50; RESP 22; TEMP 98.4; O2SAT 97
[2017-01-25] MEDS ORDERED: ATORVASTATIN 40 MG TAB PO SCH (21:00)
[2017-01-25 21:27] VITALS: O2SAT 97
[2017-01-26] VITALS: BP 108/53; PULSE 52; PULSE 53; RESP 20; TEMP 98.4; O2SAT 97
[2017-01-26 03:26] LABS: AUTOMATED NEUTROPHIL # 7.7 TH/MM3 (1.8-7.7); BASOPHIL % 0.3 % (0.0-2.0); HEMATOCRIT 38.8 % (35.0-46.0); HEMO FLAGS DIFF FINAL; LYMPH % 14.9 % (9.0-44.0); LYMPHOCYTE # 1.5 TH/MM3 (1.0-4.8); MEAN CELL VOLUME 90.3 FL (80.0-100.0); MEAN CORPUSCULAR HEMOGLOBIN 30.2 PG (27.0-34.0); MEAN CORPUSCULAR HGB CONC 33.4 % (32.0-36.0); NEUT % 76.8 % (16.0-70.0); PLATELET COUNT 202 TH/MM3 (150-450); RED BLOOD COUNT 4.29 MIL/MM3 (4.00-5.30); RED CELL DISTRIBUTION WIDTH 14.7 % (11.6-17.2)
[2017-01-26] MEDS: RESP: ALBUTEROL 2.5 MG/IPRATROPIUM 0.5 MG NEB (SCH) NEB ×2 (03:47→09:24)
[2017-01-26 04:00] VITALS: BP 121/62; PULSE 48; PULSE 49; RESP 18; TEMP 98.4; O2SAT 94
[2017-01-26 04:02] LABS: MAGNESIUM 2.2 MG/DL (1.5-2.5); POTASSIUM 4.1 MEQ/L (3.5-5.1)
[2017-01-26 07:00] VITALS: BP 117/57; PULSE 53; RESP 18; TEMP 98.5; O2SAT 94
--- NOTE | 2017-01-26 07:53 | PD.VS.PN ---
Subjective POD #: 1 Procedure(s): R CEA Subjective/Hospital Course Neuro intact. No c/o headache. SALMON. Neck ok. Corazon po, voiding after Arredondo out. Hasn't walked yet Objective Vitals/I&O Date Time Temp Pulse Resp B/P (MAP) Pulse Ox O2 Delivery O2 Flow Rate FiO2 01/26/17 04:00 48 01/26/17 04:00 96 Room Air 01/26/17 04:00 98.4 49 18 121/62 (81) 94 01/26/17 00:00 98.4 53 20 108/53 (71) 97 01/26/17 00:00 52 01/26/17 00:00 97 Nasal Cannula 2.00 01/25/17 21:27 97 21 01/25/17 20:00 97 Room Air 01/25/17 20:00 50 01/25/17 20:00 98.4 50 22 109/64 (79) 97 Arterial Line 01/25/17 18:10 Nasal Cannula 2.00 01/25/17 16:00 97 Nasal Cannula 2.00 01/25/17 15:00 50 01/25/17 15:00 98.4 51 16 109/42 (64) 96 01/25/17 11:30 98.3 56 16 145/67 (93) 99 01/25/17 11:30 98.1 104 16 141/68 (92) 98 128/69 (88) 01/25/17 11:30 104 01/25/17 11:30 97 Nasal Cannula 2.00 01/25/17 08:10 98.3 53 18 170/65 (100) 98 01/26/17 01/26/17 01/26/17 07:00 15:00 23:00 Intake Total 730 ml Output Total 1300 ml Balance -570 ml Exam: R neck incision ok Neuro intact. CN intact Laboratory Laboratory Tests Test 01/25/17 13:37 01/26/17 03:12 White Blood Count 11.1 10.0 Red Blood Count 4.49 4.29 Hemoglobin 13.4 13.0 Hematocrit 39.9 38.8 Mean Corpuscular Volume 88.9 90.3 Mean Corpuscular Hemoglobin 29.9 30.2 Mean Corpuscular Hemoglobin Concent 33.6 33.4 Red Cell Distribution Width 14.6 14.7 Platelet Count 200 202 Mean Platelet Volume 9.4 9.2 Neutrophils (%) (Auto) 83.9 76.8 Lymphocytes (%) (Auto) 12.8 14.9 Monocytes (%) (Auto) 2.7 8.0 Eosinophils (%) (Auto) 0.3 0.0 Basophils (%) (Auto) 0.3 0.3 Neutrophils # (Auto) 9.3 7.7 Lymphocytes # (Auto) 1.4 1.5 Monocytes # (Auto) 0.3 0.8 Eosinophils # (Auto) 0.0 0.0 Basophils # (Auto) 0.0 0.0 CBC Comment DIFF FINAL DIFF FINAL Differential Comment Blood Urea Nitrogen 19 16 Creatinine 0.59 0.67 Random Glucose 123 115 Calcium Level 9.1 8.8 Phosphorus Level 1.9 4.0 Magnesium Level 2.0 2.2 Sodium Level 139 141 Potassium Level 3.5 4.1 Chloride Level 109 109 Carbon Dioxide Level 21.6 23.0 Anion Gap 8 9 Estimat Glomerular Filtration Rate 101 88 Assessment and Plan Plan Looks great Neuro intact Corazon po Discharge Planning Today after ambulates Sister: Fang Elise (associate professor of english) [phone] Manuel Willams MD Jan 26, 2017 07:53
[2017-01-26] MEDS: BUDESONIDE-FORMOTEROL 160/4.5 MCG INHALER INH SCH (08:56)
[2017-01-26] MEDS: CLOPIDOGREL 75 MG TAB PO SCH (08:57)
[2017-01-26] MEDS: MULTIVITAMINS/MINERALS THERAPEUTIC TAB PO SCH (08:57)
[2017-01-26] MEDS: DOCUSATE SODIUM 100 MG CAP PO SCH (08:57)
[2017-01-26] MEDS: amLODIPine BESYLATE 5 MG TAB PO SCH (08:57)
[2017-01-26] MEDS: CHOLECALCIFEROL (VIT D3) 5000 UNIT CAP PO SCH (08:57)
[2017-01-26] MEDS: ASPIRIN EC 81 MG TABEC PO SCH (08:58)
[2017-01-26 09:25] VITALS: O2SAT 97
--- NOTE | 2017-01-26 09:31 | PD.VS.DC ---
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 No stroke, TIA or amaurosis. Presents for R CEA Procedure(s): R CEA Significant Findings GENERAL: Alert in NAD/GCS 15/ SKIN: Warm and dry. Pt w/o neurological deficits Denies H/A Incision to R neck intact with surgical glue no s/d Laboratory Tests Test 01/25/17 13:37 01/26/17 03:12 White Blood Count 11.1 TH/MM3 (4.0-11.0) Neutrophils (%) (Auto) 83.9 % (16.0-70.0) 76.8 % (16.0-70.0) Neutrophils # (Auto) 9.3 TH/MM3 (1.8-7.7) Blood Urea Nitrogen 19 MG/DL (7-18) Random Glucose 123 MG/DL (74-106) 115 MG/DL (74-106) Phosphorus Level 1.9 MG/DL (2.5-4.9) Chloride Level 109 MEQ/L (98-107) 109 MEQ/L (98-107) Estimat Glomerular Filtration Rate 88 ML/MIN (>89) Hospital Course: 66 yo male with asymptomatic carotid stenosis. No stroke, TIA or amaurosis. Presents for R CEA Pt POD 1 w/o complications or neurological deficits Allergies Coded Allergies Type Severity Reaction Last Updated Verified Sulfa (Sulfonamide Antibiotics) Allergy Severe Hives 01/25/17 No amiodarone Allergy Severe Rash 01/25/17 Yes furosemide Allergy Severe Rash 01/25/17 Yes lisinopril Allergy Severe Rash 01/25/17 Yes 01/24/17 01/24/17 01/25/17 01/25/1701/26/17 10/26/17 06:00 18:00 06:00 18:00 06:00 18:00 Intake Total 1720 ml 730 ml Output Total 1280 ml 1300 ml Balance 440 ml -570 ml Intake Oral 820 ml 480 ml IV Total 250 ml Other 900 ml Output Urine Total 1150 ml 1300 ml Estimated Blood Loss 50 ml Other 80 ml # Bowel Movements 0 Laboratory Tests Test 01/25/17 13:37 01/26/17 03:12 White Blood Count 11.1 TH/MM3 10.0 TH/MM3 Red Blood Count 4.49 MIL/MM3 4.29 MIL/MM3 Hemoglobin 13.4 GM/DL 13.0 GM/DL Hematocrit 39.9 % 38.8 % Mean Corpuscular Volume 88.9 FL 90.3 FL Mean Corpuscular Hemoglobin 29.9 PG 30.2 PG Mean Corpuscular Hemoglobin Concent 33.6 % 33.4 % Red Cell Distribution Width 14.6 % 14.7 % Platelet Count 200 TH/MM3 202 TH/MM3 Mean Platelet Volume 9.4 FL 9.2 FL Neutrophils (%) (Auto) 83.9 % 76.8 % Lymphocytes (%) (Auto) 12.8 % 14.9 % Monocytes (%) (Auto) 2.7 % 8.0 % Eosinophils (%) (Auto) 0.3 % 0.0 % Basophils (%) (Auto) 0.3 % 0.3 % Neutrophils # (Auto) 9.3 TH/MM3 7.7 TH/MM3 Lymphocytes # (Auto) 1.4 TH/MM3 1.5 TH/MM3 Monocytes # (Auto) 0.3 TH/MM3 0.8 TH/MM3 Eosinophils # (Auto) 0.0 TH/MM3 0.0 TH/MM3 Basophils # (Auto) 0.0 TH/MM3 0.0 TH/MM3 CBC Comment DIFF FINAL DIFF FINAL Differential Comment Blood Urea Nitrogen 19 MG/DL 16 MG/DL Creatinine 0.59 MG/DL 0.67 MG/DL Random Glucose 123 MG/DL 115 MG/DL Calcium Level 9.1 MG/DL 8.8 MG/DL Phosphorus Level 1.9 MG/DL 4.0 MG/DL Magnesium Level 2.0 MG/DL 2.2 MG/DL Sodium Level 139 MEQ/L 141 MEQ/L Potassium Level 3.5 MEQ/L 4.1 MEQ/L Chloride Level 109 MEQ/L 109 MEQ/L Carbon Dioxide Level 21.6 MEQ/L 23.0 MEQ/L Anion Gap 8 MEQ/L 9 MEQ/L Estimat Glomerular Filtration Rate 101 ML/MIN 88 ML/MIN Orders Procedure Category Date Status Time Sodium Chlorid 0.9% MED 01/25/17 In Process 500 Ml Inj (Ns 500 M 07:30 Metoprolol Tartrate MED 01/25/17 In Process (Lopressor) 07:30 Chlorhexidine 2% MED 01/25/17 In Process Cloth (Chlorhexidine 07:30 Insulin Human Regular MED 01/25/17 In Process Inj (Novolin R Inj 07:30 Lactated Ringer's MED 01/25/17 In Process 1000 Ml Inj (Lr 1000 M 07:30 Protamine Sulfate Inj MED 01/25/17 Complete (Protamine Sulfate 08:32 Heparin Inj (Heparin MED 01/25/17 Complete Inj) 08:32 Bupivacaine Pf 0.5% MED 01/25/17 Complete Inj (Marcaine Pf 0.5 08:32 Thrombin Top [place] MED 01/25/17 Complete (Thrombin Top [place]) 08:32 Heparin-Ns/Pf Inj MED 01/25/17 Complete (Heparin-Ns/Pf Inj) 08:32 Type And Screen BBK 01/25/17 Complete 08:43 Admit To Inpatient ADMITTING 01/25/17 Transmitted Code Status CODE 01/25/17 Transmitted 08:51 Vital Signs (Adult) YEN 01/25/17 In Process 08:51 Marine Underwriter / YEN 01/25/17 In Process Telemetry 08:51 Activity Bed Rest YEN 01/25/17 In Process 08:51 Notify Parameters YEN 01/25/17 In Process 08:51 Diet Heart Healthy DIET 01/25/17 Transmitted Breakfast Basic Metabolic Panel LAB 01/26/17 Complete (Bmp) 03:00 Consult Project Management Professional CONS 01/25/17 Transmitted Consult Pt Eval & PT 01/25/17 Logged Treat 08:51 Oxycodone (Roxicodone) MED 01/25/17 In Process 09:00 Hydromorphone MED 01/25/17 In Process (Dilaudid) 09:00 Docusate Sodium MED 01/25/17 In Process (Colace) 12:00 Scd Bilateral/Knee YEN 01/25/17 Complete High 08:51 Inpatient ADMITTING 01/25/17 Transmitted Certification Albuterol Hfa Inh MED 01/25/17 In Process (Proair Hfa Inh) 09:00 Amlodipine (Norvasc) MED 01/25/17 In Process 12:00 Aspirin Ec (Ecotrin MED 01/25/17 In Process Ec) 12:00 Atorvastatin (Lipitor) MED 01/25/17 In Process 21:00 Budeson-Formot MED 01/25/17 In Process 160-4.5 Mg Inh 13:00 Cholecalciferol MED 01/25/17 In Process (Vitamin D3) 13:00 Clopidogrel (Plavix) MED 01/25/17 In Process 12:00 Multivitamins-Minerals MED 01/25/17 In Process Therap (Theragran 13:00 Cefazolin 2 Gm Premix MED 01/25/17 Complete (Ancef 2 Gm Premix 09:12 (Hub Use Only)Inp Phy CONS 01/25/17 Transmitted Cons/Ref Morphine Inj MED 01/25/17 In Process (Morphine Inj) 09:00 Urinary Catheter YEN 01/25/17 Complete Management 09:46 Nitroglycerin-D5w 50 MED 01/25/17 Complete Mg/250 Ml (Nitrogly 10:30 Protamine Sulfate Inj MED 01/25/17 Complete (Protamine Sulfate 10:30 Am Admit Pre Op Care [facility] 01/25/17 Complete ^ Other Nursing Orders YEN 01/25/17 In Process 11:27 Enoxaparin Inj MED 01/26/17 In Process (Lovenox Inj) 10:00 Complete Blood Count LAB 01/26/17 Complete With Diff 03:00 Magnesium (Mg) LAB 01/26/17 Complete 03:00 Phosphorus (Po4) LAB 01/26/17 Complete 03:00 Basic Metabolic Panel LAB 01/25/17 Complete (Bmp) 12:02 Complete Blood Count LAB 01/25/17 Complete With Diff 12:02 Magnesium (Mg) LAB 01/25/17 Complete 12:02 Phosphorus (Po4) LAB 01/25/17 Complete 12:02 Albuterol-Ipratropium MED 01/25/17 In Process Neb (Duoneb Neb) 12:15 Albuterol-Ipratropium MED 01/25/17 In Process Neb (Duoneb Neb) 16:00 ^ Medication Admin YEN 01/25/17 In Process Instruction 15:[address]: Isidro BARLOW 01/25/17 In Process 15:51 Potassium Chlor 40 MED 01/25/17 In Process Meq Premix (Kcl 40 Me 16:00 Potassium Chlor 20 MED 01/25/17 In Process Meq Premix (Kcl 20 Me 16:00 Potassium Chloride MED 01/25/17 In Process Eff (K-Lyte Cl Eff) 16:00 Potassium Chlor 40 MED 01/25/17 In Process Meq Premix (Kcl 40 Me 16:00 Potassium Chlor 20 MED 01/25/17 In Process Meq Premix (Kcl 20 Me 16:00 Magnesium Sulfate Inj MED 01/25/17 In Process (Magnesium Sulfate 16:00 Magnesium Oxide MED 01/25/17 In Process (Mag-Ox) 16:00 Magnesium Sulfate Inj MED 01/25/17 In Process (Magnesium Sulfate 16:00 Potassium Phosphate MED 01/25/17 In Process (K-Phos) 16:00 Sodium Phosphate Inj MED 01/25/17 In Process (Sodium Phosphate I 16:00 Potassium Phosphate MED 01/25/17 In Process (K-Phos) 16:00 Potassium Phosphate MED 01/25/17 In Process Inj (Potassium Phosp 16:00 ^ Other Nursing Orders YEN 01/25/17 In Process 16:46 Remove Urinary YEN 01/25/17 In Process Catheter 16:46 Activity Oob Ad Judith YEN 01/25/17 In Process 17:00 Attending Discharge DISCHARGE 01/26/17 Transmitted Order Vital Signs Date Time Temp Pulse Resp B/P (MAP) Pulse Ox O2 Delivery O2 Flow Rate FiO2 01/26/17 08:00 97 Room Air 01/26/17 07:00 98.5 53 18 117/57 (77) 94 01/26/17 07:00 53 01/26/17 04:00 48 01/26/17 04:00 96 Room Air 01/26/17 04:00 98.4 49 18 121/62 (81) 94 01/26/17 00:00 98.4 53 20 108/53 (71) 97 01/26/17 00:00 52 01/26/17 00:00 97 Nasal Cannula 2.00 01/25/17 21:27 97 21 01/25/17 20:00 97 Room Air 01/25/17 20:00 50 01/25/17 20:00 98.4 50 22 109/64 (79) 97 Arterial Line 01/25/17 18:10 Nasal Cannula 2.00 01/25/17 16:00 97 Nasal Cannula 2.00 01/25/17 15:00 50 01/25/17 15:00 98.4 51 16 109/42 (64) 96 01/25/17 11:30 98.3 56 16 145/67 (93) 99 01/25/17 11:30 98.1 104 16 141/68 (92) 98 128/69 (88) 01/25/17 11:30 104 01/25/17 11:30 97 Nasal Cannula 2.00 01/25/17 08:10 98.3 53 18 170/65 (100) 98 Discharge Condition: Good Discharge Disposition: Discharge Home Discharge Instructions: Activities as tolerated May shower NO tub baths/swimming until incision if fully healed No driving while taking narcotic pain medication Leave incision open to air Do not apply any creams or ointments to the incision site as it may loosen the surgical glue Itzel HOLDER [facility] [phone] Any questions or concerns: Call [facility] at [facility] [phone] Itzel Toth Jan 26, 2017 09:31
--- NOTE | 2017-01-26 09:31 | HHI.CCPN ---
Subjective Remarks/Hospital Course The patient is a 66-year-old female with a past medical history of hypertension , coronary artery disease, hypothyroidism, asymptomatic carotid surgery stenosis. She underwent a right carotid an endarterectomy earlier today by Dr. Willams. The patient was given approximately 900 mL fluids and had EBL of 50 mL. She was transferred to CV/ICU and critical care medicine was consulted for critical care management. When seen, she is on two liters nasal cannula with sats 99%, a blood pressure 154/55. The patient is awake, alert lying comfortable in bed in no acute distress. She denies any chest pain or shortness of breath. She denies any nausea, vomiting or abdominal pain. 01/26 No events overnight. Patient is lying in bed in NAD Objective Vital Signs Date Time Temp Pulse Resp B/P (MAP) Pulse Ox O2 Delivery O2 Flow Rate FiO2 01/26/17 09:25 97 21 01/26/17 08:00 Room Air 01/26/17 07:00 98.5 53 18 117/57 (77) 01/26/17 00:00 2.00 Intake and Output 01/26/17 01/26/17 01/27/17 08:00 16:00 00:00 Intake Total 730 ml Output Total 1300 ml Balance -570 ml Result Diagram: 01/26/17 0312 01/26/17 0312 Other Results Laboratory Tests Test 01/25/17 13:37 01/26/17 03:12 White Blood Count 11.1 TH/MM3 10.0 TH/MM3 Red Blood Count 4.49 MIL/MM3 4.29 MIL/MM3 Hemoglobin 13.4 GM/DL 13.0 GM/DL Hematocrit 39.9 % 38.8 % Mean Corpuscular Volume 88.9 FL 90.3 FL Mean Corpuscular Hemoglobin 29.9 PG 30.2 PG Mean Corpuscular Hemoglobin Concent 33.6 % 33.4 % Red Cell Distribution Width 14.6 % 14.7 % Platelet Count 200 TH/MM3 202 TH/MM3 Mean Platelet Volume 9.4 FL 9.2 FL Neutrophils (%) (Auto) 83.9 % 76.8 % Lymphocytes (%) (Auto) 12.8 % 14.9 % Monocytes (%) (Auto) 2.7 % 8.0 % Eosinophils (%) (Auto) 0.3 % 0.0 % Basophils (%) (Auto) 0.3 % 0.3 % Neutrophils # (Auto) 9.3 TH/MM3 7.7 TH/MM3 Lymphocytes # (Auto) 1.4 TH/MM3 1.5 TH/MM3 Monocytes # (Auto) 0.3 TH/MM3 0.8 TH/MM3 Eosinophils # (Auto) 0.0 TH/MM3 0.0 TH/MM3 Basophils # (Auto) 0.0 TH/MM3 0.0 TH/MM3 CBC Comment DIFF FINAL DIFF FINAL Differential Comment Blood Urea Nitrogen 19 MG/DL 16 MG/DL Creatinine 0.59 MG/DL 0.67 MG/DL Random Glucose 123 MG/DL 115 MG/DL Calcium Level 9.1 MG/DL 8.8 MG/DL Phosphorus Level 1.9 MG/DL 4.0 MG/DL Magnesium Level 2.0 MG/DL 2.2 MG/DL Sodium Level 139 MEQ/L 141 MEQ/L Potassium Level 3.5 MEQ/L 4.1 MEQ/L Chloride Level 109 MEQ/L 109 MEQ/L Carbon Dioxide Level 21.6 MEQ/L 23.0 MEQ/L Anion Gap 8 MEQ/L 9 MEQ/L Estimat Glomerular Filtration Rate 101 ML/MIN 88 ML/MIN Objective Remarks GENERAL: Patient is 66 yo lying in bed in NAD SKIN: Warm and dry. HEAD: Normocephalic. EYES: No scleral icterus. No injection or drainage. NECK: Supple, trachea midline. No JVD or lymphadenopathy. CARDIOVASCULAR: Regular rate and rhythm without murmurs, gallops, or rubs. RESPIRATORY: Breath sounds equal bilaterally. No accessory muscle use. GASTROINTESTINAL: Abdomen soft, non-tender, nondistended. MUSCULOSKELETAL: No cyanosis, or edema. Neuro: Awake and alert A/P Assessment and Plan 1. Status post right carotid endarterectomy. 2. Respiratory insufficiency. 3. Hypertension 4. Coronary artery disease 5. History of CABG. 6. Hypothyroidism 7. Anxiety disorder Plan Neuro Monitor neuro status and avoid any sedatives. Pulm: Continue with oxygen and maintain sats above 92%. Bronchodilators/ Symbicort 160/4.5 one puff q. 12. CV: Monitor heart rate and blood pressure maintain MAP> mmHg. Echo in May showed an EF of 40-45%. Continue with aspirin 81 mg daily, Lipitor 40 mg p.o. q.h.s., Norvasc 5 mg daily, Plavix 75 mg daily. : Monitor renal function I's and O's and electrolyte replacement as needed. GI: On p.o. heart healthy diet. ID: Monitor for signs of infections( fever and WBC). Endo: SSI if needed for glycemic control. Heme: Monitor CBC. DVT prophylaxis with Lovenox 30 mg subcu daily For Discharge today Level 1 Olamide Cornejo MD Jan 26, 2017 09:31
[2017-01-26] MEDS ORDERED: ENOXAPARIN SODIUM 30 MG/0.3 ML SYRINGE SQ SCH (10:00)
--- NOTE | 2017-01-26 11:33 | MP ---
cc: MANUEL WILLAMS MD DATE OF SURGERY 01/25/2017 PREOPERATIVE DIAGNOSIS High-grade right carotid stenosis. POSTOPERATIVE DIAGNOSIS High-grade right carotid stenosis. PROCEDURE Right carotid endarterectomy. ATTENDING SURGEON Manuel Willams MD ANESTHESIA General. INDICATIONS Ms. Franklin is a lady with high-grade right carotid stenosis and, after a thorough discussion was had about the merits and risks of prophylactic carotid endarterectomy she was offered the procedure and agreed. DESCRIPTION OF PROCEDURE Informed consent was obtained from the patient. She was taken to the operating room and placed supine on the operating room table and appropriate time-out was taken to insure the patient's identity, the operative site and the planned procedure. The administration of 2 grams of Ancef was administered prior to the skin incision and will be discontinued after a single preoperative dose. Everyone in the room agreed with the time-out and we proceeded. Her right neck was prepped and draped and then incision made along the anterior border of the sternocleidomastoid and carried down in the subcutaneous tissue with electrocautery. The facial vein as ligated between silk suture and several other smaller tributaries of the jugular vein were also ligated. The common carotid artery was identified and dissected free and encircled with a vessel loop. We then dissected up to the internal carotid artery and the external carotid artery; both of these were dissected free. The plaque was noted to be several cm above the internal carotid artery origin, then we dissected up extensively through this. The hypoglossal nerve was clearly identified and carefully retracted. At this point, the patient was systemically heparinized and, once the ACT was confirmed to be greater than 250, distal, then proximal control of the carotid artery were obtained with profunda clamps and a longitudinal arteriotomy was made with an 11 blade and extended with Ellis scissors. There were no EEG changes and so the procedure was performed without a shunt. The carotid artery was endarterectomized with out difficulty and a nice distal endpoint was obtained. Bovine pericardial patch was then brought up onto the field and sewn on with running 5-0 Prolene suture. At the completion of the sutures, the clamps were released. The suture line was noted to be hemostatic. There was a nice Doppler signal in the internal carotid artery and external carotid artery. The wound was irrigated. The heparin was reversed with protamine. The wound was closed with 2-0 Polysorb, 3-0 Polysorb, and 4-0 Monocryl. Sponge and needle counts were correct at the end of the case. I was present and scrubbed and performed the entire procedure. At the conclusion of the case, the patient was awoken from anesthesia and was neurologically intact before transporting to the Intensive Care Unit. MD THAD Jacobson/MARIE /9:35 PM /11:20 AM
== END 2017-01-26 11:40 | disposition home or self-care (01) | DRG 39 ==
LOC: HSDI 06:54 → HCVI 11:25
PROVIDERS: ADMIT Surgery; ATTEND Surgery
PROC: 03CH0ZZ Extirpation of Matter from Right Common Carotid Artery, Open Approach (ICD-10-PCS; 2017-01-25)
PROC: 03UH0KZ Supplement Right Common Carotid Artery with Nonautologous Tissue Substitute, Open Approach (ICD-10-PCS; 2017-01-25)
PROC: 03CK0ZZ Extirpation of Matter from Right Internal Carotid Artery, Open Approach (ICD-10-PCS; principal; 2017-01-25 09:03)
DX: I65.21 Occlusion and stenosis of right carotid artery (principal); I10 Essential (primary) hypertension; I25.10 Atherosclerotic heart disease of native coronary artery without angina pectoris; Z95.1 Presence of aortocoronary bypass graft; E03.9 Hypothyroidism, unspecified; Z96.643 Presence of artificial hip joint, bilateral; E78.5 Hyperlipidemia, unspecified; R06.89 Other abnormalities of breathing; F41.9 Anxiety disorder, unspecified
CPT/HCPCS: 80048; 83735; 84100; 85025; 86850; 86900; 86901; 94640; 94664; C1768; J0690; J1100; J1644; J1650; J2270; J2370; J2405; J2710; J2720; J3010; J7040; J7050

== ENCOUNTER 2017-04-18 16:47 | Inpatient (IN) | payer MEDICARE, BC ==
[~2017-04-18] VITALS: Ht 162.6 cm; Wt 96.5 kg
[~2017-04-18 16:47] MED LIST changes: -ASPI-110 PO; +ASPI1TAB57 PO; -IBUP200T2 PO; +IBUP200T47 PO; +NYST0.1P TOPICAL
[2017-04-18 17:10] VITALS: BP 147/71; PULSE 47; RESP 18; TEMP 97.9; O2SAT 99
[2017-04-18] MEDS ORDERED: SENNOSIDES 8.6 MG TAB PO PRN (17:30)
[2017-04-18] MEDS ORDERED: NALOXONE HCL 0.4 MG/ML AMP IV PUSH PRN (17:30)
[2017-04-18] MEDS ORDERED: SODIUM CHLORIDE 0.9% FLUSH 10 ML FLUSH IV FLUSH PRN (17:30)
[2017-04-18] MEDS ORDERED: ACETAMINOPHEN 325 MG TAB PO PRN (17:30)
[2017-04-18] MEDS ORDERED: ONDANSETRON HCL 4 MG/2 ML VIAL IVP PRN (17:30)
--- NOTE | 2017-04-18 17:43 | HHI.HP ---
[facility] Velvet Mcdermott MD Admission Diagnosis Diagnoses: Chief Complaint: Lightheadedness Travel History International Travel<30 Days: No Contact w/Intl Traveler <30 Da: No Traveled to Known Affected Are: No History of Present Illness This patient is a 67-year-old female with known history coronary artery disease status post cardiac bypass in 2017. She has had chronic bradycardia for several months. Most recently she began having lightheadedness lasting about 4- 5 seconds per her report. She was lightheaded while driving and told over. When she got home she took her pulse and the heart rate was in the 40s. She denies any syncopal episodes but says she feels that she will pass out if she doesn't sit down. She had been on amiodarone post cardiac bypass with this was discontinued due to bradycardia. She follows up with her timber selector and called the timber selector today. Biochemistry Specialist on-call instructed her to go to the emergency room which she did. Her heart rate has been in the 40s and 50s but it is sinus bradycardia. At this time she has no chest pain or shortness of breath. She's had no fever. There've been no new changes in her medications. The patient is admitted to this hospital for probable symptomatic bradycardia. Review of Systems Constitutional: COMPLAINS OF: Dizziness, DENIES: Diaphoretic episodes, Fatigue , Fever, Weight gain, Weight loss, Chills, Change in appetite, Night Sweats Endocrine: DENIES: Abnorml menstrual pattern, Heat/cold intolerance, Polydipsia , Polyuria, Polyphagia Eyes: DENIES: Blurred vision, Diplopia, Eye inflammation, Eye pain, Vision loss , Photosensitivity, Double Vision Ears, nose, mouth, throat: DENIES: Tinnitus, Hearing loss, Vertigo, Nasal discharge, Oral lesions, Throat pain, Hoarseness, Ear Pain, Running Nose, Epistaxis, Sinus Pain, Toothache, Odynophagia Respiratory: DENIES: Apneas, Cough, Snoring, Wheezing, Hemoptysis, Sputum production, Shortness of breath Cardiovascular: DENIES: Chest pain, Palpitations, Syncope, Dyspnea on Exertion , PND, Lower Extremity Edema, Orthopnea, Claudication Gastrointestinal: DENIES: Abdominal pain, Black stools, Bloody stools, Constipation, Diarrhea, Nausea, Vomiting, Difficulty Swallowing, Anorexia Genitourinary: DENIES: Abnormal vaginal bleeding, Dysmenorrhea, Dyspareunia, Sexual dysfunction, Urinary frequency, Urinary incontinence, Urgency, Hematuria , Dysuria, Nocturia, Vaginal discharge Musculoskeletal: DENIES: Joint pain, Muscle aches, Stiffness, Joint Swelling, Back pain, Neck pain Integumentary: DENIES: Abnormal pigmentation, Pruritus, Rash, Nail changes, Breast masses, Breast skin changes, Nipple discharge Hematologic/lymphatic: DENIES: Bruising, Lymphadenopathy Neurologic: DENIES: Abnormal gait, Headache, Localized weakness, Paresthesias, Seizures, Speech Problems, Tremor, Poor Balance Psychiatric: DENIES: Anxiety, Confusion, Mood changes, Depression, Hallucinations, Agitation, Suicidal Ideation, Homicidal Ideation, Delusions Past Family Social History Past Medical History Bradycardia Coronary artery disease Hyperlipidemia Carotid stenosis Obstructive sleep apnea COPD Past Surgical History Carotid endarterectomy of the right 2016 Cardiac bypass 2016 Reported Medications Reviewed in the EMR Allergies: Coded Allergies: Sulfa (Sulfonamide Antibiotics) (Unverified Allergy, Severe, Hives, ) amiodarone (Verified Allergy, Severe, Rash , 04/18/17) furosemide (Verified Allergy, Severe, Rash , 04/18/17) lisinopril (Verified Allergy, Severe, Rash, 04/18/17) Active Ordered Medications Reviewed in the EMR Family History Mother from lung and colon cancer Father from likely body dementia (autopsy proven) Physical Exam Vital Signs Vital Signs Date Time Temp Pulse Resp B/P (MAP) Pulse Ox O2 Delivery O2 Flow Rate FiO2 04/18/17 17:10 97.9 47 18 147/71 (96) 99 Physical Exam GENERAL: This is a well-nourished, well-developed patient, in no apparent distress. SKIN: No rashes, ecchymoses or lesions. Cool and dry. HEAD: Atraumatic. Normocephalic. No temporal or scalp tenderness. EYES: Pupils equal round and reactive. Extraocular motions intact. No scleral icterus. No injection or drainage. ENT: Nose without bleeding, purulent drainage or septal hematoma. Throat without erythema, tonsillar hypertrophy or exudate. Uvula midline. Airway patent. NECK: Trachea midline. No JVD or lymphadenopathy. Supple, nontender, no meningeal signs. CARDIOVASCULAR: Sinus bradycardia without murmurs, gallops, or rubs. RESPIRATORY: Clear to auscultation. Breath sounds equal bilaterally. No wheezes , rales, or rhonchi. GASTROINTESTINAL: Abdomen soft, non-tender, nondistended. No hepato-splenomegaly , or palpable masses. No guarding. MUSCULOSKELETAL: Extremities without clubbing, cyanosis, or edema. No joint tenderness, effusion, or edema noted. No calf tenderness. Negative Homans sign bilaterally. NEUROLOGICAL: Awake and alert. Cranial nerves II through XII intact. Motor and sensory grossly within normal limits. Five out of 5 muscle strength in all muscle groups. Normal speech. Laboratory Reviewed from outside facility Imaging None available Course Had suffered from [place]cher VTE Risk Assessment Caprini VTE Risk Assessment: Mod/High Risk (score >= 2) Caprini Risk Assessment Model Point Value = 1 Point Value = 2 Point Value = 3 Point Value = 5 Age 41-60 Minor surgery BMI > 25 kg/m2 Swollen legs Varicose veins or History of unexplained or recurrent spontaneous Oral contraceptives or hormone replacement Sepsis (< 1 month) Serious lung disease, including pneumonia (< 1 month) Abnormal pulmonary function Acute myocardial infarction Congestive heart failure (< 1 month) History of inflammatory bowel disease Medical patient at bed rest Age 61-74 Arthroscopic surgery Major open surgery (> 45 min) Laparoscopic surgery (> 45 min) Malignancy Confined to bed (> 72 hours) Immobilizing plaster cast Central venous access Age >= 75 History of VTE Family history of VTE Factor V Leiden Prothrombin [id number] Lupus anticoagulant Anticardiolipin antibodies Elevated serum homocysteine Heparin-induced thrombocytopenia Other congenital or acquired thrombophilia Stroke (< 1 month) Elective arthroplasty Hip, pelvis, or leg fracture Acute spinal cord injury (< 1 month) Prophylaxis Regimen Total Risk Factor Score Risk Level Prophylaxis Regimen 0-1 Low Early ambulation 2 Moderate Order ONE of the following: *Sequential Compression Device (SCD) *Heparin 5000 units SQ BID 3-4 Higher Order ONE of the following medications: *Heparin 5000 units SQ TID *Enoxaparin/Lovenox 40 mg SQ daily (WT < 150 kg, CrCl > 30 mL/min) *Enoxaparin/Lovenox 30 mg SQ daily (WT < 150 kg, CrCl > 10-29 mL/min) *Enoxaparin/Lovenox 30 mg SQ BID (WT < 150 kg, CrCl > 30 mL/min) AND/OR *Sequential Compression Device (SCD) 5 or more Highest Order ONE of the following medications: *Heparin 5000 units SQ TID (Preferred with Epidurals) *Enoxaparin/Lovenox 40 mg SQ daily (WT < 150 kg, CrCl > 30 mL/min) *Enoxaparin/Lovenox 30 mg SQ daily (WT < 150 kg, CrCl > 10-29 mL/min) *Enoxaparin/Lovenox 30 mg SQ BID (WT < 150 kg, CrCl > 30 mL/min) AND *Sequential Compression Device (SCD) Assessment and Plan Problem List: (1) Symptomatic bradycardia ICD Code: R00.1 - Bradycardia, unspecified Status: Acute Plan: In a patient with known coronary artery disease Patient off any inotropic medications, will continue atorvastatin, Plavix and aspirin Cardiology follow-up pending Continue telemetry Fall precautions (2) STACEY (obstructive sleep apnea) ICD Code: G47.33 - Obstructive sleep apnea (adult) (pediatric) Plan: Patient on poorly adherent with C Pap at home and has declined this initiative while in the hospital Taisha Estrella MD Apr 18, 2017 17:43
[2017-04-18 20:00] VITALS: BP 157/69; PULSE 48; PULSE 51; RESP 20; TEMP 97.8; O2SAT 99
--- NOTE | 2017-04-18 20:50 | RADRPT ---
EXAM DATE/TIME: 04/18/2017 20:28 [place] COMPARISON: No previous studies available for comparison. INDICATIONS : Dizziness. Hypertension. MEDICAL HISTORY : Hypertension. Cardiovascular disease. Myocardial infarction.Asthma. Congestive heart failure. SURGICAL HISTORY : CABG. ENCOUNTER: Initial ACUITY: 1 week PAIN SCORE: 0/10 LOCATION: Bilateral chest FINDINGS: PA and lateral views of the chest demonstrate the lungs to be symmetrically aerated without evidence of mass, infiltrate or effusion. The cardiomediastinal contours are unremarkable. Osseous structure s are intact. Median sternotomy wires. CONCLUSION: No acute disease. Sammy Garza Jr., MD on April 18, 2017 at 20:47 Board Certified Radiologist. This report was verified electronically.
[2017-04-18] MEDS: SODIUM CHLORIDE 0.9% FLUSH 10 ML FLUSH IV FLUSH SCH (22:15)
[2017-04-18] MEDS: ZOLPIDEM TARTRATE 5 MG TAB PO PRN (23:50)
[2017-04-19] VITALS (9 sets, daily range): BP systolic 130–161; BP diastolic 61–97; PULSE 46–53; RESP 18–20; TEMP 96.3–98.3; O2SAT 96–99
[2017-04-19 06:22] LABS: AUTOMATED NEUTROPHIL # 2.6 TH/MM3 (1.8-7.7); BASOPHIL # 0.1 TH/MM3 (0-0.2); BASOPHIL % 1.1 % (0.0-2.0); EOSINOPHIL # 0.2 TH/MM3 (0-0.4); EOSINOPHIL % 2.6 % (0.0-4.0); HEMATOCRIT 41.8 % (35.0-46.0); HEMOGLOBIN 13.4 GM/DL (11.6-15.3); LYMPH % 40.2 % (9.0-44.0); LYMPHOCYTE # 2.5 TH/MM3 (1.0-4.8); MEAN CELL VOLUME 90.6 FL (80.0-100.0); MEAN CORPUSCULAR HEMOGLOBIN 29.1 PG (27.0-34.0); MEAN CORPUSCULAR HGB CONC 32.1 % (32.0-36.0); MEAN PLATELET VOLUME 8.3 FL (7.0-11.0); MONOCYTE # 0.7 TH/MM3 (0-0.9); NEUT % 44.1 % (16.0-70.0); PLATELET COUNT 234 TH/MM3 (150-450); RED BLOOD COUNT 4.61 MIL/MM3 (4.00-5.30); RED CELL DISTRIBUTION WIDTH 15.2 % (11.6-17.2); WHITE BLOOD COUNT 6.1 TH/MM3 (4.0-11.0)
[2017-04-19 06:29] LABS: CALCIUM 8.8 MG/DL (8.5-10.1)
[2017-04-19 06:30] LABS: BICARBONATE 26.6 MEQ/L (21.0-32.0)
[2017-04-19 06:33] LABS: CREATININE 0.65 MG/DL (0.50-1.00)
[2017-04-19] MEDS: SODIUM CHLORIDE 0.9% FLUSH 10 ML FLUSH IV FLUSH SCH ×2 (08:42→21:00)
--- NOTE | 2017-04-19 09:53 | EKG ---
Date Performed: 04/18/2017 Time Performed: 18:15:11 PTAGE: 67 years EKG: SINUS BRADYCARDIA BORDERLINE ECG PREVIOUS TRACING : 07/03/2016 19.21 DOCTOR: Juanjo Chamberlain Interpretating Date/Time 04/19/2017 09:52:47
--- NOTE | 2017-04-19 10:56 | HHI.PR ---
Subjective Remarks Patient seen and evaluated today in follow-up for bradycardia. Patient still with dizziness. Case discussed with EP cardiology residential solar consultant who recommended transfer for further evaluation of her pacer Patient is in agreement Objective Vitals Vital Signs Date Time Temp Pulse Resp B/P (MAP) Pulse Ox O2 Delivery O2 Flow Rate FiO2 04/19/17 08:00 97.9 48 18 142/65 (90) 99 04/19/17 04:00 97.4 46 20 144/73 (96) 98 04/19/17 00:00 97.6 53 20 139/97 (111) 97 04/18/17 20:00 97.8 48 20 157/69 (98) 99 04/18/17 20:00 97.8 48 20 157/69 (98) 99 04/18/17 20:00 51 04/18/17 17:10 97.9 47 18 147/71 (96) 99 I/O 04/18/17 04/18/17 04/18/17 04/19/17 04/19/17 04/19/17 07:00 15:00 23:00 07:00 15:00 23:00 Intake Total 120 ml Balance 120 ml Intake Oral 120 ml # Voids 2 # Bowel Movements 0 Result Diagram: 04/19/17 0550 04/19/17 0550 Objective Remarks GENERAL: This is a well-nourished, well-developed patient, in no apparent distress. Postsurgical CABG Scar is clean CARDIOVASCULAR: Sinus bradycardia without murmurs, gallops, or rubs. RESPIRATORY: Clear to auscultation. Breath sounds equal bilaterally. No wheezes , rales, or rhonchi. GASTROINTESTINAL: Abdomen soft, non-tender, nondistended. Normal active bowel sounds MUSCULOSKELETAL: Extremities without clubbing, cyanosis, or edema. NEURO: Alert & Oriented x4 to person, place, time, situation. Moves all ext x4 A/P Problem List: (1) Symptomatic bradycardia ICD Code: R00.1 - Bradycardia, unspecified Status: Acute Plan: In a patient with known coronary artery disease May need pacemaker Transferred to [facility] transfer to [facility] for pacemaker eval Patient off any inotropic medications, will continue atorvastatin, Plavix and aspirin Continue telemetry Fall precautions (2) STACEY (obstructive sleep apnea) ICD Code: G47.33 - Obstructive sleep apnea (adult) (pediatric) Plan: Patient on poorly adherent with C Pap at home and has declined this initiative while in the hospital Taisha Estrella MD Apr 19, 2017 10:56
[2017-04-19] MEDS: NYSTATIN 100,000 U/GM PWD 15 GM BTL TOPICAL PRN (17:10)
[2017-04-19] MEDS ORDERED: NYSTATIN 100,000 U/GM PWD 15 GM BTL TOPICAL SCH (21:00)
[2017-04-20] VITALS (25 sets, daily range): BP systolic 127–162; BP diastolic 60–84; PULSE 42–67; RESP 14–20; TEMP 97.6–98.5; O2SAT 95–98
[2017-04-20] MEDS: diphenhydrAMINE HCL 25 MG CAP PO PRN ×2 (04:58→21:09)
[2017-04-20 07:33] LABS: INTERNATIONAL NORMALIZED RATIO 1.1 RATIO; PROTHROMBIN TIME - PATIENT 10.9 SEC (9.8-11.6)
[2017-04-20 07:41] LABS: AUTOMATED NEUTROPHIL # 2.6 TH/MM3 (1.8-7.7); BASOPHIL # 0.1 TH/MM3 (0-0.2); BASOPHIL % 1.4 % (0.0-2.0); EOSINOPHIL # 0.2 TH/MM3 (0-0.4); EOSINOPHIL % 2.7 % (0.0-4.0); HEMATOCRIT 41.5 % (35.0-46.0); LYMPH % 43.1 % (9.0-44.0); LYMPHOCYTE # 2.7 TH/MM3 (1.0-4.8); MEAN CELL VOLUME 90.2 FL (80.0-100.0); MEAN CORPUSCULAR HEMOGLOBIN 30.5 PG (27.0-34.0); MEAN CORPUSCULAR HGB CONC 33.8 % (32.0-36.0); MEAN PLATELET VOLUME 8.6 FL (7.0-11.0); MONO % 11.7 % (0.0-8.0); MONOCYTE # 0.7 TH/MM3 (0-0.9); NEUT % 41.1 % (16.0-70.0); PLATELET COUNT 235 TH/MM3 (150-450); RED CELL DISTRIBUTION WIDTH 15.4 % (11.6-17.2); WHITE BLOOD COUNT 6.3 TH/MM3 (4.0-11.0)
[2017-04-20 07:47] LABS: BICARBONATE 24.4 MEQ/L (21.0-32.0); CREATININE 0.71 MG/DL (0.50-1.00)
[2017-04-20] MEDS: SODIUM CHLORIDE 0.9% FLUSH 10 ML FLUSH IV FLUSH SCH ×2 (09:44→21:09)
--- NOTE | 2017-04-20 11:31 | HHI.PR ---
Subjective Remarks Follow-up symptomatic bradycardia 04/20/17-patient seen and examined, heart rate still low and patient with occasional dizziness otherwise stable Objective Vitals Vital Signs Date Time Temp Pulse Resp B/P (MAP) Pulse Ox O2 Delivery O2 Flow Rate FiO2 04/20/17 10:00 50 04/20/17 09:00 48 04/20/17 08:00 46 04/20/17 08:00 98.5 47 14 155/70 (98) 98 04/20/17 07:00 44 04/20/17 06:08 48 04/20/17 05:04 45 04/20/17 04:26 52 04/20/17 03:27 44 04/20/17 03:27 98.0 42 18 127/60 (82) 97 04/20/17 02:04 67 04/20/17 01:06 47 04/20/17 00:35 45 04/19/17 23:30 98.3 49 19 130/61 (84) 96 04/19/17 23:30 48 04/19/17 22:00 48 04/19/17 21:30 46 04/19/17 20:00 97.3 50 20 161/71 (101) 98 04/19/17 16:00 97.2 49 20 146/74 (98) 99 04/19/17 12:00 96.3 50 20 159/71 (100) 98 I/O 04/19/17 04/19/17 04/19/17 04/20/17 04/20/17 04/20/17 07:00 15:00 23:00 07:00 15:00 23:00 Intake Total 120 ml 850 ml 240 ml Balance 120 ml 850 ml 240 ml Intake Oral 120 ml 850 ml 240 ml # Voids 2 5 4 # Bowel Movements 0 Result Diagram: 04/20/17 0703 04/20/17 0703 Imaging Last Impressions Chest X-Ray 04/18/17 0000 Signed Impressions: Service Date/Time: Tuesday, April 18, 2017 20:28 - CONCLUSION: No acute disease. Sammy Garza Jr., MD Objective Remarks GENERAL: NAD SKIN: Warm and dry. HEAD: Normocephalic. EYES: No scleral icterus. No injection or drainage. NECK: Supple, trachea midline. No JVD or lymphadenopathy. CARDIOVASCULAR: Bradycardia Regular rate and rhythm without murmurs, gallops, or rubs. RESPIRATORY: Breath sounds equal bilaterally. No accessory muscle use. GASTROINTESTINAL: Abdomen soft, non-tender, nondistended. MUSCULOSKELETAL: No cyanosis, or edema. BACK: Nontender without obvious deformity. No CVA tenderness. A/P Problem List: (1) Symptomatic bradycardia ICD Code: R00.1 - Bradycardia, unspecified Status: Acute (2) STACEY (obstructive sleep apnea) ICD Code: G47.33 - Obstructive sleep apnea (adult) (pediatric) Assessment and Plan 67 year-old female with Symptomatic bradycardia Awaiting for evaluation from individual pension adviser dr Oscar Continue with aspirin, Plavix Hold all inotropic agents COPD No current exacerbation Resume outpatient medications Hyperlipidemia Resume Lipitor Obstructive sleep apnea Patient is refusing CPAP Jose Alberto Chavez MD Apr 20, 2017 11:30
[2017-04-20] MEDS ORDERED: IBUPROFEN 200 MG TAB PO PRN (14:30)
[2017-04-20] MEDS ORDERED: ALBUTEROL SULFATE 90 MCG/ACT HFA 18 GM INHALER INH PRN (14:30)
[2017-04-20] MEDS ORDERED: ALBUTEROL SULFATE 90 MCG/ACT HFA 8 GM INHALER INH PRN (15:00)
[2017-04-20] MEDS ORDERED: ATORVASTATIN 40 MG TAB PO SCH (21:00)
[2017-04-20] MEDS: NYSTATIN 100,000 U/GM PWD 15 GM BTL TOPICAL PRN (21:08)
[2017-04-20] MEDS: BUDESONIDE-FORMOTEROL 160/4.5 MCG INHALER INH SCH (21:09)
[2017-04-20] MEDS: ZOLPIDEM TARTRATE 5 MG TAB PO PRN (21:09)
[2017-04-21] VITALS (23 sets, daily range): BP systolic 142–174; BP diastolic 64–77; PULSE 42–74; RESP 16–20; TEMP 97.6–98.6; O2SAT 96–100
[2017-04-21] MEDS ORDERED: ASPIRIN EC 81 MG TABEC PO SCH (09:00)
[2017-04-21] MEDS ORDERED: CHOLECALCIFEROL (VIT D3) 5000 UNIT CAP PO SCH (09:00)
[2017-04-21] MEDS ORDERED: MULTIVITAMINS/MINERALS THERAPEUTIC TAB PO SCH (09:00)
[2017-04-21] MEDS ORDERED: CLOPIDOGREL 75 MG TAB PO SCH (09:00)
[2017-04-21] MEDS ORDERED: amLODIPine BESYLATE 5 MG TAB PO SCH (09:00)
--- NOTE | 2017-04-21 09:38 | HHI.PR ---
Subjective Remarks Follow-up symptomatic bradycardia 04/20/17-patient seen and examined, heart rate still low and patient with occasional dizziness otherwise stable 04/21/17-patient seen and examined, although heart still low however patient denies any symptoms. Plan for EPS today Objective Vitals Vital Signs Date Time Temp Pulse Resp B/P (MAP) Pulse Ox O2 Delivery O2 Flow Rate FiO2 04/21/17 08:00 51 04/21/17 07:00 98.6 59 16 149/73 (98) 97 04/21/17 07:00 55 04/21/17 06:27 49 04/21/17 05:01 74 04/21/17 04:13 42 04/21/17 03:50 97.9 43 19 145/68 (93) 100 04/21/17 03:46 43 04/21/17 02:30 42 04/21/17 01:19 49 04/21/17 00:36 50 04/20/17 23:07 43 04/20/17 23:04 98.1 49 20 149/67 (94) 98 04/20/17 22:00 45 04/20/17 21:00 42 04/20/17 20:00 59 04/20/17 19:00 98.4 59 19 135/84 (101) 96 04/20/17 19:00 56 04/20/17 18:00 48 04/20/17 17:00 46 04/20/17 17:00 16 04/20/17 16:00 52 04/20/17 15:00 97.6 48 16 162/72 (102) 98 04/20/17 15:00 50 04/20/17 14:00 56 04/20/17 13:00 56 04/20/17 12:00 53 04/20/17 11:00 53 16 141/65 (90) 95 04/20/17 11:00 48 04/20/17 10:00 50 I/O 04/20/17 04/20/17 04/20/17 04/21/17 04/21/17 04/21/17 07:00 15:00 23:00 07:00 15:00 23:00 Intake Total 240 ml 720 ml 480 ml Balance 240 ml 720 ml 480 ml Intake Oral 240 ml 720 ml 480 ml # Voids 4 6 6 # Bowel Movements 1 Result Diagram: 04/20/17 0703 04/20/17 0703 Imaging Last Impressions Chest X-Ray 04/18/17 0000 Signed Impressions: Service Date/Time: Tuesday, April 18, 2017 20:28 - CONCLUSION: No acute disease. Sammy Garza Jr., MD Objective Remarks GENERAL: NAD SKIN: Warm and dry. HEAD: Normocephalic. EYES: No scleral icterus. No injection or drainage. NECK: Supple, trachea midline. No JVD or lymphadenopathy. CARDIOVASCULAR: Bradycardia Regular rate and rhythm without murmurs, gallops, or rubs. RESPIRATORY: Breath sounds equal bilaterally. No accessory muscle use. GASTROINTESTINAL: Abdomen soft, non-tender, nondistended. MUSCULOSKELETAL: No cyanosis, or edema. BACK: Nontender without obvious deformity. No CVA tenderness. A/P Problem List: (1) Symptomatic bradycardia ICD Code: R00.1 - Bradycardia, unspecified Status: Acute (2) STACEY (obstructive sleep apnea) ICD Code: G47.33 - Obstructive sleep apnea (adult) (pediatric) Assessment and Plan 67 year-old female with Symptomatic bradycardia Plan for EPS today 04/21/[address] Oscar Continue with aspirin, Plavix Hold all inotropic agents COPD No current exacerbation Continue with outpatient medications Hyperlipidemia On Lipitor Obstructive sleep apnea Patient is refusing CPAP Jose Alberto Chavez MD Apr 21, 2017 09:38
[2017-04-21] MEDS: SODIUM CHLORIDE 0.9% FLUSH 10 ML FLUSH IV FLUSH SCH (09:52)
[2017-04-21] MEDS: BUDESONIDE-FORMOTEROL 160/4.5 MCG INHALER INH SCH (09:52)
[2017-04-21] MEDS ORDERED: LIDOCAINE HCL 1% PF 5 ML SYRINGE OTHER ONE (12:00)
[2017-04-21] MEDS ORDERED: ePHEDrine/NS 25 MG/5 ML SYRINGE IV ONE (12:00)
[2017-04-21] MEDS ORDERED: PROPOFOL 200 MG/20 ML AMP IV ONE (12:00)
[2017-04-21] MEDS ORDERED: ceFAZolin INJ 1,000 MG VIAL IV ONE (12:00)
[2017-04-21] MEDS ORDERED: ISOPROTERENOL HCL 1 MG/5 ML AMP ONE (14:52)
--- NOTE | 2017-04-21 15:18 | CATHPROC ---
Patient Name: ANAIS QUIROZ Study #: [id number] Initial MD: Jay Oscar Date of : 1950 Study Date: 04/21/2017 Cardiac Catheterization Report 04/21/2017 3:36:56 PM Financial #: [id number] 1 of 7 Patient Name: ANAIS QUIROZ Study #: [id number] Initial MD: Jay Oscar Date of : 1950 Study Date: 04/21/2017 Entire Case Report Patient Information Patient Name ANAIS QUIROZ Date of 1950 Age 67 years Financial # [id number] Gender F AlternateID Lab Number 2 Room Number 450 Height (in) 64.0 Height (cm) 162.6 BSA 2.01 Weight (lbs) 212.3 Weight (kg) 96.5 Patient Address/Phone Number Home Address [facility] Home Phone Number [facility] [id number] Study Information Study Number Admission Scheduled Start Study Start [id number] Apr 18 2017 5:37PM 04/21/2017 Apr 21 2017 1:29PM [facility] Cardiac Pacer/ICD Admit Source Facility Department Other [facility] - Machine Trimmer Physician and Clinical Staff Initial Jay Cabrera Maintenance Man Valerie Burrell,HEALTH COACH TECH2 Other Anesthesia, BUSINESS DEVELOPMENT CONSULTANT Recorder Monica Al,MAGALIE Scrub Pati Abrams,RT(R) TECH2 Procedures Performed Procedure Ablation Procedure 04/21/2017 3:36:56 PM Financial #: [id number] 2 of 7 Patient Name: ANAIS QUIROZ Study #: [id number] Initial MD: Jay Oscar Date of : 1950 Study Date: 04/21/2017 Equipment Time Billet Heater Description Size Mfg Part Number Used/Scraped [id number] 13:32 MEDLINE INDUSTRIES PACK, CCL CUSTOM * Used *[id number] 13:32 MEDLINE PACER ROBINS, LIMB * 2530 *[id number] Used [id number] 13:32 [employer] BLANKET,WARM AIR CCL * Used *[id number] 14:19 [employer] MEDICAL CATHETER, JSN, QUAD FR 5 Used *[id number] 14:19 [employer] MEDICAL CATHETER, JSN, QUAD FR 5 Used *[id number] 14:19 [employer] MEDICAL CATHETER, JSN, QUAD FR 5 Used *[id number] 14:19 [employer] MEDICAL CATHETER, JSN, QUAD FR 5 Used *[id number] 14:19 [employer] MEDICAL SHEATH, EPS, FR5 FAST CATH FR 5 Used *[id number] [id number] 14:19 [employer] MEDICAL SHEATH, EPS, FR5 FAST CATH FR 5 Used *[id number] 14:19 [employer] MEDICAL SHEATH, EPS, FR5 FAST CATH FR 5 Used *[id number] 14:19 [employer] MEDICAL SHEATH, EPS, FR6 FAST CATH FR 6 Used *[id number] Insurance Information Insurance Payor Medicare Third Democrat Third Democrat Number MEDICARE A B MCRAB History: Allergies Allergy Reaction Sulfa (Sulfonamide Antibiotics) Hives lisinopril Rash furosemide Rash amiodarone Rash History: Risk Factors Hypertension Dyslipidemia Previous AL Yes Yes Yes Prior CABG Yes Chronic Lung Disease Yes Labs 04/21/2017 3:36:56 PM Financial #: [id number] 3 of 7 Patient Name: ANAIS QUIROZ Study #: [id number] Initial MD: Jay Oscar Date of : 1950 Study Date: 8 Hgb (g/dl) Hct (%) WBC (l/cumm) Platelets (thousands) 11.60-17.00 35.00-51.00 4.00-11.00 150.00-450.00 14.0 41 6.3 235 Glucose (mg/dl) BUN (mg/dl) Creatinine (mg/dl) BUN:Creatinine (1:x) 74.00-106.00 7.00-18.00 0.50-1.30 10.00-20.00 92 15 0.7 21.4 Na (meq/l) K (meq/l) 136.00-145.00 3.50-5.10 141 3.7 INR (PTT:PT) 0.90-1.10 1.1 Medication Medication Total Dose (Bolus/Oral) Medication Total Dosage/Unit 1% XYLOCAINE 20 mL Medications (Bolus/Oral) Medication Time Given Dosage/Unit Administered By Reason 1% XYLOCAINE 04/21/2017 2:48:48 PM 20 mL Jay Oscar 20 mL 1% XYLOCAINE given in lab by Jay Oscar in Right Groin via Subcutaneous. Medication (Drip) Medication Time Given Dosage/Unit Concentration/Unit Diluent (ml) Solution ISUPREL 04/21/2017 3:09:17 PM 4 mcg/min 1 mg 250 NaCl .9 4 mcg/min ISUPREL given in lab by MADELEINE Bates via Peripheral IV. Pump/Drip Flow = 60 ml/hr using NaCl .9 with a concentration of 1 mg in 250 ml. Ordered by Jay Oscar. Reason: As per physicians verbal order. 04/21/2017 3:36:56 PM Financial #: [id number] 4 of 7 Patient Name: ANAIS QUIROZ Study #: [id number] Initial MD: Jay Oscar Date of : 1950 Study Date: 04/21/2017 Initial Case Assessment Cardiovascular HR Rhythm NIBP Chest Pain 47 sb 181/78 0 Edema Present Skin color Skin None Normal Warm Dry Circulatory - Right Pulses Dorsalis Pedis 1 Scale (0,1,2,3,4,d) Circulatory - Left Pulses Dorsalis Pedis 1 Scale (0,1,2,3,4,d) Circulatory - Lower Extremities Color Lower Right Color Lower Left Normal Normal Neurological State Oriented to time-place- Alert Moves all extremities person Respiration - General Respiration Rate SpO2 (%) (B/min) 20 100 Chronological Log Time Study Chronological Log 13:57:56 Patient arrived via Bed. 13:57:57 Patient Name, D.O.B, / Armband Verified By R.N. 13:57:58 Consent signed by the physician and the patient and verified by the Machine Trimmer staff. 13:57:58 Pre-op and post- op instructions given; patient acknowledges understanding of instructions. 13:57:59 Verbal Stimulation=2 Physical Stimulation=2 Airway=2 Respiration=2 TOTAL=8. (0=absent, 1=li mited, 2=present) 13:58:09 Anesthesia at bedside. Assumes care of patient. Jena 13:58:15 Patient has been NPO for More than 6Hrs. 13:58:16 Skin Breakdown- 13:58:17 Patient Warmer Placed on the Table. 04/21/2017 3:36:56 PM Financial #: [id number] 5 of 7 Patient Name: ANAIS QUIROZ Study #: [id number] Initial MD: Jay Oscar Date of : 1950 Study Date: 04/21/2017 13:58:22 Disposable Defibrillator Pads Placed On Patient. 13:58:23 Chang Prominences Protected 13:58:24 A # 20 IV was noted in the Forearm (right). Grade = 0 0.9ns kvo 13:58:25 A # 20 IV was noted in the Forearm (left). Grade = 0 0.9ns kvo 13:58:27 History and physical on the chart or being dictated. Assessment: Initial Case, HR=47 BPM, Rhythm=sb, YNTZ=591/78 mmhg, Chest Pain=0, Edema=None, Col or=Normal, Skin = Warm, Dry Right Pulses: Hung Ped=1 Left Pulses: Hung Ped=1 14:10:41 Lower Right Extremities: Color=Normal Lower Left Extremities: Color=Normal Neurological: State=Alert, Ox3, SAL[place] Respiration: Resp=20 B/min, XrA8=013 % 14:13:39 Table restraints applied according to hospital policy 14:14:16 Table restraints applied according to hospital policy 14:14:22 Right groin prepped with 2% chlorhexidine, and draped after a 3 min. waiting time. 14:19:00 MD paged 14:32:03 Reference ECG taken 14:44:46 MD arrived. Time Out. Correct patient, procedure, procedure equipment, site and side verified with physicia n present. Time 14:48:39 concurred by MD, individual staff and BUSINESS DEVELOPMENT CONSULTANT. Time Out #2 - Consents verified, patient in correct position, all results are labled and displa yed, safety precautions 14:48:41 taken, antibiotics administered. Time out concurred by MD, individual staff and BUSINESS DEVELOPMENT CONSULTANT in procedu re 14:48:45 Case Start 14:48:48 20 mL 1% XYLOCAINE given in lab by Jay Oscar in Right Groin via Subcutaneous. 14:49:25 Vascular access was obtained in the Fem Vein (right). 14:49:30 A SHEATH, EPS, FR5 FAST CATH FR 5 was advanced into the Fem Vein (right) using the Modified Seldinger technique. 14:49:41 A SHEATH, EPS, FR5 FAST CATH FR 5 was advanced into the Fem Vein (right) using the Modified Seldinger technique. 14:49:44 A SHEATH, EPS, FR5 FAST CATH FR 5 was advanced into the Fem Vein (right) using the Modified Seldinger technique. 14:49:47 A SHEATH, EPS, FR6 FAST CATH FR 6 was advanced into the Fem Vein (right) using the Modified Seldinger technique. A CATHETER, JSN, QUAD FR 5 was advanced vis Fem Vein (right) and placed in the HRA. Placement w as visually 14:52:09 confirmed under fluoroscopy. A CATHETER, JSN, QUAD FR 5 was advanced vis Fem Vein (right) and placed in the HIS. Placement w as visually 14:52:54 confirmed under fluoroscopy. A CATHETER, JSN, QUAD FR 5 was advanced vis Fem Vein (right) and placed in the RVA. Placement w as visually 14:52:59 confirmed under fluoroscopy. A CATHETER, JSN, QUAD FR 5 was advanced vis Fem Vein (right) and placed in the RVOT. Placement was visually 14:53:04 confirmed under fluoroscopy. 14:53:26 EP STUDY IN PROGRESS 4 mcg/min ISUPREL given in lab by Anesthesia, BUSINESS DEVELOPMENT CONSULTANT via Peripheral IV. Pump/Drip Flow = 60 ml/hr using NaCl .9 with 15:09:17 a concentration of 1 mg in 250 ml. Ordered by Jay sOcar. Reason: As per physicians verbal o rder. 15:14:27 ISUPREL OFF. 15:16:30 Catheters removed without difficulty. 15:16:42 Sheath(s) left in place, 0.9nskvo connected, secured and will be removed in Holding Area 04/21/2017 3:36:56 PM Financial #: [id number] 6 of 7 Patient Name: ANAIS QUIROZ Study #: [id number] Initial MD: Jay Oscar Date of : 1950 Study Date: 04/21/2017 15:17:10 Case End 15:17:19 No case complications noted. 15:17:19 Sterile dressing applied to site 15:17:20 Cine recording checked. 15:36:33 Ablation procedure performed: ~ABLATION TYPE~. none 15:36:42 EP Procedure was performed. EPS End Study - Contrast Media Used In Study Contrast Total Opened (mL) Total Used (mL) Total Wasted (mL) Unspecified 0 0 0 End Study - Maximum Contrast Load Max Contrast Load (mL) 689.3 End Study - Radiation Exposure Fluoro Time (minutes) 0.9 End Study - Patient Disposition Complications Transferred To Interventional Outcome No Machine Trimmer Holding successful 04/21/2017 3:36:56 PM Financial #: [id number]
--- NOTE | 2017-04-21 15:36 | CATHPROC ---
Patient Name: ANAIS QUIROZ Study #: [id number] Initial MD: Jay Oscar Date of : 1950 Study Date: 04/21/2017 Cardiac Catheterization Report 04/24/2017 9:10:45 AM Financial #: [id number] 1 of 6 Patient Name: ANAIS QUIROZ Study #: [id number] Initial MD: Jay Oscar Date of : 1950 Study Date: 04/21/2017 Entire Case Report Patient Information Patient Name ANAIS QUIROZ Date of 1950 Age 67 years Financial # [id number] Gender F AlternateID Lab Number 2 Room Number 450 Height (in) 64.0 Height (cm) 162.6 BSA 2.01 Weight (lbs) 212.3 Weight (kg) 96.5 Patient Address/Phone Number Home Address [facility] Home Phone Number [facility] [address] Study Information Study Number Admission Scheduled Start Study Start [id number] Apr 18 2017 5:37PM 04/21/2017 Apr 21 2017 3:19PM [place] Service Electrophysiology Study Admit Source Facility Department Other [facility] - Supervisor Electron Tube Processing Physician and Clinical Staff Initial Jay Cabrera Industrial Registered Nurse Luis F Barth,RN Industrial Registered Nurse Valerie Burrell,MULTIFOCAL BUTTON GRINDER TECH2 Other Anesthesia, VISUAL EFFECTS ARTIST Recorder Monica Al,MAGALIE Scrub Pati Abrams,RT(R) TECH2 Equipment Time Cyber Security Instructor Description Size Mfg Part Number Used/Scraped [id number] 15:21 MEDLINE INDUSTRIES PACK, CCL CUSTOM * Used *[id number] 15:21 MEDLINE PACER ROBINS, LIMB * 2530 *[id number] Used [id number] 15:21 [employer] MED[employer] BLANKET,WARM AIR CCL * Used *[id number] 09:10 [employer] RECORDER, M CONFIRM RX [id number] Used Equipment Model, Serial, Lot Number and Expiration Data Description Model Number Serial Number Lot Number Expiration Date RECORDER, [facility] CONFIRM [id number] 07-02-2018 04/24/2017 9:10:45 AM Financial #: [id number] 2 of 6 Patient Name: ANAIS QUIROZ Study #: [id number] Initial MD: Jay Oscar Date of : 1950 Study Date: 04/21/2017 Insurance Information Insurance Payor Medicare Third Green Party Third Green Party Number MEDICARE A B MCRAB History: Allergies Allergy Reaction furosemide Rash amiodarone Rash Sulfa (Sulfonamide Antibiotics) Hives lisinopril Rash Medication Medication Total Dose (Bolus/Oral) Medication Total Dosage/Unit 2% XYLOCAINE 50 mL Medications (Bolus/Oral) Medication Time Given Dosage/Unit Administered By Reason 2% XYLOCAINE 04/21/2017 3:23:56 PM 50 mL Jay Oscar 50 mL 2% XYLOCAINE given by Anesthesia, VISUAL EFFECTS ARTIST in Left upper chest via Subcutaneous. Ordered by Jay Oscar. Medication (Drip) Medication Time Given Dosage/Unit Concentration/Unit Diluent (ml) Solution ANCEF 04/21/2017 3:26:07 PM 2 g 2 g ANCEF given by Anesthesia, VISUAL EFFECTS ARTIST via Peripheral IV. Ordered by Jay Oscar. Reason: As per physi cians verbal order. 04/24/2017 9:10:45 AM Financial #: [id number] 3 of 6 Patient Name: ANAIS QUIROZ Study #: [id number] Initial MD: Jay Oscar Date of : 1950 Study Date: 04/21/2017 Final Case Assessment Cardiovascular HR Rhythm NIBP Chest Pain 75 sr 158/70 0 Edema Present Skin color Skin None Normal Warm Circulatory - Right Pulses Dorsalis Pedis 1 Scale (0,1,2,3,4,d) Circulatory - Left Pulses Dorsalis Pedis 1 Scale (0,1,2,3,4,d) Circulatory - Lower Extremities Color Lower Right Color Lower Left Normal Normal Neurological State Drowsy Moves all extremities Respiration - General Respiration Rate SpO2 (%) O2 (lpm) (B/min) 16 99 6 04/24/2017 9:10:45 AM Financial #: [id number] 4 of 6 Patient Name: ANAIS QUIROZ Study #: [id number] Initial MD: Jay Oscar Date of : 1950 Study Date: 04/21/2017 Chronological Log Time Study Chronological Log 15:17:38 NOTE: This patient is undergoing an additional procedure while still in the Cardiac Cath L ab. 15:17:47 Initial procedure has been completed. Beginning additional procedure. 15:17:48 2% CHLORHEXIDINE GLUCONATE WASH AND NASAL SWIPE DONE PRIOR TO PROCEDURE. 15:17:50 Anesthesia remains at bedside. Assuming care of patient. 15:20:38 Left Upper Chest Prepped Times Two. Time Out. Correct patient, procedure, procedure equipment, site and side verified with physici an present. Time 15:22:42 concurred by MD, individual staff and VISUAL EFFECTS ARTIST. 15:22:45 Case Start 15:23:56 50 mL 2% XYLOCAINE given by Anesthesia, VISUAL EFFECTS ARTIST in Left upper chest via Subcutaneous. Ordered by Jay Oscar. 2 g ANCEF given by Anesthesia, VISUAL EFFECTS ARTIST via Peripheral IV. Ordered by Jay Oscar. Reason: As pe r physicians verbal 15:26:07 order. 15:27:[address] by Dr Oscar A RECORDER, [facility] CONFIRM RX was connected and placed in the pocket. Ref [id number], EX:07/02/18, SN [id number] St 15:27:19 Brian Loop recorder 15:30:25 Implant Procedure was performed. loop 15:30:36 A Loop Recorder Inserted . 15:31:06 Reference ECG taken 15:31:17 Steri-strips and a sterile dressing applied to site. 15:31:39 CPCU called. Spoke to Ric 15:31:40 Bedside Report will be given. 15:31:50 Steri-strips and a sterile dressing applied to site. 15:32:05 Sheaths removed; pressure applied to access sites by . Assessment: Final Case, HR=75 BPM, Rhythm=sr, VPSC=267/70 mmhg, Chest Pain=0, Edema=None, [place] r=Normal, Skin = Warm Right Pulses: Hung Ped=1 Left Pulses: Hung Ped=1 15:33:48 Lower Right Extremities: Color=Normal Lower Left Extremities: Color=Normal Neurological: State=Drowsy, [place] Respiration: Resp=16 B/min, SpO2=99 %, O2=6 lpm 15:35:36 Case End 15:47:31 Sterile dressing applied to site End Study - Contrast Media Used In Study Contrast Total Opened (mL) Total Used (mL) Total Wasted (mL) Unspecified 0 0 0 04/24/2017 9:10:45 AM Financial #: [id number] 5 of 6 Patient Name: ANAIS QUIROZ Study #: [id number] Initial MD: Jay Oscar Date of : 1950 Study Date: 04/21/2017 End Study - Radiation Exposure Fluoro Time (minutes) 0.0 End Study - Sheaths Sheaths Pulled By Sheath Hold Time (min) Pati Abrams 15 End Study - Patient Disposition Complications Transferred To Interventional Outcome No Telemetry Bed successful 04/24/2017 9:10:45 AM Financial #: [id number] 6 of 6
[2017-04-21] MEDS ORDERED: SODIUM CHLOR 0.9% 250 ML INJ 250 ML IV PRN (15:45)
[2017-04-21] MEDS ORDERED: ATROPINE SULFATE 1 MG/ML VIAL IV PUSH PRN (15:45)
[2017-04-21] MEDS ORDERED: ONDANSETRON HCL 4 MG/2 ML VIAL IV PUSH PRN (15:45)
[2017-04-21] MEDS ORDERED: BACITRACIN OINT 0.9 GM PKT TOP ONE (15:45)
[2017-04-21] MEDS ORDERED: oxyCODONE/ACETAMINOPHEN 5 MG/325 MG TAB PO PRN ×2 (15:45)
[2017-04-21] MEDS ORDERED: LORazepam 2 MG/ML VIAL IV PUSH PRN (15:45)
[2017-04-21] MEDS ORDERED: LIDOCAINE HCL 1% 50 ML VIAL INFIL PRN (15:45)
[2017-04-21] MEDS ORDERED: METOCLOPRAMIDE HCL 10 MG/2 ML VIAL IV PUSH PRN (15:45)
[2017-04-21] MEDS ORDERED: MIDAZOLAM HCL 2 MG/2 ML VIAL ONE (15:47)
[2017-04-21] MEDS ORDERED: HEPARIN-NS/PF INJ 500 ML ONE (16:12)
--- NOTE | 2017-04-21 16:48 | MB ---
cc: MARCIANO THOMAS M.D. DATE OF CONSULTATION: 04/20/2017. REASON FOR CONSULTATION: Syncopal episode. HISTORY OF PRESENT ILLNESS: Mrs. Franklin is a 67-year-old female with recurrent episodes of syncope, history of coronary artery disease, coronary artery bypass grafting in 2017 who was recently readmitted due to syncopal episode. Some bradycardia was observed. I was consulted for evaluation and management. The chart was reviewed. The patient was evaluated. ALLERGIES: 1. SULFA. 2. AMIODARONE. 3. LASIX. 4. LISINOPRIL. SOCIAL HISTORY: Negative for smoking and drinking. FAMILY HISTORY: Noncontributory to her current medical condition. MEDICATIONS: The patient is currently on: 1. Amlodipine 5 milligrams a day. 2. Aspirin 81 milligrams a day. 3. Lipitor 40 milligrams a day. 4. Plavix 75 milligrams a day. 5. Ibuprofen. 6. A multivitamin. REVIEW OF SYSTEMS: The patient refers no chest pain. No chest discomfort. No fever. Some episodes of syncope. PHYSICAL EXAMINATION: GENERAL: Alert, fully oriented. VITAL SIGNS: Blood pressure 141/69, pulse 48, respiratory rate 18. LUNGS: Ventilated. CARDIOVASCULAR: S1-S2. No gallop. No murmur. ABDOMEN: Abdomen soft, no mass. No bruits. EXTREMITIES: No edema. EKGS: Electrocardiogram shows sinus rhythm. No significant S-T and T wave changes. Sinus bradycardia. LABORATORY DATA: Hemoglobin 14, white blood cell 6.3. Creatinine 0.71, potassium 3.7. TSH 0.791. INR 1.1. ASSESSMENT AND RECOMMENDATIONS: Mrs. Franklin has recurrent episodes of syncope. ____ are very confused. She refers she has dizziness despite her heart rate sometimes is in the 50s to 60s. She refers some palpitations also. There is no clear symptomatic bradycardia. There is no clear indication for a permanent pacemaker. At this point, the best approach is an electrophysiology study. If there is any conduction disease or tachyarrhythmia induced, then the device will be inserted. Otherwise, she will require a loop recorder. The case was extensively discussed with her. The risks, the nature and the benefits of the procedure were clearly stated to her. The risks include pneumothorax, cardiac perforation, stroke and even . She understood and agreed to proceed. The procedure will be performed during the hospitalization. MD MAURO King/KATELIN /3:38 PM /4:33 PM
--- NOTE | 2017-04-21 16:48 | MA ---
cc: MARCIANO THOMAS M.D. DATE: 04/21/2017 TYPE OF PROCEDURE: Electrophysiology study, CS cannulation, repeat electrophysiology study on Isuprel infusion. HISTORY OF PRESENT ILLNESS: Mrs. Franklin is a 67-year-old female with recurrent episode of syncope. No clear significantly cardia with history of coronary artery disease will undergo electrophysiology study. The risks, the nature and the benefit of the procedure are clearly stated to her risks include pneumothorax, inguinal hematoma a cardiac perforation and even . The patient understood and agreed to proceed. PROCEDURE After written informed consent was obtained, the patient was brought to the EP lab where she was prepped and draped in the usual sterile fashion. Conscious sedation was initiated and maintained throughout the procedure by anesthesiologist. Once sedation verified, the right inguinal area was anesthetized with 2% Xylocaine. Using modified Seldinger technique, the right femoral vein was cannulated on four occasion four guidewire were advanced. Over the wire, three 5 and a 6-Armenian Hemaquet were advanced. Then under fluoroscopic guidance through the 5-Armenian Hemaquet, four 5-Armenian Cristina curved quadripolar electrophysiology catheter advanced and was on the his and coronary sinus upper right atrium and right ventricular apex. Basic interval was measured. They were within normal limits. Sinus recovery time were within normal limits. Also then atrial pacing protocol was performed. Wenckebach of the node was around 450 milliseconds. No tachyarrhythmia was induced. Then ventricle pacing protocol was performed. There was VA conduction. No tachyarrhythmia was induced. Then Isuprel was initiated atrial pacing and ventricular pacing protocol was repeated again no tachyarrhythmia was induced at that point procedure was complete. No infra his disease, adequate sinus recovery time, episode of recurrent syncope. Loop recorder will be inserted. No incident report. The patient tolerated procedure. The blood loss minimal. electrocardiogram baseline the patient was in sinus postprocedure electrocardiogram was unchanged. Basic interval. Basic cycle length was around 840 milliseconds AH was around 78 and HV at 58 milliseconds. Atrial pacing protocol or protocol Wenckebach of the node was around 4-50 milliseconds. ERP of 600 360 milliseconds. No tachyarrhythmia was induced. Ventricular pacing protocol there was VA conduction. No tachyarrhythmia was induced. CONCLUSION Negative electrophysiology study for supraventricular tachyarrhythmia, COMMENT/RECOMMENDATIONS The patient going to be kept on the table. The loop recorder will be inserted. MD MAURO King/ /3:35 PM /4:25 PM
--- NOTE | 2017-04-21 17:49 | HHI.DS ---
Discharge Summary Admission Date Apr 18, 2017 at 17:37 Discharge Date: Apr 21, 2017 Admitting Diagnosis (1) Symptomatic bradycardia ICD Code: R00.1 - Bradycardia, unspecified Status: Acute (2) STACEY (obstructive sleep apnea) ICD Code: G47.33 - Obstructive sleep apnea (adult) (pediatric) Procedures Loop Recorder inserted 04/21/17 Brief History - From Admission This patient is a 67-year-old female with known history coronary artery disease status post cardiac bypass in 2017. She has had chronic bradycardia for several months. Most recently she began having lightheadedness lasting about 4- 5 seconds per her report. She was lightheaded while driving and told over. When she got home she took her pulse and the heart rate was in the 40s. She denies any syncopal episodes but says she feels that she will pass out if she doesn't sit down. She had been on amiodarone post cardiac bypass with this was discontinued due to bradycardia. She follows up with her marbleizer and called the marbleizer today. Childhood Development Teacher on-call instructed her to go to the emergency room which she did. Her heart rate has been in the 40s and 50s but it is sinus bradycardia. At this time she has no chest pain or shortness of breath. She's had no fever. There've been no new changes in her medications. The patient is admitted to this hospital for probable symptomatic bradycardia. CBC/BMP: 04/20/17 0703 04/20/17 0703 Significant Findings Laboratory Tests Test 04/18/17 18:36 04/19/17 05:50 04/20/17 07:03 Monocytes (%) (Auto) 12.0 % (0.0-8.0) 11.7 % (0.0-8.0) Chloride Level 110 MEQ/L (98-107) 109 MEQ/L (98-107) Activated Partial Thromboplast Time 24.0 SEC (24.3-30.1) Estimat Glomerular Filtration Rate 82 ML/MIN (>89) Imaging Last Impressions Chest X-Ray 04/18/17 0000 Signed Impressions: Service Date/Time: Tuesday, April 18, 2017 20:28 - CONCLUSION: No acute disease. Sammy Garza Jr., MD PE at Discharge GENERAL: NAD SKIN: Warm and dry. HEAD: Normocephalic. EYES: No scleral icterus. No injection or drainage. NECK: Supple, trachea midline. No JVD or lymphadenopathy. CARDIOVASCULAR: Bradycardia Regular rate and rhythm without murmurs, gallops, or rubs. RESPIRATORY: Breath sounds equal bilaterally. No accessory muscle use. GASTROINTESTINAL: Abdomen soft, non-tender, nondistended. MUSCULOSKELETAL: No cyanosis, or edema. BACK: Nontender without obvious deformity. No CVA tenderness. Hospital Course Patient was admitted secondary to symptomatic bradycardia for which pt escort was consulted and patient underwent EPS studies which was reported negative followed by loop recorder insertion. She was continued on the treatment for other chronic medical conditions. DVT and GI prophylaxis were provided. Prior to discharge, patient's condition improved vital remained stable. Pt Condition on Discharge: Good Discharge Disposition: Discharge Home Discharge Time: <= 30 minutes Discharge Instructions DIET: Follow Instructions for: Heart Healthy Diet Activities you can perform: Regular-No Restrictions Follow up Referrals: Cardiology PCP Follow-up - 1 Week Continued Medications: Albuterol 8.5 GM Inh (Proair Hfa 8.5 GM Inh) 90 Mcg/Act Aer 2 PUFF INH Q6H PRN for SHORTNESS OF BREATH, #1 INHALER 0 Refills 108 mcg/actuation Amlodipine (Norvasc) 5 Mg Tab 5 MG PO DAILY for Blood Pressure Management, #30 TAB [address] (Aspirin 81) 81 Mg Tabdr 81 MG PO DAILY, TAB 0 Refills Atorvastatin (Atorvastatin) 40 Mg Tab 1 TAB PO HS for Cholesterol Management, #90 TAB 1 Refill Budesonide-Formoterol Inh (Symbicort Inh) 160-4.5 Mcg/Act Aero 1 PUFF INH Q12HR, #1 INHALER 0 Refills Cholecalciferol (Vitamin D3) 5,000 Unit Cap 5000 UNITS PO DAILY for Nutritional Supplement, #30 CAP 0 Refills Clopidogrel (Plavix) 75 Mg Tab 75 MG PO DAILY for Blood Clot Prevention, #90 TAB 3 Refills Diphenhydramine (Diphenhydramine) 25 Mg Tab 1 TAB PO DAILY PRN for ALLERGIES, TAB 0 Refills Ibuprofen (Ibuprofen) 200 Mg Tab 200 MG PO Q6H PRN for Lower back pain , TAB 0 Refills Multiple Vitamins W/ Minerals (Thera M Plus) 1 Tab 1 TAB PO DAILY for vitamin, #30 TAB 0 Refills Nystatin (Topical) (Nyata) 100,000 Unit/Gram Pow TOPICAL BID Jose Alberto Chavez MD Apr 21, 2017 17:49
--- NOTE | 2017-04-22 14:38 | EKG ---
Date Performed: 04/21/2017 Time Performed: 16:10:56 PTAGE: 67 years EKG: Sinus bradycardia Prolonged QT interval Lateral T wave changes are nonspecific Borderline E CG Since PREVIOUS TRACING , no significant change noted PREVIOUS TRACIN04/18/2017 18.15 DOCTOR: Arnav Low Interpretating Date/Time 04/22/2017 14:36:53
--- NOTE | 2017-04-22 20:54 | MP ---
cc: MARCIANO THOMAS MD DATE OF SURGERY 04/21/17 PROCEDURE Loop recorder insertion Mrs. Franklin is a 67-year-old female with recurrent episode of syncope. Negative electrophysiology study to undergo loop recorder insertion. The risks, the nature and the benefit of the procedure are clearly stated to her. Risks include pneumothorax, cardiac perforation, stroke and even . The patient understood and agreed to proceed. PROCEDURE IN DETAIL As written informed consent was obtained prior to electrophysiology study, the patient was kept on the table where she was prepped and draped in the usual sterile fashion. Sedation was continued and maintained throughout the procedure by anesthesiologist. Once sedation verified, the left parasternal area was anesthetized with 2% Xylocaine. Using a cutter a less than a centimeter incision was made, subsequent to the loop recorder was injected over this under the skin. After adequate sensing obtained, the border reapproximated using 2-0 Ethibond suture. Subsequently Dermabond and Steri-Strips. No incident reported. The patient tolerated procedure. IMPLANTED HARDWARE Implanted loop recorder is a [employer] model number is [id number] serial number [id number]. Sensing is at 0.5 mV. Setting - the device set in a florecita under 40, tachy over 160. Pause over 3 seconds. CONCLUSION Successful loop recorder insertion, COMMENT AND RECOMMENDATIONS The patient is going to be observed, can be discharged home later today. MD MAURO King/ /3:32 PM /8:44 PM
== END 2017-04-21 19:22 | disposition home or self-care (01) | DRG 262 ==
LOC: PHEDDLT 16:47 → PH3A 16:48 → OBSVTOIN 17:37 → HCPC 04-19 20:35
PROVIDERS: ADMIT Hospitalist; ATTEND Hospitalist
PROC: 4A0234Z Measurement of Cardiac Electrical Activity, Percutaneous Approach (ICD-10-PCS; principal; 2017-04-21)
PROC: 0JH632Z Insertion of Monitoring Device into Chest Subcutaneous Tissue and Fascia, Percutaneous Approach (ICD-10-PCS; 2017-04-21)
DX: R00.1 Bradycardia, unspecified (principal); J44.9 Chronic obstructive pulmonary disease, unspecified; Z95.1 Presence of aortocoronary bypass graft; E78.5 Hyperlipidemia, unspecified; G47.33 Obstructive sleep apnea (adult) (pediatric); I25.10 Atherosclerotic heart disease of native coronary artery without angina pectoris; R42 Dizziness and giddiness; R55 Syncope and collapse; Z88.2 Allergy status to sulfonamides; Z88.8 Allergy status to other drugs, medicaments and biological substances
CPT/HCPCS: 33282; 71046; 80048; 84443; 84484; 85025; 85610; 85730; 93005; 93620; 93623; 99285; C1730; C1764; J0690; J1644; J2250; J3010

== ENCOUNTER 2017-04-28 14:30 | Emergency (ER) | payer MEDICARE, BC ==
[~2017-04-28 14:30] MED LIST changes: -MECL-62 PO; -OXYC1TAB63 PO
--- NOTE | 2017-04-28 15:31 | PD ---
HPI Chief Complaint: Skin Problem Time Seen by Provider: 15:09 Travel History International Travel<30 days: No Contact w/Intl Traveler<30days: No Traveled to known affect area: No History of Present Illness HPI 67yo F was sent here from [place] ED for ultrasound to evaluate for pseudoaneurysm post heart catheterization. Pt had EPS study and placement of loop recorder 1 week ago. Said she had a small bruise in right groin. However , said her bruise expanded since last night and she became worried. Pt has minimal pain with palpation at the right groin site but really no pain in right thigh. Compartments are soft. Denies any fever, chest pain, sob, n/v, abdominal pain, focal weakness or numbness. Pt is on plavix and aspirin. Denies any anticoagulation. PFSH Past Medical History Hx Anticoagulant Therapy: Yes (PLAVIX, ASA) Arthritis: Yes Asthma: Yes Autoimmune Disease: No Blood Disorders: No Anxiety: Yes Depression: No Heart Rhythm Problems: Yes Cancer: No Cardiovascular Problems: Yes High Cholesterol: Yes Chemotherapy: No Chest Pain: Yes Congestive Heart Failure: Yes COPD: No Cerebrovascular Accident: No Diabetes: No Diminished Hearing: No Endocrine: No Gastrointestinal Disorders: No GERD: No Genitourinary: No Headaches: Yes Hepatitis: No Hiatal Hernia: No Heparin Induced Thrombocytopen: No Hypertension: Yes Immune Disorder: No Implanted Vascular Access Dvce: No Kidney Stones: No Musculoskeletal: Yes (OA DDD) Neurologic: No Psychiatric: No Reproductive: No Respiratory: Yes (asthma) Immunizations Current: Yes Migraines: No Radiation Therapy: No Renal Failure: No Seizures: No Sickle Cell Disease: No Sleep Apnea: Yes Thyroid Disease: No Ulcer: No ?: Not Menopausal: Yes : 0 Para: 0 Past Surgical History Abdominal Surgery: No AICD: No Arteriovenous Shunt: No Cardiac Surgery: Yes (CABGX2) Coronary Artery Bypass Graft: Yes Ear Surgery: No Endocrine Surgery: No Eye Surgery: Yes (Cateracts YARA) Genitourinary Surgery: No Gynecologic Surgery: No Insulin Pump: No Joint Replacement: Yes (Left and right hip) Neurologic Surgery: No Oral Surgery: No Pacemaker: No Thoracic Surgery: No Other Surgery: Yes Social History Alcohol Use: No Tobacco Use: No Substance Use: No Allergies-Medications (Allergen,Severity, Reaction): Coded Allergies: Sulfa (Sulfonamide Antibiotics) (Verified Allergy, Severe, Hives, 04/28/17) amiodarone (Verified Allergy, Severe, Rash , 04/28/17) furosemide (Verified Allergy, Severe, Rash , 04/28/17) lisinopril (Verified Allergy, Severe, Rash, 04/28/17) Reported Meds & Prescriptions Reported Meds & Active Scripts Active Atorvastatin (Atorvastatin Calcium) 40 Mg Tab 1 Tab PO HS Plavix (Clopidogrel Bisulfate) 75 Mg Tab 75 Mg PO DAILY Thera M Plus (Multivitamins/Minerals Therapeutic) 1 Tab 1 Tab PO DAILY Reported Nyata (Nystatin (Topical)) 100,000 Unit/Gram Pow TOPICAL BID Symbicort Inh (Budesonide/Formoterol Fumarate) 160-4.5 Mcg/Act Aero 1 Puff INH Q12HR Norvasc (Amlodipine Besylate) 5 Mg Tab 5 Mg PO DAILY Vitamin D3 (Cholecalciferol) 5,000 Unit Cap 5,000 Units PO DAILY Diphenhydramine (Diphenhydramine HCl) 25 Mg Tab 1 Tab PO DAILY PRN Aspirin 81 (Aspirin) 81 Mg Tabdr 81 Mg PO DAILY Ibuprofen 200 Mg Tab 200 Mg PO Q6H PRN Proair Hfa 8.5 GM Inh (Albuterol Sulfate) 90 Mcg/Act Aer 2 Puff INH Q6H PRN 108 mcg/actuation Review of Systems Except as stated in HPI: all other systems reviewed are Neg Physical Exam Narrative GENERAL: 67yo F not in distress. SKIN: Focused skin assessment warm/dry. HEAD: Atraumatic. Normocephalic. CARDIOVASCULAR: Regular rate and rhythm. No murmur appreciated. RESPIRATORY: No accessory muscle use. Clear to auscultation. Breath sounds equal bilaterally. GASTROINTESTINAL: Abdomen soft, non-tender, nondistended. MUSCULOSKELETAL: Right groin: +Ecchymoses medial thigh to mid thigh. Compartment soft, not tender to palpation. DP 2+. Sensation intact. NEUROLOGICAL: Awake and alert. No obvious cranial nerve deficits. Motor grossly within normal limits. Normal speech. PSYCHIATRIC: Appropriate mood and affect; insight and judgment normal. Data Data Last Documented VS Vital Signs Date Time Temp Pulse Resp B/P (MAP) Pulse Ox O2 Delivery O2 Flow Rate FiO2 04/28/17 18:41 04/28/17 15:37 98.7 49 20 Orders Orders Us Leg Hematoma/Pseudoaneurysm (04/28/17 ) Ed Discharge Order (04/28/17 17:38) [facility] Medical Decision Making Medical Screen Exam Complete: Yes Emergency Medical Condition: Yes Differential Diagnosis Pseudoaneurysm vs. hematoma Narrative Course 67yo F sent here from [place] for US to r/o pseudoaneurysm. US showed hematoma. No pseudoaneurysm. Pt denies any pain and was just worry about the bruising. Return precautions given. Diagnosis Primary Impression: Hematoma Patient Instructions: General Instructions Departure Forms: Tests/Procedures Additional Instructions: Please follow up with your primary care physician in 2-3 days. Return to the ED if symptoms worsen. Med/Other Pt SpecificInfo: No Change to Meds Disposition: 01 DISCHARGE HOME Condition: Stable Nelida Silva DO Apr 28, 2017 15:31
[2017-04-28 15:37] VITALS: BP 140/72; PULSE 49; RESP 20; TEMP 98.7
--- NOTE | 2017-04-28 16:15 | RADRPT ---
EXAM DATE/TIME: 04/28/2017 15:46 [facility] COMPARISON: No previous studies available for comparison. INDICATIONS : Psuedoanuerysm. MEDICAL HISTORY : Myocardial infarction. Syncope. Closed head injury. Altered mental status . SURGICAL HISTORY : Heart cath. ENCOUNTER: Initial ACUITY: 4-6 days PAIN SCORE: 2/10 LOCATION: Right leg. AREA EVALUATED: Right groin. FINDINGS: There is enlarged hematoma without definite pseudoaneurysm. Femoral artery and vein are patent. CONCLUSION: Hematoma, no pseudoaneurysm. Luis M Nieves MD FACR on April 28, 2017 at 16:12 Board Certified Radiologist. This report was verified electronically.
== END 2017-04-28 18:41 | disposition home or self-care (01) ==
LOC: NEPE 14:30
DX: S30.1XXA Contusion of abdominal wall, initial encounter (principal); M19.90 Unspecified osteoarthritis, unspecified site; J45.909 Unspecified asthma, uncomplicated; I11.0 Hypertensive heart disease with heart failure; I50.9 Heart failure, unspecified; F41.9 Anxiety disorder, unspecified; E78.00 Pure hypercholesterolemia, unspecified; X58.XXXA Exposure to other specified factors, initial encounter; Z79.02 Long term (current) use of antithrombotics/antiplatelets
CPT/HCPCS: 80048; 85025; 85610; 85730; 93926

== ENCOUNTER 2018-03-12 15:31 | Inpatient (IN) ==
[2018-03-12] MEDS ORDERED: Acetaminophen 325 MG Tablet PO PRN (17:48)
[2018-03-12] MEDS ORDERED: ALPRAZolam 0.25 MG Tablet PO PRN (17:52)
[2018-03-12 20:53] LABS: Creatine Kinase 148 U/L (26-192)
[2018-03-12] MEDS: Heparin - SQ 10,000 UNITS/ML Vial SQ SCH (21:12)
[2018-03-12] MEDS: Budesonide-Formoterol 160/4.5 MCG 6 GM Inhaler INH SCH (21:14)
[2018-03-12] MEDS: Senna/Docusate Sodium 8.6/50 MG Tablet PO SCH (21:14)
[2018-03-13 02:32] LABS: Creatine Kinase 132 U/L (26-192)
[2018-03-13 06:16] LABS: Chloride 110 meq/L (98-107); Potassium 3.6 meq/L (3.5-5.1); Sodium 144 meq/L (136-145)
[2018-03-13 06:21] LABS: Calcium 8.5 mg/dL (8.5-10.1)
[2018-03-13 06:22] LABS: Anion Gap 9 meq/L (5-15); Blood Urea Nitrogen 13 mg/dL (7-18); Carbon Dioxide 25.3 meq/L (21.0-32.0); Glucose,Random 97 mg/dL (74-106)
[2018-03-13 06:25] LABS: Glomerular Filtration Rate Greater Than 89 mL/min (>89)
[2018-03-13] MEDS: Budesonide-Formoterol 160/4.5 MCG 6 GM Inhaler INH SCH ×2 (08:21→21:58)
[2018-03-13] MEDS: amLODIPine 5 MG Tablet PO SCH (08:23)
--- NOTE | 2018-03-13 08:24 | ECG ---
Date Performed: 03/13/2018 Time Performed: 00:28:14 PTAGE: 68 years EKG: SINUS BRADYCARDIA WITH SINUS ARRHYTHMIA BORDERLINE ECG PREVIOUS TRACING : 03/12/2018 20.11 DOCTOR: Juanjo Chamberlain Interpretating Date/Time 03/13/2018 08:23:00
[2018-03-13] MEDS: Heparin - SQ 10,000 UNITS/ML Vial SQ SCH ×2 (08:26→21:59)
[2018-03-13] MEDS: Senna/Docusate Sodium 8.6/50 MG Tablet PO SCH ×2 (08:26→21:58)
--- NOTE | 2018-03-13 08:30 | ECG ---
Date Performed: 03/12/2018 Time Performed: 20:11:31 PTAGE: 68 years EKG: SINUS BRADYCARDIA INCOMPLETE RIGHT BUNDLE BRANCH BLOCK NONSPECIFIC T-WAVE ABNORMALITY BORDE RLJENNIFER ECG PREVIOUS TRACING : 03/12/2018 16.11 DOCTOR: Juanjo Chamberlain Interpretating Date/Time 03/13/2018 08:27:17
--- NOTE | 2018-03-13 10:16 | P.HP ---
History of Present Illness Primary Care Physician: No Primary Care Physician Chief Complaint: Dizziness History of Present Illness: This is a 68-year-old female patient with a known medical history of CAD with history of CABG, hypertension, hyperlipidemia who presented to the ED with complaints of dizziness with near syncopal episode. States that around 1500 yesterday she was walking in the store and became lightheaded. States she has not passed out or lost consciousness. Patient states that she has been having intermittent episodes of dizziness and vertigo for the past week and a half. She does admit to actually losing her balance and her sister's driveway states that the pavement was uneven and fell at that time. Denies hitting her head or losing consciousness. Patient states that the dizziness is worse with movement and getting up from her bed, states that it improves when she is lying down at rest. She does admit to a good appetite states she has been hydrated and eating and drinking well. Denies any recent illness including fever, chills, headache, chest pain, abdominal pain, nausea, vomiting, diarrhea or dysuria. Denies any new changes to her medications. She does live at home alone. Is able to perform all ADLs per self, denies any use of assistance for ambulation. She does admit to a right earache over the past week which has resolved, she states that she has had a nonproductive cough as well for the past several weeks which has also improved. Denies taking any [id number] medications. Follows with her PCP and [facility]. In the ED orthostatics were negative. Telemetry is showing sinus bradycardia, telemetry reviewed overnight showing heart rate in the 40s. She does have a loop recorder placed in April of this year. Follows with cardiology, Dr. Barker. Last saw him a month ago without any new changes to her medications. - Diagnosis (1) Symptomatic bradycardia (2) Dizziness Review of Systems All other systems reviewed negative except as stated in HPI PMFSH - History History Provided By: Patient - Medical History Medical History: Medical History (Last Reviewed 03/13/18 @ 10:41 by Katerine Ortega) Asthma Bradycardia FH: carotid endarterectomy FH: heart attack High cholesterol Hypertension Sleep apnea - Surgical History Surgical History: Surgical History (Last Reviewed 03/13/18 @ 10:41 by Katerine Ortega) History of hip replacement Hx of CABG Hx of heart artery stent - Family History Family History: Family History (Last Updated 03/13/18 @ 10:41 by Katerine Ortega) Other Family history in first degree relatives is unremarkable - Social History I have reviewed the patient's Social History: Yes - Tobacco History Second Hand Smoke Exposure: No Smoking Status: Former smoker - Alcohol History How Often Do You Have a Drink Containing Alcohol: 2 to 4 times a month - Substance Use History Substance History: No History of Abuse - Immunization History Tetanus Immunization Year if Known: 2018 Medications and Allergies Active Medications: Active Medications Acetaminophen (Tylenol) 650 mg PO Q4H PRN PRN Reason: Temp > 100.4 Al Hydroxide/Mg Hydroxide (Milk Of Magnpauline Liq) 30 ml PO Q12H PRN PRN Reason: Mild Constipation Albuterol (Ventolin Hfa Inh) 2 puff INH Q4HR PRN PRN Reason: Shortness Of Breath Or Wheezing Alprazolam (Xanax) 0.25 mg PO BID PRN PRN Reason: anxiety Amlodipine Besylate (Norvasc) 5 mg PO DAILY [facility] Last Admin: 03/13/18 08:23 Dose: 5 mg Aspirin (Ecotrin) 81 mg PO DAILY [facility] Last Admin: 03/13/18 08:24 Dose: 81 mg Atorvastatin Calcium (Lipitor) 40 mg PO HS [facility] Last Admin: 03/12/18 21:14 Dose: 40 mg Budesonide/Formoterol Fumarate (Symbicort 160/4.5 Mcg Inh) 1 puff INH BID [facility] Last Admin: 03/13/18 08:21 Dose: 1 puff Clopidogrel Bisulfate (Plavix) 75 mg PO DAILY [facility] Last Admin: 03/13/18 08:23 Dose: 75 mg Heparin Sodium (Porcine) (Heparin Inj) 5,000 units SQ Q12HR [facility] Last Admin: 03/13/18 08:26 Dose: Not Given Meclizine HCl (Antivert) 25 mg PO Q6H PRN PRN Reason: DIZZINESS Ondansetron HCl (Zofran Inj) 4 mg IV.PUSH Q6H PRN PRN Reason: NAUSEA OR VOMITING Senna/Docusate Sodium (Xiomara-Colace) 1 tab PO BID [facility] Last Admin: 03/13/18 08:26 Dose: Not Given Sennosides (Senokot) 17.2 mg PO Q12H PRN PRN Reason: Moderate Constipation Sodium Chloride (Ns Flush) 2 ml IV.FLUSH BID [facility] Last Admin: 03/13/18 08:28 Dose: 2 ml Sodium Chloride (Ns Flush) 2 ml IV.FLUSH PRN PRN PRN Reason: FLUSH AFTER USING IV ACCESS Allergies Allergy/AdvReac Type Severity Reaction Status Date / Time amiodarone Allergy Severe Rash Verified 03/12/18 16:27 furosemide Allergy Severe Rash Verified 03/12/18 16:27 lisinopril Allergy Severe Rash Verified 03/12/18 16:27 Sulfa (Sulfonamide Allergy Severe Hives Verified 03/12/18 16:27 Antibiotics) Home Medications Medication Instructions Recorded Confirmed Type amlodipine [Norvasc] 5 mg PO DAILY 02/21/18 03/12/18 History aspirin [Aspirin Low Dose] 81 mg PO DAILY 02/21/18 03/12/18 History atorvastatin [Lipitor] 40 mg PO HS 02/21/18 03/12/18 History budesonide-formoterol [Symbicort] 1 puff INHALATION BID 02/21/18 03/12/18 History clopidogrel [Plavix] 75 mg PO DAILY 02/21/18 03/12/18 History albuterol sulfate 2 puff INHALATION Q4HR PRN 03/12/18 03/12/18 History diphenhydramine HCl [Benadryl] 25 mg PO HS 03/12/18 03/12/18 History nystatin 1 applic TOPICAL BID 03/12/18 03/12/18 History Exam Vital signs: Vital Signs 03/13/18 00:00 03/13/18 04:00 03/13/18 08:00 Temperature 97.5 F L 96.1 F L 97.0 F L Pulse Rate 51 L 51 L 45 L Respiratory Rate 18 18 19 Blood Pressure 161/70 H 160/72 H 120/58 L Pulse Oximetry 98 99 97 Intake & Output 03/12/18 03/13/18 03/13/18 18:59 06:59 18:59 Intake Total 480 / 480 Balance 480 / 480 Weight 105.2 kg Intake: Oral 480 / 480 Other: # Voids 3 Narrative: GENERAL: Well-developed, well-nourished patient in [facility]. SKIN: Warm and dry. No rash. HEAD: Normocephalic. Atraumatic. EYES: Pupils equal and round. No scleral icterus. No injection or drainage. ENT: No nasal bleeding or discharge. Mucous membranes pink and moist. NECK: Supple. Trachea midline. CARDIOVASCULAR: Regular rhythm, sinus bradycardia. S1, S2 noted. No murmur appreciated. RESPIRATORY: No accessory muscle use. Clear to auscultation. Breath sounds equal bilaterally. GASTROINTESTINAL: Abdomen soft, non-tender, nondistended. Normoactive bowel sounds x4. MUSCULOSKELETAL: No obvious deformities. Extremities without clubbing, cyanosis , or edema. NEUROLOGICAL: Awake and alert. No obvious cranial nerve deficits. Motor grossly within normal limits. 5/5 muscle strength in bilateral upper and lower extremities. Normal speech. PSYCHIATRIC: Appropriate mood and affect; insight and judgment normal. Results - Labs CBC & Chem 7: 03/13/18 05:15 Labs: Laboratory Results - last 24 hr 03/12/18 03/13/18 03/13/18 20:15 02:00 05:15 Sodium 144 Potassium 3.6 Chloride 110 H Carbon Dioxide 25.3 Anion Gap 9 BUN 13 Creatinine 0.65 Estimated GFR Greater than 89 Random Glucose 97 Calcium 8.5 Total Creatine Kinase 148 132 Troponin I Less than 0.02 L Less than 0.02 L Caprini VTE Risk Assessment Caprini VTE Risk Assessment: Moderate/High Risk (score >= 2) Caprini Risk Assessment Model: Point Value = 1 Point Value = 2 Point Value = 3 Point Value = 5 Age 41-60 Minor surgery BMI > 25 kg/m2 Swollen legs Varicose veins or History of unexplained or recurrent spontaneous Oral contraceptives or hormone replacement Sepsis (< 1 month) Serious lung disease, including pneumonia (< 1 month) Abnormal pulmonary function Acute myocardial infarction Congestive heart failure (< 1 month) History of inflammatory bowel disease Medical patient at bed rest Age 61-74 Arthroscopic surgery Major open surgery (> 45 min) Laparoscopic surgery (> 45 min) Malignancy Confined to bed (> 72 hours) Immobilizing plaster cast Central venous access Age >= 75 History of VTE Family history of VTE Factor V Leiden Prothrombin [id number] Lupus anticoagulant Anticardiolipin antibodies Elevated serum homocysteine Heparin-induced thrombocytopenia Other congenital or acquired thrombophilia Stroke (< 1 month) Elective arthroplasty Hip, pelvis, or leg fracture Acute spinal cord injury (< 1 month) Prophylaxis Regimen: Total Risk Factor Score Risk Level Prophylaxis Regimen 0-1 Low Early ambulation 2 Moderate Order ONE of the following: *Sequential Compression Device (SCD) *Heparin 5000 units SQ BID 3-4 Higher Order ONE of the following medications: *Heparin 5000 units SQ TID *Enoxaparin/Lovenox 40 mg SQ daily (WT < 150 kg, CrCl > 30 mL/min) *Enoxaparin/Lovenox 30 mg SQ daily (WT < 150 kg, CrCl > 10-29 mL/min) *Enoxaparin/Lovenox 30 mg SQ BID (WT < 150 kg, CrCl > 30 mL/min) AND/OR *Sequential Compression Device (SCD) 5 or more Highest Order ONE of the following medications: *Heparin 5000 units SQ TID (Preferred with Epidurals) *Enoxaparin/Lovenox 40 mg SQ daily (WT < 150 kg, CrCl > 30 mL/min) *Enoxaparin/Lovenox 30 mg SQ daily (WT < 150 kg, CrCl > 10-29 mL/min) *Enoxaparin/Lovenox 30 mg SQ BID (WT < 150 kg, CrCl > 30 mL/min) AND *Sequential Compression Device (SCD) Assessment and Plan - Assessment (1) Symptomatic bradycardia Code(s): R00.1 - Bradycardia, unspecified Status: Acute (2) Dizziness Code(s): R42 - Dizziness and giddiness Status: Acute - Plan This is a 68-year-old female patient with: Symptomatic bradycardia History of CAD with CABG Hypertension, chronic Bradycardia, chronic -Patient presented with redness and vertigo times a week and a half. -Patient does have a history of multiple syncopal episodes as well has symptomatic bradycardia in the past. -Had a loop recorder placed in April of this year, follows with Dr. Barker, has been consulted, input and recommendations pending. -Heart rate is in the 40s-50s. Reviewed overnight lowest reading was 40 bpm. No arrhythmias noted. -Will continue on cardiac telemetry. EKG reviewed showing sinus bradycardia. No ST changes noted. -Will check orthostatic blood pressures again, these were negative in the ED. -Ensure hydration. -CBC and BMP reviewed, essentially unremarkable. UA negative. Dizziness, possibly multifocal and related to symptomatic bradycardia. -Will obtain a head CT to rule out any acute abnormality. Follow. -Add TSH to lab work. -Would like to check echocardiogram, will consult with Dr. Barker to make sure she has not had a recent one in his office. -Close monitoring. Checking orthostatics. History of carotid stenosis and history of right carotid enterectomy -Patient states she had a recent bilateral carotid ultrasound 3 weeks ago. Findings are stable per patient report. Hyperlipidemia, chronic -Will continue home statin. DVT prophylaxis: SCDs. Heparin.
--- NOTE | 2018-03-13 12:46 | CT ---
EXAM DATE: 03/13/2018 12:43 PM EST AGE/SEX: 68 years / Female INDICATIONS: Dizziness. CLINICAL DATA: This is the patient's initial encounter. Patient reports that signs and symptoms have been present for 2 days and indicates a pain score of 0/10. MEDICAL/SURGICAL HISTORY: Asthma. Cardiovascular disease. Myocardial infarction. Hypertension. Carotid endarterectomy. CABG. Coronary artery stent. Hip replacement. RADIATION DOSE: 65.71 CTDI (mGy) COMPARISON: [facility] [place] BRAIN W/O CONTRAST, 07/03/2016. . TECHNIQUE: CT of the head without contrast. Using automated exposure control and adjustment of the mA and/or kV according to patient size, radiation dose was kept as low as reasonably achievable to ob tain optimal diagnostic quality images. DICOM format image data is available electronically for revi ew and comparison. FINDINGS: Cerebrum: The ventricles are normal for age. No evidence of midline shift, mass lesion, hemorrhage or acute infarction. No extraaxial fluid collections are seen. Posterior Fossa: The cerebellum and brainstem are intact. The 4th ventricle is midline. The cerebe llopontine angle is unremarkable. Extracranial: The visualized portion of the orbits is intact. Skull: The calvaria is intact. No evidence of skull fracture. Hyperostosis frontalis interna is aga in noted. CONCLUSION: 1. Stable unremarkable noncontrast head CT. . Electronically signed by: Parmjit Severino MD 03/13/2018 12:45 PM EST
--- NOTE | 2018-03-13 16:27 | MB ---
cc: Tyson Felix MD, Alan S MD Peterson, Vincent G DO DATE: 03/13/2018 I have reviewed hospital and office records. HISTORY OF PRESENT ILLNESS: The patient is a pleasant 68-year-old woman who I am seeing for possible symptomatic bradycardia. The patient's history is remarkable for ventricular fibrillation arrest in 2016. Catheterization revealed left main disease with mild left ventricular dysfunction. She had bypass surgery with RODRIGES to the LAD and vein graft to obtuse marginal 1. Echocardiogram showed normal LV function in September of last year. The patient has known carotid disease, and has had carotid endarterectomy, in January of last year on the right. She does have an implanted loop recorder. The patient has had positional vertigo in the past when she rolls over in bed. She does run a chronic bradycardia with documented rates in the 30s and 40s as an outpatient, but without symptoms. Yesterday, she was in [place], [place]. She was in a store and was going down the escalator. When she was going down the escalator, she felt as if she was going to fall to the side, which got worse. She also noticed that she was having trouble focusing. She felt her pulse at the time and it was actually slightly faster than normal. She has had trouble with balance over the last month, feeling like she is going to fall over and has had right ear pain. She is also having trouble focusing her vision and even in the emergency room in [place], she could not focus on the TV. She otherwise has mild stable dyspnea, but no other cardiopulmonary symptoms. Apparently, the night before her ventricular fibrillation arrest was when she probably had somewhat of a myocardial infarction with diffuse chest burning. PAST MEDICAL HISTORY: 1. Hypertension. 2. Hyperlipidemia. 3. Transaminitis. 4. Chronic back pain with lumbar disk disease. 5. Carotid stenosis. 6. Bilateral hip replacement. 7. Cataract surgery. ALLERGIES: SULFA. FAMILY HISTORY: Noncontributory. MEDICATION: List reviewed. SOCIAL HISTORY: She is single and a very distant smoker and just occasionally drinks. REVIEW OF SYSTEMS: Remarkable for the above along with occasional vertigo. Her weight has been stable. She does have chronic back pain, which limits her moving. LABORATORY DATA: EKGs have shown sinus bradycardia with at most borderline nonspecific T-wave changes. CBC normal. Potassium 3.6 and creatinine normal. Glucose 97. Troponins negative x 2. TSH normal. Head CT with no acute changes. PHYSICAL EXAMINATION: GENERAL: On exam, she is mildly hypertensive and running bradycardia in the 40s-50s. She is afebrile. She is alert and oriented x 3. She is presently sitting in a reclining chair. She is overweight. HEENT: There are no xanthelasma. Oropharyngeal mucosa normal. CHEST: Clear. JVD normal. HEART: S1, S2 with a 2/6 early peaking systolic ejection murmur at the base. ABDOMEN: Benign. EXTREMITIES: Show no cyanosis, clubbing, or edema. Pulses: Carotids without bruits. Radials 1-2+. Femorals deep and not felt. Pedals 1-2+. She is not ambulated. PROBLEMS: 1. Dizziness - The patient's history is compatible with this being a balance/vertigo issue. She had felt her pulse, which was actually higher than normal and did not have any lightheadedness, but felt that she could not focus and was going to fall to the side. 2. Known coronary artery disease. 3. Hypertension. 4. Hyperlipidemia. 5. Chronic bradycardia. RECOMMENDATIONS: 1. At this point in time, I would not pursue further cardiac workup. I have spoken with Dr. Barker, her primary multi craft maintenance technician, to let him know her findings. 2. Low cholesterol/salt diet. 3. Follow bradycardia. There is no indication for pacemaker at present. 4. No driving, which the patient understands. 5. Would recommend neurologic consultation. All questions were answered. We will be available if needed. MD IRAM Lee/farhan , 03:46 PM , 03:55 PM
--- NOTE | 2018-03-13 17:35 | P.CONNEU ---
History of Present Illness Service: Neurology Primary Care Provider: No Primary Care Physician Chief Complaint: Dizziness History of Present Illness: 68-year-old female admitted for bradycardia lightheadedness. She states she was transferred from [facility] for evaluation of lightheadedness low pulse. States she has been having gait imbalance times feeling lightheaded over the past couple months. Not acute. She suffers from chronic back pain in fact had radiofrequency ablation performed to her lumbar spine recently. She is followed by pain management. She has a history of previous vertigo room spinning sensation but no recent exacerbations although does note when she turns quickly changes position she will feel off balance and unsteady. She has no new neck pain or headache or any visual loss or focal weakness. She does have a loop recorder in place for evaluation of similar symptoms. She been seen by cardiology inpatient and follows in the outpatient setting. Denies any history of neuropathy, TIA or stroke. Patient with a known medical history of CAD with history of CABG, hypertension, hyperlipidemia, right carotid endarterectomy. Review of Systems All other systems reviewed negative except as stated in HPI [facility] - History History Provided By: Patient - Medical History Medical History: Medical History (Last Reviewed 03/13/18 @ 10:41 by Katerine Ortgea) Asthma Bradycardia FH: carotid endarterectomy FH: heart attack High cholesterol Hypertension Sleep apnea - Surgical History Surgical History: Surgical History (Last Reviewed 03/13/18 @ 10:41 by Katerine Ortega) History of hip replacement Hx of CABG Hx of heart artery stent - Family History Family History: Family History (Last Updated 03/13/18 @ 10:41 by Katerine Ortega) Other Family history in first degree relatives is unremarkable - Tobacco History Second Hand Smoke Exposure: No Smoking Status: Former smoker - Alcohol History How Often Do You Have a Drink Containing Alcohol: 2 to 4 times a month - Substance Use History Substance History: No History of Abuse - Immunization History Tetanus Immunization Year if Known: 2018 Medications and Allergies Active Medications: Active Medications Acetaminophen (Tylenol) 650 mg PO Q4H PRN PRN Reason: Temp > 100.4 Al Hydroxide/Mg Hydroxide (Milk Of Asim Liq) 30 ml PO Q12H PRN PRN Reason: Mild Constipation Albuterol (Ventolin Hfa Inh) 2 puff INH Q4HR PRN PRN Reason: Shortness Of Breath Or Wheezing Alprazolam (Xanax) 0.25 mg PO BID PRN PRN Reason: anxiety Amlodipine Besylate (Norvasc) 5 mg PO DAILY [facility] Last Admin: 03/13/18 08:23 Dose: 5 mg Aspirin (Ecotrin) 81 mg PO DAILY [facility] Last Admin: 03/13/18 08:24 Dose: 81 mg Atorvastatin Calcium (Lipitor) 40 mg PO HS [facility] Last Admin: 03/12/18 21:14 Dose: 40 mg Budesonide/Formoterol Fumarate (Symbicort 160/4.5 Mcg Inh) 1 puff INH BID [facility] Last Admin: 03/13/18 08:21 Dose: 1 puff Clopidogrel Bisulfate (Plavix) 75 mg PO DAILY [facility] Last Admin: 03/13/18 08:23 Dose: 75 mg Heparin Sodium (Porcine) (Heparin Inj) 5,000 units SQ Q12HR [facility] Last Admin: 03/13/18 08:26 Dose: Not Given Meclizine HCl (Antivert) 25 mg PO Q6H PRN PRN Reason: DIZZINESS Ondansetron HCl (Zofran Inj) 4 mg IV.PUSH Q6H PRN PRN Reason: NAUSEA OR VOMITING Senna/Docusate Sodium (Xiomara-Colace) 1 tab PO BID [facility] Last Admin: 03/13/18 08:26 Dose: Not Given Sennosides (Senokot) 17.2 mg PO Q12H PRN PRN Reason: Moderate Constipation Sodium Chloride (Ns Flush) 2 ml IV.FLUSH BID [facility] Last Admin: 03/13/18 08:28 Dose: 2 ml Sodium Chloride (Ns Flush) 2 ml IV.FLUSH PRN PRN PRN Reason: FLUSH AFTER USING IV ACCESS Allergies Allergy/AdvReac Type Severity Reaction Status Date / Time amiodarone Allergy Severe Rash Verified 03/12/18 16:27 furosemide Allergy Severe Rash Verified 03/12/18 16:27 lisinopril Allergy Severe Rash Verified 03/12/18 16:27 Sulfa (Sulfonamide Allergy Severe Hives Verified 03/12/18 16:27 Antibiotics) Home Medications Medication Instructions Recorded Confirmed Type amlodipine [Norvasc] 5 mg PO DAILY 02/21/18 03/12/18 History aspirin [Aspirin Low Dose] 81 mg PO DAILY 02/21/18 03/12/18 History atorvastatin [Lipitor] 40 mg PO HS 02/21/18 03/12/18 History budesonide-formoterol [Symbicort] 1 puff INHALATION BID 02/21/18 03/12/18 History clopidogrel [Plavix] 75 mg PO DAILY 02/21/18 03/12/18 History albuterol sulfate 2 puff INHALATION Q4HR PRN 03/12/18 03/12/18 History diphenhydramine HCl [Benadryl] 25 mg PO HS 03/12/18 03/12/18 History nystatin 1 applic TOPICAL BID 03/12/18 03/12/18 History Exam Vital signs: Vital Signs 03/13/18 00:00 03/13/18 04:00 03/13/18 08:00 Temperature 97.5 F L 96.1 F L 97.0 F L Pulse Rate 51 L 51 L 45 L Respiratory Rate 18 18 19 Blood Pressure 161/70 H 160/72 H 120/58 L Pulse Oximetry 98 99 97 03/13/18 12:00 Temperature Pulse Rate 56 L Respiratory Rate 18 Blood Pressure 164/72 H Pulse Oximetry 97 Intake & Output 03/12/18 03/13/18 03/13/18 18:59 06:59 18:59 Intake Total 480 / 480 Balance 480 / 480 Weight 105.2 kg Intake: Oral 480 / 480 Other: # Voids 3 Date of Last Bowel Movement 03/12/18 Narrative: GENERAL: in NAD, mildly obese, sitting up in her chair texting on her cell phone when I came in to see her looks comfortable SKIN: Warm and dry. HEAD: Atraumatic. Normocephalic. EYES: Pupils equal and round. ENT: No nasal bleeding or discharge. NECK: Trachea midline. No JVD. Old right CEA scar CARDIOVASCULAR: Regular rate and rhythm. RESPIRATORY: No accessory muscle use. GASTROINTESTINAL: Abdomen soft, non-tender, nondistended. MUSCULOSKELETAL: Extremities without clubbing, cyanosis, or edema. No obvious deformities. NEUROLOGICAL: Awake and alert. No aphasia, oriented x3 fluent articulate, No facial asymmetry, OU 3-2mm, eomi, VFF, No drift, Motor grossly within normal limits. Five out of 5 muscle strength in the arms and legs. Tone normal in all 4 limbs, Sensory normal in all 4 extremities to pin, msr 1-2+ sym, no clonus, planterflexor, PSYCHIATRIC: Appropriate mood and affect; insight and judgment normal. - Constitutional no acute distress - Routine HEENT Exam Head: Present: normocephalic Eye: Present: EOMI Results - Labs CBC & Chem 7: 03/13/18 05:15 Labs: Laboratory Results - last 24 hr 03/12/18 03/13/18 03/13/18 20:15 02:00 02:00 Sodium Potassium Chloride Carbon Dioxide Anion Gap BUN Creatinine Estimated GFR Random Glucose Calcium Total Creatine Kinase 148 132 Troponin I Less than 0.02 L Less than 0.02 L TSH 1.530 03/13/18 05:15 Sodium 144 Potassium 3.6 Chloride 110 H Carbon Dioxide 25.3 Anion Gap 9 BUN 13 Creatinine 0.65 Estimated GFR Greater than 89 Random Glucose 97 Calcium 8.5 Total Creatine Kinase Troponin I TSH - Imaging Impressions Head CT 03/13/18 00:00 CONCLUSION: 1. Stable unremarkable noncontrast head CT. . Review/Management - Diagnosis (1) Gait disorder Code(s): R26.9 - Unspecified abnormalities of gait and mobility Status: Acute Current Visit: Yes (2) Chronic back pain Code(s): M54.9 - Dorsalgia, unspecified; G89.29 - Other chronic pain Status: Acute Current Visit: Yes (3) Peripheral vertigo Code(s): H81.399 - Other peripheral vertigo, unspecified ear Status: Acute Current Visit: Yes (4) Symptomatic bradycardia Code(s): R00.1 - Bradycardia, unspecified Status: Acute Current Visit: Yes (5) Dizziness Code(s): R42 - Dizziness and giddiness Status: Acute Current Visit: Yes - Review/Management Plan: Chronic gait imbalance. Agree with cardiology likely related to vestibular dysfunction Additional etiologies would include emerging cerebellar disease, myelopathy She also suffers from chronic low back pain and recent radiofrequency ablation performed She is followed by cardiology and followed by vascular surgery who she recently saw and states her carotids at 50% or less stenosis Recommendation Would suggest MRI of the brain C-spine and T-spine if feasible. She does have an event monitor in place and may record some of the old data Follow-up B12 and folate levels Outpatient vestibular and balance therapy She can follow-up with us in the outpatient setting for further evaluation
[2018-03-13 18:15] LABS: Vitamin B12 652 pg/mL (193-986)
[2018-03-14] MEDS: Heparin - SQ 10,000 UNITS/ML Vial SQ SCH ×2 (08:28→21:54)
[2018-03-14] MEDS: Senna/Docusate Sodium 8.6/50 MG Tablet PO SCH ×2 (08:29→21:53)
[2018-03-14] MEDS: amLODIPine 5 MG Tablet PO SCH (08:29)
[2018-03-14] MEDS: Budesonide-Formoterol 160/4.5 MCG 6 GM Inhaler INH SCH ×2 (08:29→22:53)
--- NOTE | 2018-03-14 11:05 | MR ---
EXAM DATE: 03/14/2018 10:43 AM EST AGE/SEX: 68 years / Female INDICATIONS: . Syncope. CLINICAL DATA: This is the patient's subsequent encounter. Patient reports that signs and symptoms h ave been present for 2 days and indicates a pain score of 0/10. MEDICAL/SURGICAL HISTORY: Cardiovascular disease. Hypertension. CABG. Carotid endarterectomy. Bilateral hip replacement. Loop recorder. COMPARISON: No prior exams available for comparison. TECHNIQUE: Multiplanar, multisequence examination of the brain was performed without contrast. FINDINGS: Cerebrum: The ventricles are normal for age. No evidence of midline shift, mass lesion, hemorrhage or acute infarction. No extraaxial fluid collections are seen. The pituitary gland and suprasellar cistern are normal in configuration. White Matter: Minimal periventricular white matter changes. Posterior Fossa: The cerebellum and brainstem are intact. The 4th ventricle is midline. The cerebel lopontine angle is unremarkable. The cerebellar tonsils are normal in position. Diffusion Imaging: No focal areas of restricted diffusion are seen. No evidence of acute infarction . Extracranial: The visualized portions of the orbits and paranasal sinuses are unremarkable. CONCLUSION: 1. Minimal periventricular white matter changes, otherwise negative. There is no parenchymal hemorrh age, acute infarction or mass lesion. Electronically signed by: Luis M Nieves MD 03/14/2018 11:04 AM EST
--- NOTE | 2018-03-14 11:10 | MR ---
EXAM DATE: 03/14/2018 10:55 AM EST AGE/SEX: 68 years / Female INDICATIONS: Myelopathy. CLINICAL DATA: This is the patient's subsequent encounter. Patient reports that signs and symptoms h ave been present for 2 days and indicates a pain score of 0/10. MEDICAL/SURGICAL HISTORY: Cardiovascular disease. Hypertension. CABG. Carotid endarterectomy. Bilateral hip replacement. Loop recorder. COMPARISON: No prior exams available for comparison. TECHNIQUE: Multiplanar, multisequence MRI examination of the cervical spine was performed without co ntrast. FINDINGS: Vertebrae: Normal vertebral body height. Homogeneous marrow signal. Alignment: Normal. Cord: Normal configuration and signal. Post Fossa: The cerebellar tonsils are normal in position. C2-C3: Mild uncinate ridging with minimal bilateral neural foraminal encroachment worse on the left C3-C4: Moderate uncinate ridging with minimal central to right-sided disc protrusion. Moderate bilat eral neural foraminal encroachment worse on the right. C4-C5: Mild uncinate ridging with osteophyte encroachment anterior thecal space and touching the cor d on the right. There is moderate bilateral neural foraminal encroachment. C5-C6: Moderate uncinate ridging is present obliterating the anterior thecal space and touching the cord on the right. There is minimal deformity of the cord on the right. Moderate right-sided neural f oraminal encroachment. There is no significant increased signal in the cord at this level. C6-C7: Mild uncinate ridging is present without significant spinal stenosis. Moderate right-sided ne ural foraminal encroachment is present. C7-T1: No epidural impressions seen. CONCLUSION: 1. Radiographic significant spinal stenosis C5-C6 central to right-sided. Thecal sac is effaced at t his level. There is no increased signal in the cord at this level. 2. Spinal cord appears normal in size distal to this. Electronically signed by: Luis M Nieves MD 03/14/2018 11:09 AM EST
--- NOTE | 2018-03-14 11:33 | MR ---
EXAM DATE: 03/14/2018 11:15 AM EST AGE/SEX: 68 years / Female INDICATIONS: Myelopathy. CLINICAL DATA: This is the patient's subsequent encounter. Patient reports that signs and symptoms h ave been present for 2 days and indicates a pain score of 0/10. MEDICAL/SURGICAL HISTORY: Cardiovascular disease. Hypertension. CABG. Carotid endarterectomy. Bilateral hip replacement. Loop recorder. COMPARISON: No prior exams available for comparison. TECHNIQUE: Multiplanar, multisequence MRI of the thoracic spine was performed. FINDINGS: Vertebrae: Normal vertebral body height. Homogeneous marrow signal. Alignment: Normal. Cord: Signal intensity in the thoracic cord is normal. Thoracic cord is normal in size. There is no syrinx. T1-T2: The thecal sac has a normal diameter. No evidence of disc bulge or protrusion. T2-T3: The thecal sac has a normal diameter. No evidence of disc bulge or protrusion. T3-T4: The thecal sac has a normal diameter. No evidence of disc bulge or protrusion. T4-T5: The thecal sac has a normal diameter. No evidence of disc bulge or protrusion. T5-T6: The thecal sac has a normal diameter. No evidence of disc bulge or protrusion. T6-T7: Minimal central to left-sided impingement on the anterior thecal space without cervical spina l stenosis or neural foraminal encroachment. T7-T8: Moderate interspace ridging causing some flattening the anterior thecal space without signifi cant spinal stenosis. Minimal left-sided neural foraminal encroachment. T8-T9: Mild interspace ridging central to right side without significant spinal stenosis or neural f oraminal encroachment. T9-T10: The thecal sac has a normal diameter. No evidence of disc bulge or protrusion. T10-T11: The thecal sac has a normal diameter. No evidence of disc bulge or protrusion. T11-T12: The thecal sac has a normal diameter. No evidence of disc bulge or protrusion. T12-L1: The thecal sac has a normal diameter. No evidence of disc bulge or protrusion. CONCLUSION: 1. Mild degenerative changes. There is no significant encroachment on the thecal space. 2. Signal intensity cord is normal. 3. Conus appears unremarkable. Electronically signed by: Luis M Nieves MD 03/14/2018 11:32 AM EST
--- NOTE | 2018-03-14 11:57 | P.PNIM ---
Subjective Interval history: Follow up dizziness. Patient seen and examined, sitting in chair comfortably in nad. No continued dizziness today. Has been ambulating to bathroom without any problems. Eating well without any abdominal pain, nausea or vomiting. No cp or shortness of breath. Spinal stenosis in C5-C6, awaiting neurosurgery call back, has been consulted. VSS. Physical Exam Vital signs: Vital Signs 03/13/18 12:00 03/13/18 16:00 03/13/18 20:00 Temperature 98.1 F 97.8 F Pulse Rate 56 L 58 L 50 L Respiratory Rate 18 19 19 Blood Pressure 164/72 H 142/73 H 111/69 Pulse Oximetry 97 98 100 03/14/18 00:00 03/14/18 04:00 03/14/18 08:00 Temperature 96.6 F L 97.0 F L 97.9 F Pulse Rate 46 L 41 L 96 H Respiratory Rate 20 20 20 Blood Pressure 141/72 H 122/58 L 145/65 H Pulse Oximetry 97 95 96 Intake & Output 03/13/18 03/14/18 03/14/18 18:59 06:59 18:59 Intake Total 650 / 650 Balance 650 / 650 Intake: Oral 650 / 650 Other: # Voids 5 Date of Last Bowel Movement 03/12/18 03/12/18 Narrative: GENERAL: in NAD, mildly obese, sitting up in her chair comfortable. SKIN: Warm and dry. HEAD: Atraumatic. Normocephalic. EYES: Pupils equal and round. ENT: No nasal bleeding or discharge. NECK: Trachea midline. No JVD. CARDIOVASCULAR: Regular rate and rhythm. RESPIRATORY: No accessory muscle use. GASTROINTESTINAL: Abdomen soft, non-tender, nondistended. MUSCULOSKELETAL: Extremities without clubbing, cyanosis, or edema. No obvious deformities. NEUROLOGICAL: Awake and alert. No aphasia, oriented x3. No facial asymmetry. Motor grossly within normal limits. Five out of 5 muscle strength in the arms and legs. Tone normal in all 4 limbs, Sensory normal in all 4 extremities PSYCHIATRIC: Appropriate mood and affect; insight and judgment normal. Results - Labs CBC & Chem 7: 03/13/18 05:15 Laboratory Results - last 24 hr 03/13/18 02:00 Vitamin B12 652 Folate Greater than 20.0 H - Imaging Impressions Head CT 03/13/18 00:00 CONCLUSION: 1. Stable unremarkable noncontrast head CT. . Cervical Spine MRI 03/14/18 07:05 CONCLUSION: 1. Radiographic significant spinal stenosis C5-C6 central to right-sided. Thecal sac is effaced at this level. There is no increased signal in the cord at this level. 2. Spinal cord appears normal in size distal to this. Head MRI 03/14/18 07:06 CONCLUSION: 1. Minimal periventricular white matter changes, otherwise negative. There is no parenchymal hemorrhage, acute infarction or mass lesion. Thoracic Spine MRI 03/14/18 07:06 CONCLUSION: 1. Mild degenerative changes. There is no significant encroachment on the thecal space. 2. Signal intensity cord is normal. 3. Conus appears unremarkable. Assessment and Plan - Assessment (1) Symptomatic bradycardia Code(s): R00.1 - Bradycardia, unspecified Status: Acute (2) Dizziness Code(s): R42 - Dizziness and giddiness Status: Acute - Plan This is a 68-year-old female patient with: Chronic gait disorder Peripheral vertigo -Patient presented with redness and vertigo x 1.5 weeks. -Patient does have a history of multiple syncopal episodes as well has symptomatic bradycardia in the past. -Orthostatic BPs negative. -CBC and BMP reviewed, essentially unremarkable. UA negative. -Head CT negative. MRI brain negative for any acute findings. -TSH normal. -ECHO pending. Follow. -Neuro consulted, appreciate input and recommendations. -Cervical MRI showing significant spinal stenosis in C5-C6. Thoracic MRI negative for any acute findings. -Neurosurgery consulted, awaiting input and recommendations. History of CAD with CABG Hypertension, chronic Bradycardia, chronic -Had a loop recorder placed in April of this year, follows with Dr. Barker. Cardiology was consulted, has seen patient, no further input. -Heart rate is in the 40s-50s. Reviewed overnight lowest reading was 40 bpm. No arrhythmias noted. -Will continue on cardiac telemetry. EKG reviewed showing sinus bradycardia. No ST changes noted. History of carotid stenosis and history of right carotid enterectomy -Patient states she had a recent bilateral carotid ultrasound 3 weeks ago. Findings are stable per patient report. Hyperlipidemia, chronic -Will continue home statin. DVT prophylaxis: SCDs. Heparin.
--- NOTE | 2018-03-14 13:48 | ECHRPT ---
Indication: SYNCOPE CONCLUSIONS The left ventricular systolic function is low normal with an estimated ejection fraction in the rang e of 50- 55%. Normal left ventricular size. Wall thickness is normal. No regional wall motion abnormalities are present. The left atrial size is mildly dilated. Aortic valve sclerosis is present. Mild aortic valve stenosis. Aortic valve area is 0.99 cm. Aortic valve mean gradient is 11 mmHg. Trivial pulmonary valve regurgitation. BP: / HR: Rhythm: MEASUREMENTS (Male / Female) Normal Values Technical Quality: 2D ECHO LV Diastolic Diameter PLAX 3.9 cm 4.2 - 5.9 / 3.9 - 5.3 cm LV Systolic Diameter PLAX 2.9 cm IVS Diastolic Thickness 1.1 cm 0.6 - 1.0 / 0.6 - 0.9 cm LVPW Diastolic Thickness 1.1 cm 0.6 - 1.0 / 0.6 - 0.9 cm LV Relative Wall Thickness 0.6 LVOT Diameter 1.7 cm LA Systolic Diameter LX 5.3 cm 3.0 - 4.0 / 2.7 - 3.8 cm LV Ejection Fraction MOD 4C 56.7 % LV Ejection Fraction 4C AL 58.7 % M-MODE Aortic Root Diameter MM 1.7 cm LA Systolic Diameter MM 5.1 cm LA Ao Ratio MM 3.0 AV Cusp Separation MM 1.0 cm DOPPLER AV Peak Velocity 226.0 cm/s AV Peak Gradient 20.4 mmHg AV Mean Gradient 11.0 mmHg AV Velocity Time Integral 54.5 cm LVOT Peak Velocity 104.0 cm/s LVOT Peak Gradient 4.3 mmHg LVOT Velocity Time Integral 23.7 cm AV Area Cont Eq vti 1.0 cm AV Area Cont Eq pk 1.0 cm MV Area PHT 2.9 cm Mitral E Point Velocity 87.9 cm/s Mitral A Point Velocity 67.1 cm/s Mitral E to A Ratio 1.3 LV E' Lateral Velocity 9.0 cm/s Mitral E to LV E' Lateral Ratio 9.8 LV E' Septal Velocity 6.3 cm/s Mitral E to LV E' Septal Ratio 13.9 PV Peak Velocity 105.0 cm/s PV Peak Gradient 4.4 mmHg FINDINGS LEFT VENTRICLE The left ventricular systolic function is low normal with an estimated ejection fraction in the rang e of 50- 55%. Normal left ventricular size. Wall thickness is normal. No regional wall motion abnormalities are present. RIGHT VENTRICLE Normal right ventricular size and systolic function. LEFT ATRIUM The left atrial size is mildly dilated. RIGHT ATRIUM The right atrial size is normal. ATRIAL SEPTUM Normal atrial septal thickness without atrial level shunting by limited color doppler interrogation. AORTA The aortic root and proximal ascending aorta are normal in size on limited imaging. MITRAL VALVE Structurally normal mitral valve. No mitral valve stenosis or regurgitation. AORTIC VALVE Trileaflet aortic valve. Aortic valve sclerosis is present. Mild aortic valve stenosis. Aortic valve area is 0.99 cm. Aortic valve mean gradient is 11 mmHg. TRICUSPID VALVE Structurally normal tricuspid valve. No tricuspid valve stenosis or regurgitation. PULMONARY VALVE Trivial pulmonary valve regurgitation. VESSELS The inferior vena cava is normal in size. PERICARDIUM No pericardial effusion. Juanjo Chamberlain MD, FACC (Electronically Signed) Final Date:14 March 2018 13:47
[2018-03-15] MEDS: amLODIPine 5 MG Tablet PO SCH (09:22)
[2018-03-15] MEDS: Senna/Docusate Sodium 8.6/50 MG Tablet PO SCH (09:22)
[2018-03-15] MEDS: Budesonide-Formoterol 160/4.5 MCG 6 GM Inhaler INH SCH (09:23)
[2018-03-15] MEDS: Heparin - SQ 10,000 UNITS/ML Vial SQ SCH (09:28)
--- NOTE | 2018-03-15 10:11 | P.PNNEU ---
Subjective Subjective Comments: No cp, no dyspnea, no shane, no focal weakness, no vision loss. Denies any neck pain or radicular symptomatology Active Medications: Active Medications Acetaminophen (Tylenol) 650 mg PO Q4H PRN PRN Reason: Temp > 100.4 Al Hydroxide/Mg Hydroxide (Milk Of Asim Murphy) 30 ml PO Q12H PRN PRN Reason: Mild Constipation Albuterol (Ventolin Hfa Inh) 2 puff INH Q4HR PRN PRN Reason: Shortness Of Breath Or Wheezing Alprazolam (Xanax) 0.25 mg PO BID PRN PRN Reason: anxiety Amlodipine Besylate (Norvasc) 5 mg PO DAILY [facility] Last Admin: 03/15/18 09:22 Dose: 5 mg Aspirin (Ecotrin) 81 mg PO DAILY [facility] Last Admin: 03/15/18 09:22 Dose: 81 mg Atorvastatin Calcium (Lipitor) 40 mg PO HS [facility] Last Admin: 03/14/18 21:53 Dose: 40 mg Budesonide/Formoterol Fumarate (Symbicort 160/4.5 Mcg Inh) 1 puff INH BID [facility] Last Admin: 03/15/18 09:23 Dose: 1 puff Clopidogrel Bisulfate (Plavix) 75 mg PO DAILY [facility] Last Admin: 03/15/18 09:22 Dose: 75 mg Heparin Sodium (Porcine) (Heparin Inj) 5,000 units SQ Q12HR [facility] Last Admin: 03/15/18 09:28 Dose: Not Given Meclizine HCl (Antivert) 25 mg PO Q6H PRN PRN Reason: DIZZINESS Ondansetron HCl (Zofran Inj) 4 mg IV.PUSH Q6H PRN PRN Reason: NAUSEA OR VOMITING Senna/Docusate Sodium (Xiomara-Colace) 1 tab PO BID [facility] Last Admin: 03/15/18 09:22 Dose: 1 tab Sennosides (Senokot) 17.2 mg PO Q12H PRN PRN Reason: Moderate Constipation Sodium Chloride (Ns Flush) 2 ml IV.FLUSH BID [facility] Last Admin: 03/15/18 09:28 Dose: 2 ml Sodium Chloride (Ns Flush) 2 ml IV.FLUSH PRN PRN PRN Reason: FLUSH AFTER USING IV ACCESS Allergies/Adverse Reactions: Allergies Allergy/AdvReac Type Severity Reaction Status Date / Time amiodarone Allergy Severe Rash Verified 03/12/18 16:27 furosemide Allergy Severe Rash Verified 03/12/18 16:27 lisinopril Allergy Severe Rash Verified 03/12/18 16:27 Sulfa (Sulfonamide Allergy Severe Hives Verified 03/12/18 16:27 Antibiotics) Review of Systems All other systems reviewed negative except as stated in HPI Physical Exam Vital signs: Vital Signs 03/14/18 12:00 03/14/18 16:00 03/14/18 20:00 Temperature 98 F 98.6 F 98.2 F Pulse Rate 80 51 L 53 L Respiratory Rate 16 20 18 Blood Pressure 142/65 H 144/67 H 128/61 Pulse Oximetry 100 96 96 03/14/18 23:50 03/15/18 03:50 03/15/18 04:00 Temperature 97.5 F L 97.8 F Pulse Rate 66 46 L 48 L Respiratory Rate 18 17 Blood Pressure 130/60 124/75 Pulse Oximetry 96 98 03/15/18 08:00 Temperature 97.7 F Pulse Rate 65 Respiratory Rate 18 Blood Pressure 158/74 H Pulse Oximetry 98 Intake & Output 03/14/18 03/15/18 03/15/18 18:59 06:59 18:59 Intake Total 600 / 600 Output Total 850 / 850 Balance -250 / -250 Weight 103.6 kg Intake: Oral 600 / 600 Output: Urine 850 / 850 Other: Date of Last Bowel Movement 03/12/18 03/14/18 # Bowel Movements 0 Narrative: GENERAL: in NAD, mildly obese SKIN: Warm and dry. HEAD: Atraumatic. Normocephalic. EYES: Pupils equal and round. ENT: No nasal bleeding or discharge. NECK: Trachea midline. No JVD. CARDIOVASCULAR: Regular rate and rhythm. RESPIRATORY: No accessory muscle use. MUSCULOSKELETAL: Extremities without clubbing, cyanosis, or edema. No obvious deformities. NEUROLOGICAL: Awake and alert. No aphasia, oriented x3. No facial asymmetry. Motor grossly within normal limits. Five out of 5 muscle strength in the arms and legs. Tone normal in all 4 limbs, Sensory normal in all 4 extremities, gait not assessed secondary fall risk PSYCHIATRIC: Appropriate mood and affect; insight and judgment normal. - Constitutional no acute distress - Routine HEENT Exam Head: Present: normocephalic Eye: Present: EOMI Review/Management - Diagnosis (1) Gait disorder Code(s): R26.9 - Unspecified abnormalities of gait and mobility Status: Acute Current Visit: Yes (2) Chronic back pain Code(s): M54.9 - Dorsalgia, unspecified; G89.29 - Other chronic pain Status: Acute Current Visit: Yes (3) Peripheral vertigo Code(s): H81.399 - Other peripheral vertigo, unspecified ear Status: Acute Current Visit: Yes (4) Symptomatic bradycardia Code(s): R00.1 - Bradycardia, unspecified Status: Acute Current Visit: Yes (5) Dizziness Code(s): R42 - Dizziness and giddiness Status: Acute Current Visit: Yes (6) Cervical spondylosis Code(s): M47.812 - Spondylosis without myelopathy or radiculopathy, cervical region Status: Acute Current Visit: Yes - Review/Management Plan: Chronic gait imbalance. Agree with cardiology likely related to vestibular dysfunction Additional etiologies would include emerging cerebellar disease, myelopathy She also suffers from chronic low back pain and recent radiofrequency ablation performed She is followed by cardiology and followed by vascular surgery who she recently saw and states her carotids at 50% or less stenosis Recommendation Cervical stenosis. She states she is eval by neurosurgery this morning. Not interested in surgery Pulse in the 40s at times. May consider Holter monitor or event monitor follow- up with cardiology outpatient Can be discharged from neurologic standpoint follow-up in the outpatient setting Outpatient balance therapy
--- NOTE | 2018-03-15 11:48 | P.DS ---
Date of admission: 03/14/18 12:26 Primary care physician: No Primary Care Physician Brief History from admission: This patient is a 68-year-old female with a diagnosis of coronary artery disease status post CABG, history of right carotid endarterectomy, dyslipidemia , hypertension, bradycardia with current loop recorder in place. The patient presented to [facility] after a presyncopal episode. The patient states that prior to this presyncopal episode she had a previous episode approximately 1 year ago. DS: Medications - Discharge Medications Prescriptions: meclizine 25 mg PO Q6H PRN #60 tab PRN Reason: Dizziness DS: Summary Hospital Course: 1. Presyncope possibly secondary to vestibular dysfunction 2. Chronic bradycardia This patient is a 68-year-old female with a diagnosis of coronary artery disease status post CABG, history of right carotid endarterectomy, dyslipidemia , hypertension, bradycardia with current loop recorder in place. The patient presented to [facility] after a presyncopal episode. The patient states that prior to this presyncopal episode she had a previous episode approximately 1 year ago. During auscultation the patient has been monitored on telemetry and her heart rate has been in the 40s to low 60s. EEG showed normal sinus rhythm, bradycardia, no acute ST segment or T wave changes. Troponins were negative. As per the patient her loop recorder was checked which not show any significant events. Cardiology was consulted to evaluate the patient however they do not believe a cardiac etiology is responsible for the patient's symptoms. Neurology was consulted and the patient subsequently underwent MRI imaging of the brain, C and T-spine. CT scan of the head did not show any significant abnormalities, MRI of the brain did not show any acute abnormalities. Significant findings were found on the C-spine MRI which showed stenosis around C5-C6. Neurosurgery was consulted and the patient was then sent to [facility] to be evaluated by the neurosurgical team. The patient does not want any neurosurgical intervention at this point and currently she does not have any upper extremity weakness, pain or neck pain. She has been a symptomatic since after being admitted. She can follow-up with her primary care doctor in the next 1 week. She can also continue to follow-up outpatient with cardiology given her history of coronary artery disease and chronic bradycardia. At this time cardiology does not believe the patient needs a pacemaker and this episode likely was not from a cardiac etiology. Neurology believes the patient symptoms may possibly be related to vestibular dysfunction. Patient has been on meclizine while in house she will be discharged on meclizine. She was advised to seek medical attention if she experiences another presyncopal or syncopal episode. Patient was advised not to drive by the cardiology team, the patient understands these recommendations. 3. Coronary artery disease status post CABG 4. History of carotid endarterectomy 5. Dyslipidemia Patient can continue aspirin, Plavix, statin. - Time Spent with Patient Total time spent providing and/or coordinating discharge services: Greater than 30 minutes Exam Vital signs: Vital Signs 03/14/18 12:00 03/14/18 16:00 03/14/18 20:00 Temperature 98 F 98.6 F 98.2 F Pulse Rate 80 51 L 53 L Respiratory Rate 16 20 18 Blood Pressure 142/65 H 144/67 H 128/61 Pulse Oximetry 100 96 96 03/14/18 23:50 03/15/18 03:50 03/15/18 04:00 Temperature 97.5 F L 97.8 F Pulse Rate 66 46 L 48 L Respiratory Rate 18 17 Blood Pressure 130/60 124/75 Pulse Oximetry 96 98 03/15/18 08:00 Temperature 97.7 F Pulse Rate 53 L Respiratory Rate 18 Blood Pressure 158/74 H Pulse Oximetry 98 Intake & Output 03/14/18 03/15/18 03/15/18 18:59 06:59 18:59 Intake Total 600 / 600 Output Total 850 / 850 Balance -250 / -250 Weight 103.6 kg Intake: Oral 600 / 600 Output: Urine 850 / 850 Other: Date of Last Bowel Movement 03/12/18 03/14/18 # Bowel Movements 0 Narrative: General patient in no acute distress HEENT extraocular movements are intact, clear oropharyngeal mucosa, no JVD Cardiovascular S1-S2 audible Respiratory clear to auscultation bilaterally Abdomen soft, nontender, nondistended, normal bowel sounds Extremities no edema 2+ distal pulses in bilateral upper and lower extremities Neuro no neurological deficits. Results Procedures completed during hospitalization: None - Impressions ITS Impressions Head CT 03/13/18 00:00 CONCLUSION: 1. Stable unremarkable noncontrast head CT. . Cervical Spine MRI 03/14/18 07:05 CONCLUSION: 1. Radiographic significant spinal stenosis C5-C6 central to right-sided. Thecal sac is effaced at this level. There is no increased signal in the cord at this level. 2. Spinal cord appears normal in size distal to this. Head MRI 03/14/18 07:06 CONCLUSION: 1. Minimal periventricular white matter changes, otherwise negative. There is no parenchymal hemorrhage, acute infarction or mass lesion. Thoracic Spine MRI 03/14/18 07:06 CONCLUSION: 1. Mild degenerative changes. There is no significant encroachment on the thecal space. 2. Signal intensity cord is normal. 3. Conus appears unremarkable. Discharge Plan - Discharge Disposition Patient Disposition: 01 Discharge Home - Discharge Condition Condition: Good - Discharge Order Discharge Orders: Discharge Order (Routine); Ordered 03/15/18 Ordered By: Jeffrey Campbell - Physicians Team Primary Care Provider: Primary Care Selene Busby Attending Provider: Jeffrey Campbell Other Providers: Jaxson Barker DO ; Nader Lau MD ; Dennis Rodrigues MD - Rxs /Orders / Referrals /Forms Prescriptions: New meclizine 25 mg Tablet 25 mg PO Q6H PRN (Reason: Dizziness) Qty: 60 RF: 0 Continue albuterol sulfate 90 mcg/actuation Hfa Aerosol Inhaler 2 puff Inhalation Q4HR PRN (Reason: Shortness Of Breath Or Wheezing) alprazolam [Xanax] 0.25 mg tablet 0.25 mg PO BID PRN (Reason: anxiety) Qty: 30 RF: 0 amlodipine [Norvasc] 10 mg Tablet 5 mg PO DAILY aspirin [Aspirin Low Dose] 81 mg Tablet,Delayed Release (Dr/Ec) 81 mg PO DAILY atorvastatin [Lipitor] 40 mg Tablet 40 mg PO HS budesonide-formoterol [Symbicort] 160-4.5 mcg/actuation Hfa Aerosol Inhaler 1 puff INHALATION BID clopidogrel [Plavix] 75 mg Tablet 75 mg PO DAILY diphenhydramine HCl [Benadryl] 25 mg Capsule 25 mg PO HS nystatin 100,000 unit/gram Powder 1 applic TOPICAL BID Referrals: Primary Care Selene Busby [Primary Care Provider] - See Instructions
== END 2018-03-15 12:49 | disposition home or self-care (01) ==
LOC: PHEDDLT 15:31 → PH3 19:17 → N04 03-14 16:52
PROVIDERS: ADMIT Hospitalist; ATTEND Hospitalist